=== PATIENT | female | born 1935 | race Caucasian/White ===

== ENCOUNTER 2017-10-23 19:41 | Inpatient (IN) | payer MEDICARE, OTHER ==
[2017-10-23] MEDS ORDERED: ACETAMINOPHEN 325 MG TABLET PO ONE ×2 (20:38→21:45)
[2017-10-23] MEDS ORDERED: IPRATROPIUM/ALBUTEROL 0.5-2.5 MG/3 ML AMPUL NEB ONE ×2 (20:39)
[2017-10-23] MEDS ORDERED: METHYLPREDNISOLONE INJ 125 MG/2 ML SDV IV ONE (20:39)
--- NOTE | 2017-10-23 20:43 | ER Document Report ---
ED Respiratory Problem - General Chief Complaint: Shortness Of Breath Stated Complaint: WEAK Time Seen by Provider: 10/23/17 20:40 Notes: Patient is an 82-year-old female with a history of COPD and smoking that comes emergency department for chief complaint of difficulty breathing, coughing up yellow sputum, and feeling run down for the past 2 days. She comes from home, son at bedside. Only other past medical history reported is irritable bowel. She has not had the influenza or pneumonia vaccines. She has had pneumonia in the past. TRAVEL OUTSIDE OF THE [place] IN LAST 30 DAYS: No - Related Data Allergies/Adverse Reactions: doxycycline [Doxycycline] Allergy (Mild, Verified 07/01/15 07:11) n/v Sulfa (Sulfonamide Antibiotics) Allergy (Mild, Verified 07/01/15 07:11) n/v Past Medical History - General Information source: Patient, Relative - Social History Smoking Status: Current Every Day Smoker Smoking Education Provided: Yes - <3 min Frequency of alcohol use: None Drug Abuse: None Lives with: Alone Family History: Reviewed & Not Pertinent - Past Medical History Cardiac Medical History: Denies: Hx Coronary Artery Disease, Hx Heart Attack, Hx Hypertension Pulmonary Medical History: Reports: Hx COPD Denies: Hx Asthma, Hx Bronchitis, Hx Pneumonia Neurological Medical History: Denies: Hx Cerebrovascular Accident, Hx Seizures Musculoskeltal Medical History: Reports Hx Arthritis Past Surgical History: Denies: Hx Hysterectomy, Hx Pacemaker - Immunizations Hx Diphtheria, Pertussis, Tetanus Vaccination: No Hx Pneumococcal Vaccination: 05/13/15 Review of Systems - Review of Systems Constitutional: See HPI EENT: No symptoms reported Cardiovascular: No symptoms reported Respiratory: See HPI Gastrointestinal: No symptoms reported Genitourinary: No symptoms reported Female Genitourinary: No symptoms reported Musculoskeletal: No symptoms reported Skin: No symptoms reported Hematologic/Lymphatic: No symptoms reported Neurological/Psychological: No symptoms reported Physical Exam - Vital signs Vitals: Temp Pulse Resp BP Pulse Ox 100.0 F 102 H 28 H 151/61 H 88 L 10/23/17 20:03 10/23/17 20:03 10/23/17 20:03 10/23/17 20:03 10/23/17 20:03 Interpretation: Normal - General General appearance: Alert In distress: Mild - Patient has tachypnea and labored breathing but is otherwise in no distress - HEENT Head: Normocephalic, Atraumatic Eyes: Normal Pupils: PERRL - Respiratory Respiratory status: Respiratory distress - Mild respiratory distress, Labored, Tachypnea Chest status: Nontender Breath sounds: Decreased air movement, Wheezing Chest palpation: Normal - Cardiovascular Rhythm: Regular, Tachycardia Heart sounds: Normal auscultation, S1 appreciated, S2 appreciated Murmur: No Normal capillary refill: Yes - Abdominal Inspection: Normal Distension: No distension Bowel sounds: Normal Tenderness: Nontender Organomegaly: No organomegaly - Back Back: Normal, Nontender - Extremities General upper extremity: Normal inspection, Nontender, Normal color, Normal ROM , Normal temperature General lower extremity: Normal inspection, Nontender, Normal color, Normal ROM , Normal temperature, Normal weight bearing. No: Noble's sign - Neurological Neuro grossly intact: Yes Cognition: Normal Orientation: AAOx4 Jill Coma Scale Eye Opening: Spontaneous Jill Coma Scale Verbal: Oriented Jill Coma Scale Motor: Obeys Commands Victor Coma Scale Total: 15 Speech: Normal Motor strength normal: LUE, RUE, LLE, RLE Sensory: Normal - Psychological Associated symptoms: Normal affect, Normal mood - Skin Skin Temperature: Warm Skin Moisture: Dry Skin Color: Normal Course - Re-evaluation Re-evalutation: On initial presentation patient with tachypnea, labored breathing, decreased breath sounds, expiratory wheezes, hypoxia on room air. She does not have home oxygen. Consistent with COPD exacerbation, possibly underlying pneumonia. Patient immediately placed on monitor, oxygen, given DuoNeb treatments, magnesium, Solu-Medrol, will closely reassess. On repeat evaluation patient much improved, tachypnea resolved, lung sounds much improved. Patient mildly tachycardic, not hypoxic on oxygen. CBC unremarkable, chemistry unremarkable, troponin is indeterminate similar to prior, chest x-ray shows COPD but no acute process. Venous blood gas is unremarkable. On reevaluation patient continues to be improved, she is asking to go home. We attempted to turn off the oxygen, however patient swiftly desaturated down to 85 % just while sitting. Was unable to get up and ambulate because of this. Placed back on oxygen, she slowly trended back upwards into the 90s. Discussed with her family and patient after this, will discuss with hospitalist for admission for COPD exacerbation with hypoxia. 10/23/[address] Lemon, internal medicine, patient will be admitted to telemetry observation. Patient and family state understanding and agreement. - Vital Signs Vital signs: Temp Pulse Resp BP Pulse Ox 100.0 F 102 H 24 H 153/75 H 94 10/23/17 20:03 10/23/17 20:03 10/23/17 23:00 10/23/17 20:45 10/23/17 23:00 - Laboratory Result Diagrams: 10/23/17 21:08 10/23/17 21:08 Laboratory results interpreted by me: 10/23/17 10/23/17 21:08 21:08 Lymphocytes % 9.4 L Sodium 135.1 L Est GFR ( Amer) 58 L Est GFR (Non-Af Amer) 48 L Direct Bilirubin 0.6 H Discharge - Discharge Clinical Impression: COPD exacerbation, Hypoxia, Wheezing Condition: Stable Disposition: ADMITTED OBSERVATION Admitting Provider: Hospitalist Unit Admitted: Telemetry
--- NOTE | 2017-10-23 20:59 | RADIOLOGY REPORT (SQ) ---
EXAM DESCRIPTION: CHEST SINGLE VIEW COMPLETED DATE/TIME: 10/23/2017 8:51 pm REASON FOR STUDY: productive cough, hypoxia COMPARISON: 12/08/2014 EXAM PARAMETERS: NUMBER OF VIEWS: One view. TECHNIQUE: Single frontal radiographic view of the chest acquired. RADIATION DOSE: NA LIMITATIONS: None. FINDINGS: LUNGS AND PLEURA: There is considerable lucency in the upper lobes. What appear to be chr onic interstitial changes are present in the right lower lung field. No acute infiltrate is seen. T here is no pleural effusion. MEDIASTINUM AND HILAR STRUCTURES: No masses. Contour normal. HEART AND VASCULAR STRUCTURES: Heart normal in size. Normal vasculature. BONES: No acute findings. HARDWARE: None in the chest. OTHER: No other significant finding. IMPRESSION: Pulmonary emphysema and chronic interstitial changes. TECHNICAL DOCUMENTATION: JOB ID: [id number] [employer]- All Rights Reserved Reading location - IP/workstation name: [email or web address]
[2017-10-23] MEDS: MAGNESIUM SULFATE/D5W 1 GM/100 ML RTUPB IV SCH ×2 (21:16→22:30)
[2017-10-23 21:20] LABS: ABSOLUTE BASOPHILS # (AUTO) 0.1 10^3/uL (0.0-0.2); ABSOLUTE EOSINOPHILS # (AUTO) 0.1 10^3/uL (0.0-0.6); ABSOLUTE LYMPHOCYTES (AUTO) 0.9 10^3/uL (0.5-4.7); ABSOLUTE MONOCYTES (AUTO) 1.1 10^3/uL (0.1-1.4); BASOPHILS % (AUTO) 0.8 % (0-2); EOSINOPHILS % (AUTO) 0.7 % (0-6); HEMATOCRIT 44.8 % (36.0-47.0); LYMPHOCYTES % (AUTO) 9.4 % (13-45); MEAN CORPUSCULAR HEMOGLOBIN 29.2 pg (27.0-33.4); MEAN CORPUSCULAR HGB CONC 33.5 g/dL (32.0-36.0); MEAN CORPUSCULAR VOLUME 87 fl (80-97); MONOCYTES % (AUTO) 11.9 % (3-13); PLATELET COUNT 168 10^3/uL (150-450); RED BLOOD COUNT 5.14 10^6/uL (3.72-5.28); SEGMENTED NEUTROPHILS % (AUTO) 77.2 % (42-78); TOTAL CELLS COUNTED % (AUTO) 100 %; WHITE BLOOD COUNT 9.1 10^3/uL (4.0-10.5)
[2017-10-23 21:24] LABS: VENOUS BLOOD BASE EXCESS -1.3 mmol/L; VENOUS BLOOD HCO3 25.2 mmol/L (20-32); VENOUS BLOOD PCO2 48.7 mmHg (35-63); VENOUS BLOOD PH 7.33 (7.30-7.42)
[2017-10-23 21:28] LABS: INTERNATIONAL RATION (INR) 1.01
[2017-10-23 21:40] LABS: ALANINE AMINOTRANSFERASE 32 U/L (9-52); ALBUMIN 4.3 g/dL (3.5-5.0); ALKALINE PHOSPHATASE 68 U/L (38-126); ANION GAP 9 (5-19); ASPARTATE AMINO TRANSFERASE 29 U/L (14-36); BILIRUBIN,DIRECT 0.6 mg/dL (0.0-0.4); BILIRUBIN,TOTAL 0.7 mg/dL (0.2-1.3); BLOOD UREA NITROGEN 19 mg/dL (7-20); CALCIUM 9.8 mg/dL (8.4-10.2); CARBON DIOXIDE 26 mmol/L (22-30); CHLORIDE 100 mmol/L (98-107); GLUCOSE 108 mg/dL (75-110); POTASSIUM 4.6 mmol/L (3.6-5.0); SODIUM 135.1 mmol/L (137-145); TOTAL PROTEIN 7.2 g/dL (6.3-8.2)
[2017-10-23] MEDS ORDERED: NORMAL SALINE 1000 ML 500 ML IV ONE (22:01)
[2017-10-24] MEDS ORDERED: BISACODYL 10 MG SUPP.RECT PR PRN (00:14)
[2017-10-24] MEDS ORDERED: GUAIFENESIN SYRP 200 MG/10 ML UDC PO PRN (00:15)
[2017-10-24] MEDS ORDERED: CHLORPHENIRAMINE MALEATE 4 MG TABLET PO ONE (00:15)
[2017-10-24] MEDS ORDERED: HYDRALAZINE HCL INJ/PF 20 MG/1 ML SDV IV PRN (00:15)
[2017-10-24] MEDS ORDERED: IPRATROPIUM/ALBUTEROL 0.5-2.5 MG/3 ML AMPUL NEB PRN (00:15)
[2017-10-24] MEDS ORDERED: ACETAMINOPHEN 325 MG TABLET PO PRN (00:15)
[2017-10-24] MEDS ORDERED: LACTULOSE SYRUP 20 GM/30 ML UDCUP PO ONE (00:18)
[2017-10-24] MEDS: IPRATROPIUM/ALBUTEROL 0.5-2.5 MG/3 ML AMPUL NEB SCH ×4 (02:11→20:37)
[2017-10-24] MEDS: LEVOFLOXACIN 750 MG/D5W RTU 750 MG/150 ML RTUPB IV SCH (05:00)
--- NOTE | 2017-10-24 05:39 | PDOC H&P ---
History of Present Illness Admission Date/PCP: 10/23/17 23:55 Patient complains of: Shortness of breath History of Present Illness: Paulo CORCORAN is a 82 year old female with a past medical history of COPD, chronic bronchitis and tobacco dependence. Patient presents with shortness of breath and nonproductive cough 4 days after cleaning out her garage. Patient believes dust within the garage has triggered her symptoms., Patient denies recent change in medications or infectious contacts, no GERD or chest pain. In the emergency room she has an unremarkable workup but is found to have oxygen saturations of 85% on room air and coarse breath sounds. She started on albuterol and Atrovent supplemental oxygen refer to the hospitalist for admission. Past Medical History Cardiac Medical History: Denies: Coronary Artery Disease, Myocardial Infarction, Hypertension Pulmonary Medical History: Reports: Chronic Obstructive Pulmonary Disease (COPD) Denies: Asthma, Bronchitis, Pneumonia Neurological Medical History: Denies: Seizures Musculoskeltal Medical History: Reports: Arthritis Psychiatric Medical History: Reports: Tobacco Dependency Hematology: Reports: Anemia Past Surgical History Past Surgical History: Denies: Hysterectomy, Pacemaker Social History Information Source: Patient Lives with: Alone Smoking Status: Current Every Day Smoker Frequency of Alcohol Use: Occasional Hx Recreational Drug Use: No Hx Prescription Drug Abuse: No - Advance Directive Resuscitation Status: Full Code Family History Family History: COPD, Other Parental Family History Reviewed: Yes Children Family History Reviewed: Yes Sibling(s) Family History Reviewed.: Yes Medication/Allergy Home Medications: Cholecalciferol (Vitamin D3) [Vitamin D] 1,000 unit PO DAILY 12/08/14 Albuterol Sulfate [Proair HFA Inhalation Aerosol 8.5 gm MDI] 2 puff IH Q6HP PRN #1 hfa.aer.ad 12/12/14 Aspirin [Aspirin 81 mg Chewable Tablet] 81 mg PO DAILY #0 tab.chew 12/12/14 Bisacodyl [Dulcolax 10 mg Supp.rect] 10 mg NV DAILYP PRN #30 supp.rect 12/12/14 Mv-Min/FA/Vit K/Lycop/Lut/Zeax [Ocuvite Eye + Multi Tablet] 1 each PO DAILY Allergies/Adverse Reactions: doxycycline [Doxycycline] Allergy (Mild, Verified 07/01/15 07:11) n/v Sulfa (Sulfonamide Antibiotics) Allergy (Mild, Verified 07/01/15 07:11) n/v Review of Systems Constitutional: ABSENT: chills, fever(s), headache(s), weight gain, weight loss Eyes: ABSENT: visual disturbances Ears: ABSENT: hearing changes Cardiovascular: ABSENT: chest pain, dyspnea on exertion, edema, orthropnea, palpitations Respiratory: ABSENT: cough, hemoptysis Gastrointestinal: PRESENT: constipation. ABSENT: abdominal pain, diarrhea, hematemesis, hematochezia, nausea, vomiting Genitourinary: ABSENT: dysuria, hematuria Musculoskeletal: ABSENT: joint swelling Integumentary: ABSENT: rash, wounds Neurological: ABSENT: abnormal gait, abnormal speech, confusion, dizziness, focal weakness, syncope Psychiatric: ABSENT: anxiety, depression, homidical ideation, suicidal ideation Endocrine: ABSENT: cold intolerance, heat intolerance, polydipsia, polyuria Hematologic/Lymphatic: ABSENT: easy bleeding, easy bruising Physical Exam Vital Signs: Temp Pulse Resp BP Pulse Ox 100.0 F 80 16 153/75 H 95 10/23/17 20:03 10/24/17 02:11 10/24/17 02:11 10/23/17 20:45 10/24/17 02:11 General appearance: PRESENT: cooperative, mild distress, thin Head exam: PRESENT: atraumatic, normocephalic Eye exam: PRESENT: conjunctiva pink, EOMI, PERRLA. ABSENT: scleral icterus Ear exam: PRESENT: normal external ear exam Mouth exam: PRESENT: moist, tongue midline Neck exam: ABSENT: carotid bruit, JVD, lymphadenopathy, thyromegaly Respiratory exam: PRESENT: accessory muscle use, clear to auscultation cheri, decreased breath sounds, prolonged expiratory phas, retraction, symmetrical, tachypnea. ABSENT: rales, rhonchi, wheezes Cardiovascular exam: PRESENT: RRR. ABSENT: diastolic murmur, rubs, systolic murmur Pulses: PRESENT: normal dorsalis pedis pul Vascular exam: PRESENT: normal capillary refill GI/Abdominal exam: PRESENT: normal bowel sounds, soft. ABSENT: distended, guarding, mass, organolmegaly, rebound, tenderness Rectal exam: PRESENT: deferred Extremities exam: PRESENT: full ROM. ABSENT: calf tenderness, clubbing, pedal edema Neurological exam: PRESENT: alert, awake, oriented to person, oriented to place , oriented to time, oriented to situation, CN II-XII grossly intact. ABSENT: motor sensory deficit Psychiatric exam: PRESENT: appropriate affect, normal mood. ABSENT: homicidal ideation, suicidal ideation Skin exam: PRESENT: dry, intact, warm. ABSENT: cyanosis, rash Results Impressions: Chest X-Ray 10/23/17 20:39 IMPRESSION: Pulmonary emphysema and chronic interstitial changes. Assessment & Plan - Diagnosis (1) COPD exacerbation Is this a current diagnosis for this admission?: Yes Plan: Secondary to bronchitis. Observation on a monitored bed, flutter valve, supplemental oxygen, empiric antibiotic, albuterol and Atrovent, consider prednisone. (2) Hypoxia Is this a current diagnosis for this admission?: Yes Plan: Supplemental oxygen, incentive spirometry. (3) Tobacco abuse Is this a current diagnosis for this admission?: Yes Plan: Tobacco Dependence patient received tobacco cessation counseling and offered nicotine replacement options (4) Acute exacerbation of chronic bronchitis Is this a current diagnosis for this admission?: Yes Plan: Please see #1 - Time Time Spent: 30 to 50 Minutes
[2017-10-24] MEDS: HEPARIN SOD (PORCINE) 5,000 UNIT/ML 1 ML SYRINGE SUBCUT SCH ×3 (05:55→22:16)
--- NOTE | 2017-10-24 08:18 | EKG REPORT ---
SEVERITY:- ABNORMAL ECG - SINUS RHYTHM BORDERLINE INFERIOR Q WAVES NONSPECIFIC ST-T CHANGES- INFERIOR-LATERAL LEADS : Confirmed by: Krishna Reina MD 24-Oct-2017 08:17:26
[2017-10-24] MEDS ORDERED: [UNRECOGNIZED DRUG - OTHER] PO SCH (10:00)
[2017-10-24] MEDS ORDERED: CHOLECALCIFEROL 1000 UNIT PO SCH (10:00)
[2017-10-24] MEDS ORDERED: INFLUENZA ADLT QUAD (36MOS+) 2017-18 VAC 0.5 ML SYR IM PRN (15:28)
[2017-10-24] MEDS: PSYLLIUM SEED-SF 5.85 GM PACKET PO SCH (16:38)
[2017-10-24] MEDS: CHOLECALCIFEROL (D3) 1,000 UNIT TABLET PO SCH (16:40)
[2017-10-24] MEDS: METHYLPREDNISOLONE INJ 40 MG/1 ML SDV IV SCH ×2 (16:40→22:16)
[2017-10-24] MEDS: ASPIRIN 81 MG TABLET, CHEWABLE PO SCH (16:41)
[2017-10-24] MEDS: FLUTICASONE NASAL SPRAY 50 MCG/SPRY 120 SPRAY/16 GM NASL SCH ×2 (16:41→22:16)
--- NOTE | 2017-10-24 17:52 | PDOC PROGRESS REPORT ---
Subjective Progress Note for:: 10/24/17 Subjective:: The patient is an 82-year-old female with past medical history of COPD and continuous tobacco dependence who was admitted on 10/23/17 for a COPD exacerbation. She is seen on morning rounds. She is found still in the emergency department sitting up to the edge of the stretcher on supplemental oxygen at 3 L/min. The patient is not home O2 dependent. She states that she felt like she was improving overnight but she has worsened this morning. She complains of continued dyspnea with minimal activity and productive cough. She denies chest pain, palpitations, and orthopnea. She has no other questions or concerns at this time. Reason For Visit: ACUTE BRONCHITIS, COPD EXACERBATION, TOBACCO Physical Exam Vital Signs: Temp Pulse Resp BP Pulse Ox 98.5 F 91 16 118/70 99 10/24/17 15:41 10/24/17 15:41 10/24/17 15:41 10/24/17 15:41 10/24/17 17:06 Intake & Output 10/23/17 10/24/17 10/25/17 06:59 06:59 06:59 Weight 65.4 kg General appearance: PRESENT: no acute distress, well-developed, well-nourished Head exam: PRESENT: atraumatic, normocephalic Eye exam: PRESENT: conjunctiva pink, EOMI, PERRLA. ABSENT: scleral icterus Ear exam: PRESENT: normal external ear exam Mouth exam: PRESENT: moist, tongue midline Neck exam: ABSENT: carotid bruit, JVD, lymphadenopathy, thyromegaly Respiratory exam: PRESENT: prolonged expiratory phas, symmetrical, unlabored, other. ABSENT: rales, rhonchi, wheezes Cardiovascular exam: PRESENT: RRR, +S1, +S2 - Supplemental oxygen via nasal cannula 3 L/min, tachycardia. ABSENT: diastolic murmur, rubs, systolic murmur Pulses: PRESENT: normal dorsalis pedis pul Vascular exam: PRESENT: normal capillary refill GI/Abdominal exam: PRESENT: normal bowel sounds, soft. ABSENT: distended, guarding, mass, organolmegaly, rebound, tenderness Rectal exam: PRESENT: deferred Extremities exam: PRESENT: full ROM. ABSENT: calf tenderness, clubbing, pedal edema Neurological exam: PRESENT: alert, awake, oriented to person, oriented to place , oriented to time, oriented to situation, CN II-XII grossly intact. ABSENT: motor sensory deficit Psychiatric exam: PRESENT: appropriate affect, normal mood. ABSENT: homicidal ideation, suicidal ideation Skin exam: PRESENT: dry, intact, warm. ABSENT: cyanosis, rash Results Laboratory Results: 10/24/17 10/24/17 10:16 15:48 Troponin I 0.017 0.014 Impressions: Chest X-Ray 10/23/17 20:39 IMPRESSION: Pulmonary emphysema and chronic interstitial changes. Assessment & Plan - Diagnosis (1) Acute respiratory failure with hypoxia Is this a current diagnosis for this admission?: Yes Plan: The patient was admitted for acute respiratory failure with hypoxia secondary to a COPD exacerbation evidenced by room air oxygen saturation of 85% while in the emergency department with tachycardia and tachypnea. The patient is now oxygen dependent but did not previously require home O2. Blood cultures are pending. Admitted on continuous cardiac telemetry Supplemental oxygen as needed to maintain oxygen saturations greater than 88% The patient has been empirically placed on Levaquin. She is provided scheduled and as needed nebulizer treatments. Continue IV Solu-Medrol 40 mg every 8 hours. Mucinex 600 mg twice daily. Incentive spirometry and flutter valve to bedside. (2) COPD exacerbation Is this a current diagnosis for this admission?: Yes Plan: Plan as above. (3) Tobacco abuse Is this a current diagnosis for this admission?: Yes Plan: Smoking cessation is encouraged and nicotine replacement therapies have been offered. (4) Chronic constipation Is this a current diagnosis for this admission?: Yes Plan: Will continue the patient's home medications. - Time Time Spent with patient: 25-34 minutes Medications reviewed and adjusted accordingly: Yes Anticipated discharge: Home Within: within 48 hours - Inpatient Certification Based on my medical assessment, after consideration of the patient's comorbidities, presenting symptoms, or acuity I expect that the services needed warrant INPATIENT care.: Yes I certify that my determination is in accordance with my understanding of Medicare's requirements for reasonable and necessary INPATIENT services [42 CFR 412.3e].: Yes Medical Necessity: Need for Nebulizer Therapy and Monitoring of Response
[2017-10-24] MEDS: GUAIFENESIN 600 MG TABLET.SA PO SCH (22:16)
[2017-10-25] MEDS: IPRATROPIUM/ALBUTEROL 0.5-2.5 MG/3 ML AMPUL NEB SCH ×4 (02:10→20:11)
[2017-10-25] MEDS: HEPARIN SOD (PORCINE) 5,000 UNIT/ML 1 ML SYRINGE SUBCUT SCH ×3 (06:38→23:32)
[2017-10-25] MEDS: METHYLPREDNISOLONE INJ 40 MG/1 ML SDV IV SCH (06:38)
[2017-10-25 06:47] LABS: HEMATOCRIT 42.7 % (36.0-47.0); MEAN CORPUSCULAR HEMOGLOBIN 28.9 pg (27.0-33.4); MEAN CORPUSCULAR HGB CONC 32.8 g/dL (32.0-36.0); MEAN CORPUSCULAR VOLUME 88 fl (80-97); RED BLOOD COUNT 4.85 10^6/uL (3.72-5.28); RED CELL DISTRIBUTION WIDTH 13.9 % (11.5-14.0); WHITE BLOOD COUNT 13.8 10^3/uL (4.0-10.5)
[2017-10-25 06:53] LABS: ANION GAP 13 (5-19); BLOOD UREA NITROGEN 28 mg/dL (7-20); CALCIUM 9.8 mg/dL (8.4-10.2); CARBON DIOXIDE 24 mmol/L (22-30); CHLORIDE 99 mmol/L (98-107); GLUCOSE 145 mg/dL (75-110); POTASSIUM 4.3 mmol/L (3.6-5.0); SODIUM 135.6 mmol/L (137-145)
[2017-10-25 07:27] LABS: PLATELET COUNT 123 10^3/uL (150-450)
[2017-10-25] MEDS: GUAIFENESIN 600 MG TABLET.SA PO SCH ×2 (09:37→23:32)
[2017-10-25] MEDS: ASPIRIN 81 MG TABLET, CHEWABLE PO SCH (09:38)
[2017-10-25] MEDS: CHOLECALCIFEROL (D3) 1,000 UNIT TABLET PO SCH (09:38)
[2017-10-25] MEDS: FLUTICASONE NASAL SPRAY 50 MCG/SPRY 120 SPRAY/16 GM NASL SCH ×2 (09:40→23:32)
[2017-10-25] MEDS: PSYLLIUM SEED-SF 5.85 GM PACKET PO SCH (09:41)
--- NOTE | 2017-10-25 12:27 | PDOC PROGRESS REPORT ---
Subjective Progress Note for:: 10/25/17 Subjective:: The patient is an 82-year-old female with past medical history of COPD and continuous tobacco dependence who was admitted on 10/23/17 for a COPD exacerbation. She is seen on morning rounds. She is found sitting up to the edge of the bed on supplemental oxygen at 2 L/min. The patient states that she feels much better today. She reports that her dyspnea at rest has entirely resolved and she has been ambulatory to the restroom while on supplemental oxygen without difficulty. She does continue to have a productive cough. She is hopeful that she will be ready to be discharged tomorrow. She has no other questions or concerns. Reason For Visit: ACUTE RESOIRATORY FAILURE WITH HYPOXIA Physical Exam Vital Signs: Temp Pulse Resp BP Pulse Ox 98.8 F 90 22 H 145/63 H 98 10/25/17 07:47 10/25/17 09:09 10/25/17 09:09 10/25/17 07:47 10/25/17 09:09 Intake & Output 10/24/17 10/25/17 10/26/17 06:59 06:59 06:59 Intake Total 874 Balance 874 Weight 66.8 kg General appearance: PRESENT: no acute distress, well-developed, well-nourished Head exam: PRESENT: atraumatic, normocephalic Eye exam: PRESENT: conjunctiva pink, EOMI, PERRLA. ABSENT: scleral icterus Ear exam: PRESENT: normal external ear exam Mouth exam: PRESENT: moist, tongue midline Neck exam: ABSENT: carotid bruit, JVD, lymphadenopathy, thyromegaly Respiratory exam: PRESENT: clear to auscultation cheri, decreased breath sounds - Bibasilar, symmetrical, unlabored. ABSENT: rales, rhonchi, wheezes Cardiovascular exam: PRESENT: RRR, +S1, +S2. ABSENT: diastolic murmur, rubs, systolic murmur Pulses: PRESENT: normal dorsalis pedis pul Vascular exam: PRESENT: normal capillary refill GI/Abdominal exam: PRESENT: normal bowel sounds, soft. ABSENT: distended, guarding, mass, organolmegaly, rebound, tenderness Rectal exam: PRESENT: deferred Extremities exam: PRESENT: full ROM. ABSENT: calf tenderness, clubbing, pedal edema Neurological exam: PRESENT: alert, awake, oriented to person, oriented to place , oriented to time, oriented to situation, CN II-XII grossly intact. ABSENT: motor sensory deficit Psychiatric exam: PRESENT: appropriate affect, normal mood. ABSENT: homicidal ideation, suicidal ideation Skin exam: PRESENT: dry, intact, warm. ABSENT: cyanosis, rash Results Laboratory Results: 10/25/17 05:57 10/25/17 05:57 10/25/17 10/25/17 05:57 05:57 WBC 13.8 H RBC 4.85 Hgb 14.0 Hct 42.7 MCV 88 MCH 28.9 MCHC 32.8 RDW 13.9 Plt Count 123 L Sodium 135.6 L Potassium 4.3 Chloride 99 Carbon Dioxide 24 Anion Gap 13 BUN 28 H Creatinine 0.98 Est GFR ( Amer) > 60 Est GFR (Non-Af Amer) 54 L Glucose 145 H Calcium 9.8 10/24/17 15:48 Troponin I 0.014 Impressions: Chest X-Ray 10/23/17 20:39 IMPRESSION: Pulmonary emphysema and chronic interstitial changes. Assessment & Plan - Diagnosis (1) Acute respiratory failure with hypoxia Is this a current diagnosis for this admission?: Yes Plan: Improved. Blood cultures: No growth at 24 hours. Admitted on continuous cardiac telemetry Supplemental oxygen as needed to maintain oxygen saturations greater than 88%; will ask nursing to attempt to wean oxygen today. Will continue p.o. Levaquin. She is provided scheduled and as needed nebulizer treatments. Will begin to wean steroids today. Mucinex 600 mg twice daily. Incentive spirometry and flutter valve to bedside. (2) COPD exacerbation Is this a current diagnosis for this admission?: Yes Plan: Plan as above. (3) Tobacco abuse Is this a current diagnosis for this admission?: Yes Plan: Smoking cessation is encouraged and nicotine replacement therapies have been offered. (4) Chronic constipation Is this a current diagnosis for this admission?: Yes Plan: Will continue the patient's home medications. - Time Time Spent with patient: 15-24 minutes Medications reviewed and adjusted accordingly: Yes Anticipated discharge: Home Within: within 24 hours
[2017-10-25] MEDS ORDERED: METHYLPREDNISOLONE INJ 40 MG/1 ML SDV IV SCH (22:00)
[2017-10-25] MEDS: LEVOFLOXACIN 750 MG/D5W RTU 750 MG/150 ML RTUPB IV SCH (23:32)
[2017-10-26] MEDS: IPRATROPIUM/ALBUTEROL 0.5-2.5 MG/3 ML AMPUL NEB SCH ×4 (02:31→20:48)
[2017-10-26] MEDS: HEPARIN SOD (PORCINE) 5,000 UNIT/ML 1 ML SYRINGE SUBCUT SCH ×3 (06:31→22:09)
[2017-10-26 06:33] LABS: MEAN CORPUSCULAR HGB CONC 33.2 g/dL (32.0-36.0); MEAN CORPUSCULAR VOLUME 87 fl (80-97); PLATELET COUNT 207 10^3/uL (150-450); RED BLOOD COUNT 4.81 10^6/uL (3.72-5.28); RED CELL DISTRIBUTION WIDTH 13.9 % (11.5-14.0)
[2017-10-26 06:44] LABS: ANION GAP 7 (5-19); BLOOD UREA NITROGEN 27 mg/dL (7-20); CALCIUM 9.9 mg/dL (8.4-10.2); CARBON DIOXIDE 26 mmol/L (22-30); CHLORIDE 103 mmol/L (98-107); GLUCOSE 130 mg/dL (75-110); POTASSIUM 4.6 mmol/L (3.6-5.0); SODIUM 136.1 mmol/L (137-145)
--- NOTE | 2017-10-26 09:36 | Physician Advisory Note ---
Physician Advisor ProgressNote .: Pursuant to the plan for [facility], I have reviewed the medical record for this patient. Physician Advisor Statement: Please continue to document "Acute Bronchitis" dx, to explain reason for abx. Also, it will help the Performance Improvement staff save chart review time if you state explicitly that "this pt did not have sepsis this admission" (or else state that she did, with associated underlying infxn, whether POA, the sepsis criteria used for dx, & any evidence of associated acute organ dysfunction). Thanks! CK
[2017-10-26] MEDS ORDERED: PREDNISONE 20 MG TABLET PO SCH (10:00)
[2017-10-26] MEDS: CHOLECALCIFEROL (D3) 1,000 UNIT TABLET PO SCH (10:13)
[2017-10-26] MEDS: GUAIFENESIN 600 MG TABLET.SA PO SCH ×2 (10:13→22:09)
[2017-10-26] MEDS: ASPIRIN 81 MG TABLET, CHEWABLE PO SCH (10:14)
[2017-10-26] MEDS: FLUTICASONE NASAL SPRAY 50 MCG/SPRY 120 SPRAY/16 GM NASL SCH ×2 (10:14→22:09)
[2017-10-26] MEDS: PSYLLIUM SEED-SF 5.85 GM PACKET PO SCH (10:15)
--- NOTE | 2017-10-26 18:29 | PDOC PROGRESS REPORT ---
Subjective Progress Note for:: 10/26/17 Subjective:: The patient is an 82-year-old female with past medical history of COPD and continuous tobacco dependence who was admitted on 10/23/17 for a COPD exacerbation. She is seen on morning rounds. She is found sitting up to the edge of the bed on supplemental oxygen at 2 L/min. The patient states that she feels worse than the day that she was admitted. She states that she is having significant dyspnea with ambulating just a few feet while on oxygen. She does not understand why she is not getting better. She is very frustrated by this apparent setback. I personally checked her resting room air sat and found it to be 94% with a heart rate in the mid 90s. We ambulated approximately 100 feet; her room air ambulating saturation dropped to 89% she became tachycardic at 103. She was noted to have increased tachypnea and work of breathing. She was replaced on oxygen with prompt resolution of her symptoms. She has no other questions or concerns. Reason For Visit: ACUTE RESOIRATORY FAILURE WITH HYPOXIA Physical Exam Vital Signs: Temp Pulse Resp BP Pulse Ox 98.4 F 91 18 129/54 H 95 10/26/17 15:38 10/26/17 15:38 10/26/17 15:38 10/26/17 15:38 10/26/17 15:38 Intake & Output 10/25/17 10/26/17 10/27/17 06:59 06:59 06:59 Intake Total 874 660 556 Balance 874 660 556 Weight 66.8 kg 67.5 kg General appearance: PRESENT: no acute distress, cooperative, well-developed, well-nourished Head exam: PRESENT: atraumatic, normocephalic Eye exam: PRESENT: conjunctiva pink, EOMI, PERRLA. ABSENT: scleral icterus Ear exam: PRESENT: normal external ear exam Mouth exam: PRESENT: moist, tongue midline Neck exam: ABSENT: carotid bruit, JVD, lymphadenopathy, thyromegaly Respiratory exam: PRESENT: prolonged expiratory phas, symmetrical, unlabored, wheezes - Improved. ABSENT: rales, rhonchi Cardiovascular exam: PRESENT: RRR, +S1, +S2. ABSENT: diastolic murmur, rubs, systolic murmur Pulses: PRESENT: normal dorsalis pedis pul Vascular exam: PRESENT: normal capillary refill GI/Abdominal exam: PRESENT: normal bowel sounds, soft. ABSENT: distended, guarding, mass, organolmegaly, rebound, tenderness Rectal exam: PRESENT: deferred Extremities exam: PRESENT: full ROM. ABSENT: calf tenderness, clubbing, pedal edema Neurological exam: PRESENT: alert, awake, oriented to person, oriented to place , oriented to time, oriented to situation, CN II-XII grossly intact. ABSENT: motor sensory deficit Psychiatric exam: PRESENT: appropriate affect, normal mood. ABSENT: homicidal ideation, suicidal ideation Skin exam: PRESENT: dry, intact, warm. ABSENT: cyanosis, rash Results Laboratory Results: 10/26/17 06:05 10/26/17 06:05 10/26/17 10/26/17 06:05 06:05 WBC 12.0 H RBC 4.81 Hgb 14.0 Hct 42.0 MCV 87 MCH 29.0 MCHC 33.2 RDW 13.9 Plt Count 207 Sodium 136.1 L Potassium 4.6 Chloride 103 Carbon Dioxide 26 Anion Gap 7 BUN 27 H Creatinine 0.95 Est GFR ( Amer) > 60 Est GFR (Non-Af Amer) 56 L Glucose 130 H Calcium 9.9 10/24/17 15:48 Troponin I 0.014 Impressions: Chest X-Ray 10/23/17 20:39 IMPRESSION: Pulmonary emphysema and chronic interstitial changes. Assessment & Plan - Diagnosis (1) Acute respiratory failure with hypoxia Is this a current diagnosis for this admission?: Yes Plan: Continued improved. Blood cultures: No growth at 48 hours. Admitted on continuous cardiac telemetry Supplemental oxygen as needed to maintain oxygen saturations greater than 88%. Will continue p.o. Levaquin. She is provided scheduled and as needed nebulizer treatments. Continue prednisone. Mucinex 600 mg twice daily. Incentive spirometry and flutter valve to bedside. Patient appears to be nearing discharge; hopefully will be able to maintain oxygen saturations well enough to ambulate short distances. The patient does not have home O2 or a nebulizer machine at home and may require these for discharge. (2) Acute bronchitis Is this a current diagnosis for this admission?: Yes Plan: Continue Levaquin; this is day 3 of therapy. Remaining plan as above. (3) COPD exacerbation Is this a current diagnosis for this admission?: Yes Plan: Plan as above. (4) Tobacco abuse Is this a current diagnosis for this admission?: Yes Plan: Smoking cessation is encouraged and nicotine replacement therapies have been offered. (5) Chronic constipation Is this a current diagnosis for this admission?: Yes Plan: Will continue the patient's home medications. - Time Time Spent with patient: 35 or more minutes Medications reviewed and adjusted accordingly: Yes Anticipated discharge: Home Within: within 24 hours - Inpatient Certification Based on my medical assessment, after consideration of the patient's comorbidities, presenting symptoms, or acuity I expect that the services needed warrant INPATIENT care.: Yes I certify that my determination is in accordance with my understanding of Medicare's requirements for reasonable and necessary INPATIENT services [42 CFR 412.3e].: Yes Medical Necessity: Need for Nebulizer Therapy and Monitoring of Response
[2017-10-26] MEDS: LEVOFLOXACIN 750 MG/D5W RTU 750 MG/150 ML RTUPB IV SCH (22:09)
[2017-10-27] MEDS: IPRATROPIUM/ALBUTEROL 0.5-2.5 MG/3 ML AMPUL NEB SCH ×4 (02:33→19:57)
[2017-10-27 04:12] LABS: ARTERIAL BLOOD BASE EXCESS -1.9 mmol/L; ARTERIAL BLOOD H2CO3 2.88 mmol/L (1.05-1.35); ARTERIAL BLOOD HCO3 30.8 mmol/L (20-26); ARTERIAL BLOOD O2 SATURATION 48.7 % (94-98); ARTERIAL BLOOD TOTAL CO2 33.8 mmol/L (21-25)
[2017-10-27 04:14] LABS: ARTERIAL BLOOD FIO2 4L
[2017-10-27 04:16] LABS: ARTERIAL BLOOD PCO2 95.7 mmHg (35-45); ARTERIAL BLOOD PH 7.13 (7.35-7.45); ARTERIAL BLOOD PO2 35.5 mmHg (80-100)
[2017-10-27] MEDS ORDERED: LORAZEPAM INJ 2 MG/1 ML VIAL ONE (04:32)
[2017-10-27] MEDS ORDERED: METHYLPREDNISOLONE INJ 125 MG/2 ML SDV ONE (04:36)
[2017-10-27] MEDS ORDERED: DILTIAZEM HCL INJ 25 MG/5 ML VIAL ONE (04:36)
[2017-10-27] MEDS ORDERED: FUROSEMIDE INJ/PF 20 MG/2 ML SDV ONE ×2 (04:36)
[2017-10-27 04:40] LABS: HEMATOCRIT 47.4 % (36.0-47.0); HEMOGLOBIN 15.1 g/dL (12.0-15.5); MEAN CORPUSCULAR HEMOGLOBIN 28.4 pg (27.0-33.4); MEAN CORPUSCULAR HGB CONC 31.9 g/dL (32.0-36.0); MEAN CORPUSCULAR VOLUME 89 fl (80-97); PLATELET COUNT 195 10^3/uL (150-450); RED BLOOD COUNT 5.33 10^6/uL (3.72-5.28); RED CELL DISTRIBUTION WIDTH 14.5 % (11.5-14.0); WHITE BLOOD COUNT 15.3 10^3/uL (4.0-10.5)
[2017-10-27] MEDS ORDERED: DILTIAZEM HCL/D5W 125 MG/125 ML RTUINJ IV PRN (04:54)
[2017-10-27 05:04] LABS: ANION GAP 13 (5-19); BLOOD UREA NITROGEN 28 mg/dL (7-20); CALCIUM 10.5 mg/dL (8.4-10.2); CARBON DIOXIDE 25 mmol/L (22-30); CHLORIDE 103 mmol/L (98-107); CREATINE KINASE 405 U/L (30-135); GLUCOSE 233 mg/dL (75-110); POTASSIUM 4.9 mmol/L (3.6-5.0); SODIUM 141.1 mmol/L (137-145)
--- NOTE | 2017-10-27 05:09 | RADIOLOGY REPORT (SQ) ---
EXAM DESCRIPTION: CHEST SINGLE VIEW CLINICAL HISTORY: 82 years Female, SOB COMPARISON: 10/23/17. NUMBER OF VIEWS/TECHNIQUE: 1/AP LIMITATIONS: None. FINDINGS: Mild interstitial markings with lower predominance, hyperinflation, normal cardiac silhouette, atherosclerosis, and left axillary clips. No pneumothorax. No acute bone defect. IMPRESSION: No significant change.
[2017-10-27] MEDS ORDERED: METHYLPREDNISOLONE INJ 125 MG/2 ML SDV IV STA (05:11)
[2017-10-27] MEDS ORDERED: FUROSEMIDE INJ/PF 20 MG/2 ML SDV IV STA (05:12)
[2017-10-27 05:15] LABS: CREATINE KINASE MB 11.4 ng/mL (<4.55); TROPONIN I 0.022 ng/mL
[2017-10-27] MEDS ORDERED: HYDROMORPHONE HCL INJ/PF 2 MG/ML AMPULE IV ONE (05:15)
[2017-10-27] MEDS ORDERED: DILTIAZEM HCL INJ 25 MG/5 ML VIAL IV ONE (05:15)
[2017-10-27] MEDS ORDERED: LORAZEPAM INJ 2 MG/1 ML VIAL IV ONE (05:15)
[2017-10-27] MEDS ORDERED: LACTULOSE SYRUP 20 GM/30 ML UDCUP PO ONE (05:17)
[2017-10-27] MEDS ORDERED: FENTANYL CITRATE INJ/PF 100 MCG/2 ML AMPUL IV PRN (05:18)
[2017-10-27] MEDS ORDERED: PROPOFOL 100 ML IV ONE (05:28)
[2017-10-27] MEDS ORDERED: PROPOFOL INJ 200 MG/20 ML VIAL IV ONE (05:45)
[2017-10-27] MEDS: MIDAZOLAM HCL 50 MG/100 ML RTUINJ IV PRN ×4 (05:45→21:47)
[2017-10-27] MEDS ORDERED: FENTANYL CITRATE INJ/PF 100 MCG/2 ML AMPUL ONE (06:01)
--- NOTE | 2017-10-27 06:11 | RADIOLOGY REPORT (SQ) ---
EXAM DESCRIPTION: CHEST SINGLE VIEW CLINICAL HISTORY: 82 years Female, intubated COMPARISON: 10/27/17. NUMBER OF VIEWS/TECHNIQUE: 1/AP LIMITATIONS: None. FINDINGS: Mild interstitial markings, normal cardiac silhouette, interval intubation with endotracheal tube tip 4.4 cm from the demetria, likely adequate enteric tube obscured distally, left axillary clips. No pneumothorax. No acute bone defect. IMPRESSION: Interval intubation.
[2017-10-27] MEDS ORDERED: MIDAZOLAM HCL 50 MG/100 ML RTUINJ IV ONE (06:15)
--- NOTE | 2017-10-27 07:09 | RADIOLOGY REPORT (SQ) ---
EXAM DESCRIPTION: CTA CHEST CLINICAL HISTORY: 82 years Female, hypoxia acute resp failure COMPARISON: CR, same day. TECHNIQUE: 65 mL Isovue-370 IV contrast. Multiplanar reformat. This exam was performed according to our departmental dose-optimization program, which includes automated exposure control, adjustment of the mA and/or kV according to patient size and/or use of iterative reconstruction technique. FINDINGS: No pulmonary embolus. No right ventricular strain. Mild mediastinal and right hilar lymphadenopathy, nonspecific. Minimal lingular scar-fibrosis. Moderate centrilobular emphysema with upper lobe predominance. Left axillary clips. Cholecystectomy clips. Moderate fat replacement of the pancreas. Left mastectomy. Adequate appearing endotracheal tube and enteric tube. Atherosclerosis. [id number] L2 anterior vertebral compression deformity. Inferior neck, axillae, mediastinum, lungs, airway, lymphatics, heart, vasculature, upper abdomen, and musculoskeleton appear otherwise unremarkable. Impression: Mild mediastinal and right hilar lymphadenopathy, nonspecific. Minimal lingular scarring/fibrosis pattern. No pulmonary embolus. Lines and tubes.
[2017-10-27 08:07] LABS: ARTERIAL BLOOD FIO2 60%; ARTERIAL BLOOD H2CO3 2.23 mmol/L (1.05-1.35); ARTERIAL BLOOD HCO3 26.4 mmol/L (20-26); ARTERIAL BLOOD O2 SATURATION 99.4 % (94-98); ARTERIAL BLOOD PO2 254.6 mmHg (80-100); ARTERIAL BLOOD TOTAL CO2 28.6 mmol/L (21-25)
[2017-10-27] MEDS ORDERED: ALBUTEROL SULFATE 0.083% NEB 2.5 MG/3 ML AMPUL NEB PRN (08:07)
[2017-10-27 08:10] LABS: ARTERIAL BLOOD PCO2 74.1 mmHg (35-45); ARTERIAL BLOOD PH 7.17 (7.35-7.45)
[2017-10-27] MEDS ORDERED: CARBOXYMETHYLCELLULOSE SOD 0.5% 0.4 ML DROPERETTE OU PRN (08:36)
[2017-10-27] MEDS ORDERED: INSULIN LISPRO 100 UNIT/ML 3 ML VIAL SUBCUT PRN (08:39)
[2017-10-27] MEDS ORDERED: DEXTROSE 50%-WATER 25 GM/50 ML DISP.SYRIN IV PRN ×2 (08:39)
[2017-10-27] MEDS ORDERED: DEXTROSE 40% GEL 15 GM TUBE PO PRN ×2 (08:39)
[2017-10-27] MEDS ORDERED: GLUCAGON,HUMAN RECOMB 1 MG INJ IM PRN (08:39)
[2017-10-27] MEDS ORDERED: ALBUTEROL SULFATE 0.083% NEB 2.5 MG/3 ML AMPUL NEB ONE (08:45)
--- NOTE | 2017-10-27 09:41 | RADIOLOGY REPORT (SQ) ---
EXAM DESCRIPTION: CT HEAD WITHOUT COMPLETED DATE/TIME: 10/27/2017 9:33 am REASON FOR STUDY: AMS, Acute resp failure, ? CVA J96.00 ACUTE RESPIRATORY FAILURE, UNSP W HYPOXIA O R HYPERCAP COMPARISON: None. TECHNIQUE: Axial images acquired through the brain without intravenous contrast. Images reviewed wi th bone, brain and subdural windows. Images stored on PACS. All CT scanners at this facility use dose modulation, iterative reconstruction, and/or weight based d osing when appropriate to reduce radiation dose to as low as reasonably achievable (ALARA). [facility]: Dose Right [facility]: CareDose [facility]: Dose Right [facility]: Teradose 4D [facility]: Thinker Thing RADIATION DOSE: mGy. LIMITATIONS: Residual contrast from chest CT previous day. Patient motion artifact. FINDINGS: VENTRICLES: Prominent. CEREBRUM: No masses. No hemorrhage. No midline shift. Areas of low density in the white matter mos t likely due to chronic micro-vascular ischemic change. No evidence for acute infarction. CEREBELLUM: No masses. No hemorrhage. No alteration of density. No evidence for acute infarction. EXTRAAXIAL SPACES: Mild age-related involutional change. No fluid collections. No masses. ORBITS AND GLOBE: No intra- or extraconal masses. Normal contour of globe without masses. CALVARIUM: No fracture. PARANASAL SINUSES: No fluid or mucosal thickening. SOFT TISSUES: No mass or hematoma. OTHER: No other significant finding. IMPRESSION: MILD CHRONIC CHANGES OF ATROPHY AND MICROVASCULAR ISCHEMIA. NO ACUTE PROCESS. EVIDENCE OF ACUTE STROKE: NO. TECHNICAL DOCUMENTATION: JOB ID: [id number] Quality ID # [id number]: Final reports with documentation of one or more dose reduction techniques (e.g., Au tomated exposure control, adjustment of the mA and/or kV according to patient size, use of iterative reconstruction technique) 2010 [employer]- All Rights Reserved Reading location - IP/workstation name: [email or web address]
--- NOTE | 2017-10-27 09:49 | EKG REPORT ---
SEVERITY:- ABNORMAL ECG - SINUS TACHYCARDIA RUN OF VENTRICULAR PREMATURE COMPLEXES PROBABLE LEFT ATRIAL ABNORMALITY ABNRM R PROG, CONSIDER ASMI OR LEAD PLACEMENT : Confirmed by: Krishna Reina MD 27-Oct-2017 09:48:31
[2017-10-27] MEDS: GUAIFENESIN 600 MG TABLET.SA PO SCH ×2 (09:50→21:50)
[2017-10-27] MEDS: ASPIRIN 81 MG TABLET, CHEWABLE PO SCH (09:51)
[2017-10-27] MEDS: CHOLECALCIFEROL (D3) 1,000 UNIT TABLET PO SCH (09:51)
[2017-10-27] MEDS: HEPARIN SOD (PORCINE) 5,000 UNIT/ML 1 ML SYRINGE SUBCUT SCH ×3 (09:59→21:50)
[2017-10-27] MEDS: TIOTROPIUM BROMIDE DPI 5 CAP/KIT (18 MCG/CAP) IH SCH (09:59)
[2017-10-27] MEDS: FLUTICASONE NASAL SPRAY 50 MCG/SPRY 120 SPRAY/16 GM NASL SCH ×2 (10:01→21:50)
[2017-10-27] MEDS: PSYLLIUM SEED-SF 5.85 GM PACKET PO SCH (10:01)
[2017-10-27 10:37] LABS: ARTERIAL BLOOD BASE EXCESS -3.8 mmol/L; ARTERIAL BLOOD H2CO3 2.14 mmol/L (1.05-1.35); ARTERIAL BLOOD HCO3 26.2 mmol/L (20-26); ARTERIAL BLOOD O2 SATURATION 98.3 % (94-98); ARTERIAL BLOOD PO2 149.6 mmHg (80-100); ARTERIAL BLOOD TOTAL CO2 28.4 mmol/L (21-25)
[2017-10-27 10:40] LABS: HEMATOCRIT 44.4 % (36.0-47.0); MEAN CORPUSCULAR HEMOGLOBIN 28.3 pg (27.0-33.4); MEAN CORPUSCULAR HGB CONC 31.5 g/dL (32.0-36.0); MEAN CORPUSCULAR VOLUME 90 fl (80-97); PLATELET COUNT 143 10^3/uL (150-450); RED BLOOD COUNT 4.94 10^6/uL (3.72-5.28); RED CELL DISTRIBUTION WIDTH 14.3 % (11.5-14.0); WHITE BLOOD COUNT 15.3 10^3/uL (4.0-10.5)
[2017-10-27 10:40] LABS: ARTERIAL BLOOD FIO2 40%
[2017-10-27 10:45] LABS: ARTERIAL BLOOD PH 7.19 (7.35-7.45)
[2017-10-27 10:48] LABS: APPEARANCE,URINE SLIGHTLY-CLOUDY; BILIRUBIN,URINE NEGATIVE (NEGATIVE); COLOR,URINE YELLOW; GLUCOSE, URINE NEGATIVE (NEGATIVE); KETONES,URINE NEGATIVE (NEGATIVE); LEUKOCYTE ESTERASE,URINE NEGATIVE (NEGATIVE); NITRITE,URINE NEGATIVE (NEGATIVE); PROTEIN,URINE 30 mg/dL (NEGATIVE); URINE SPECIFIC GRAVITY 1.039; UROBILINOGEN,URINE NEGATIVE mg/dL (<2.0)
[2017-10-27 10:56] LABS: ABSOLUTE LYMPHOCYTES# (MANUAL) 0.8 10^3/uL (0.5-4.7); ABSOLUTE MONOCYTES # (MANUAL) 1.1 10^3/uL (0.1-1.4); ABSOLUTE NEUTROPHILS# (MANUAL) 13.5 10^3/uL (1.7-8.2); BAND NEUTROPHILS % (MANUAL) 2 % (3-5); BASOPHILS % (MANUAL) 0 % (0-2); EOSINOPHILS % (MANUAL) 0 % (0-6); LYMPHOCYTES % (MANUAL) 4 % (13-45); MONOCYTES % (MANUAL) 7 % (3-13); SEGMENTED NEUTROPHILS % (MAN) 86 % (42-78); TOTAL CELLS COUNTED 100
[2017-10-27 10:57] LABS: PLATELET CLUMPS PRESENT; PLATELET COMMENT ADEQUATE; PLATELET GIANT PRESENT; RBC MORPHOLOGY COMMENT NORMO-CYTIC/CHROMIC
[2017-10-27 11:01] LABS: ALANINE AMINOTRANSFERASE 46 U/L (9-52); ALBUMIN 3.7 g/dL (3.5-5.0); ALKALINE PHOSPHATASE 64 U/L (38-126); ANION GAP 9 (5-19); ASPARTATE AMINO TRANSFERASE 79 U/L (14-36); BILIRUBIN,DIRECT 0.4 mg/dL (0.0-0.4); BILIRUBIN,TOTAL 0.4 mg/dL (0.2-1.3); BLOOD UREA NITROGEN 33 mg/dL (7-20); CALCIUM 9.7 mg/dL (8.4-10.2); CARBON DIOXIDE 26 mmol/L (22-30); CHLORIDE 105 mmol/L (98-107); GLUCOSE 118 mg/dL (75-110); PHOSPHORUS 4.7 mg/dL (2.5-4.5); POTASSIUM 4.7 mmol/L (3.6-5.0); SODIUM 139.6 mmol/L (137-145); TOTAL PROTEIN 6.6 g/dL (6.3-8.2)
[2017-10-27 12:20] LABS: ARTERIAL BLOOD BASE EXCESS -0.6 mmol/L; ARTERIAL BLOOD H2CO3 1.34 mmol/L (1.05-1.35); ARTERIAL BLOOD PCO2 44.4 mmHg (35-45); ARTERIAL BLOOD PH 7.37 (7.35-7.45); ARTERIAL BLOOD PO2 84.2 mmHg (80-100); ARTERIAL BLOOD TOTAL CO2 26.3 mmol/L (21-25)
[2017-10-27 12:21] LABS: ARTERIAL BLOOD FIO2 30%
[2017-10-27 12:57] LABS: CREATINE KINASE MB 8.55 ng/mL (<4.55)
[2017-10-27 13:09] LABS: TROPONIN I 0.12 ng/mL
--- NOTE | 2017-10-27 13:32 | XCELERA REPORT ---
[address] [address] Transthoracic Echocardiogram Report Name: Paulo CORCORAN Age: 82 yrs Gender: Female : 1935 Patient Status: Inpatient Patient Location: ICU^609^A Study Date: 10/27/2017 10:59 AM Height: 63 in Weight: 143 lb BSA: 1.7 m2 Reason For Study: acute resp failure/ Elevated Troponins Ordering Physician: LAILA NASH Performed By: Piper Lima Interpretation Summary Study quality fair. LVEF visually estimated normal at 55-60%. RV systolic function appears normal. Doppler measurements suggest impaired left ventricular relaxation, which is associated with grade I/IV or mild diastolic dysfunction. No volume indexes provided but visually atria appear normal sized. Focal calcification of AV leaflets noted with mild to moderate aortic regurgitation noted. Mitral leaflets focally thickened with no significant MR noted in available images. There is a mild amount of tricuspid regurgitation There is no pericardial effusion. The aortic root is normal size. RVSP could not be calculated as patient on ventilator and RA pressure cannot be calculated reliably. MMode/2D Measurements & Calculations RVDd: 2.3 cm LVIDd: 3.8 cm FS: 35.3 % Ao root diam: 2.3 cm IVSd: 0.93 cm LVIDs: 2.5 cm EDV(Teich): 61.8 ml LVPWd: 0.87 cm ESV(Teich): 21.4 ml Ao root area: 4.2 cm2 EF(Teich): 65.4 % LA dimension: 2.8 cm Doppler Measurements & Calculations MV E max sapna: MV P1/2t max sapna: Ao V2 max: AI max sapna: 56.8 cm/sec 58.2 cm/sec 118.3 cm/sec 306.2 cm/sec MV A max sapna: MV P1/2t: 81.5 msec Ao max PG: AI max P.5 cm/sec 5.6 mmHg 37.5 mmHg MV E/A: 0.76 MVA(P1/2t): 2.7 cm2 AI dec slope: MV dec slope: 209.4 cm/sec2 228.1 cm/sec2 MV dec time: AI P1/2t: 0.28 sec 393.3 msec LV V1 max PG: PA V2 max: TR max sapna: 3.4 mmHg 68.1 cm/sec 219.4 cm/sec LV V1 max: PA max P.9 mmHg TR max P.8 cm/sec 19.2 mmHg Left Ventricle The left ventricular ejection fraction is normal. LV EF is 55-60%. Doppler measurements suggest impaired left ventricular relaxation, which is associated with grade I/IV or mild diastolic dysfunction. The left ventricular wall motion is normal. Right Ventricle A moderator band is seen in the right ventricle. The right ventricular systolic function is normal. Atria The right atrium is normal. The left atrial size is normal. Interatrial septal thickening is noted. Mitral Valve The mitral valve leaflets appear thickened, but open well. There is no mitral regurgitation noted. Aortic Valve AV leaflets appear focally calcified. There is a peak gradient of 6 mm of Hg. There is a mild to moderate amount of aortic regurgitation. Tricuspid Valve The tricuspid is normal in structure and function. There is a mild amount of tricuspid regurgitation. RVSP could not be calculated as patient on ventilator and RA pressure cannot be calculated reliably. Pulmonic Valve The pulmonic valve is not well visualized. There is no pulmonic valvular regurgitation. Great Vessels The aortic root is normal size. IVC dilated with decreased respiratory variation as patient on ventilator support. Effusions There is no pericardial effusion. : LAILA NASH > Meliton Rausch
[2017-10-27] MEDS: NORMAL SALINE 1000 ML 1,000 ML IV PRN (14:25)
[2017-10-27] MEDS: METHYLPREDNISOLONE INJ 40 MG/1 ML SDV IV SCH ×2 (14:25→21:50)
[2017-10-27] MEDS ORDERED: SUCCINYLCHOLINE CHLORIDE INJ 200 MG/10 ML VIAL ONE (15:36)
[2017-10-27] MEDS: PROPOFOL 100 ML IV PRN (16:06)
--- NOTE | 2017-10-27 17:01 | PDOC PROGRESS REPORT ---
Subjective Progress Note for:: 10/27/17 Subjective:: The patient is an 82-year-old female with past medical history of COPD and continuous tobacco dependence who was admitted on 10/23/17 for a COPD exacerbation. Yesterday, the patient appeared to be improving. Her supplemental oxygen had been reduced to 1.5 L/min. She has been transitioned to p.o. prednisone. She did continue to wheeze but seemed to have improved length of relief following nebulizer treatments. I personally ambulated with her in the hallway on room air and noted that her oxygen saturations were 89% and her heart rate was 103. She was conversational throughout our walk. She was returned to her room and placed back on her on supplemental oxygen with immediate increase in SPO2. The patient stated that she had a a general sense of feeling unwell but was unable to specify further. Therefore, she was kept for an additional night. A rapid response was called approximately 4 AM this morning due to increase of heart rate to 123 with desat to 86% while on 4 L. The patient was briefly tried on BiPAP without improvement in saturations. Ultimately, the patient was transferred to the ICU where she was sedated and intubated. The patient was seen on morning rounds with Dr. Talley at bedside. She is currently sedated and intubated. The patient's son and [id number] were updated on the patient's status. The patient's son confirms that the patient is a DO NOT RESUSCITATE. Reason For Visit: ACUTE RESOIRATORY FAILURE WITH HYPOXIA Physical Exam Vital Signs: Temp Pulse Resp BP Pulse Ox 97.3 F 79 20 118/49 L 89 L 10/27/17 14:00 10/27/17 14:29 10/27/17 15:00 10/27/17 15:24 10/27/17 15:24 Intake & Output 10/26/17 10/27/17 10/28/17 06:59 06:59 06:59 Intake Total 660 556 Output Total 305 Balance 660 556 -305 Weight 67.5 kg 65.3 kg General appearance: PRESENT: no acute distress, well-developed, well-nourished Head exam: PRESENT: atraumatic, normocephalic Eye exam: PRESENT: conjunctiva pink, PERRLA. ABSENT: scleral icterus Ear exam: PRESENT: normal external ear exam Mouth exam: PRESENT: moist, tongue midline Neck exam: ABSENT: carotid bruit, JVD, lymphadenopathy, thyromegaly Respiratory exam: PRESENT: prolonged expiratory phas, symmetrical, unlabored, wheezes - Throughout, other - Intubated and mechanically ventilated. ABSENT: rales, rhonchi Cardiovascular exam: PRESENT: RRR, +S1, +S2. ABSENT: diastolic murmur, rubs, systolic murmur, tachycardia Pulses: PRESENT: normal dorsalis pedis pul Vascular exam: PRESENT: normal capillary refill GI/Abdominal exam: PRESENT: normal bowel sounds, soft. ABSENT: distended, guarding, mass, organolmegaly, rebound, tenderness Rectal exam: PRESENT: deferred Extremities exam: PRESENT: other - Soft restraints secondary to intubation. ABSENT: calf tenderness, clubbing, pedal edema Neurological exam: PRESENT: other - Currently sedated, withdraws from pain. ABSENT: motor sensory deficit Psychiatric exam: ABSENT: homicidal ideation, suicidal ideation Skin exam: PRESENT: dry, intact, warm. ABSENT: cyanosis, rash Results Laboratory Results: 10/27/17 09:59 10/27/17 09:59 10/27/17 10/27/17 10/27/17 04:04 04:28 04:28 WBC 15.3 H RBC 5.33 H Hgb 15.1 Hct 47.4 H MCV 89 MCH 28.4 MCHC 31.9 L RDW 14.5 H Plt Count 195 Seg Neutrophils % Lymphocytes % Monocytes % Eosinophils % Basophils % Absolute Neutrophils Absolute Lymphocytes Absolute Monocytes Absolute Eosinophils Absolute Basophils Carbonic Acid 2.88 H HCO3/H2CO3 Ratio 10:1 ABG pH 7.13 L* ABG pCO2 95.7 H* ABG pO2 35.5 L* ABG HCO3 30.8 H ABG O2 Saturation 48.7 L ABG Base Excess -1.9 FiO2 4L Sodium 141.1 Potassium 4.9 Chloride 103 Carbon Dioxide 25 Anion Gap 13 BUN 28 H Creatinine 0.99 Est GFR ( Amer) > 60 Est GFR (Non-Af Amer) 53 L Glucose 233 H Lactic Acid Calcium 10.5 H Phosphorus Magnesium Total Bilirubin AST ALT Alkaline Phosphatase Total Protein Albumin Urine Color Urine Appearance Urine pH Ur Specific [place] Urine Protein Urine Glucose (UA) Urine Ketones Urine Blood Urine Nitrite Ur Leukocyte Esterase Urine WBC (Auto) Urine RBC (Auto) 03/10/27/17 10/27/17 07:46 09:50 09:50 WBC RBC Hgb Hct MCV MCH MCHC RDW Plt Count Seg Neutrophils % Lymphocytes % Monocytes % Eosinophils % Basophils % Absolute Neutrophils Absolute Lymphocytes Absolute Monocytes Absolute Eosinophils Absolute Basophils Carbonic Acid 2.23 H 2.14 H HCO3/H2CO3 Ratio 11:1 12:1 ABG pH 7.17 L* 7.19 L* ABG pCO2 74.1 H* 71.0 H* ABG pO2 254.6 H 149.6 H ABG HCO3 26.4 H 26.2 H ABG O2 Saturation 99.4 H 98.3 H ABG Base Excess -4.0 -3.8 FiO2 60% 40% Sodium Potassium Chloride Carbon Dioxide Anion Gap BUN Creatinine Est GFR ( Amer) Est GFR (Non-Af Amer) Glucose Lactic Acid Calcium Phosphorus Magnesium Total Bilirubin AST ALT Alkaline Phosphatase Total Protein Albumin Urine Color YELLOW Urine Appearance SLIGHTLY-CLOUDY Urine pH 5.0 Ur Specific [place] 1.039 Urine Protein 30 H Urine Glucose (UA) NEGATIVE Urine Ketones NEGATIVE Urine Blood MODERATE H Urine Nitrite NEGATIVE Ur Leukocyte Esterase NEGATIVE Urine WBC (Auto) 20 Urine RBC (Auto) 53 10/27/17 10/27/17 10/27/17 09:59 09:59 09:59 WBC 15.3 H RBC 4.94 Hgb 14.0 Hct 44.4 MCV 90 MCH 28.3 MCHC 31.5 L RDW 14.3 H Plt Count 143 L Seg Neutrophils % Not Reportable Lymphocytes % Not Reportable Monocytes % Not Reportable Eosinophils % Not Reportable Basophils % Not Reportable Absolute Neutrophils Not Reportable Absolute Lymphocytes Not Reportable Absolute Monocytes Not Reportable Absolute Eosinophils Not Reportable Absolute Basophils Not Reportable Carbonic Acid HCO3/H2CO3 Ratio ABG pH ABG pCO2 ABG pO2 ABG HCO3 ABG O2 Saturation ABG Base Excess FiO2 Sodium 139.6 Potassium 4.7 Chloride 105 Carbon Dioxide 26 Anion Gap 9 BUN 33 H Creatinine 1.23 Est GFR ( Amer) 50 L Est GFR (Non-Af Amer) 42 L Glucose 118 H Lactic Acid 1.7 Calcium 9.7 Phosphorus 4.7 H Magnesium 2.6 H Total Bilirubin 0.4 AST 79 H ALT 46 Alkaline Phosphatase 64 Total Protein 6.6 Albumin 3.7 Urine Color Urine Appearance Urine pH Ur Specific [place] Urine Protein Urine Glucose (UA) Urine Ketones Urine Blood Urine Nitrite Ur Leukocyte Esterase Urine WBC (Auto) Urine RBC (Auto) 10/27/17 11:57 WBC RBC Hgb Hct MCV MCH MCHC RDW Plt Count Seg Neutrophils % Lymphocytes % Monocytes % Eosinophils % Basophils % Absolute Neutrophils Absolute Lymphocytes Absolute Monocytes Absolute Eosinophils Absolute Basophils Carbonic Acid 1.34 HCO3/H2CO3 Ratio 18:1 ABG pH 7.37 ABG pCO2 44.4 ABG pO2 84.2 ABG HCO3 25.0 ABG O2 Saturation 96.0 ABG Base Excess -0.6 FiO2 30% Sodium Potassium Chloride Carbon Dioxide Anion Gap BUN Creatinine Est GFR ( Amer) Est GFR (Non-Af Amer) Glucose Lactic Acid Calcium Phosphorus Magnesium Total Bilirubin AST ALT Alkaline Phosphatase Total Protein Albumin Urine Color Urine Appearance Urine pH Ur Specific [place] Urine Protein Urine Glucose (UA) Urine Ketones Urine Blood Urine Nitrite Ur Leukocyte Esterase Urine WBC (Auto) Urine RBC (Auto) 10/24/17 10/27/17 10/27/17 15:48 04:28 04:28 Creatine Kinase 405 H CK-MB (CK-2) 11.40 H Troponin I 0.014 0.022 NT-Pro-B Natriuret Pep 10/27/17 10/27/17 10/27/17 04:28 12:12 12:12 Creatine Kinase 261 H CK-MB (CK-2) 8.55 H Troponin I 0.120 NT-Pro-B Natriuret Pep 1600 H Impressions: Chest X-Ray 10/27/17 00:00 IMPRESSION: Interval intubation. Head CT 10/27/17 08:14 IMPRESSION: MILD CHRONIC CHANGES OF ATROPHY AND MICROVASCULAR ISCHEMIA. NO ACUTE PROCESS. EVIDENCE OF ACUTE STROKE: NO. Assessment & Plan - Diagnosis (1) Acute respiratory failure with hypoxia and hypercapnia Is this a current diagnosis for this admission?: Yes Plan: Acute respiratory failure with hypoxia and hypercapnia secondary to COPD exacerbation. The patient has moderate to severe emphysema and is a continuous tobacco smoker. A rapid response was called overnight for tachycardia and desaturation. The patient was briefly tried on BiPAP but did not improve. She was subsequently transferred to the ICU and intubated. Patient remains sedated, intubated and mechanically ventilated. Blood cultures: No growth at 72 hours. Repeat blood cultures are obtained. CTA is negative for Pulmonary embolus. CXR reveals emphysema, no acute cardiopulmonary process. Images are personally reviewed. Head CT showed mild chronic changes of atrophy and microvascular ischemia. No evidence of acute stroke. Echocardiogram demonstrates LVEF of 55-60%, mild diastolic dysfunction, mild to moderate aortic regurgitation and mild tricuspid regurgitation. ABGs reveal respiratory acidosis; trending improvements with ventilator management. Intubated and mechanically ventilated. Dr. Camacho is consulted for ventilator management Scheduled and as needed nebulizer treatments. We will escalate to IV Solu-Medrol. (2) Elevated troponin Is this a current diagnosis for this admission?: Yes Plan: On admission, the patient's troponins were followed. Initial troponin was indeterminate and then trended downward. Following acute respiratory failure overnight, troponin was noted to have increased to 0.022. Follow-up troponin of 0.120. This likely indicates demand ischemia. Echocardiogram demonstrates LVEF of 55-60%, mild diastolic dysfunction, mild to moderate aortic regurgitation and mild tricuspid regurgitation. ProBNP of 1600. The patient appears euvolemic and she was not receiving IV fluids during this admission. We will continue to trend troponins. The patient is on continuous cardiac telemetry. Will obtain repeat EKG. (3) Hypotension Is this a current diagnosis for this admission?: Yes Plan: Multifactorial secondary to mechanical ventilation, sedation, and cardiac demand ischemia. The patient was provided an IV fluid bolus followed by IV maintenance fluids. We will monitor closely; MAP goal > 60. Low threshold for central line placement. (4) COPD exacerbation Is this a current diagnosis for this admission?: Yes Plan: Plan as above. (5) Acute bronchitis Is this a current diagnosis for this admission?: Yes Plan: Blood cultures as above. Continue Levaquin; this is day 4 of therapy. Remaining plan as above. (6) Chronic constipation Is this a current diagnosis for this admission?: Yes Plan: Will monitor and address as necessary. (7) Tobacco abuse Is this a current diagnosis for this admission?: Yes Plan: Smoking cessation previously encouraged and nicotine replacement therapies offered. - Time Time Spent with patient: 35 or more minutes - Plan Summary Plan Summary: Co-managed with Dr. Cassidy.
[2017-10-27 21:02] LABS: CREATINE KINASE MB 5.84 ng/mL (<4.55)
[2017-10-27 21:07] LABS: TROPONIN I 0.081 ng/mL
[2017-10-27] MEDS: LEVOFLOXACIN 750 MG/D5W RTU 750 MG/150 ML RTUPB IV SCH (21:48)
--- NOTE | 2017-10-27 23:50 | EKG REPORT ---
SEVERITY:- ABNORMAL ECG - SINUS RHYTHM LOW VOLTAGE IN FRONTAL LEADS NONSPECIFIC T ABNORMALITIES, ANT-LAT LEADS BORDERLINE PROLONGED QT INTERVAL : Confirmed by: Krishna Reina MD 27-Oct-2017 23:49:45
[2017-10-28] MEDS: IPRATROPIUM/ALBUTEROL 0.5-2.5 MG/3 ML AMPUL NEB SCH ×4 (02:19→20:42)
[2017-10-28] MEDS: PROPOFOL 100 ML IV PRN ×3 (02:38→18:20)
[2017-10-28] MEDS: NORMAL SALINE 1000 ML 1,000 ML IV PRN ×3 (02:38→22:59)
[2017-10-28] MEDS: MIDAZOLAM HCL 50 MG/100 ML RTUINJ IV PRN ×2 (03:20→07:59)
[2017-10-28 05:05] LABS: HEMATOCRIT 38.1 % (36.0-47.0); HEMOGLOBIN 12.8 g/dL (12.0-15.5); MEAN CORPUSCULAR HEMOGLOBIN 29.2 pg (27.0-33.4); MEAN CORPUSCULAR HGB CONC 33.8 g/dL (32.0-36.0); MEAN CORPUSCULAR VOLUME 87 fl (80-97); PLATELET COUNT 201 10^3/uL (150-450); RED CELL DISTRIBUTION WIDTH 14.1 % (11.5-14.0); WHITE BLOOD COUNT 7.7 10^3/uL (4.0-10.5)
[2017-10-28 05:20] LABS: ALANINE AMINOTRANSFERASE 59 U/L (9-52); ALKALINE PHOSPHATASE 47 U/L (38-126); ANION GAP 8 (5-19); ASPARTATE AMINO TRANSFERASE 45 U/L (14-36); BILIRUBIN,DIRECT 0.4 mg/dL (0.0-0.4); BILIRUBIN,TOTAL 0.4 mg/dL (0.2-1.3); BLOOD UREA NITROGEN 37 mg/dL (7-20); CALCIUM 9.3 mg/dL (8.4-10.2); CARBON DIOXIDE 20 mmol/L (22-30); CHLORIDE 110 mmol/L (98-107); CREATINE KINASE 152 U/L (30-135); GLUCOSE 123 mg/dL (75-110); POTASSIUM 4.1 mmol/L (3.6-5.0); SODIUM 138.4 mmol/L (137-145); TOTAL PROTEIN 5.3 g/dL (6.3-8.2)
[2017-10-28 05:30] LABS: CREATINE KINASE MB 4.26 ng/mL (<4.55); TROPONIN I 0.056 ng/mL
[2017-10-28 05:40] LABS: ARTERIAL BLOOD BASE EXCESS -4.3 mmol/L; ARTERIAL BLOOD H2CO3 0.92 mmol/L (1.05-1.35); ARTERIAL BLOOD HCO3 19.1 mmol/L (20-26); ARTERIAL BLOOD O2 SATURATION 93.8 % (94-98); ARTERIAL BLOOD PCO2 30.5 mmHg (35-45); ARTERIAL BLOOD PH 7.42 (7.35-7.45); ARTERIAL BLOOD PO2 66.9 mmHg (80-100); ARTERIAL BLOOD TOTAL CO2 20.1 mmol/L (21-25)
[2017-10-28 05:41] LABS: ARTERIAL BLOOD FIO2 30%
[2017-10-28 05:44] LABS: ABSOLUTE LYMPHOCYTES# (MANUAL) 0.5 10^3/uL (0.5-4.7); ABSOLUTE MONOCYTES # (MANUAL) 0.3 10^3/uL (0.1-1.4); ABSOLUTE NEUTROPHILS# (MANUAL) 6.9 10^3/uL (1.7-8.2); BAND NEUTROPHILS % (MANUAL) 1 % (3-5); BASOPHILS % (MANUAL) 0 % (0-2); EOSINOPHILS % (MANUAL) 0 % (0-6); LYMPHOCYTES % (MANUAL) 6 % (13-45); MONOCYTES % (MANUAL) 4 % (3-13); SEGMENTED NEUTROPHILS % (MAN) 89 % (42-78); TOTAL CELLS COUNTED 100
[2017-10-28 05:50] LABS: ACANTHOCYTES SLIGHT; ANISOCYTOSIS SLIGHT; POIKILOCYTOSIS 1+; TEAR DROP CELLS SLIGHT; TOXIC GRANULATION 1+; TOXIC VACUOLATION PRESENT
[2017-10-28 05:51] LABS: BURR CELLS 1+; PLATELET COMMENT ADEQUATE
[2017-10-28] MEDS: HEPARIN SOD (PORCINE) 5,000 UNIT/ML 1 ML SYRINGE SUBCUT SCH ×3 (06:25→21:19)
[2017-10-28] MEDS: METHYLPREDNISOLONE INJ 40 MG/1 ML SDV IV SCH ×3 (06:26→21:18)
--- NOTE | 2017-10-28 08:39 | RADIOLOGY REPORT (SQ) ---
EXAM DESCRIPTION: CHEST SINGLE VIEW COMPLETED DATE/TIME: 10/28/2017 7:05 am REASON FOR STUDY: Daily tube placement check COMPARISON: CT angio chest 10/27/2017, Chest 10/27/2017, 10/23/2017 EXAM PARAMETERS: NUMBER OF VIEWS: One view. TECHNIQUE: Single frontal radiographic view of the chest acquired. RADIATION DOSE: NA LIMITATIONS: None. FINDINGS: LUNGS AND PLEURA: Lungs are hyperlucent from obstructive disease. No focal infiltrates or pleural effusions. MEDIASTINUM AND HILAR STRUCTURES: No masses. Contour normal. HEART AND VASCULAR STRUCTURES: Heart normal in size. Normal vasculature. BONES: No acute findings. HARDWARE: Endotracheal tube tip in the midtrachea. Nasogastric tube tip and side port in the stomach . Left axillary clips post mastectomy. OTHER: No other significant finding. IMPRESSION: Obstructive lung disease. No focal infiltrates. Endotracheal tube, nasogastric tube in good positioning. 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
[2017-10-28] MEDS: PSYLLIUM SEED-SF 5.85 GM PACKET PO SCH (09:16)
[2017-10-28] MEDS: ASPIRIN 81 MG TABLET, CHEWABLE PO SCH (09:16)
[2017-10-28] MEDS: CHOLECALCIFEROL (D3) 1,000 UNIT TABLET PO SCH (09:17)
[2017-10-28] MEDS: FLUTICASONE NASAL SPRAY 50 MCG/SPRY 120 SPRAY/16 GM NASL SCH ×2 (09:19→21:20)
[2017-10-28] MEDS: GUAIFENESIN 600 MG TABLET.SA PO SCH ×2 (09:19→21:18)
[2017-10-28] MEDS: TIOTROPIUM BROMIDE DPI 5 CAP/KIT (18 MCG/CAP) IH SCH (09:23)
--- NOTE | 2017-10-28 16:16 | PDOC PROGRESS REPORT ---
Subjective Progress Note for:: 10/28/17 Subjective:: The patient is an 82-year-old female with past medical history of COPD and continuous tobacco dependence who was admitted late evening on 10/23/17 for a COPD exacerbation. The patient appeared to be improving. Her supplemental oxygen had been reduced to 1.5 L/min. She has been transitioned to p.o. prednisone. She did continue to have some wheezing but seemed to have improved length of relief following nebulizer treatments. On 10/26/17, I personally ambulated with her in the hallway on room air and noted that her oxygen saturations were 89% and her heart rate was 103. She was conversational throughout our walk. She was returned to her room and placed her back on supplemental oxygen with immediate increase in SPO2. The patient stated that she had a general sense of feeling unwell, but was unable to specify further. Therefore, she was kept for an additional night. A rapid response was called at approximately 4 AM the following morning due to increase of heart rate to 123 with desat to 86% while on 4 L. The patient was briefly tried on BiPAP without improvement in saturations. Ultimately, the patient was transferred to the ICU where she was intubated. The patient was seen on morning rounds with Dr. Cassidy at bedside. She is currently sedated and intubated. Overnight events reviewed. No concerns raised by nursing. Reason For Visit: ACUTE RESOIRATORY FAILURE WITH HYPOXIA Physical Exam Vital Signs: Temp Pulse Resp BP Pulse Ox 99.1 F 85 20 121/55 L 93 10/28/17 12:00 10/28/17 12:00 10/28/17 12:00 10/28/17 12:00 10/28/17 12:10 Intake & Output 10/27/17 10/28/17 10/29/17 06:59 06:59 06:59 Intake Total 556 2445 Output Total 895 215 Balance 556 1550 -215 Weight 65.3 kg 67.9 kg General appearance: PRESENT: no acute distress, well-developed, well-nourished, other - Overweight Head exam: PRESENT: atraumatic, normocephalic Eye exam: PRESENT: conjunctiva pink, PERRLA. ABSENT: scleral icterus Ear exam: PRESENT: normal external ear exam Mouth exam: PRESENT: moist, tongue midline Neck exam: ABSENT: carotid bruit, JVD, lymphadenopathy, thyromegaly Respiratory exam: PRESENT: prolonged expiratory phas, symmetrical, unlabored, wheezes - Expiratory wheeze noted Left lower melo., other - Intubated and mechanically ventilated. ABSENT: rales, rhonchi Cardiovascular exam: PRESENT: RRR, +S1, +S2. ABSENT: diastolic murmur, rubs, systolic murmur Pulses: PRESENT: normal dorsalis pedis pul Vascular exam: PRESENT: normal capillary refill GI/Abdominal exam: PRESENT: normal bowel sounds, soft. ABSENT: distended, guarding, mass, organolmegaly, rebound, tenderness Rectal exam: PRESENT: deferred Extremities exam: PRESENT: full ROM - Soft restraints secondary to intubation. ABSENT: calf tenderness, clubbing, pedal edema Neurological exam: PRESENT: other - Sedated and intubated, withdraws from pain. ABSENT: motor sensory deficit Psychiatric exam: PRESENT: appropriate affect, normal mood. ABSENT: homicidal ideation, suicidal ideation Skin exam: PRESENT: dry, intact, warm. ABSENT: cyanosis, rash Results Laboratory Results: 10/28/17 04:43 10/28/17 04:43 10/28/17 10/28/17 10/28/17 04:43 04:43 05:20 WBC 7.7 RBC 4.40 Hgb 12.8 Hct 38.1 MCV 87 MCH 29.2 MCHC 33.8 RDW 14.1 H Plt Count 201 Seg Neutrophils % Not Reportable Lymphocytes % Not Reportable Monocytes % Not Reportable Eosinophils % Not Reportable Basophils % Not Reportable Absolute Neutrophils Not Reportable Absolute Lymphocytes Not Reportable Absolute Monocytes Not Reportable Absolute Eosinophils Not Reportable Absolute Basophils Not Reportable Carbonic Acid 0.92 L HCO3/H2CO3 Ratio 20:1 ABG pH 7.42 ABG pCO2 30.5 L ABG pO2 66.9 L ABG HCO3 19.1 L ABG O2 Saturation 93.8 L ABG Base Excess -4.3 FiO2 30% Sodium 138.4 Potassium 4.1 Chloride 110 H Carbon Dioxide 20 L Anion Gap 8 BUN 37 H Creatinine 1.09 Est GFR ( Amer) 58 L Est GFR (Non-Af Amer) 48 L Glucose 123 H Calcium 9.3 Magnesium 2.3 Total Bilirubin 0.4 AST 45 H ALT 59 H Alkaline Phosphatase 47 Total Protein 5.3 L Albumin 3.0 L 10/24/17 10/27/17 10/27/17 15:48 04:28 04:28 Creatine Kinase 405 H CK-MB (CK-2) 11.40 H Troponin I 0.014 0.022 NT-Pro-B Natriuret Pep 10/27/17 10/27/17 10/27/17 04:28 12:12 12:12 Creatine Kinase 261 H CK-MB (CK-2) 8.55 H Troponin I 0.120 NT-Pro-B Natriuret Pep 1600 H 10/27/17 10/27/17 10/28/17 20:25 20:25 04:43 Creatine Kinase 153 H 152 H CK-MB (CK-2) 5.84 H Troponin I 0.081 NT-Pro-B Natriuret Pep 10/28/17 04:43 Creatine Kinase CK-MB (CK-2) 4.26 Troponin I 0.056 NT-Pro-B Natriuret Pep Impressions: Head CT 10/27/17 08:14 IMPRESSION: MILD CHRONIC CHANGES OF ATROPHY AND MICROVASCULAR ISCHEMIA. NO ACUTE PROCESS. EVIDENCE OF ACUTE STROKE: NO. Chest X-Ray 10/28/17 06:00 IMPRESSION: Obstructive lung disease. No focal infiltrates. Endotracheal tube, nasogastric tube in good positioning. 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 The patient has moderate to severe emphysema and is a continuous tobacco smoker. A rapid response was called for tachycardia and desaturation. The patient was briefly tried on BiPAP but did not improve. She was subsequently transferred to the ICU and intubated. Patient remains sedated, intubated, and mechanically ventilated. Blood cultures: No growth at 4 days Repeat blood cultures: No growth at 24 horus Sputum: No growth at 1 day CTA is negative for Pulmonary embolus. CXR reveals emphysema, no acute cardiopulmonary process. Images are personally reviewed. Head CT showed mild chronic changes of atrophy and microvascular ischemia. No evidence of acute stroke. Echocardiogram demonstrates LVEF of 55-60%, mild diastolic dysfunction, mild to moderate aortic regurgitation and mild tricuspid regurgitation. ABGs reveal respiratory acidosis; trending improvements with ventilator management. Intubated and mechanically ventilated. Dr. Camacho is consulted for ventilator management Scheduled and as needed nebulizer treatments. Continue IV Solu-Medrol. On PPI for ulcer prophylaxis (2) Demand ischemia Is this a current diagnosis for this admission?: Yes Plan: Type 2 Non-STEMI secondary to demand ischemia during acute respiratory failure event. On admission, initial troponin was indeterminate and then trended downward. Following intubation; pending and reported to 0.120 now declining. EKG: Sinus tachycardia, runs of PVCs Echocardiogram demonstrates LVEF of 55-60%, mild diastolic dysfunction, mild to moderate aortic regurgitation and mild tricuspid regurgitation. ProBNP of 1600. The patient appears euvolemic and she was not receiving IV fluids during this admission. The patient is on continuous cardiac telemetry. Daily aspirin. Supportive care. (3) Hypotension Is this a current diagnosis for this admission?: Yes Plan: Improved. Multifactorial secondary to mechanical ventilation, sedation, and cardiac demand ischemia. Continue IV maintenance fluids. We will monitor closely; MAP goal > 60. Low threshold for central line placement. (4) Ventricular tachycardia Is this a current diagnosis for this admission?: Yes Plan: Rapid Response called the morning of 10/27/17 for nonsustained ventricular tachycardia followed by SVT secondary to acute respiratory failure. The patient was provided IV diltiazem for a short period of time; drip has since been discontinued. Pt currently in NSR. Troponins were trended with elevation to 0.120 and now trending downward. Pt was evaluated with CTA and echocardiogram. EKG this AM demonstrated sinus tachycardia with PVCs Cardiac workup as above. Pt currently in the ICU on continuous cardiac telemetry. (5) COPD exacerbation Is this a current diagnosis for this admission?: Yes Plan: Plan as above. (6) Acute bronchitis Is this a current diagnosis for this admission?: Yes Plan: Blood cultures as above. Continue Levaquin; this is day 5 of therapy. Remaining plan as above. (7) Tobacco abuse Is this a current diagnosis for this admission?: Yes Plan: Smoking cessation previously encouraged and nicotine replacement therapies offered. (8) Chronic constipation Is this a current diagnosis for this admission?: Yes Plan: Will monitor and address as necessary. (9) Elevated troponin Is this a current diagnosis for this admission?: Yes Plan: As above. (10) DVT prophylaxis Is this a current diagnosis for this admission?: Yes Plan: Heparin - Time Time Spent with patient: 35 or more minutes Medications reviewed and adjusted accordingly: Yes
[2017-10-28] MEDS: FAMOTIDINE INJ/PF 20 MG/2 ML SDV IV SCH (21:18)
[2017-10-28] MEDS: LEVOFLOXACIN 750 MG/D5W RTU 750 MG/150 ML RTUPB IV SCH (21:19)
[2017-10-29] MEDS: PROPOFOL 100 ML IV PRN ×4 (00:58→21:22)
[2017-10-29] MEDS: IPRATROPIUM/ALBUTEROL 0.5-2.5 MG/3 ML AMPUL NEB SCH ×4 (01:44→20:56)
[2017-10-29 04:40] LABS: HEMOGLOBIN 12.7 g/dL (12.0-15.5); MEAN CORPUSCULAR HEMOGLOBIN 29.3 pg (27.0-33.4); MEAN CORPUSCULAR HGB CONC 33.5 g/dL (32.0-36.0); MEAN CORPUSCULAR VOLUME 88 fl (80-97); PLATELET COUNT 174 10^3/uL (150-450); RED BLOOD COUNT 4.34 10^6/uL (3.72-5.28); RED CELL DISTRIBUTION WIDTH 13.9 % (11.5-14.0); WHITE BLOOD COUNT 9.9 10^3/uL (4.0-10.5)
[2017-10-29 05:05] LABS: ALANINE AMINOTRANSFERASE 78 U/L (9-52); ALKALINE PHOSPHATASE 47 U/L (38-126); ANION GAP 10 (5-19); ASPARTATE AMINO TRANSFERASE 52 U/L (14-36); BILIRUBIN,DIRECT 0.3 mg/dL (0.0-0.4); BILIRUBIN,TOTAL 0.3 mg/dL (0.2-1.3); BLOOD UREA NITROGEN 39 mg/dL (7-20); CALCIUM 9.4 mg/dL (8.4-10.2); CARBON DIOXIDE 19 mmol/L (22-30); CHLORIDE 109 mmol/L (98-107); GLUCOSE 128 mg/dL (75-110); SODIUM 138.4 mmol/L (137-145)
[2017-10-29 05:09] LABS: BASOPHILS % (MANUAL) 0 % (0-2); EOSINOPHILS % (MANUAL) 0 % (0-6)
[2017-10-29 05:11] LABS: ABSOLUTE MONOCYTES # (MANUAL) 0.7 10^3/uL (0.1-1.4); ABSOLUTE NEUTROPHILS# (MANUAL) 8.2 10^3/uL (1.7-8.2); LYMPHOCYTES % (MANUAL) 10 % (13-45); MONOCYTES % (MANUAL) 7 % (3-13); SEGMENTED NEUTROPHILS % (MAN) 83 % (42-78); TOTAL CELLS COUNTED 100
[2017-10-29 05:13] LABS: TOXIC GRANULATION 1+; TOXIC VACUOLATION PRESENT
[2017-10-29 05:14] LABS: ANISOCYTOSIS 1+; BURR CELLS 1+; PLATELET CLUMPS PRESENT; PLATELET COMMENT ADEQUATE; PLATELET GIANT PRESENT; PLATELET LARGE PRESENT; POIKILOCYTOSIS SLIGHT; SCHISTOCYTES 1+
[2017-10-29] MEDS: METHYLPREDNISOLONE INJ 40 MG/1 ML SDV IV SCH ×3 (05:39→21:22)
[2017-10-29] MEDS: HEPARIN SOD (PORCINE) 5,000 UNIT/ML 1 ML SYRINGE SUBCUT SCH ×3 (05:39→21:23)
--- NOTE | 2017-10-29 07:47 | RADIOLOGY REPORT (SQ) ---
EXAM DESCRIPTION: CHEST SINGLE VIEW CLINICAL HISTORY: 82 years Female, Daily tube placement check COMPARISON: 10/28/17. NUMBER OF VIEWS/TECHNIQUE: 1/AP LIMITATIONS: None. FINDINGS: Mild interstitial markings, normal cardiac silhouette, atherosclerosis, adequate appearing endotracheal tube tip is 3 cm from the demetria, likely adequate enteric tube obscured at its tip, and left axillary clips. No pneumothorax. No acute bone defect. IMPRESSION: No significant change.
[2017-10-29] MEDS: TIOTROPIUM BROMIDE DPI 5 CAP/KIT (18 MCG/CAP) IH SCH (09:44)
[2017-10-29] MEDS: GUAIFENESIN 600 MG TABLET.SA PO SCH ×2 (09:44→21:24)
[2017-10-29] MEDS: FAMOTIDINE INJ/PF 20 MG/2 ML SDV IV SCH ×2 (09:48→21:22)
[2017-10-29] MEDS: CHOLECALCIFEROL (D3) 1,000 UNIT TABLET PO SCH (09:49)
[2017-10-29] MEDS: PSYLLIUM SEED-SF 5.85 GM PACKET PO SCH (09:49)
[2017-10-29] MEDS: FLUTICASONE NASAL SPRAY 50 MCG/SPRY 120 SPRAY/16 GM NASL SCH ×2 (09:49→21:24)
[2017-10-29] MEDS: ASPIRIN 81 MG TABLET, CHEWABLE PO SCH (09:49)
[2017-10-29] MEDS: NORMAL SALINE 1000 ML 1,000 ML IV PRN (10:05)
[2017-10-29 10:37] LABS: ARTERIAL BLOOD BASE EXCESS -3.6 mmol/L; ARTERIAL BLOOD H2CO3 1.13 mmol/L (1.05-1.35); ARTERIAL BLOOD HCO3 21.3 mmol/L (20-26); ARTERIAL BLOOD PCO2 37.7 mmHg (35-45); ARTERIAL BLOOD PH 7.37 (7.35-7.45); ARTERIAL BLOOD PO2 93.1 mmHg (80-100); ARTERIAL BLOOD TOTAL CO2 22.4 mmol/L (21-25)
[2017-10-29 10:38] LABS: ARTERIAL BLOOD FIO2 40%
[2017-10-29] MEDS ORDERED: FUROSEMIDE INJ/PF 20 MG/2 ML SDV IV ONE (11:00)
[2017-10-29] MEDS ORDERED: NORMAL SALINE 1000 ML 1,000 ML IV PRN (14:55)
--- NOTE | 2017-10-29 15:12 | PDOC PROGRESS REPORT ---
Subjective Progress Note for:: 10/29/17 Subjective:: The patient is an 82-year-old female with past medical history of COPD and continuous tobacco dependence who was admitted late evening on 10/23/17 for a COPD exacerbation. The patient appeared to be improving. Her supplemental oxygen had been reduced to 1.5 L/min. She has been transitioned to p.o. prednisone. She did continue to have some wheezing but seemed to have improved length of relief following nebulizer treatments. On 10/26/17, I personally ambulated with her in the hallway on room air and noted that her oxygen saturations were 89% and her heart rate was 103. She was conversational throughout our walk. She was returned to her room and placed her back on supplemental oxygen with immediate increase in SPO2. The patient stated that she had a general sense of feeling unwell, but was unable to specify further. Therefore, she was kept for an additional night. A rapid response was called at approximately 4 AM the following morning due to increase of heart rate to 123 with desat to 86% while on 4 L. The patient was briefly tried on BiPAP without improvement in saturations. Ultimately, the patient was transferred to the ICU where she was intubated. The patient was seen on morning rounds. She is currently sedated and intubated. Overnight events reviewed. No concerns raised by nursing. Did well with ventilator wean attempt yesterday. Reason For Visit: ACUTE RESOIRATORY FAILURE WITH HYPOXIA Physical Exam Vital Signs: Temp Pulse Resp BP Pulse Ox 99.5 F 93 27 H 146/64 H 91 L 10/29/17 12:00 10/29/17 13:49 10/29/17 14:00 10/29/17 13:58 10/29/17 14:00 Intake & Output 10/28/17 10/29/17 10/30/17 06:59 06:59 06:59 Intake Total 2445 3052 Output Total 895 1032 880 Balance 1550 2019 Weight 67.9 kg 69.4 kg 69.4 kg General appearance: PRESENT: no acute distress, well-developed, well-nourished, other - Overweight Head exam: PRESENT: atraumatic, normocephalic Eye exam: PRESENT: conjunctiva pink, PERRLA. ABSENT: scleral icterus Ear exam: PRESENT: normal external ear exam Mouth exam: PRESENT: moist, tongue midline Neck exam: ABSENT: carotid bruit, JVD, lymphadenopathy, thyromegaly Respiratory exam: PRESENT: clear to auscultation hceri, prolonged expiratory phas , symmetrical, other - Intubated, mechanically ventilated. ABSENT: rales, rhonchi, wheezes Cardiovascular exam: PRESENT: RRR, +S1, +S2. ABSENT: diastolic murmur, rubs, systolic murmur, tachycardia Pulses: PRESENT: normal dorsalis pedis pul Vascular exam: PRESENT: normal capillary refill GI/Abdominal exam: PRESENT: normal bowel sounds, soft. ABSENT: distended, guarding, mass, organolmegaly, rebound, tenderness Rectal exam: PRESENT: deferred Extremities exam: ABSENT: calf tenderness, clubbing, full ROM - soft restraints 2/2 intubation, pedal edema Neurological exam: PRESENT: other - Sedated. ABSENT: motor sensory deficit Psychiatric exam: ABSENT: homicidal ideation, suicidal ideation Skin exam: PRESENT: dry, intact, warm. ABSENT: cyanosis, rash Results Laboratory Results: 10/29/17 04:16 10/29/17 04:16 10/29/17 10/29/17 10/29/17 04:16 04:16 10:22 WBC 9.9 RBC 4.34 Hgb 12.7 Hct 38.0 MCV 88 MCH 29.3 MCHC 33.5 RDW 13.9 Plt Count 174 Seg Neutrophils % Not Reportable Lymphocytes % Not Reportable Monocytes % Not Reportable Eosinophils % Not Reportable Basophils % Not Reportable Absolute Neutrophils Not Reportable Absolute Lymphocytes Not Reportable Absolute Monocytes Not Reportable Absolute Eosinophils Not Reportable Absolute Basophils Not Reportable Carbonic Acid 1.13 HCO3/H2CO3 Ratio 18:1 ABG pH 7.37 ABG pCO2 37.7 ABG pO2 93.1 ABG HCO3 21.3 ABG O2 Saturation 97.0 ABG Base Excess -3.6 FiO2 40% Sodium 138.4 Potassium 4.0 Chloride 109 H Carbon Dioxide 19 L Anion Gap 10 BUN 39 H Creatinine 0.91 Est GFR ( Amer) > 60 Est GFR (Non-Af Amer) 59 L Glucose 128 H Calcium 9.4 Total Bilirubin 0.3 AST 52 H ALT 78 H Alkaline Phosphatase 47 Total Protein 5.0 L Albumin 3.0 L 10/27/17 05:40 Tracheal Aspirate Gram Stain - Final 10/27/17 05:40 Tracheal Aspirate Sputum Culture - Final NO GROWTH 2 DAYS 10/27/17 09:50 Kaminski Catheter Urine Culture - Final NO GROWTH 2 DAYS 10/24/17 10/27/17 10/27/17 15:48 04:28 04:28 Creatine Kinase 405 H CK-MB (CK-2) 11.40 H Troponin I 0.014 0.022 NT-Pro-B Natriuret Pep 10/27/17 10/27/17 10/27/17 04:28 12:12 12:12 Creatine Kinase 261 H CK-MB (CK-2) 8.55 H Troponin I 0.120 NT-Pro-B Natriuret Pep 1600 H 10/27/17 10/27/17 10/28/17 20:25 20:25 04:43 Creatine Kinase 153 H 152 H CK-MB (CK-2) 5.84 H Troponin I 0.081 NT-Pro-B Natriuret Pep 10/28/17 04:43 Creatine Kinase CK-MB (CK-2) 4.26 Troponin I 0.056 NT-Pro-B Natriuret Pep Impressions: Head CT 10/27/17 08:14 IMPRESSION: MILD CHRONIC CHANGES OF ATROPHY AND MICROVASCULAR ISCHEMIA. NO ACUTE PROCESS. EVIDENCE OF ACUTE STROKE: NO. Chest X-Ray 10/29/17 06:00 IMPRESSION: No significant change. Assessment & Plan - Diagnosis (1) Acute respiratory failure with hypoxia and hypercapnia Is this a current diagnosis for this admission?: Yes Plan: Acute respiratory failure with hypoxia and hypercapnia secondary to COPD exacerbation. The patient has moderate to severe emphysema and is a continuous tobacco smoker. A rapid response was called for tachycardia and desaturation. The patient was briefly tried on BiPAP but did not improve. She was subsequently transferred to the ICU and intubated. Patient remains sedated, intubated, and mechanically ventilated. Blood cultures: No growth at 5 days Repeat blood cultures: No growth at 48 horus Sputum: No growth at 2 day CTA is negative for Pulmonary embolus. CXR reveals emphysema, no acute cardiopulmonary process. Images are personally reviewed. Head CT showed mild chronic changes of atrophy and microvascular ischemia. No evidence of acute stroke. Echocardiogram demonstrates LVEF of 55-60%, mild diastolic dysfunction, mild to moderate aortic regurgitation and mild tricuspid regurgitation. ABGs initially revealed respiratory acidosis; improved with ventilator support Intubated and mechanically ventilated. Dr. Camacho is consulted for ventilator management Scheduled and as needed nebulizer treatments. Continue IV Solu-Medrol. (2) Demand ischemia Is this a current diagnosis for this admission?: Yes Plan: Type 2 Non-STEMI secondary to demand ischemia during acute respiratory failure event. On admission, initial troponin was indeterminate and then trended downward. Following intubation; repeat troponin elevated to 0.120 and now trending down EKG: Sinus tachycardia, runs of PVCs Echocardiogram demonstrates LVEF of 55-60%, mild diastolic dysfunction, mild to moderate aortic regurgitation and mild tricuspid regurgitation. ProBNP of 1600. The patient appears euvolemic and she was not receiving IV fluids during this admission. The patient is on continuous cardiac telemetry. Daily aspirin. Supportive care. (3) Hypotension Is this a current diagnosis for this admission?: Yes Plan: Resolved Multifactorial secondary to mechanical ventilation, sedation, and cardiac demand ischemia. Pt is postive 3L; daily wt reflects similar increase from 67.9 to 69.4 kg. Have started gentle diuresis with IV furosemide 20 mg twice daily Will decrease IV maintenance fluids to 75ml/hr as patient is now receiving enteral nutrition and fluids. We will monitor closely; MAP goal > 60. Low threshold for central line placement. (4) Ventricular tachycardia Is this a current diagnosis for this admission?: Yes Plan: Rapid Response called the morning of 10/27/17 for nonsustained ventricular tachycardia followed by SVT secondary to acute respiratory failure. The patient was provided IV diltiazem for a short period of time; drip has since been discontinued. Pt currently in NSR. Troponins were trended with elevation to 0.120 and now trending downward. Pt was evaluated with CTA and echocardiogram. EKG this AM demonstrated sinus tachycardia with PVCs Cardiac workup as above. Pt currently in the ICU on continuous cardiac telemetry. (5) COPD exacerbation Is this a current diagnosis for this admission?: Yes Plan: Plan as above. (6) Acute bronchitis Is this a current diagnosis for this admission?: Yes Plan: Blood cultures as above. Continue Levaquin; this is day 6 of therapy. Remaining plan as above. (7) Tobacco abuse Is this a current diagnosis for this admission?: Yes Plan: Smoking cessation previously encouraged and nicotine replacement therapies offered. (8) Chronic constipation Is this a current diagnosis for this admission?: Yes Plan: Will monitor and address as necessary. (9) Elevated troponin Is this a current diagnosis for this admission?: Yes Plan: As above. (10) DVT prophylaxis Is this a current diagnosis for this admission?: Yes Plan: Heparin - Time Time Spent with patient: 35 or more minutes Medications reviewed and adjusted accordingly: Yes - Plan Summary Plan Summary: PT is currently admitted to the ICU for acute respiratory failure. On Pepcid for ulcer prophylaxis. Heparin for DVT prophylaxis. Patient started on tube feeds yesterday. Remaining plan as above.
[2017-10-29] MEDS: LEVOFLOXACIN 750 MG/D5W RTU 750 MG/150 ML RTUPB IV SCH (21:21)
[2017-10-29] MEDS: FUROSEMIDE INJ/PF 20 MG/2 ML SDV IV SCH (21:22)
--- NOTE | 2017-10-29 21:53 | PDOC CONSULTATION ---
Consultation Consult Date: 10/27/17 Attending physician:: HUMERA GÓMEZ History of Present Illness Admission Date/PCP: 10/24/17 12:00 History of Present Illness: Paulo CORCORAN is a 82 year old female with a past medical history of COPD, chronic bronchitis and tobacco dependence..She presented with increasing dyspnea to the ED with SAO2 of 85% not responding to usual interventions ;she was subsequently intubated and is now in the ICU Past Medical History Cardiac Medical History: Denies: Coronary Artery Disease, Myocardial Infarction, Hypertension Pulmonary Medical History: Reports: Chronic Obstructive Pulmonary Disease (COPD) Denies: Asthma, Bronchitis, Pneumonia Neurological Medical History: Denies: Seizures Musculoskeltal Medical History: Reports: Arthritis Psychiatric Medical History: Reports: Tobacco Dependency Hematology: Reports: Anemia Past Surgical History Past Surgical History: Denies: Hysterectomy, Pacemaker Social History Information Source: [facility] Records Lives with: Alone Smoking Status: Current Every Day Smoker Cigarettes Packs Per Day: 1 Frequency of Alcohol Use: Occasional Hx Recreational Drug Use: No Hx Prescription Drug Abuse: No - Advance Directive Resuscitation Status: Full Code Family History Family History: COPD, Other Parental Family History Reviewed: No Children Family History Reviewed: No Sibling(s) Family History Reviewed.: No Medication/Allergy Home Medications: Cholecalciferol (Vitamin D3) [Vitamin D] 1,000 unit PO DAILY 12/08/14 Albuterol Sulfate [Proair Hfa] 1 puff IH ASDIR PRN 10/24/17 Glycopyrrolate/Formoterol Fum [Bevespi Aerosphere Inhaler] 2 puff IH BID Allergies/Adverse Reactions: doxycycline [Doxycycline] Allergy (Mild, Verified 07/01/15 07:11) n/v Sulfa (Sulfonamide Antibiotics) Allergy (Mild, Verified 07/01/15 07:11) n/v Review of Systems ROS unobtainable: Due to endotracheal tube Physical Exam Vital Signs: Temp Pulse Resp BP Pulse Ox 95.5 F L 87 18 94/56 L 97 10/27/17 07:53 10/27/17 08:43 10/27/17 08:43 10/27/17 07:53 10/27/17 08:43 Intake & Output 10/26/17 10/27/17 10/28/17 06:59 06:59 06:59 Intake Total 660 556 Output Total 5 Balance 660 556 -5 Weight 67.5 kg 65.3 kg General appearance: PRESENT: no acute distress, disheveled, thin. ABSENT: cooperative Head exam: PRESENT: atraumatic, normocephalic Eye exam: PRESENT: conjunctiva pale. ABSENT: EOMI, nystagmus, periorbital swelling, scleral icterus Mouth exam: PRESENT: dry mucosa, neck supple, tongue midline, other - ET tube Neck exam: ABSENT: carotid bruit, JVD, lymphadenopathy, thyromegaly, tracheal deviation, tracheostomy Respiratory exam: PRESENT: decreased breath sounds, prolonged expiratory phas, rales, rhonchi, symmetrical, unlabored, wheezes. ABSENT: retraction, stridor, tachypnea Cardiovascular exam: PRESENT: RRR, rubs, +S2, tachycardia Pulses: PRESENT: normal radial pulses GI/Abdominal exam: PRESENT: diminished bowel sounds, soft Extremities exam: ABSENT: calf tenderness, clubbing, joint swelling Musculoskeletal exam: ABSENT: ambulatory, deformity, dislocation Neurological exam: ABSENT: alert, awake, oriented to person Skin exam: PRESENT: dry, warm Results Laboratory Results: 10/27/17 04:28 10/27/17 04:28 10/27/17 10/27/17 10/27/17 04:04 04:28 04:28 WBC 15.3 H RBC 5.33 H Hgb 15.1 Hct 47.4 H MCV 89 MCH 28.4 MCHC 31.9 L RDW 14.5 H Plt Count 195 Carbonic Acid 2.88 H HCO3/H2CO3 Ratio 10:1 ABG pH 7.13 L* ABG pCO2 95.7 H* ABG pO2 35.5 L* ABG HCO3 30.8 H ABG O2 Saturation 48.7 L ABG Base Excess -1.9 FiO2 4L Sodium 141.1 Potassium 4.9 Chloride 103 Carbon Dioxide 25 Anion Gap 13 BUN 28 H Creatinine 0.99 Est GFR ( Amer) > 60 Est GFR (Non-Af Amer) 53 L Glucose 233 H Calcium 10.5 H 10/27/17 07:46 WBC RBC Hgb Hct MCV MCH MCHC RDW Plt Count Carbonic Acid 2.23 H HCO3/H2CO3 Ratio 11:1 ABG pH 7.17 L* ABG pCO2 74.1 H* ABG pO2 254.6 H ABG HCO3 26.4 H ABG O2 Saturation 99.4 H ABG Base Excess -4.0 FiO2 60% Sodium Potassium Chloride Carbon Dioxide Anion Gap BUN Creatinine Est GFR ( Amer) Est GFR (Non-Af Amer) Glucose Calcium 10/24/17 10/27/17 10/27/17 15:48 04:28 04:28 Creatine Kinase 405 H CK-MB (CK-2) 11.40 H Troponin I 0.014 0.022 NT-Pro-B Natriuret Pep 10/27/17 04:28 Creatine Kinase CK-MB (CK-2) Troponin I NT-Pro-B Natriuret Pep 1600 H Impressions: Chest X-Ray 10/27/17 00:00 IMPRESSION: Interval intubation. Head CT 10/27/17 08:14 IMPRESSION: MILD CHRONIC CHANGES OF ATROPHY AND MICROVASCULAR ISCHEMIA. NO ACUTE PROCESS. EVIDENCE OF ACUTE STROKE: NO. Assessment & Plan - Diagnosis (1) Acute respiratory failure with hypoxia and hypercapnia Is this a current diagnosis for this admission?: Yes Plan: intubated supp O2 (2) COPD exacerbation Is this a current diagnosis for this admission?: Yes Plan: Generic Name Dose Route Start Last Admin Trade Name Freq PRN Reason Stop Dose Admin Methylprednisolone Sodium Succinate 40 mg 10/27/17 14:00 10/29/17 21:22 Solu-Medrol Inj/Pf 40 Mg/1 Ml Sdv IV 11/26/17 13:59 40 mg Q8 OKSANA Tiotropium [place] 1 cap 10/27/17 10:00 10/29/17 09:44 Spiriva Handihaler 5 Cap/Kit (18 Mcg/Cap) IH 11/26/17 09:59 Not Given DAILY OKSANA Albuterol 2.5 mg 10/27/17 08:07 10/27/17 12:35 Ventolin 0.083% Neb 2.5 Mg/3 Ml Ampul NEB 11/26/17 08:06 2.5 mg RTQ4HP PRN SHORTNESS OF BREATH Albuterol/Ipratropium 3 ml 10/24/17 02:00 10/29/17 20:56 Duoneb 3 Ml Ampul NEB 11/23/17 01:59 3 ml RTQ6 OKSANA Guaifenesin 600 mg 10/24/17 22:00 10/29/17 21:24 Mucinex Sr 600 Mg Tablet.Sa PO 11/23/17 21:59 Not Given Q12 OKSANA (3) Hypoxia Is this a current diagnosis for this admission?: Yes Plan: supplemental O 2 (4) Tobacco abuse Is this a current diagnosis for this admission?: Yes (6) SIRS (systemic inflammatory response syndrome) Is this a current diagnosis for this admission?: Yes (7) Tachycardia Is this a current diagnosis for this admission?: Yes Plan: volume;cvp - Time Total Critical Time (Minutes): 55
--- NOTE | 2017-10-29 21:57 | PDOC PROGRESS REPORT ---
Subjective Progress Note for:: 10/28/17 Subjective:: intubated Reason For Visit: ACUTE RESOIRATORY FAILURE WITH HYPOXIA Physical Exam Vital Signs: Temp Pulse Resp BP Pulse Ox 98.8 F 78 14 104/52 L 93 10/28/17 08:00 10/28/17 08:28 10/28/17 08:28 10/28/17 08:00 10/28/17 08:28 Intake & Output 10/27/17 10/28/17 10/29/17 06:59 06:59 06:59 Intake Total 556 2445 Output Total 895 40 Balance 556 1550 -40 Weight 65.3 kg 67.9 kg General appearance: PRESENT: no acute distress, disheveled, thin, well- developed. ABSENT: cooperative Head exam: PRESENT: atraumatic, normocephalic Eye exam: PRESENT: conjunctiva pale. ABSENT: EOMI, nystagmus, periorbital swelling, scleral icterus Mouth exam: PRESENT: dry mucosa, neck supple, tongue midline, other - ET tube Neck exam: ABSENT: carotid bruit, JVD, lymphadenopathy, thyromegaly, tracheal deviation, tracheostomy Respiratory exam: PRESENT: decreased breath sounds, prolonged expiratory phas, rales, rhonchi, symmetrical, unlabored, wheezes. ABSENT: stridor, tachypnea Cardiovascular exam: PRESENT: irregular rhythm GI/Abdominal exam: PRESENT: diminished bowel sounds, soft Gentrourinary exam: PRESENT: indwelling catheter Extremities exam: ABSENT: clubbing, joint swelling Musculoskeletal exam: ABSENT: ambulatory, deformity, dislocation Neurological exam: ABSENT: alert, awake, oriented to person Skin exam: PRESENT: dry, warm Results Laboratory Results: 10/28/17 04:43 10/28/17 04:43 10/27/17 10/27/17 10/27/17 09:50 09:50 09:59 WBC RBC Hgb Hct MCV MCH MCHC RDW Plt Count Seg Neutrophils % Lymphocytes % Monocytes % Eosinophils % Basophils % Absolute Neutrophils Absolute Lymphocytes Absolute Monocytes Absolute Eosinophils Absolute Basophils Carbonic Acid 2.14 H HCO3/H2CO3 Ratio 12:1 ABG pH 7.19 L* ABG pCO2 71.0 H* ABG pO2 149.6 H ABG HCO3 26.2 H ABG O2 Saturation 98.3 H ABG Base Excess -3.8 FiO2 40% Sodium 139.6 Potassium 4.7 Chloride 105 Carbon Dioxide 26 Anion Gap 9 BUN 33 H Creatinine 1.23 Est GFR ( Amer) 50 L Est GFR (Non-Af Amer) 42 L Glucose 118 H Lactic Acid Calcium 9.7 Phosphorus 4.7 H Magnesium 2.6 H Total Bilirubin 0.4 AST 79 H ALT 46 Alkaline Phosphatase 64 Total Protein 6.6 Albumin 3.7 Urine Color YELLOW Urine Appearance SLIGHTLY-CLOUDY Urine pH 5.0 Ur Specific [place] 1.039 Urine Protein 30 H Urine Glucose (UA) NEGATIVE Urine Ketones NEGATIVE Urine Blood MODERATE H Urine Nitrite NEGATIVE Ur Leukocyte Esterase NEGATIVE Urine WBC (Auto) 20 Urine RBC (Auto) 53 10/27/17 10/27/17 10/27/17 09:59 09:59 11:57 WBC 15.3 H RBC 4.94 Hgb 14.0 Hct 44.4 MCV 90 MCH 28.3 MCHC 31.5 L RDW 14.3 H Plt Count 143 L Seg Neutrophils % Not Reportable Lymphocytes % Not Reportable Monocytes % Not Reportable Eosinophils % Not Reportable Basophils % Not Reportable Absolute Neutrophils Not Reportable Absolute Lymphocytes Not Reportable Absolute Monocytes Not Reportable Absolute Eosinophils Not Reportable Absolute Basophils Not Reportable Carbonic Acid 1.34 HCO3/H2CO3 Ratio 18:1 ABG pH 7.37 ABG pCO2 44.4 ABG pO2 84.2 ABG HCO3 25.0 ABG O2 Saturation 96.0 ABG Base Excess -0.6 FiO2 30% Sodium Potassium Chloride Carbon Dioxide Anion Gap BUN Creatinine Est GFR ( Amer) Est GFR (Non-Af Amer) Glucose Lactic Acid 1.7 Calcium Phosphorus Magnesium Total Bilirubin AST ALT Alkaline Phosphatase Total Protein Albumin Urine Color Urine Appearance Urine pH Ur Specific [place] Urine Protein Urine Glucose (UA) Urine Ketones Urine Blood Urine Nitrite Ur Leukocyte Esterase Urine WBC (Auto) Urine RBC (Auto) 10/28/17 10/28/17 10/28/17 04:43 04:43 05:20 WBC 7.7 RBC 4.40 Hgb 12.8 Hct 38.1 MCV 87 MCH 29.2 MCHC 33.8 RDW 14.1 H Plt Count 201 Seg Neutrophils % Not Reportable Lymphocytes % Not Reportable Monocytes % Not Reportable Eosinophils % Not Reportable Basophils % Not Reportable Absolute Neutrophils Not Reportable Absolute Lymphocytes Not Reportable Absolute Monocytes Not Reportable Absolute Eosinophils Not Reportable Absolute Basophils Not Reportable Carbonic Acid 0.92 L HCO3/H2CO3 Ratio 20:1 ABG pH 7.42 ABG pCO2 30.5 L ABG pO2 66.9 L ABG HCO3 19.1 L ABG O2 Saturation 93.8 L ABG Base Excess -4.3 FiO2 30% Sodium 138.4 Potassium 4.1 Chloride 110 H Carbon Dioxide 20 L Anion Gap 8 BUN 37 H Creatinine 1.09 Est GFR ( Amer) 58 L Est GFR (Non-Af Amer) 48 L Glucose 123 H Lactic Acid Calcium 9.3 Phosphorus Magnesium 2.3 Total Bilirubin 0.4 AST 45 H ALT 59 H Alkaline Phosphatase 47 Total Protein 5.3 L Albumin 3.0 L Urine Color Urine Appearance Urine pH Ur Specific [place] Urine Protein Urine Glucose (UA) Urine Ketones Urine Blood Urine Nitrite Ur Leukocyte Esterase Urine WBC (Auto) Urine RBC (Auto) 10/24/17 10/27/17 10/27/17 15:48 04:28 04:28 Creatine Kinase 405 H CK-MB (CK-2) 11.40 H Troponin I 0.014 0.022 NT-Pro-B Natriuret Pep 10/27/17 10/27/17 10/27/17 04:28 12:12 12:12 Creatine Kinase 261 H CK-MB (CK-2) 8.55 H Troponin I 0.120 NT-Pro-B Natriuret Pep 1600 H 10/27/17 10/27/17 10/28/17 20:25 20:25 04:43 Creatine Kinase 153 H 152 H CK-MB (CK-2) 5.84 H Troponin I 0.081 NT-Pro-B Natriuret Pep 10/28/17 04:43 Creatine Kinase CK-MB (CK-2) 4.26 Troponin I 0.056 NT-Pro-B Natriuret Pep Impressions: Head CT 10/27/17 08:14 IMPRESSION: MILD CHRONIC CHANGES OF ATROPHY AND MICROVASCULAR ISCHEMIA. NO ACUTE PROCESS. EVIDENCE OF ACUTE STROKE: NO. Chest X-Ray 10/28/17 06:00 IMPRESSION: Obstructive lung disease. No focal infiltrates. Endotracheal tube, nasogastric tube in good positioning. 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 Assessment & Plan - Diagnosis (1) Acute respiratory failure with hypoxia and hypercapnia Is this a current diagnosis for this admission?: Yes Plan: intubated supp O2 (2) COPD exacerbation Is this a current diagnosis for this admission?: Yes Plan: Generic Name Dose Route Start Last Admin Trade Name Freq PRN Reason Stop Dose Admin Methylprednisolone Sodium Succinate 40 mg 10/27/17 14:00 10/29/17 21:22 Solu-Medrol Inj/Pf 40 Mg/1 Ml Sdv IV 11/26/17 13:59 40 mg Q8 OKSANA Tiotropium [place] 1 cap 10/27/17 10:00 10/29/17 09:44 Spiriva Handihaler 5 Cap/Kit (18 Mcg/Cap) IH 11/26/17 09:59 Not Given DAILY OKSANA Albuterol 2.5 mg 10/27/17 08:07 10/27/17 12:35 Ventolin 0.083% Neb 2.5 Mg/3 Ml Ampul NEB 11/26/17 08:06 2.5 mg RTQ4HP PRN SHORTNESS OF BREATH Albuterol/Ipratropium 3 ml 10/24/17 02:00 10/29/17 20:56 Duoneb 3 Ml Ampul NEB 11/23/17 01:59 3 ml RTQ6 OKSANA Guaifenesin 600 mg 10/24/17 22:00 10/29/17 21:24 Mucinex Sr 600 Mg Tablet.Sa PO 11/23/17 21:59 Not Given Q12 OKSANA (3) Tobacco abuse Is this a current diagnosis for this admission?: Yes Plan: transdermal nicotine - Time Total Critical Time (Minutes): 45
--- NOTE | 2017-10-29 21:59 | PDOC PROGRESS REPORT ---
Subjective Progress Note for:: 10/29/17 Subjective:: 5660 Reason For Visit: ACUTE RESOIRATORY FAILURE WITH HYPOXIA Physical Exam Vital Signs: Temp Pulse Resp BP Pulse Ox 99.1 F 74 22 H 146/69 H 91 L 10/29/17 07:24 10/29/17 08:00 10/29/17 10:00 10/29/17 09:58 10/29/17 10:00 Intake & Output 10/28/17 10/29/17 10/30/17 06:59 06:59 06:59 Intake Total 2445 3052 Output Total 895 1032 40 Balance 1550 2019 Weight 67.9 kg 69.4 kg General appearance: PRESENT: no acute distress, disheveled, well-developed. ABSENT: cooperative Head exam: PRESENT: atraumatic, normocephalic Eye exam: PRESENT: conjunctiva pale. ABSENT: EOMI, nystagmus, periorbital swelling, scleral icterus Mouth exam: PRESENT: dry mucosa, neck supple, tongue midline, other - ET tube Neck exam: ABSENT: carotid bruit, JVD, lymphadenopathy, thyromegaly, tracheal deviation, tracheostomy Respiratory exam: PRESENT: decreased breath sounds, prolonged expiratory phas, rhonchi, stridor, unlabored, wheezes. ABSENT: rales, retraction, symmetrical, tachypnea Cardiovascular exam: PRESENT: irregular rhythm, tachycardia Pulses: PRESENT: normal radial pulses GI/Abdominal exam: PRESENT: diminished bowel sounds, soft Extremities exam: ABSENT: clubbing, joint swelling Musculoskeletal exam: ABSENT: ambulatory, deformity, dislocation Neurological exam: ABSENT: alert, awake, oriented to person Skin exam: PRESENT: dry, warm Results Laboratory Results: 10/29/17 04:16 10/29/17 04:16 10/29/17 10/29/17 04:16 04:16 WBC 9.9 RBC 4.34 Hgb 12.7 Hct 38.0 MCV 88 MCH 29.3 MCHC 33.5 RDW 13.9 Plt Count 174 Seg Neutrophils % Not Reportable Lymphocytes % Not Reportable Monocytes % Not Reportable Eosinophils % Not Reportable Basophils % Not Reportable Absolute Neutrophils Not Reportable Absolute Lymphocytes Not Reportable Absolute Monocytes Not Reportable Absolute Eosinophils Not Reportable Absolute Basophils Not Reportable Sodium 138.4 Potassium 4.0 Chloride 109 H Carbon Dioxide 19 L Anion Gap 10 BUN 39 H Creatinine 0.91 Est GFR ( Amer) > 60 Est GFR (Non-Af Amer) 59 L Glucose 128 H Calcium 9.4 Total Bilirubin 0.3 AST 52 H ALT 78 H Alkaline Phosphatase 47 Total Protein 5.0 L Albumin 3.0 L 10/27/17 09:50 Kaminski Catheter Urine Culture - Final NO GROWTH 2 DAYS 10/24/17 10/27/17 10/27/17 15:48 04:28 04:28 Creatine Kinase 405 H CK-MB (CK-2) 11.40 H Troponin I 0.014 0.022 NT-Pro-B Natriuret Pep 10/27/17 10/27/17 10/27/17 04:28 12:12 12:12 Creatine Kinase 261 H CK-MB (CK-2) 8.55 H Troponin I 0.120 NT-Pro-B Natriuret Pep 1600 H 10/27/17 10/27/17 10/28/17 20:25 20:25 04:43 Creatine Kinase 153 H 152 H CK-MB (CK-2) 5.84 H Troponin I 0.081 NT-Pro-B Natriuret Pep 10/28/17 04:43 Creatine Kinase CK-MB (CK-2) 4.26 Troponin I 0.056 NT-Pro-B Natriuret Pep Impressions: Head CT 10/27/17 08:14 IMPRESSION: MILD CHRONIC CHANGES OF ATROPHY AND MICROVASCULAR ISCHEMIA. NO ACUTE PROCESS. EVIDENCE OF ACUTE STROKE: NO. Chest X-Ray 10/29/17 06:00 IMPRESSION: No significant change. Assessment & Plan - Diagnosis (1) Acute respiratory failure with hypoxia and hypercapnia Is this a current diagnosis for this admission?: Yes Plan: intubated supp O2 (2) COPD exacerbation Is this a current diagnosis for this admission?: Yes Plan: Generic Name Dose Route Start Last Admin Trade Name Freq PRN Reason Stop Dose Admin Methylprednisolone Sodium Succinate 40 mg 10/27/17 14:00 10/29/17 21:22 Solu-Medrol Inj/Pf 40 Mg/1 Ml Sdv IV 11/26/17 13:59 40 mg Q8 OKSANA Tiotropium [place] 1 cap 10/27/17 10:00 10/29/17 09:44 Spiriva Handihaler 5 Cap/Kit (18 Mcg/Cap) IH 11/26/17 09:59 Not Given DAILY OKSANA Albuterol 2.5 mg 10/27/17 08:07 10/27/17 12:35 Ventolin 0.083% Neb 2.5 Mg/3 Ml Ampul NEB 11/26/17 08:06 2.5 mg RTQ4HP PRN SHORTNESS OF BREATH Albuterol/Ipratropium 3 ml 10/24/17 02:00 10/29/17 20:56 Duoneb 3 Ml Ampul NEB 11/23/17 01:59 3 ml RTQ6 OKSANA Guaifenesin 600 mg 10/24/17 22:00 10/29/17 21:24 Mucinex Sr 600 Mg Tablet.Sa PO 11/23/17 21:59 Not Given Q12 OKSANA (3) Hypoxia Is this a current diagnosis for this admission?: Yes Plan: supplemental O 2 (4) Tobacco abuse Is this a current diagnosis for this admission?: Yes Plan: transdermal nicotine - Time Total Critical Time (Minutes): 40
[2017-10-30] MEDS: IPRATROPIUM/ALBUTEROL 0.5-2.5 MG/3 ML AMPUL NEB SCH ×4 (02:06→20:39)
[2017-10-30] MEDS: METHYLPREDNISOLONE INJ 40 MG/1 ML SDV IV SCH ×3 (05:38→21:17)
[2017-10-30] MEDS: HEPARIN SOD (PORCINE) 5,000 UNIT/ML 1 ML SYRINGE SUBCUT SCH ×3 (05:38→21:18)
[2017-10-30 05:46] LABS: HEMATOCRIT 37.7 % (36.0-47.0); HEMOGLOBIN 12.5 g/dL (12.0-15.5); MEAN CORPUSCULAR HEMOGLOBIN 28.6 pg (27.0-33.4); MEAN CORPUSCULAR HGB CONC 33.1 g/dL (32.0-36.0); MEAN CORPUSCULAR VOLUME 87 fl (80-97); PLATELET COUNT 217 10^3/uL (150-450); RED BLOOD COUNT 4.36 10^6/uL (3.72-5.28); RED CELL DISTRIBUTION WIDTH 14.4 % (11.5-14.0); WHITE BLOOD COUNT 13.9 10^3/uL (4.0-10.5)
[2017-10-30 05:52] LABS: ARTERIAL BLOOD BASE EXCESS 0.1 mmol/L; ARTERIAL BLOOD H2CO3 1.15 mmol/L (1.05-1.35); ARTERIAL BLOOD HCO3 24.3 mmol/L (20-26); ARTERIAL BLOOD O2 SATURATION 96.9 % (94-98); ARTERIAL BLOOD PCO2 38.1 mmHg (35-45); ARTERIAL BLOOD PH 7.42 (7.35-7.45); ARTERIAL BLOOD PO2 87.5 mmHg (80-100); ARTERIAL BLOOD TOTAL CO2 25.4 mmol/L (21-25)
[2017-10-30 05:57] LABS: ANION GAP 12 (5-19); BLOOD UREA NITROGEN 42 mg/dL (7-20); CALCIUM 8.8 mg/dL (8.4-10.2); CARBON DIOXIDE 21 mmol/L (22-30); CHLORIDE 107 mmol/L (98-107); GLUCOSE 158 mg/dL (75-110); POTASSIUM 3.7 mmol/L (3.6-5.0); SODIUM 140.2 mmol/L (137-145)
[2017-10-30 06:00] LABS: ARTERIAL BLOOD FIO2 40%
[2017-10-30 06:29] LABS: ABSOLUTE LYMPHOCYTES# (MANUAL) 1.5 10^3/uL (0.5-4.7); ABSOLUTE NEUTROPHILS# (MANUAL) 11.4 10^3/uL (1.7-8.2); BASOPHILS % (MANUAL) 0 % (0-2); EOSINOPHILS % (MANUAL) 0 % (0-6); LYMPHOCYTES % (MANUAL) 11 % (13-45); MONOCYTES % (MANUAL) 7 % (3-13); SEGMENTED NEUTROPHILS % (MAN) 82 % (42-78); TOTAL CELLS COUNTED 100
[2017-10-30 06:31] LABS: ANISOCYTOSIS SLIGHT; OVALOCYTES 1+; PLATELET COMMENT ADEQUATE; POIKILOCYTOSIS SLIGHT; TOXIC GRANULATION SLIGHT; TOXIC VACUOLATION PRESENT
--- NOTE | 2017-10-30 06:47 | RADIOLOGY REPORT (SQ) ---
EXAM DESCRIPTION: CHEST SINGLE VIEW CLINICAL HISTORY: resp failure COMPARISON: 10/29/2017 FINDINGS: Single frontal view of the chest. Atherosclerotic calcification and tortuosity of the thoracic aorta. Heart is not enlarged. NG tube with tip in the stomach. Endotracheal tube with tip 4 cm above the demetria. Leads overlie the chest. No consolidation, pneumothorax, or pleural effusion. Postoperative change in the left axillary region. No acute osseous abnormalities. Upper abdominal soft tissues are unremarkable. IMPRESSION: 1. No significant interval change.
--- NOTE | 2017-10-30 10:23 | RADIOLOGY REPORT (SQ) ---
EXAM DESCRIPTION: KUB/ABDOMEN (SINGLE VIEW) COMPLETED DATE/TIME: 10/30/2017 9:50 am REASON FOR STUDY: abdominal distention/constipation J96.00 ACUTE RESPIRATORY FAILURE, UNSP W HYPOXI A OR HYPERCAP COMPARISON: None. NUMBER OF VIEWS: One view. TECHNIQUE: Supine radiographic image of the abdomen acquired. LIMITATIONS: None. FINDINGS: BOWEL GAS PATTERN: There is mild gaseous distention of multiple bowel loops most consisten t with an ileus pattern although the possibility of an underlying obstruction cannot be completely ex cluded. CALCIFICATIONS: No suspicious calcifications. SOFT TISSUES: No gross mass or suggestion of organomegaly. HARDWARE: NG tube is identified with its tip in the left upper quadrant at the level of the mid stoma ch. Surgical clips are identified in the right upper quadrant. BONES: No acute fracture. No worrisome bone lesions. OTHER: No other significant finding. IMPRESSION: There is mild gaseous distention of multiple bowel loops most consistent with an ileus p attern although the possibility of an underlying obstruction cannot be completely excluded. Other fi ndings as noted above TECHNICAL DOCUMENTATION: JOB ID: [id number] [employer]- All Rights Reserved Reading location - IP/workstation name: [email or web address]
[2017-10-30] MEDS: FLUTICASONE NASAL SPRAY 50 MCG/SPRY 120 SPRAY/16 GM NASL SCH ×2 (11:37→22:47)
[2017-10-30] MEDS: ASPIRIN 81 MG TABLET, CHEWABLE PO SCH (11:37)
[2017-10-30] MEDS: PSYLLIUM SEED-SF 5.85 GM PACKET PO SCH (11:37)
[2017-10-30] MEDS: CHOLECALCIFEROL (D3) 1,000 UNIT TABLET PO SCH (11:37)
[2017-10-30] MEDS: GUAIFENESIN 600 MG TABLET.SA PO SCH ×2 (11:37→22:47)
[2017-10-30] MEDS: TIOTROPIUM BROMIDE DPI 5 CAP/KIT (18 MCG/CAP) IH SCH (11:37)
[2017-10-30] MEDS: FUROSEMIDE INJ/PF 20 MG/2 ML SDV IV SCH ×2 (11:43→21:17)
[2017-10-30] MEDS: FAMOTIDINE INJ/PF 20 MG/2 ML SDV IV SCH ×2 (11:44→21:17)
[2017-10-30] MEDS: METOCLOPRAMIDE HCL INJ/PF 10 MG/2 ML SDV IV SCH ×3 (11:44→21:17)
--- NOTE | 2017-10-30 12:17 | PDOC PROGRESS REPORT ---
Subjective Progress Note for:: 10/30/17 Subjective:: Awake proceed to extubate Reason For Visit: ACUTE RESOIRATORY FAILURE WITH HYPOXIA Physical Exam Vital Signs: Temp Pulse Resp BP Pulse Ox 99.7 F 92 19 145/66 H 90 L 10/30/17 04:00 10/30/17 08:00 10/30/17 07:55 10/30/17 06:00 10/30/17 07:55 Intake & Output 10/29/17 10/30/17 10/31/17 06:59 06:59 06:59 Intake Total 3052 3220 Output Total 1032 4810 260 Balance 2019 Weight 69.4 kg 67.7 kg General appearance: PRESENT: no acute distress, disheveled, well-developed. ABSENT: hard of hearing Head exam: PRESENT: atraumatic, normocephalic Eye exam: PRESENT: conjunctiva pale, EOMI. ABSENT: nystagmus, periorbital swelling, scleral icterus Mouth exam: PRESENT: dry mucosa, neck supple, tongue midline, other - ET tube Neck exam: ABSENT: carotid bruit, JVD, lymphadenopathy, thyromegaly, tracheal deviation, tracheostomy Respiratory exam: PRESENT: decreased breath sounds, prolonged expiratory phas, rhonchi, symmetrical, unlabored. ABSENT: accessory muscle use, chest wall tenderness, crackles, rales, retraction, stridor, tachypnea Cardiovascular exam: PRESENT: RRR, +S1, +S2 Pulses: PRESENT: normal radial pulses GI/Abdominal exam: PRESENT: diminished bowel sounds, distended, soft Extremities exam: ABSENT: clubbing, pedal edema Musculoskeletal exam: ABSENT: ambulatory, deformity, dislocation Neurological exam: PRESENT: awake Skin exam: PRESENT: dry, warm Results Laboratory Results: 10/30/17 05:28 10/30/17 05:28 10/29/17 10/30/17 10/30/17 10:22 05:28 05:28 WBC 13.9 H RBC 4.36 Hgb 12.5 Hct 37.7 MCV 87 MCH 28.6 MCHC 33.1 RDW 14.4 H Plt Count 217 Seg Neutrophils % Not Reportable Lymphocytes % Not Reportable Monocytes % Not Reportable Eosinophils % Not Reportable Basophils % Not Reportable Absolute Neutrophils Not Reportable Absolute Lymphocytes Not Reportable Absolute Monocytes Not Reportable Absolute Eosinophils Not Reportable Absolute Basophils Not Reportable Carbonic Acid 1.13 HCO3/H2CO3 Ratio 18:1 ABG pH 7.37 ABG pCO2 37.7 ABG pO2 93.1 ABG HCO3 21.3 ABG O2 Saturation 97.0 ABG Base Excess -3.6 FiO2 40% Sodium 140.2 Potassium 3.7 Chloride 107 Carbon Dioxide 21 L Anion Gap 12 BUN 42 H Creatinine 0.89 Est GFR ( Amer) > 60 Est GFR (Non-Af Amer) > 60 Glucose 158 H Calcium 8.8 Magnesium 2.1 10/30/17 05:32 WBC RBC Hgb Hct MCV MCH MCHC RDW Plt Count Seg Neutrophils % Lymphocytes % Monocytes % Eosinophils % Basophils % Absolute Neutrophils Absolute Lymphocytes Absolute Monocytes Absolute Eosinophils Absolute Basophils Carbonic Acid 1.15 HCO3/H2CO3 Ratio 21:1 ABG pH 7.42 ABG pCO2 38.1 ABG pO2 87.5 ABG HCO3 24.3 ABG O2 Saturation 96.9 ABG Base Excess 0.1 FiO2 40% Sodium Potassium Chloride Carbon Dioxide Anion Gap BUN Creatinine Est GFR ( Amer) Est GFR (Non-Af Amer) Glucose Calcium Magnesium 10/27/17 05:40 Tracheal Aspirate Gram Stain - Final 10/27/17 05:40 Tracheal Aspirate Sputum Culture - Final NO GROWTH 2 DAYS 10/27/17 09:50 Kaminski Catheter Urine Culture - Final NO GROWTH 2 DAYS 10/24/17 10/27/17 10/27/17 15:48 04:28 04:28 Creatine Kinase 405 H CK-MB (CK-2) 11.40 H Troponin I 0.014 0.022 NT-Pro-B Natriuret Pep 10/27/17 10/27/17 10/27/17 04:28 12:12 12:12 Creatine Kinase 261 H CK-MB (CK-2) 8.55 H Troponin I 0.120 NT-Pro-B Natriuret Pep 1600 H 10/27/17 10/27/17 10/28/17 20:25 20:25 04:43 Creatine Kinase 153 H 152 H CK-MB (CK-2) 5.84 H Troponin I 0.081 NT-Pro-B Natriuret Pep 10/28/17 04:43 Creatine Kinase CK-MB (CK-2) 4.26 Troponin I 0.056 NT-Pro-B Natriuret Pep Impressions: Head CT 10/27/17 08:14 IMPRESSION: MILD CHRONIC CHANGES OF ATROPHY AND MICROVASCULAR ISCHEMIA. NO ACUTE PROCESS. EVIDENCE OF ACUTE STROKE: NO. Chest X-Ray 10/30/17 06:00 IMPRESSION: 1. No significant interval change. Assessment & Plan - Diagnosis (1) Acute respiratory failure with hypoxia and hypercapnia Is this a current diagnosis for this admission?: Yes Plan: Respiratory rate, minute ventilation, all suggest successful extubation (2) COPD exacerbation Is this a current diagnosis for this admission?: Yes Plan: Improved Generic Name Dose Route Start Last Admin Trade Name Freq PRN Reason Stop Dose Admin Methylprednisolone Sodium Succinate 40 mg 10/27/17 14:00 10/29/17 21:22 Solu-Medrol Inj/Pf 40 Mg/1 Ml Sdv IV 11/26/17 13:59 40 mg Q8 OKSANA Tiotropium [place] 1 cap 10/27/17 10:00 10/29/17 09:44 Spiriva Handihaler 5 Cap/Kit (18 Mcg/Cap) IH 11/26/17 09:59 Not Given DAILY OKSANA Albuterol 2.5 mg 10/27/17 08:07 10/27/17 12:35 Ventolin 0.083% Neb 2.5 Mg/3 Ml Ampul NEB 11/26/17 08:06 2.5 mg RTQ4HP PRN SHORTNESS OF BREATH Albuterol/Ipratropium 3 ml 10/24/17 02:00 10/29/17 20:56 Duoneb 3 Ml Ampul NEB 11/23/17 01:59 3 ml RTQ6 OKSANA Guaifenesin 600 mg 10/24/17 22:00 10/29/17 21:24 Mucinex Sr 600 Mg Tablet.Sa PO 11/23/17 21:59 Not Given Q12 OKSANA (3) Hypoxia Is this a current diagnosis for this admission?: Yes Plan: supplemental O 2 (4) Tobacco abuse Is this a current diagnosis for this admission?: Yes Plan: transdermal nicotine - Time Total Critical Time (Minutes): 50
[2017-10-30] MEDS ORDERED: NA PHOS,M-B/NA PHOS,DI-BA (ADULT) 133 ML ENEMA PR ONE (16:39)
--- NOTE | 2017-10-30 18:55 | PDOC PROGRESS REPORT ---
Subjective Progress Note for:: 10/30/17 Subjective:: Patient of sedation and does not have any complains. Her son is at bedside as well. Nurse was concerned about abdominal distention however both patient and her son state that patient's stomach has been like that all her life Review of systems All organ systems have been evaluated and negative except as in subjective All significant laboratories and diagnostics have been reviewed Reason For Visit: ACUTE RESOIRATORY FAILURE WITH HYPOXIA Physical Exam Vital Signs: Temp Pulse Resp BP Pulse Ox 99.7 F 83 21 H 145/66 H 95 10/30/17 04:00 10/30/17 02:05 10/30/17 06:01 10/30/17 06:00 10/30/17 06:01 Intake & Output 10/29/17 10/30/17 10/31/17 06:59 06:59 06:59 Intake Total 3052 3220 Output Total 1032 4810 Balance 2019 -159 Weight 69.4 kg 67.7 kg General appearance: PRESENT: cooperative, obese Head exam: PRESENT: atraumatic, normocephalic Eye exam: PRESENT: conjunctiva pink, EOMI, PERRLA Ear exam: PRESENT: normal external ear exam Mouth exam: PRESENT: moist Neck exam: PRESENT: full ROM. ABSENT: JVD, lymphadenopathy, tenderness Respiratory exam: PRESENT: clear to auscultation cheri Cardiovascular exam: PRESENT: RRR. ABSENT: diastolic murmur, systolic murmur Vascular exam: PRESENT: normal capillary refill GI/Abdominal exam: PRESENT: distended, hypoactive bowel sounds. ABSENT: normal bowel sounds, tenderness Extremities exam: PRESENT: full ROM Musculoskeletal exam: PRESENT: ambulatory Neurological exam: PRESENT: alert, awake, oriented to person Psychiatric exam: PRESENT: appropriate affect, normal mood Skin exam: PRESENT: normal color Results Laboratory Results: 10/30/17 05:28 10/30/17 05:28 10/29/17 10/30/17 10/30/17 10:22 05:28 05:28 WBC 13.9 H RBC 4.36 Hgb 12.5 Hct 37.7 MCV 87 MCH 28.6 MCHC 33.1 RDW 14.4 H Plt Count 217 Seg Neutrophils % Not Reportable Lymphocytes % Not Reportable Monocytes % Not Reportable Eosinophils % Not Reportable Basophils % Not Reportable Absolute Neutrophils Not Reportable Absolute Lymphocytes Not Reportable Absolute Monocytes Not Reportable Absolute Eosinophils Not Reportable Absolute Basophils Not Reportable Carbonic Acid 1.13 HCO3/H2CO3 Ratio 18:1 ABG pH 7.37 ABG pCO2 37.7 ABG pO2 93.1 ABG HCO3 21.3 ABG O2 Saturation 97.0 ABG Base Excess -3.6 FiO2 40% Sodium 140.2 Potassium 3.7 Chloride 107 Carbon Dioxide 21 L Anion Gap 12 BUN 42 H Creatinine 0.89 Est GFR ( Amer) > 60 Est GFR (Non-Af Amer) > 60 Glucose 158 H Calcium 8.8 Magnesium 2.1 10/30/17 05:32 WBC RBC Hgb Hct MCV MCH MCHC RDW Plt Count Seg Neutrophils % Lymphocytes % Monocytes % Eosinophils % Basophils % Absolute Neutrophils Absolute Lymphocytes Absolute Monocytes Absolute Eosinophils Absolute Basophils Carbonic Acid 1.15 HCO3/H2CO3 Ratio 21:1 ABG pH 7.42 ABG pCO2 38.1 ABG pO2 87.5 ABG HCO3 24.3 ABG O2 Saturation 96.9 ABG Base Excess 0.1 FiO2 40% Sodium Potassium Chloride Carbon Dioxide Anion Gap BUN Creatinine Est GFR ( Amer) Est GFR (Non-Af Amer) Glucose Calcium Magnesium 10/27/17 05:40 Tracheal Aspirate Gram Stain - Final 10/27/17 05:40 Tracheal Aspirate Sputum Culture - Final NO GROWTH 2 DAYS 10/27/17 09:50 Kaminski Catheter Urine Culture - Final NO GROWTH 2 DAYS 10/24/17 10/27/17 10/27/17 15:48 04:28 04:28 Creatine Kinase 405 H CK-MB (CK-2) 11.40 H Troponin I 0.014 0.022 NT-Pro-B Natriuret Pep 10/27/17 10/27/17 10/27/17 04:28 12:12 12:12 Creatine Kinase 261 H CK-MB (CK-2) 8.55 H Troponin I 0.120 NT-Pro-B Natriuret Pep 1600 H 10/27/17 10/27/17 10/28/17 20:25 20:25 04:43 Creatine Kinase 153 H 152 H CK-MB (CK-2) 5.84 H Troponin I 0.081 NT-Pro-B Natriuret Pep 10/28/17 04:43 Creatine Kinase CK-MB (CK-2) 4.26 Troponin I 0.056 NT-Pro-B Natriuret Pep Impressions: Head CT 10/27/17 08:14 IMPRESSION: MILD CHRONIC CHANGES OF ATROPHY AND MICROVASCULAR ISCHEMIA. NO ACUTE PROCESS. EVIDENCE OF ACUTE STROKE: NO. Chest X-Ray 10/30/17 06:00 IMPRESSION: 1. No significant interval change. Assessment & Plan - Diagnosis (1) Acute exacerbation of chronic bronchitis Is this a current diagnosis for this admission?: Yes Plan: Will continue present management (2) Acute respiratory failure with hypoxia and hypercapnia Is this a current diagnosis for this admission?: Yes Plan: Being managed by Dr. Camacho expected to be extubated today (3) Chronic constipation Is this a current diagnosis for this admission?: Yes Plan: Likely contributing to abdominal distention. Will order KUB (4) Ventricular tachycardia Is this a current diagnosis for this admission?: Yes Plan: Resolved (5) NSTEMI (non-ST elevated myocardial infarction) Is this a current diagnosis for this admission?: Yes Plan: Due to myocardial demand ischemia - Time Time Spent with patient: 15-24 minutes Medications reviewed and adjusted accordingly: Yes Anticipated discharge: Home with Homehealth Within: within 72 hours - Inpatient Certification Based on my medical assessment, after consideration of the patient's comorbidities, presenting symptoms, or acuity I expect that the services needed warrant INPATIENT care.: Yes I certify that my determination is in accordance with my understanding of Medicare's requirements for reasonable and necessary INPATIENT services [42 CFR 412.3e].: Yes Medical Necessity: Need Close Monitoring Due to Risk of Patient Decompensation, Need For Continuous Telemetry Monitoring
[2017-10-30] MEDS ORDERED: LORAZEPAM INJ 2 MG/1 ML VIAL IV ONE (21:00)
[2017-10-30] MEDS: LEVOFLOXACIN 750 MG/D5W RTU 750 MG/150 ML RTUPB IV SCH (21:16)
[2017-10-31] MEDS: IPRATROPIUM/ALBUTEROL 0.5-2.5 MG/3 ML AMPUL NEB SCH ×2 (02:54→08:16)
[2017-10-31] MEDS: METOCLOPRAMIDE HCL INJ/PF 10 MG/2 ML SDV IV SCH ×4 (03:58→21:54)
[2017-10-31 04:02] LABS: HEMOGLOBIN 14.2 g/dL (12.0-15.5); MEAN CORPUSCULAR HEMOGLOBIN 28.9 pg (27.0-33.4); MEAN CORPUSCULAR HGB CONC 33.9 g/dL (32.0-36.0); MEAN CORPUSCULAR VOLUME 85 fl (80-97); PLATELET COUNT 235 10^3/uL (150-450); RED BLOOD COUNT 4.92 10^6/uL (3.72-5.28); RED CELL DISTRIBUTION WIDTH 14.3 % (11.5-14.0); WHITE BLOOD COUNT 16.6 10^3/uL (4.0-10.5)
[2017-10-31 04:20] LABS: ALANINE AMINOTRANSFERASE 104 U/L (9-52); ALBUMIN 3.5 g/dL (3.5-5.0); ALKALINE PHOSPHATASE 55 U/L (38-126); ANION GAP 10 (5-19); ASPARTATE AMINO TRANSFERASE 43 U/L (14-36); BILIRUBIN,DIRECT 0.3 mg/dL (0.0-0.4); BILIRUBIN,TOTAL 0.5 mg/dL (0.2-1.3); BLOOD UREA NITROGEN 48 mg/dL (7-20); CALCIUM 9.9 mg/dL (8.4-10.2); CHLORIDE 98 mmol/L (98-107); GLUCOSE 145 mg/dL (75-110); POTASSIUM 3.8 mmol/L (3.6-5.0); SODIUM 140.9 mmol/L (137-145); TOTAL PROTEIN 5.9 g/dL (6.3-8.2)
[2017-10-31 04:21] LABS: ABSOLUTE LYMPHOCYTES# (MANUAL) 2.5 10^3/uL (0.5-4.7); ABSOLUTE MONOCYTES # (MANUAL) 1.8 10^3/uL (0.1-1.4); ABSOLUTE NEUTROPHILS# (MANUAL) 12.3 10^3/uL (1.7-8.2); BASOPHILS % (MANUAL) 0 % (0-2); EOSINOPHILS % (MANUAL) 0 % (0-6); LYMPHOCYTES % (MANUAL) 14 % (13-45); MONOCYTES % (MANUAL) 11 % (3-13); SEGMENTED NEUTROPHILS % (MAN) 74 % (42-78); TOTAL CELLS COUNTED 100
[2017-10-31 04:27] LABS: TOXIC GRANULATION SLIGHT
[2017-10-31 04:28] LABS: ANISOCYTOSIS SLIGHT; OVALOCYTES SLIGHT; PLATELET CLUMPS PRESENT; PLATELET COMMENT ADEQUATE; PLATELET GIANT PRESENT; POIKILOCYTOSIS SLIGHT; POLYCHROMASIA SLIGHT; TOXIC VACUOLATION PRESENT
[2017-10-31 04:31] LABS: CARBON DIOXIDE 33 mmol/L (22-30)
[2017-10-31] MEDS: METHYLPREDNISOLONE INJ 40 MG/1 ML SDV IV SCH ×2 (05:04→17:40)
[2017-10-31] MEDS: HEPARIN SOD (PORCINE) 5,000 UNIT/ML 1 ML SYRINGE SUBCUT SCH ×3 (05:04→21:55)
[2017-10-31 05:23] LABS: ARTERIAL BLOOD FIO2 4L; ARTERIAL BLOOD H2CO3 1.49 mmol/L (1.05-1.35); ARTERIAL BLOOD HCO3 33.5 mmol/L (20-26); ARTERIAL BLOOD O2 SATURATION 94.2 % (94-98); ARTERIAL BLOOD PCO2 49.4 mmHg (35-45); ARTERIAL BLOOD PH 7.45 (7.35-7.45); ARTERIAL BLOOD PO2 68.2 mmHg (80-100)
--- NOTE | 2017-10-31 06:43 | RADIOLOGY REPORT (SQ) ---
EXAM DESCRIPTION: CHEST SINGLE VIEW CLINICAL HISTORY: resp failure COMPARISON: 10/30/2017 FINDINGS: Single frontal view of the chest. Atherosclerotic calcification and tortuosity of the thoracic aorta. Heart is not enlarged. NG tube with tip in the stomach. Endotracheal tube is not definitely identified. Leads overlie the chest. Interval development of hazy right basilar opacity. No pneumothorax or pleural effusion. Postoperative change in the left axillary region. No acute osseous abnormalities. Upper abdominal soft tissues are unremarkable. IMPRESSION: 1. Interval removal of endotracheal tube. 2. Interval development of hazy right basilar opacity. This may be related to atelectasis however pneumonia could produce a similar appearance. Continued follow-up recommended
[2017-10-31] MEDS ORDERED: NORMAL SALINE 1000 ML 1,000 ML IV PRN (07:18)
[2017-10-31] MEDS: CHOLECALCIFEROL (D3) 1,000 UNIT TABLET PO SCH (09:42)
[2017-10-31] MEDS: GUAIFENESIN 600 MG TABLET.SA PO SCH ×2 (09:42→21:54)
[2017-10-31] MEDS: ASPIRIN 81 MG TABLET, CHEWABLE PO SCH (09:42)
[2017-10-31] MEDS: FLUTICASONE NASAL SPRAY 50 MCG/SPRY 120 SPRAY/16 GM NASL SCH ×2 (09:43→21:48)
[2017-10-31] MEDS: FAMOTIDINE INJ/PF 20 MG/2 ML SDV IV SCH (09:43)
[2017-10-31] MEDS: PSYLLIUM SEED-SF 5.85 GM PACKET PO SCH (09:43)
[2017-10-31] MEDS: TIOTROPIUM BROMIDE DPI 5 CAP/KIT (18 MCG/CAP) IH SCH (09:44)
[2017-10-31] MEDS ORDERED: MAGNESIUM CITRATE 296 ML BOTTLE PO ONE (11:00)
--- NOTE | 2017-10-31 11:28 | PDOC PROGRESS REPORT ---
Subjective Progress Note for:: 10/31/17 Subjective:: Complaints. Accordingly patient refused enema because her stomach has always been like it was. Nurse reported patient passing a lot of gas. Normal bowel movement Review of systems All organ systems have been evaluated and negative except as in subjective All significant laboratories and diagnostics have been reviewed Reason For Visit: ACUTE RESOIRATORY FAILURE WITH HYPOXIA Physical Exam Vital Signs: Temp Pulse Resp BP Pulse Ox 98.6 F 91 20 125/57 L 93 10/31/17 10:00 10/31/17 10:00 10/31/17 10:01 10/31/17 10:01 10/31/17 10:01 Intake & Output 10/30/17 10/31/17 11/01/17 06:59 06:59 06:59 Intake Total 3220 550 Output Total 4810 3925 210 Balance -2220 -4975 -210 Weight 67.7 kg 64.3 kg General appearance: PRESENT: cooperative, obese Head exam: PRESENT: atraumatic, normocephalic Eye exam: PRESENT: conjunctiva pink, EOMI, PERRLA Ear exam: PRESENT: normal external ear exam Mouth exam: PRESENT: moist Neck exam: PRESENT: full ROM. ABSENT: JVD, lymphadenopathy, tenderness Respiratory exam: PRESENT: clear to auscultation cheri Cardiovascular exam: PRESENT: RRR. ABSENT: diastolic murmur, systolic murmur Vascular exam: PRESENT: normal capillary refill GI/Abdominal exam: PRESENT: normal bowel sounds, soft. ABSENT: tenderness Extremities exam: PRESENT: full ROM. ABSENT: pedal edema Musculoskeletal exam: ABSENT: ambulatory Neurological exam: PRESENT: alert, awake, oriented to person, oriented to place , oriented to time, oriented to situation, CN II-XII grossly intact Psychiatric exam: PRESENT: appropriate affect, normal mood Skin exam: PRESENT: normal color Results Laboratory Results: 10/31/17 03:52 10/31/17 03:52 10/31/17 10/31/17 10/31/17 03:52 03:52 05:09 WBC 16.6 H RBC 4.92 Hgb 14.2 Hct 42.0 MCV 85 MCH 28.9 MCHC 33.9 RDW 14.3 H Plt Count 235 Seg Neutrophils % Not Reportable Lymphocytes % Not Reportable Monocytes % Not Reportable Eosinophils % Not Reportable Basophils % Not Reportable Absolute Neutrophils Not Reportable Absolute Lymphocytes Not Reportable Absolute Monocytes Not Reportable Absolute Eosinophils Not Reportable Absolute Basophils Not Reportable Carbonic Acid 1.49 H HCO3/H2CO3 Ratio 22:1 ABG pH 7.45 ABG pCO2 49.4 H ABG pO2 68.2 L ABG HCO3 33.5 H ABG O2 Saturation 94.2 ABG Base Excess 8.0 FiO2 4L Sodium 140.9 Potassium 3.8 Chloride 98 Carbon Dioxide 33 H D Anion Gap 10 BUN 48 H Creatinine 1.01 Est GFR ( Amer) > 60 Est GFR (Non-Af Amer) 52 L Glucose 145 H Calcium 9.9 Magnesium 2.2 Total Bilirubin 0.5 AST 43 H ALT 104 H Alkaline Phosphatase 55 Total Protein 5.9 L Albumin 3.5 10/24/17 10/27/17 10/27/17 15:48 04:28 04:28 Creatine Kinase 405 H CK-MB (CK-2) 11.40 H Troponin I 0.014 0.022 NT-Pro-B Natriuret Pep 10/27/17 10/27/17 10/27/17 04:28 12:12 12:12 Creatine Kinase 261 H CK-MB (CK-2) 8.55 H Troponin I 0.120 NT-Pro-B Natriuret Pep 1600 H 10/27/17 10/27/17 10/28/17 20:25 20:25 04:43 Creatine Kinase 153 H 152 H CK-MB (CK-2) 5.84 H Troponin I 0.081 NT-Pro-B Natriuret Pep 10/28/17 04:43 Creatine Kinase CK-MB (CK-2) 4.26 Troponin I 0.056 NT-Pro-B Natriuret Pep Impressions: Head CT 10/27/17 08:14 IMPRESSION: MILD CHRONIC CHANGES OF ATROPHY AND MICROVASCULAR ISCHEMIA. NO ACUTE PROCESS. EVIDENCE OF ACUTE STROKE: NO. KUB X-Ray 10/30/17 00:00 IMPRESSION: There is mild gaseous distention of multiple bowel loops most consistent with an ileus pattern although the possibility of an underlying obstruction cannot be completely excluded. Other findings as noted above Chest X-Ray 10/31/17 06:00 IMPRESSION: 1. Interval removal of endotracheal tube. 2. Interval development of hazy right basilar opacity. This may be related to atelectasis however pneumonia could produce a similar appearance. Continued follow-up recommended Assessment & Plan - Diagnosis (1) Acute exacerbation of chronic bronchitis Is this a current diagnosis for this admission?: Yes Plan: IV steroids. Add Advair. Continue Spiriva. Change DuoNeb to as needed (2) Acute respiratory failure with hypoxia and hypercapnia Is this a current diagnosis for this admission?: Yes Plan: Patient successfully extubated and doing well (3) Chronic constipation Is this a current diagnosis for this admission?: Yes Plan: Persisting. Patient passed gas with further improvement of abdominal distention. Will order mag citrate and follow-up response. (4) Ventricular tachycardia Is this a current diagnosis for this admission?: Yes Plan: Resolved (5) NSTEMI (non-ST elevated myocardial infarction) Is this a current diagnosis for this admission?: Yes Plan: Due to myocardial demand ischemia - Time Time Spent with patient: 15-24 minutes Medications reviewed and adjusted accordingly: Yes Anticipated discharge: Acute Rehab Within: within 72 hours - Inpatient Certification Based on my medical assessment, after consideration of the patient's comorbidities, presenting symptoms, or acuity I expect that the services needed warrant INPATIENT care.: Yes I certify that my determination is in accordance with my understanding of Medicare's requirements for reasonable and necessary INPATIENT services [42 CFR 412.3e].: Yes Medical Necessity: Need Close Monitoring Due to Risk of Patient Decompensation
[2017-10-31] MEDS: METOPROLOL SUCCINATE 50 MG TAB.SR.24H PO SCH (11:53)
[2017-10-31] MEDS: IPRATROPIUM/ALBUTEROL 0.5-2.5 MG/3 ML AMPUL NEB PRN (20:50)
[2017-10-31] MEDS: FLUTICASONE/SALMETEROL DISKUS 500-50 MCG/DOSE IH SCH (21:30)
[2017-11-01] MEDS: METOCLOPRAMIDE HCL INJ/PF 10 MG/2 ML SDV IV SCH ×2 (03:02→08:16)
[2017-11-01] MEDS: HEPARIN SOD (PORCINE) 5,000 UNIT/ML 1 ML SYRINGE SUBCUT SCH ×3 (05:20→22:18)
[2017-11-01] MEDS: METHYLPREDNISOLONE INJ 40 MG/1 ML SDV IV SCH (05:20)
[2017-11-01] MEDS: CHOLECALCIFEROL (D3) 1,000 UNIT TABLET PO SCH (08:06)
[2017-11-01] MEDS: GUAIFENESIN 600 MG TABLET.SA PO SCH ×2 (08:06→22:18)
[2017-11-01] MEDS: FLUTICASONE NASAL SPRAY 50 MCG/SPRY 120 SPRAY/16 GM NASL SCH ×2 (08:10→22:24)
[2017-11-01] MEDS: FLUTICASONE/SALMETEROL DISKUS 500-50 MCG/DOSE IH SCH ×2 (08:12→22:19)
[2017-11-01] MEDS: ASPIRIN 81 MG TABLET, CHEWABLE PO SCH (08:12)
[2017-11-01] MEDS: TIOTROPIUM BROMIDE DPI 5 CAP/KIT (18 MCG/CAP) IH SCH (08:13)
[2017-11-01] MEDS: PSYLLIUM SEED-SF 5.85 GM PACKET PO SCH (08:15)
--- NOTE | 2017-11-01 10:28 | PDOC PROGRESS REPORT ---
Subjective Progress Note for:: 11/01/17 Subjective:: No complaints. Review of systems All organ systems have been evaluated and negative except as in subjective All significant laboratories and diagnostics have been reviewed Reason For Visit: ACUTE RESOIRATORY FAILURE WITH HYPOXIA Physical Exam Vital Signs: Temp Pulse Resp BP Pulse Ox 98.3 F 62 20 136/59 H 94 11/01/17 04:00 10/31/17 20:50 11/01/17 06:06 11/01/17 06:06 11/01/17 06:06 Intake & Output 10/31/17 11/01/17 11/02/17 06:59 06:59 06:59 Intake Total 550 510 Output Total 3925 1130 Balance -3375 -620 Weight 64.3 kg 63.2 kg General appearance: PRESENT: cooperative, obese Head exam: PRESENT: atraumatic, normocephalic Eye exam: PRESENT: conjunctiva pink, EOMI, PERRLA Ear exam: PRESENT: normal external ear exam Mouth exam: PRESENT: moist Neck exam: PRESENT: full ROM. ABSENT: JVD, lymphadenopathy, tenderness Respiratory exam: PRESENT: clear to auscultation cheri Cardiovascular exam: PRESENT: RRR. ABSENT: diastolic murmur, systolic murmur GI/Abdominal exam: PRESENT: normal bowel sounds, soft. ABSENT: tenderness Extremities exam: PRESENT: full ROM. ABSENT: pedal edema Neurological exam: PRESENT: alert, awake, oriented to person, oriented to place , oriented to time, oriented to situation Psychiatric exam: PRESENT: appropriate affect, normal mood Results Laboratory Results: 10/31/17 03:52 10/31/17 03:52 10/24/17 10/27/17 10/27/17 15:48 04:28 04:28 Creatine Kinase 405 H CK-MB (CK-2) 11.40 H Troponin I 0.014 0.022 NT-Pro-B Natriuret Pep 10/27/17 10/27/17 10/27/17 04:28 12:12 12:12 Creatine Kinase 261 H CK-MB (CK-2) 8.55 H Troponin I 0.120 NT-Pro-B Natriuret Pep 1600 H 10/27/17 10/27/17 10/28/17 20:25 20:25 04:43 Creatine Kinase 153 H 152 H CK-MB (CK-2) 5.84 H Troponin I 0.081 NT-Pro-B Natriuret Pep 10/28/17 04:43 Creatine Kinase CK-MB (CK-2) 4.26 Troponin I 0.056 NT-Pro-B Natriuret Pep Impressions: Head CT 10/27/17 08:14 IMPRESSION: MILD CHRONIC CHANGES OF ATROPHY AND MICROVASCULAR ISCHEMIA. NO ACUTE PROCESS. EVIDENCE OF ACUTE STROKE: NO. KUB X-Ray 10/30/17 00:00 IMPRESSION: There is mild gaseous distention of multiple bowel loops most consistent with an ileus pattern although the possibility of an underlying obstruction cannot be completely excluded. Other findings as noted above Chest X-Ray 10/31/17 06:00 IMPRESSION: 1. Interval removal of endotracheal tube. 2. Interval development of hazy right basilar opacity. This may be related to atelectasis however pneumonia could produce a similar appearance. Continued follow-up recommended Assessment & Plan - Diagnosis (1) Acute exacerbation of chronic bronchitis Is this a current diagnosis for this admission?: Yes Plan: Continue Advair, Spiriva and DuoNeb's as needed. Discontinue IV steroids (2) Acute respiratory failure with hypoxia and hypercapnia Is this a current diagnosis for this admission?: Yes Plan: Patient successfully extubated and doing well (3) Chronic constipation Is this a current diagnosis for this admission?: Yes Plan: Improved to place on bowel regimen (4) Ventricular tachycardia Is this a current diagnosis for this admission?: Yes Plan: Resolved (5) NSTEMI (non-ST elevated myocardial infarction) Is this a current diagnosis for this admission?: Yes Plan: Due to myocardial demand ischemia (6) PNA (pneumonia) Qualifiers: Laterality: right Lung location: lower lobe of lung Is this a current diagnosis for this admission?: Yes Plan: Agree with Unasyn. Continue incentive spirometry - Time Time Spent with patient: 15-24 minutes Medications reviewed and adjusted accordingly: Yes Anticipated discharge: Acute Rehab Within: within 72 hours - Inpatient Certification Based on my medical assessment, after consideration of the patient's comorbidities, presenting symptoms, or acuity I expect that the services needed warrant INPATIENT care.: Yes I certify that my determination is in accordance with my understanding of Medicare's requirements for reasonable and necessary INPATIENT services [42 CFR 412.3e].: Yes Medical Necessity: Need Close Monitoring Due to Risk of Patient Decompensation, Need For Continuous Telemetry Monitoring, Need for IV Antibiotics
[2017-11-01] MEDS ORDERED: AMPICILLIN SODIUM/SULBACTAM NA 3 GM in NORMAL SALINE 100 ML IV SCH (12:00)
[2017-11-01] MEDS: METOPROLOL SUCCINATE 50 MG TAB.SR.24H PO SCH (15:45)
[2017-11-01] MEDS: AMPICILLIN SODIUM/SULBACTAM NA 3 GM in NORMAL SALINE 100 ML IV SCH ×2 (15:45→20:22)
[2017-11-02] MEDS: AMPICILLIN SODIUM/SULBACTAM NA 3 GM in NORMAL SALINE 100 ML IV SCH ×4 (02:50→22:26)
[2017-11-02 05:44] LABS: ARTERIAL BLOOD BASE EXCESS 6.1 mmol/L; ARTERIAL BLOOD H2CO3 1.49 mmol/L (1.05-1.35); ARTERIAL BLOOD HCO3 31.7 mmol/L (20-26); ARTERIAL BLOOD O2 SATURATION 90.2 % (94-98); ARTERIAL BLOOD PCO2 49.4 mmHg (35-45); ARTERIAL BLOOD PH 7.43 (7.35-7.45); ARTERIAL BLOOD PO2 57.5 mmHg (80-100); ARTERIAL BLOOD TOTAL CO2 33.2 mmol/L (21-25)
[2017-11-02 05:45] LABS: ARTERIAL BLOOD FIO2 5L
[2017-11-02] MEDS: HEPARIN SOD (PORCINE) 5,000 UNIT/ML 1 ML SYRINGE SUBCUT SCH ×3 (06:07→22:25)
[2017-11-02 06:18] LABS: BLOOD UREA NITROGEN 53 mg/dL (7-20); CALCIUM 9.5 mg/dL (8.4-10.2); CHLORIDE 100 mmol/L (98-107); GLUCOSE 105 mg/dL (75-110); POTASSIUM 3.9 mmol/L (3.6-5.0)
[2017-11-02 06:24] LABS: ANION GAP 5 (5-19); CARBON DIOXIDE 35 mmol/L (22-30); HEMATOCRIT 41.8 % (36.0-47.0); HEMOGLOBIN 13.7 g/dL (12.0-15.5); MEAN CORPUSCULAR HEMOGLOBIN 28.6 pg (27.0-33.4); MEAN CORPUSCULAR HGB CONC 32.7 g/dL (32.0-36.0); MEAN CORPUSCULAR VOLUME 87 fl (80-97); PLATELET COUNT 217 10^3/uL (150-450); RED BLOOD COUNT 4.79 10^6/uL (3.72-5.28); RED CELL DISTRIBUTION WIDTH 14.1 % (11.5-14.0); SODIUM 140.4 mmol/L (137-145); WHITE BLOOD COUNT 18.4 10^3/uL (4.0-10.5)
[2017-11-02 07:01] LABS: ABSOLUTE LYMPHOCYTES# (MANUAL) 2.9 10^3/uL (0.5-4.7); ABSOLUTE MONOCYTES # (MANUAL) 1.5 10^3/uL (0.1-1.4); BAND NEUTROPHILS % (MANUAL) 3 % (3-5); BASOPHILS % (MANUAL) 0 % (0-2); EOSINOPHILS % (MANUAL) 0 % (0-6); LYMPHOCYTES % (MANUAL) 15 % (13-45); MONOCYTES % (MANUAL) 8 % (3-13); SEGMENTED NEUTROPHILS % (MAN) 73 % (42-78); TOTAL CELLS COUNTED 100
[2017-11-02 07:02] LABS: POLYCHROMASIA SLIGHT; TOXIC GRANULATION SLIGHT; TOXIC VACUOLATION PRESENT
[2017-11-02 07:03] LABS: ANISOCYTOSIS SLIGHT; PLATELET COMMENT ADEQUATE
--- NOTE | 2017-11-02 09:05 | RADIOLOGY REPORT (SQ) ---
EXAM DESCRIPTION: CHEST SINGLE VIEW COMPLETED DATE/TIME: 11/02/2017 8:43 am REASON FOR STUDY: pna COMPARISON: CT angio chest 10/27/2017 AP chest 10/30/2017, 10/31/2017 EXAM PARAMETERS: NUMBER OF VIEWS: One view. TECHNIQUE: Single frontal radiographic view of the chest acquired. RADIATION DOSE: NA LIMITATIONS: None. FINDINGS: LUNGS AND PLEURA: Minimal bibasilar atelectasis Upper lobes are hyperlucent and hyperinflated from obstructive disease. MEDIASTINUM AND HILAR STRUCTURES: No masses. Contour normal. HEART AND VASCULAR STRUCTURES: Heart normal in size. Normal vasculature. BONES: No acute findings. HARDWARE: None in the chest. OTHER: No other significant finding. IMPRESSION: Minimal bibasilar atelectasis, similar compared to previous TECHNICAL DOCUMENTATION: JOB ID: [id number] [employer]- All Rights Reserved Reading location - IP/workstation name: [email or web address]
[2017-11-02] MEDS ORDERED: LACTULOSE SYRUP 20 GM/30 ML UDCUP PO ONE (11:00)
[2017-11-02] MEDS: POLYETHYLENE GLYCOL 3350 POWDER 17 GM/1 PACKET PO SCH (11:05)
[2017-11-02] MEDS: GUAIFENESIN 600 MG TABLET.SA PO SCH ×2 (11:06→22:25)
[2017-11-02] MEDS: CHOLECALCIFEROL (D3) 1,000 UNIT TABLET PO SCH (11:06)
[2017-11-02] MEDS: ASPIRIN 81 MG TABLET, CHEWABLE PO SCH (11:06)
[2017-11-02] MEDS: FLUTICASONE NASAL SPRAY 50 MCG/SPRY 120 SPRAY/16 GM NASL SCH ×2 (11:07→22:25)
[2017-11-02] MEDS: FLUTICASONE/SALMETEROL DISKUS 500-50 MCG/DOSE IH SCH ×2 (11:07→22:25)
[2017-11-02] MEDS: TIOTROPIUM BROMIDE DPI 5 CAP/KIT (18 MCG/CAP) IH SCH (11:08)
[2017-11-02] MEDS: METOPROLOL SUCCINATE 50 MG TAB.SR.24H PO SCH (11:09)
--- NOTE | 2017-11-02 14:11 | PDOC PROGRESS REPORT ---
Subjective Progress Note for:: 11/02/17 Subjective:: No complaints. No bowel movement for 2 days Review of systems All organ systems have been evaluated and negative except as in subjective All significant laboratories and diagnostics have been reviewed Reason For Visit: ACUTE RESOIRATORY FAILURE WITH HYPOXIA Physical Exam Vital Signs: Temp Pulse Resp BP Pulse Ox 97.7 F 63 20 137/48 H 91 L 11/02/17 04:45 11/02/17 04:45 11/02/17 04:45 11/02/17 04:45 11/02/17 04:45 Intake & Output 11/01/17 11/02/17 11/03/17 06:59 06:59 06:59 Intake Total 510 1990 Output Total 1130 910 Balance -620 1080 Weight 63.2 kg 64.2 kg General appearance: PRESENT: no acute distress, cooperative, well-developed, well-nourished Head exam: PRESENT: atraumatic, normocephalic Eye exam: PRESENT: conjunctiva pink, EOMI, PERRLA Ear exam: PRESENT: normal external ear exam Mouth exam: PRESENT: moist Neck exam: PRESENT: full ROM. ABSENT: JVD, lymphadenopathy, tenderness Respiratory exam: PRESENT: clear to auscultation cheri Cardiovascular exam: PRESENT: RRR. ABSENT: diastolic murmur, systolic murmur Vascular exam: PRESENT: normal capillary refill GI/Abdominal exam: PRESENT: normal bowel sounds, soft. ABSENT: tenderness Extremities exam: PRESENT: full ROM. ABSENT: pedal edema Musculoskeletal exam: PRESENT: ambulatory Neurological exam: PRESENT: alert, awake, oriented to person, oriented to place , oriented to time, oriented to situation, CN II-XII grossly intact Psychiatric exam: PRESENT: appropriate affect, normal mood Skin exam: PRESENT: intact, normal color Results Laboratory Results: 11/02/17 05:35 11/02/17 05:35 11/02/17 11/02/17 11/02/17 05:25 05:35 05:35 WBC 18.4 H RBC 4.79 Hgb 13.7 Hct 41.8 MCV 87 MCH 28.6 MCHC 32.7 RDW 14.1 H Plt Count 217 Seg Neutrophils % Not Reportable Lymphocytes % Not Reportable Monocytes % Not Reportable Eosinophils % Not Reportable Basophils % Not Reportable Absolute Neutrophils Not Reportable Absolute Lymphocytes Not Reportable Absolute Monocytes Not Reportable Absolute Eosinophils Not Reportable Absolute Basophils Not Reportable Carbonic Acid 1.49 H HCO3/H2CO3 Ratio 21:1 ABG pH 7.43 ABG pCO2 49.4 H ABG pO2 57.5 L ABG HCO3 31.7 H ABG O2 Saturation 90.2 L ABG Base Excess 6.1 FiO2 5L Sodium 140.4 Potassium 3.9 Chloride 100 Carbon Dioxide 35 H Anion Gap 5 BUN 53 H Creatinine 0.87 Est GFR ( Amer) > 60 Est GFR (Non-Af Amer) > 60 Glucose 105 Calcium 9.5 Magnesium 2.3 10/27/17 12:55 Blood Blood Culture - Final NO GROWTH IN 5 DAYS 10/27/17 09:59 Blood Blood Culture - Final NO GROWTH IN 5 DAYS 10/24/17 10/27/17 10/27/17 15:48 04:28 04:28 Creatine Kinase 405 H CK-MB (CK-2) 11.40 H Troponin I 0.014 0.022 NT-Pro-B Natriuret Pep 10/27/17 10/27/17 10/27/17 04:28 12:12 12:12 Creatine Kinase 261 H CK-MB (CK-2) 8.55 H Troponin I 0.120 NT-Pro-B Natriuret Pep 1600 H 10/27/17 10/27/17 10/28/17 20:25 20:25 04:43 Creatine Kinase 153 H 152 H CK-MB (CK-2) 5.84 H Troponin I 0.081 NT-Pro-B Natriuret Pep 10/28/17 04:43 Creatine Kinase CK-MB (CK-2) 4.26 Troponin I 0.056 NT-Pro-B Natriuret Pep Impressions: Head CT 10/27/17 08:14 IMPRESSION: MILD CHRONIC CHANGES OF ATROPHY AND MICROVASCULAR ISCHEMIA. NO ACUTE PROCESS. EVIDENCE OF ACUTE STROKE: NO. KUB X-Ray 10/30/17 00:00 IMPRESSION: There is mild gaseous distention of multiple bowel loops most consistent with an ileus pattern although the possibility of an underlying obstruction cannot be completely excluded. Other findings as noted above Chest X-Ray 10/31/17 06:00 IMPRESSION: 1. Interval removal of endotracheal tube. 2. Interval development of hazy right basilar opacity. This may be related to atelectasis however pneumonia could produce a similar appearance. Continued follow-up recommended Assessment & Plan - Diagnosis (1) Acute exacerbation of chronic bronchitis Is this a current diagnosis for this admission?: Yes Plan: Continue Advair, Spiriva and DuoNeb's as needed. (2) Acute respiratory failure with hypoxia and hypercapnia Is this a current diagnosis for this admission?: Yes Plan: Patient successfully extubated and doing well. To wean off oxygen as tolerated (3) Chronic constipation Is this a current diagnosis for this admission?: Yes Plan: To add lactulose to her bowel regimen (4) Ventricular tachycardia Is this a current diagnosis for this admission?: Yes Plan: Resolved (5) NSTEMI (non-ST elevated myocardial infarction) Is this a current diagnosis for this admission?: Yes Plan: Due to myocardial demand ischemia (6) PNA (pneumonia) Qualifiers: Laterality: right Lung location: lower lobe of lung Is this a current diagnosis for this admission?: Yes Plan: Add Levaquin to Unasyn. Continue incentive spirometry (7) Weakness Is this a current diagnosis for this admission?: Yes Plan: PT and patient will benefit from acute rehab when ready - Time Time Spent with patient: 15-24 minutes Medications reviewed and adjusted accordingly: Yes Anticipated discharge: Acute Rehab Within: Other - When patient better - Inpatient Certification Based on my medical assessment, after consideration of the patient's comorbidities, presenting symptoms, or acuity I expect that the services needed warrant INPATIENT care.: Yes I certify that my determination is in accordance with my understanding of Medicare's requirements for reasonable and necessary INPATIENT services [42 CFR 412.3e].: Yes Medical Necessity: Need Close Monitoring Due to Risk of Patient Decompensation, Need for IV Antibiotics
[2017-11-02] MEDS: LACTULOSE SYRUP 20 GM/30 ML UDCUP PO SCH (18:07)
[2017-11-03] MEDS: AMPICILLIN SODIUM/SULBACTAM NA 3 GM in NORMAL SALINE 100 ML IV SCH ×2 (02:25→09:21)
[2017-11-03] MEDS: HEPARIN SOD (PORCINE) 5,000 UNIT/ML 1 ML SYRINGE SUBCUT SCH ×3 (06:16→22:14)
[2017-11-03 06:43] LABS: ANION GAP 7 (5-19); BLOOD UREA NITROGEN 41 mg/dL (7-20); CALCIUM 9.4 mg/dL (8.4-10.2); CARBON DIOXIDE 32 mmol/L (22-30); CHLORIDE 102 mmol/L (98-107); GLUCOSE 102 mg/dL (75-110); POTASSIUM 4.1 mmol/L (3.6-5.0); SODIUM 140.5 mmol/L (137-145)
[2017-11-03] MEDS: CHOLECALCIFEROL (D3) 1,000 UNIT TABLET PO SCH (09:21)
[2017-11-03] MEDS: GUAIFENESIN 600 MG TABLET.SA PO SCH ×2 (09:21→22:14)
[2017-11-03] MEDS: ASPIRIN 81 MG TABLET, CHEWABLE PO SCH (09:21)
[2017-11-03] MEDS: TIOTROPIUM BROMIDE DPI 5 CAP/KIT (18 MCG/CAP) IH SCH (09:22)
[2017-11-03] MEDS: FLUTICASONE NASAL SPRAY 50 MCG/SPRY 120 SPRAY/16 GM NASL SCH ×2 (09:22→22:14)
[2017-11-03] MEDS: FLUTICASONE/SALMETEROL DISKUS 500-50 MCG/DOSE IH SCH ×2 (09:23→22:14)
[2017-11-03] MEDS: POLYETHYLENE GLYCOL 3350 POWDER 17 GM/1 PACKET PO SCH (09:24)
[2017-11-03] MEDS: LACTULOSE SYRUP 20 GM/30 ML UDCUP PO SCH ×2 (09:24→17:39)
[2017-11-03] MEDS ORDERED: LEVOFLOXACIN 750 MG TABLET PO SCH (12:00)
--- NOTE | 2017-11-03 12:16 | PDOC PROGRESS REPORT ---
Subjective Progress Note for:: 11/03/17 Subjective:: No complaints. Had a good bowel movement today. Review of systems All organ systems have been evaluated and negative except as in subjective All significant laboratories and diagnostics have been reviewed Reason For Visit: ACUTE RESOIRATORY FAILURE WITH HYPOXIA Physical Exam Vital Signs: Temp Pulse Resp BP Pulse Ox 97.6 F 65 19 138/52 H 91 L 11/03/17 04:23 11/03/17 04:23 11/03/17 04:23 11/03/17 04:23 11/03/17 04:23 Intake & Output 11/02/17 11/03/17 11/04/17 06:59 06:59 06:59 Intake Total 19890 Output Total 910 700 Balance 1080 1050 Weight 64.2 kg 64.2 kg General appearance: PRESENT: cooperative, well-developed, well-nourished Head exam: PRESENT: atraumatic, normocephalic Eye exam: PRESENT: conjunctiva pink, EOMI, PERRLA Ear exam: PRESENT: normal external ear exam Neck exam: PRESENT: full ROM. ABSENT: JVD, lymphadenopathy, tenderness Respiratory exam: PRESENT: clear to auscultation cheri Cardiovascular exam: PRESENT: RRR. ABSENT: diastolic murmur, systolic murmur GI/Abdominal exam: PRESENT: normal bowel sounds, soft. ABSENT: tenderness Extremities exam: PRESENT: full ROM. ABSENT: pedal edema Musculoskeletal exam: PRESENT: ambulatory Neurological exam: PRESENT: alert, awake, oriented to person, oriented to place , oriented to time, oriented to situation, CN II-XII grossly intact Psychiatric exam: PRESENT: appropriate affect, normal mood Skin exam: PRESENT: intact, normal color Results Laboratory Results: 11/02/17 05:35 11/03/17 06:16 11/03/17 06:16 Sodium 140.5 Potassium 4.1 Chloride 102 Carbon Dioxide 32 H Anion Gap 7 BUN 41 H Creatinine 0.80 Est GFR ( Amer) > 60 Est GFR (Non-Af Amer) > 60 Glucose 102 Calcium 9.4 Magnesium 2.2 10/24/17 10/27/17 10/27/17 15:48 04:28 04:28 Creatine Kinase 405 H CK-MB (CK-2) 11.40 H Troponin I 0.014 0.022 NT-Pro-B Natriuret Pep 0310/27/17 10/27/17 04:28 12:12 12:12 Creatine Kinase 261 H CK-MB (CK-2) 8.55 H Troponin I 0.120 NT-Pro-B Natriuret Pep 1600 H 10/27/17 10/27/17 10/28/17 20:25 20:25 04:43 Creatine Kinase 153 H 152 H CK-MB (CK-2) 5.84 H Troponin I 0.081 NT-Pro-B Natriuret Pep 10/28/17 04:43 Creatine Kinase CK-MB (CK-2) 4.26 Troponin I 0.056 NT-Pro-B Natriuret Pep Impressions: Head CT 10/27/17 08:14 IMPRESSION: MILD CHRONIC CHANGES OF ATROPHY AND MICROVASCULAR ISCHEMIA. NO ACUTE PROCESS. EVIDENCE OF ACUTE STROKE: NO. KUB X-Ray 10/30/17 00:00 IMPRESSION: There is mild gaseous distention of multiple bowel loops most consistent with an ileus pattern although the possibility of an underlying obstruction cannot be completely excluded. Other findings as noted above Chest X-Ray 11/02/17 06:00 IMPRESSION: Minimal bibasilar atelectasis, similar compared to previous Assessment & Plan - Diagnosis (1) Acute exacerbation of chronic bronchitis Is this a current diagnosis for this admission?: Yes Plan: Continue Advair, Spiriva and DuoNeb's as needed. (2) Acute respiratory failure with hypoxia and hypercapnia Is this a current diagnosis for this admission?: Yes Plan: Patient successfully extubated and doing well. Continue weaning off as tolerated (3) Chronic constipation Is this a current diagnosis for this admission?: Yes Plan: Continue current bowel regimen (4) Ventricular tachycardia Is this a current diagnosis for this admission?: Yes Plan: Resolved (5) NSTEMI (non-ST elevated myocardial infarction) Is this a current diagnosis for this admission?: Yes Plan: Due to myocardial demand ischemia (6) PNA (pneumonia) Qualifiers: Laterality: right Lung location: lower lobe of lung Is this a current diagnosis for this admission?: Yes Plan: Continue incentive spirometry. Order cxr. Stop antibiotics. (7) Weakness Is this a current diagnosis for this admission?: Yes Plan: Nurse advised ambulate patient on craft if PT not available (8) Elevated BUN Is this a current diagnosis for this admission?: Yes Plan: Order stool for occult blood since up since admission (9) Leukocytosis, unspecified Qualifiers: Leukocytosis type: unspecified Qualified Code(s): D72.829 - Elevated white blood cell count, unspecified Is this a current diagnosis for this admission?: Yes Plan: Persisting. Order cxr. - Time Time Spent with patient: 15-24 minutes Medications reviewed and adjusted accordingly: Yes Anticipated discharge: Acute Rehab Within: within 48 hours - Inpatient Certification Based on my medical assessment, after consideration of the patient's comorbidities, presenting symptoms, or acuity I expect that the services needed warrant INPATIENT care.: Yes I certify that my determination is in accordance with my understanding of Medicare's requirements for reasonable and necessary INPATIENT services [42 CFR 412.3e].: Yes Medical Necessity: Need Close Monitoring Due to Risk of Patient Decompensation
[2017-11-03] MEDS: METOPROLOL SUCCINATE 50 MG TAB.SR.24H PO SCH (12:21)
--- NOTE | 2017-11-03 12:47 | RADIOLOGY REPORT (SQ) ---
EXAM DESCRIPTION: CHEST SINGLE VIEW COMPLETED DATE/TIME: 11/03/2017 12:25 pm REASON FOR STUDY: leukocytosis/eval for pna COMPARISON: CT angio chest 10/27/2017 Chest films 10/29/2017, 10/31/2017, 11/02/2017 EXAM PARAMETERS: NUMBER OF VIEWS: One view. TECHNIQUE: Single frontal radiographic view of the chest acquired. RADIATION DOSE: NA LIMITATIONS: None. FINDINGS: LUNGS AND PLEURA: Bandlike atelectasis left lung base. Lungs are otherwise hyperlucent an d hyperinflated from obstructive disease. No pleural effusion. No pneumothorax. MEDIASTINUM AND HILAR STRUCTURES: No masses. Contour normal. HEART AND VASCULAR STRUCTURES: Heart normal in size. Normal vasculature. BONES: No acute findings. HARDWARE: Clips left axilla post left mastectomy OTHER: No other significant finding. IMPRESSION: Left basilar bandlike atelectasis TECHNICAL DOCUMENTATION: JOB ID: [id number] [employer]- All Rights Reserved Reading location - IP/workstation name: [email or web address]
[2017-11-04 04:54] LABS: ABSOLUTE EOSINOPHILS # (AUTO) 0.1 10^3/uL (0.0-0.6); ABSOLUTE LYMPHOCYTES (AUTO) 2.3 10^3/uL (0.5-4.7); ABSOLUTE MONOCYTES (AUTO) 1.7 10^3/uL (0.1-1.4); ABSOLUTE NEUT (AUTO) 15.1 10^3/uL (1.7-8.2); BASOPHILS % (AUTO) 0.2 % (0-2); EOSINOPHILS % (AUTO) 0.8 % (0-6); HEMATOCRIT 39.8 % (36.0-47.0); HEMOGLOBIN 13.1 g/dL (12.0-15.5); LYMPHOCYTES % (AUTO) 11.7 % (13-45); MEAN CORPUSCULAR HEMOGLOBIN 28.7 pg (27.0-33.4); MEAN CORPUSCULAR HGB CONC 32.8 g/dL (32.0-36.0); MEAN CORPUSCULAR VOLUME 87 fl (80-97); MONOCYTES % (AUTO) 8.8 % (3-13); PLATELET COUNT 240 10^3/uL (150-450); RED BLOOD COUNT 4.55 10^6/uL (3.72-5.28); SEGMENTED NEUTROPHILS % (AUTO) 78.5 % (42-78); TOTAL CELLS COUNTED % (AUTO) 100 %; WHITE BLOOD COUNT 19.2 10^3/uL (4.0-10.5)
[2017-11-04 05:18] LABS: BLOOD UREA NITROGEN 36 mg/dL (7-20); CALCIUM 9.5 mg/dL (8.4-10.2); GLUCOSE 92 mg/dL (75-110); POTASSIUM 3.9 mmol/L (3.6-5.0)
[2017-11-04 05:23] LABS: ANION GAP 5 (5-19); CARBON DIOXIDE 32 mmol/L (22-30); CHLORIDE 103 mmol/L (98-107); SODIUM 139.8 mmol/L (137-145)
[2017-11-04] MEDS: HEPARIN SOD (PORCINE) 5,000 UNIT/ML 1 ML SYRINGE SUBCUT SCH ×3 (06:41→21:25)
[2017-11-04] MEDS: FLUTICASONE NASAL SPRAY 50 MCG/SPRY 120 SPRAY/16 GM NASL SCH ×2 (09:50→21:24)
[2017-11-04] MEDS: TIOTROPIUM BROMIDE DPI 5 CAP/KIT (18 MCG/CAP) IH SCH (09:51)
[2017-11-04] MEDS: FLUTICASONE/SALMETEROL DISKUS 500-50 MCG/DOSE IH SCH ×2 (09:52→21:25)
[2017-11-04] MEDS: GUAIFENESIN 600 MG TABLET.SA PO SCH ×2 (09:52→21:25)
[2017-11-04] MEDS: ASPIRIN 81 MG TABLET, CHEWABLE PO SCH (09:53)
[2017-11-04] MEDS: CHOLECALCIFEROL (D3) 1,000 UNIT TABLET PO SCH (09:53)
[2017-11-04] MEDS: POLYETHYLENE GLYCOL 3350 POWDER 17 GM/1 PACKET PO SCH (09:54)
[2017-11-04] MEDS: LACTULOSE SYRUP 20 GM/30 ML UDCUP PO SCH ×2 (09:54→17:43)
--- NOTE | 2017-11-04 13:48 | PDOC PROGRESS REPORT ---
Subjective Progress Note for:: 11/04/17 Subjective:: No complaints. Review of systems All organ systems have been evaluated and negative except as in subjective All significant laboratories and diagnostics have been reviewed Reason For Visit: ACUTE RESOIRATORY FAILURE WITH HYPOXIA Physical Exam Vital Signs: Temp Pulse Resp BP Pulse Ox 97.3 F 65 17 118/97 H 92 11/04/17 04:00 11/04/17 04:00 11/04/17 04:00 11/04/17 04:00 11/04/17 04:00 Intake & Output 11/03/17 11/04/17 11/05/17 06:59 06:59 06:59 Intake Total 1750 1040 Output Total 700 Balance 1050 1040 Weight 64.2 kg 62.2 kg General appearance: PRESENT: cooperative, obese Head exam: PRESENT: atraumatic, normocephalic Eye exam: PRESENT: conjunctiva pink, EOMI, PERRLA Neck exam: PRESENT: full ROM. ABSENT: JVD, lymphadenopathy, tenderness Respiratory exam: PRESENT: crackles - Right-sided Cardiovascular exam: PRESENT: RRR. ABSENT: diastolic murmur, systolic murmur GI/Abdominal exam: PRESENT: normal bowel sounds, soft. ABSENT: tenderness Extremities exam: PRESENT: full ROM, pedal edema Musculoskeletal exam: PRESENT: ambulatory Neurological exam: PRESENT: alert, awake, oriented to person, oriented to place , oriented to time, oriented to situation, CN II-XII grossly intact Psychiatric exam: PRESENT: appropriate affect, normal mood Skin exam: PRESENT: intact, normal color Results Laboratory Results: 11/04/17 04:25 11/04/17 04:25 11/04/17 11/04/17 04:25 04:25 WBC 19.2 H RBC 4.55 Hgb 13.1 Hct 39.8 MCV 87 MCH 28.7 MCHC 32.8 RDW 14.0 Plt Count 240 Seg Neutrophils % 78.5 H Lymphocytes % 11.7 L Monocytes % 8.8 Eosinophils % 0.8 Basophils % 0.2 Absolute Neutrophils 15.1 H Absolute Lymphocytes 2.3 Absolute Monocytes 1.7 H Absolute Eosinophils 0.1 Absolute Basophils 0.0 Sodium 139.8 Potassium 3.9 Chloride 103 Carbon Dioxide 32 H Anion Gap 5 BUN 36 H Creatinine 0.90 Est GFR ( Amer) > 60 Est GFR (Non-Af Amer) > 60 Glucose 92 Calcium 9.5 Magnesium 2.3 10/24/17 10/27/17 10/27/17 15:48 04:28 04:28 Creatine Kinase 405 H CK-MB (CK-2) 11.40 H Troponin I 0.014 0.022 NT-Pro-B Natriuret Pep 10/27/17 10/27/17 10/27/17 04:28 12:12 12:12 Creatine Kinase 261 H CK-MB (CK-2) 8.55 H Troponin I 0.120 NT-Pro-B Natriuret Pep 1600 H 10/27/17 10/27/17 10/28/17 20:25 20:25 04:43 Creatine Kinase 153 H 152 H CK-MB (CK-2) 5.84 H Troponin I 0.081 NT-Pro-B Natriuret Pep 10/28/17 04:43 Creatine Kinase CK-MB (CK-2) 4.26 Troponin I 0.056 NT-Pro-B Natriuret Pep Impressions: Head CT 10/27/17 08:14 IMPRESSION: MILD CHRONIC CHANGES OF ATROPHY AND MICROVASCULAR ISCHEMIA. NO ACUTE PROCESS. EVIDENCE OF ACUTE STROKE: NO. KUB X-Ray 10/30/17 00:00 IMPRESSION: There is mild gaseous distention of multiple bowel loops most consistent with an ileus pattern although the possibility of an underlying obstruction cannot be completely excluded. Other findings as noted above Chest X-Ray 11/03/17 00:00 IMPRESSION: Left basilar bandlike atelectasis Assessment & Plan - Diagnosis (1) Acute exacerbation of chronic bronchitis Is this a current diagnosis for this admission?: Yes Plan: Continue Advair, Spiriva and DuoNeb's as needed. (2) Acute respiratory failure with hypoxia and hypercapnia Is this a current diagnosis for this admission?: Yes Plan: Patient successfully extubated and doing well. Continue weaning off oxygen as tolerated (3) Chronic constipation Is this a current diagnosis for this admission?: Yes Plan: Continue current bowel regimen. Having good bowel movements (4) Ventricular tachycardia Is this a current diagnosis for this admission?: Yes Plan: Resolved (5) NSTEMI (non-ST elevated myocardial infarction) Is this a current diagnosis for this admission?: Yes Plan: Due to myocardial demand ischemia (6) PNA (pneumonia) Qualifiers: Laterality: left Lung location: lower lobe of lung Is this a current diagnosis for this admission?: Yes Plan: Continue incentive spirometry. Noted left lower lobe bandlike infiltrate. Will place patient on Zosyn and follow-up response (7) Weakness Is this a current diagnosis for this admission?: Yes Plan: Nurse advised ambulate patient on craft if PT not available (8) Elevated BUN Is this a current diagnosis for this admission?: Yes Plan: Improving and likely due to volume contraction (9) Leukocytosis, unspecified Qualifiers: Leukocytosis type: unspecified Qualified Code(s): D72.829 - Elevated white blood cell count, unspecified Is this a current diagnosis for this admission?: Yes Plan: Persisting. Noted chest x-ray. To order blood cultures and urine culture - Time Time Spent with patient: 15-24 minutes Medications reviewed and adjusted accordingly: Yes Anticipated discharge: Acute Rehab Within: within 48 hours - Inpatient Certification Based on my medical assessment, after consideration of the patient's comorbidities, presenting symptoms, or acuity I expect that the services needed warrant INPATIENT care.: Yes I certify that my determination is in accordance with my understanding of Medicare's requirements for reasonable and necessary INPATIENT services [42 CFR 412.3e].: Yes Medical Necessity: Need for IV Antibiotics
[2017-11-04] MEDS: METOPROLOL SUCCINATE 50 MG TAB.SR.24H PO SCH (13:59)
[2017-11-04] MEDS: PIPERACILLIN SODIUM/TAZOBACTAM 3.375 GM in NORMAL SALINE 100 ML IV SCH ×2 (14:00→17:42)
[2017-11-05] MEDS: PIPERACILLIN SODIUM/TAZOBACTAM 3.375 GM in NORMAL SALINE 100 ML IV SCH ×5 (00:11→23:20)
[2017-11-05] MEDS: HEPARIN SOD (PORCINE) 5,000 UNIT/ML 1 ML SYRINGE SUBCUT SCH ×3 (05:17→21:34)
[2017-11-05] MEDS: ASPIRIN 81 MG TABLET, CHEWABLE PO SCH (10:25)
[2017-11-05] MEDS: CHOLECALCIFEROL (D3) 1,000 UNIT TABLET PO SCH (10:26)
[2017-11-05 10:30] LABS: HEMATOCRIT 38.1 % (36.0-47.0); HEMOGLOBIN 12.4 g/dL (12.0-15.5); MEAN CORPUSCULAR HEMOGLOBIN 28.7 pg (27.0-33.4); MEAN CORPUSCULAR HGB CONC 32.7 g/dL (32.0-36.0); MEAN CORPUSCULAR VOLUME 88 fl (80-97); PLATELET COUNT 218 10^3/uL (150-450); RED BLOOD COUNT 4.33 10^6/uL (3.72-5.28); RED CELL DISTRIBUTION WIDTH 13.8 % (11.5-14.0); WHITE BLOOD COUNT 17.8 10^3/uL (4.0-10.5)
[2017-11-05] MEDS: FLUTICASONE/SALMETEROL DISKUS 500-50 MCG/DOSE IH SCH ×2 (10:30→21:36)
[2017-11-05] MEDS: POLYETHYLENE GLYCOL 3350 POWDER 17 GM/1 PACKET PO SCH (10:30)
[2017-11-05] MEDS: TIOTROPIUM BROMIDE DPI 5 CAP/KIT (18 MCG/CAP) IH SCH (10:30)
[2017-11-05] MEDS: LACTULOSE SYRUP 20 GM/30 ML UDCUP PO SCH ×2 (10:30→18:12)
[2017-11-05] MEDS: FLUTICASONE NASAL SPRAY 50 MCG/SPRY 120 SPRAY/16 GM NASL SCH ×2 (10:30→21:36)
[2017-11-05] MEDS: GUAIFENESIN 600 MG TABLET.SA PO SCH ×2 (10:30→21:36)
[2017-11-05 11:01] LABS: ABSOLUTE MONOCYTES # (MANUAL) 2.1 10^3/uL (0.1-1.4); ABSOLUTE NEUTROPHILS# (MANUAL) 13.5 10^3/uL (1.7-8.2); BASOPHILS % (MANUAL) 0 % (0-2); EOSINOPHILS % (MANUAL) 1 % (0-6); LYMPHOCYTES % (MANUAL) 11 % (13-45); MONOCYTES % (MANUAL) 12 % (3-13); SEGMENTED NEUTROPHILS % (MAN) 76 % (42-78); TOTAL CELLS COUNTED 100
[2017-11-05 11:02] LABS: PLATELET COMMENT ADEQUATE; RBC MORPHOLOGY COMMENT NORMO-CYTIC/CHROMIC; TOXIC GRANULATION SLIGHT
[2017-11-05] MEDS: IPRATROPIUM/ALBUTEROL 0.5-2.5 MG/3 ML AMPUL NEB PRN (11:25)
[2017-11-05] MEDS: METOPROLOL SUCCINATE 50 MG TAB.SR.24H PO SCH (13:06)
--- NOTE | 2017-11-05 13:28 | PDOC PROGRESS REPORT ---
Subjective Progress Note for:: 11/05/17 Subjective:: Patient complains of wanting to get out of bed but not getting enough physical therapy. She complains of her bottom hurting. Review of systems All organ systems have been evaluated and negative except as in subjective All significant laboratories and diagnostics have been reviewed Reason For Visit: ACUTE RESOIRATORY FAILURE WITH HYPOXIA Physical Exam Vital Signs: Temp Pulse Resp BP Pulse Ox 98.0 F 61 15 112/54 L 97 11/05/17 04:00 11/05/17 04:00 11/05/17 04:00 11/05/17 04:00 11/05/17 04:00 Intake & Output 11/04/17 11/05/17 11/06/17 06:59 06:59 06:59 Intake Total 1040 500 Output Total 400 Balance 1040 100 Weight 62.2 kg 63.5 kg General appearance: PRESENT: cooperative, well-developed, well-nourished Head exam: PRESENT: atraumatic, normocephalic Eye exam: PRESENT: conjunctiva pink, EOMI, PERRLA Ear exam: PRESENT: normal external ear exam Neck exam: PRESENT: full ROM. ABSENT: JVD, lymphadenopathy, tenderness Respiratory exam: PRESENT: rhonchi. ABSENT: tachypnea, unlabored Cardiovascular exam: PRESENT: RRR. ABSENT: diastolic murmur, systolic murmur GI/Abdominal exam: PRESENT: normal bowel sounds, soft. ABSENT: tenderness Extremities exam: PRESENT: full ROM. ABSENT: pedal edema Musculoskeletal exam: PRESENT: ambulatory Neurological exam: PRESENT: alert, awake, oriented to person, oriented to place , oriented to time, oriented to situation, CN II-XII grossly intact Psychiatric exam: PRESENT: appropriate affect, normal mood Skin exam: PRESENT: erythema, normal color Results Laboratory Results: 11/04/17 04:25 11/04/17 04:25 11/04/17 11:30 Stool Occult Blood POSITIVE 10/24/17 10/27/17 10/27/17 15:48 04:28 04:28 Creatine Kinase 405 H CK-MB (CK-2) 11.40 H Troponin I 0.014 0.022 NT-Pro-B Natriuret Pep 10/27/17 10/27/17 10/27/17 04:28 12:12 12:12 Creatine Kinase 261 H CK-MB (CK-2) 8.55 H Troponin I 0.120 NT-Pro-B Natriuret Pep 1600 H 10/27/17 10/27/17 10/28/17 20:25 20:25 04:43 Creatine Kinase 153 H 152 H CK-MB (CK-2) 5.84 H Troponin I 0.081 NT-Pro-B Natriuret Pep 10/28/17 04:43 Creatine Kinase CK-MB (CK-2) 4.26 Troponin I 0.056 NT-Pro-B Natriuret Pep Impressions: Head CT 10/27/17 08:14 IMPRESSION: MILD CHRONIC CHANGES OF ATROPHY AND MICROVASCULAR ISCHEMIA. NO ACUTE PROCESS. EVIDENCE OF ACUTE STROKE: NO. KUB X-Ray 10/30/17 00:00 IMPRESSION: There is mild gaseous distention of multiple bowel loops most consistent with an ileus pattern although the possibility of an underlying obstruction cannot be completely excluded. Other findings as noted above Chest X-Ray 11/03/17 00:00 IMPRESSION: Left basilar bandlike atelectasis Assessment & Plan - Diagnosis (1) Acute exacerbation of chronic bronchitis Is this a current diagnosis for this admission?: Yes Plan: Continue Advair, Spiriva and DuoNeb's as needed. (2) Acute respiratory failure with hypoxia and hypercapnia Is this a current diagnosis for this admission?: Yes Plan: Patient successfully extubated and doing well. Continue weaning off oxygen as tolerated (3) Chronic constipation Is this a current diagnosis for this admission?: Yes Plan: Continue current bowel regimen. Having good bowel movements (4) Ventricular tachycardia Is this a current diagnosis for this admission?: Yes Plan: Resolved (5) NSTEMI (non-ST elevated myocardial infarction) Is this a current diagnosis for this admission?: Yes Plan: Due to myocardial demand ischemia (6) PNA (pneumonia) Qualifiers: Laterality: left Lung location: lower lobe of lung Is this a current diagnosis for this admission?: Yes Plan: Continue incentive spirometry. Noted left lower lobe bandlike infiltrate. Vitals account trending down she started Zosyn IV (7) Weakness Is this a current diagnosis for this admission?: Yes Plan: Nurse advised ambulate patient on craft if PT not available (8) Elevated BUN Is this a current diagnosis for this admission?: Yes Plan: Improving and likely due to volume contraction (9) Leukocytosis, unspecified Qualifiers: Leukocytosis type: unspecified Qualified Code(s): D72.829 - Elevated white blood cell count, unspecified Is this a current diagnosis for this admission?: Yes Plan: Persisting. Noted chest x-ray. Trend down since starting on Zosyn IV. Awaiting urine and blood culture results - Time Time Spent with patient: 15-24 minutes Medications reviewed and adjusted accordingly: Yes Anticipated discharge: Acute Rehab Within: within 48 hours - Inpatient Certification Based on my medical assessment, after consideration of the patient's comorbidities, presenting symptoms, or acuity I expect that the services needed warrant INPATIENT care.: Yes I certify that my determination is in accordance with my understanding of Medicare's requirements for reasonable and necessary INPATIENT services [42 CFR 412.3e].: Yes Medical Necessity: Need Close Monitoring Due to Risk of Patient Decompensation, Need for Nebulizer Therapy and Monitoring of Response, Need for IV Antibiotics
[2017-11-06 04:49] LABS: ABSOLUTE BASOPHILS # (AUTO) 0.1 10^3/uL (0.0-0.2); ABSOLUTE EOSINOPHILS # (AUTO) 0.2 10^3/uL (0.0-0.6); ABSOLUTE LYMPHOCYTES (AUTO) 1.7 10^3/uL (0.5-4.7); ABSOLUTE MONOCYTES (AUTO) 1.5 10^3/uL (0.1-1.4); ABSOLUTE NEUT (AUTO) 11.1 10^3/uL (1.7-8.2); BASOPHILS % (AUTO) 0.5 % (0-2); EOSINOPHILS % (AUTO) 1.1 % (0-6); HEMATOCRIT 35.4 % (36.0-47.0); HEMOGLOBIN 11.7 g/dL (12.0-15.5); LYMPHOCYTES % (AUTO) 11.6 % (13-45); MEAN CORPUSCULAR HEMOGLOBIN 28.8 pg (27.0-33.4); MEAN CORPUSCULAR HGB CONC 33.2 g/dL (32.0-36.0); MEAN CORPUSCULAR VOLUME 87 fl (80-97); MONOCYTES % (AUTO) 10.2 % (3-13); PLATELET COUNT 230 10^3/uL (150-450); RED BLOOD COUNT 4.08 10^6/uL (3.72-5.28); RED CELL DISTRIBUTION WIDTH 14.1 % (11.5-14.0); SEGMENTED NEUTROPHILS % (AUTO) 76.6 % (42-78); TOTAL CELLS COUNTED % (AUTO) 100 %; WHITE BLOOD COUNT 14.5 10^3/uL (4.0-10.5)
[2017-11-06 05:02] LABS: ALANINE AMINOTRANSFERASE 68 U/L (9-52); ALBUMIN 2.8 g/dL (3.5-5.0); ALKALINE PHOSPHATASE 46 U/L (38-126); ANION GAP 7 (5-19); ASPARTATE AMINO TRANSFERASE 30 U/L (14-36); BILIRUBIN,DIRECT 0.3 mg/dL (0.0-0.4); BILIRUBIN,TOTAL 0.8 mg/dL (0.2-1.3); BLOOD UREA NITROGEN 28 mg/dL (7-20); CALCIUM 9.5 mg/dL (8.4-10.2); CARBON DIOXIDE 29 mmol/L (22-30); CHLORIDE 104 mmol/L (98-107); GLUCOSE 98 mg/dL (75-110); POTASSIUM 3.5 mmol/L (3.6-5.0); SODIUM 139.6 mmol/L (137-145); TOTAL PROTEIN 5.1 g/dL (6.3-8.2)
[2017-11-06] MEDS: HEPARIN SOD (PORCINE) 5,000 UNIT/ML 1 ML SYRINGE SUBCUT SCH ×3 (05:20→21:33)
[2017-11-06] MEDS: PIPERACILLIN SODIUM/TAZOBACTAM 3.375 GM in NORMAL SALINE 100 ML IV SCH (05:29)
[2017-11-06] MEDS: ASPIRIN 81 MG TABLET, CHEWABLE PO SCH (11:12)
[2017-11-06] MEDS: ONDANSETRON 4 MG TAB.RAPDIS PO PRN (11:13)
[2017-11-06] MEDS: GUAIFENESIN 600 MG TABLET.SA PO SCH ×2 (11:13→21:36)
[2017-11-06] MEDS: LACTULOSE SYRUP 20 GM/30 ML UDCUP PO SCH ×2 (11:13→17:53)
[2017-11-06] MEDS: CHOLECALCIFEROL (D3) 1,000 UNIT TABLET PO SCH (11:13)
[2017-11-06] MEDS: FLUTICASONE NASAL SPRAY 50 MCG/SPRY 120 SPRAY/16 GM NASL SCH ×2 (11:14→21:33)
[2017-11-06] MEDS: FLUTICASONE/SALMETEROL DISKUS 500-50 MCG/DOSE IH SCH ×2 (11:14→21:36)
[2017-11-06] MEDS: TIOTROPIUM BROMIDE DPI 5 CAP/KIT (18 MCG/CAP) IH SCH (11:15)
[2017-11-06] MEDS: POLYETHYLENE GLYCOL 3350 POWDER 17 GM/1 PACKET PO SCH (11:15)
[2017-11-06] MEDS: METOPROLOL SUCCINATE 50 MG TAB.SR.24H PO SCH ×2 (13:42→14:05)
[2017-11-06] MEDS: AMOXICILLIN TR/POT CLAVULANATE 500-125 MG TAB PO SCH ×2 (14:05→21:35)
[2017-11-06] MEDS ORDERED: FLUCONAZOLE 100 MG TABLET PO ONE (15:15)
--- NOTE | 2017-11-06 15:17 | PDOC PROGRESS REPORT ---
Subjective Progress Note for:: 11/06/17 Subjective:: The patient is an 82-year-old female with past medical history of COPD and continuous tobacco dependence who was admitted late evening on 10/23/17 for a COPD exacerbation. The patient appeared to be improving, however a rapid response was called at approximately 4 AM on 10/27/17 due to increase of heart rate to 123 with desat to 86% while on 4 L. The patient was briefly tried on BiPAP without improvement in saturations. Ultimately, the patient was transferred to the ICU where she was intubated. The patient was successfully extubated on 10/30/17 The patient is seen on morning rounds. She is found resting in bed comfortably on supplemental oxygen at 3 L/min. Her oxygen saturations are noted to be in the mid 90s, therefore I decreased the oxygen to 2 L/min notified nursing for continued monitoring. The patient's only complaint at present is that she is not walking enough and not sleeping well here. She denies fever, chills, chest pain, palpitations, dyspnea, orthopnea, cough, wheeze, abdominal pain, nausea vomiting and diarrhea. Overall, she is feeling quite well and is hopeful to be discharged to short- term nursing for rehabilitation in the near future. Reason For Visit: ACUTE RESOIRATORY FAILURE WITH HYPOXIA Physical Exam Vital Signs: Temp Pulse Resp BP Pulse Ox 98.1 F 84 16 134/49 H 94 11/06/17 11:39 11/06/17 14:44 11/06/17 14:44 11/06/17 11:39 11/06/17 14:44 Intake & Output 11/05/17 11/06/17 11/07/17 06:59 06:59 06:59 Intake Total 500 380 Output Total 400 800 Balance 100 -420 Weight 63.5 kg General appearance: PRESENT: no acute distress, cooperative, well-developed, well-nourished, other - Overweight Head exam: PRESENT: atraumatic, normocephalic Eye exam: PRESENT: conjunctiva pink, EOMI, PERRLA. ABSENT: scleral icterus Ear exam: PRESENT: normal external ear exam Mouth exam: PRESENT: moist, tongue midline Neck exam: ABSENT: carotid bruit, JVD, lymphadenopathy, thyromegaly Respiratory exam: PRESENT: rhonchi, symmetrical, unlabored. ABSENT: rales, tachypnea, wheezes Cardiovascular exam: PRESENT: RRR, +S1, +S2. ABSENT: diastolic murmur, rubs, systolic murmur, tachycardia Pulses: PRESENT: normal dorsalis pedis pul Vascular exam: PRESENT: normal capillary refill GI/Abdominal exam: PRESENT: normal bowel sounds, soft. ABSENT: distended, guarding, mass, organolmegaly, rebound, tenderness Rectal exam: PRESENT: deferred Extremities exam: PRESENT: full ROM. ABSENT: calf tenderness, clubbing, pedal edema Neurological exam: PRESENT: alert, awake, oriented to person, oriented to place , oriented to time, oriented to situation, CN II-XII grossly intact. ABSENT: motor sensory deficit Psychiatric exam: PRESENT: appropriate affect, normal mood. ABSENT: homicidal ideation, suicidal ideation Skin exam: PRESENT: dry, intact, warm. ABSENT: cyanosis, rash Results Laboratory Results: 11/06/17 04:27 11/06/17 04:27 11/06/17 11/06/17 04:27 04:27 WBC 14.5 H RBC 4.08 Hgb 11.7 L Hct 35.4 L MCV 87 MCH 28.8 MCHC 33.2 RDW 14.1 H Plt Count 230 Seg Neutrophils % 76.6 Lymphocytes % 11.6 L Monocytes % 10.2 Eosinophils % 1.1 Basophils % 0.5 Absolute Neutrophils 11.1 H Absolute Lymphocytes 1.7 Absolute Monocytes 1.5 H Absolute Eosinophils 0.2 Absolute Basophils 0.1 Sodium 139.6 Potassium 3.5 L Chloride 104 Carbon Dioxide 29 Anion Gap 7 BUN 28 H Creatinine 0.81 Est GFR ( Amer) > 60 Est GFR (Non-Af Amer) > 60 Glucose 98 Calcium 9.5 Magnesium 2.0 Total Bilirubin 0.8 AST 30 ALT 68 H Alkaline Phosphatase 46 Total Protein 5.1 L Albumin 2.8 L 11/05/17 01:50 Catheterized Urine Urine Culture - Final C.albicans/C.dubliniensis 10/24/17 10/27/17 10/27/17 15:48 04:28 04:28 Creatine Kinase 405 H CK-MB (CK-2) 11.40 H Troponin I 0.014 0.022 NT-Pro-B Natriuret Pep 10/27/17 10/27/17 10/27/17 04:28 12:12 12:12 Creatine Kinase 261 H CK-MB (CK-2) 8.55 H Troponin I 0.120 NT-Pro-B Natriuret Pep 1600 H 10/27/17 10/27/17 10/28/17 20:25 20:25 04:43 Creatine Kinase 153 H 152 H CK-MB (CK-2) 5.84 H Troponin I 0.081 NT-Pro-B Natriuret Pep 10/28/17 04:43 Creatine Kinase CK-MB (CK-2) 4.26 Troponin I 0.056 NT-Pro-B Natriuret Pep Impressions: Head CT 10/27/17 08:14 IMPRESSION: MILD CHRONIC CHANGES OF ATROPHY AND MICROVASCULAR ISCHEMIA. NO ACUTE PROCESS. EVIDENCE OF ACUTE STROKE: NO. KUB X-Ray 10/30/17 00:00 IMPRESSION: There is mild gaseous distention of multiple bowel loops most consistent with an ileus pattern although the possibility of an underlying obstruction cannot be completely excluded. Other findings as noted above Chest X-Ray 11/03/17 00:00 IMPRESSION: Left basilar bandlike atelectasis Assessment & Plan - Diagnosis (1) Acute respiratory failure with hypoxia and hypercapnia Is this a current diagnosis for this admission?: Yes Plan: Acute respiratory failure with hypoxia and hypercapnia secondary to COPD exacerbation. The patient has moderate to severe emphysema and is a continuous tobacco smoker. The patient was successfully extubated on 10/30/17. Supplemental oxygen as needed to maintain oxygen saturations greater than 88; will continue to attempt wean oxygen as tolerated. Dr. Camacho is consulted; appreciate his assistance (2) Demand ischemia Is this a current diagnosis for this admission?: Yes Plan: Type 2 Non-STEMI secondary to demand ischemia during acute respiratory failure event. On admission, initial troponin was indeterminate and then trended downward. Following intubation; repeat troponin elevated to 0.120 and now trending down Echocardiogram demonstrates LVEF of 55-60%, mild diastolic dysfunction, mild to moderate aortic regurgitation and mild tricuspid regurgitation. The patient is on continuous cardiac telemetry. Daily aspirin. Supportive care. (3) Hypotension Is this a current diagnosis for this admission?: Yes Plan: Resolved; patient is now normotensive. Pt is now requiring antihypertensive medications. Continue metoprolol 50 mg daily. (4) Ventricular tachycardia Is this a current diagnosis for this admission?: Yes Plan: Resolved. Rapid Response called the morning of 10/27/17 for nonsustained ventricular tachycardia followed by SVT secondary to acute respiratory failure. The patient was provided IV diltiazem for a short period of time; drip has since been discontinued. Pt currently in NSR. Pt is monitored on continuous cardiac telemetry. (5) COPD exacerbation Is this a current diagnosis for this admission?: Yes Plan: Resolved. Continue scheduled Advair and Spiriva. Duo nebs as needed. Supplemental oxygen as needed to maintain oxygen saturations greater than 88%; wean as able. Incentive spirometer and flutter valve to bedside. Encourage ambulation. (6) Acute bronchitis Is this a current diagnosis for this admission?: Yes Plan: Plan as above. (7) Tobacco abuse Is this a current diagnosis for this admission?: Yes Plan: Smoking cessation previously encouraged and nicotine replacement therapies offered. (8) Chronic constipation Is this a current diagnosis for this admission?: Yes Plan: Continue current bowel regiment; having good bowel movements. (9) Elevated BUN Is this a current diagnosis for this admission?: Yes Plan: Improving; likely secondary to volume contraction. Will continue to monitor. (10) Leukocytosis, unspecified Qualifiers: Leukocytosis type: unspecified Qualified Code(s): D72.829 - Elevated white blood cell count, unspecified Is this a current diagnosis for this admission?: Yes Plan: Improving; chest x-ray is noted patient currently being treated for a left lower lobe pneumonia. Blood cultures no growth in 48 hours. Urine culture: C albicans. Have transitioned to p.o. Augmentin. We will provide Diflucan 1. (11) Weakness Is this a current diagnosis for this admission?: Yes Plan: PT/OT consulted; appreciate their evaluation and recommendations. Plan to discharge to [facility] for continued rehabilitation tomorrow. (12) PNA (pneumonia) Qualifiers: Laterality: left Lung location: lower lobe of lung Is this a current diagnosis for this admission?: Yes Plan: Repeat blood cultures have no growth at 48 hours. Patient was empirically placed on Zosyn; WBCs are trending down and the patient remains afebrile. We will transition to p.o. Augmentin in anticipation of discharge to SNF tomorrow. (13) DVT prophylaxis Is this a current diagnosis for this admission?: Yes Plan: Heparin - Time Time Spent with patient: 35 or more minutes Medications reviewed and adjusted accordingly: Yes Anticipated discharge: Acute Rehab Within: Other - Tomorrow if labs remain stable and pt remains afebrile.
[2017-11-06] MEDS ORDERED: PIPERACILLIN SODIUM/TAZOBACTAM 3.375 GM in NORMAL SALINE 100 ML IV SCH (18:00)
[2017-11-07 04:18] LABS: ABSOLUTE BASOPHILS # (AUTO) 0.1 10^3/uL (0.0-0.2); ABSOLUTE EOSINOPHILS # (AUTO) 0.2 10^3/uL (0.0-0.6); ABSOLUTE LYMPHOCYTES (AUTO) 1.7 10^3/uL (0.5-4.7); ABSOLUTE MONOCYTES (AUTO) 1.3 10^3/uL (0.1-1.4); ABSOLUTE NEUT (AUTO) 8.3 10^3/uL (1.7-8.2); BASOPHILS % (AUTO) 0.9 % (0-2); EOSINOPHILS % (AUTO) 1.7 % (0-6); HEMATOCRIT 31.6 % (36.0-47.0); HEMOGLOBIN 10.4 g/dL (12.0-15.5); LYMPHOCYTES % (AUTO) 14.7 % (13-45); MEAN CORPUSCULAR HEMOGLOBIN 28.9 pg (27.0-33.4); MEAN CORPUSCULAR VOLUME 88 fl (80-97); MONOCYTES % (AUTO) 10.8 % (3-13); PLATELET COUNT 203 10^3/uL (150-450); RED BLOOD COUNT 3.61 10^6/uL (3.72-5.28); SEGMENTED NEUTROPHILS % (AUTO) 71.9 % (42-78); TOTAL CELLS COUNTED % (AUTO) 100 %; WHITE BLOOD COUNT 11.6 10^3/uL (4.0-10.5)
[2017-11-07 04:38] LABS: BLOOD UREA NITROGEN 26 mg/dL (7-20); CHLORIDE 107 mmol/L (98-107); GLUCOSE 87 mg/dL (75-110); POTASSIUM 3.4 mmol/L (3.6-5.0)
[2017-11-07 04:44] LABS: CARBON DIOXIDE 30 mmol/L (22-30); SODIUM 139.4 mmol/L (137-145)
[2017-11-07 04:47] LABS: ANION GAP 2 (5-19)
[2017-11-07] MEDS: HEPARIN SOD (PORCINE) 5,000 UNIT/ML 1 ML SYRINGE SUBCUT SCH (05:17)
[2017-11-07] MEDS: AMOXICILLIN TR/POT CLAVULANATE 500-125 MG TAB PO SCH (05:33)
[2017-11-07] MEDS: ONDANSETRON 4 MG TAB.RAPDIS PO PRN (06:27)
[2017-11-07] MEDS: CHOLECALCIFEROL (D3) 1,000 UNIT TABLET PO SCH (09:43)
[2017-11-07] MEDS: GUAIFENESIN 600 MG TABLET.SA PO SCH ×2 (09:43→21:17)
[2017-11-07] MEDS: ASPIRIN 81 MG TABLET, CHEWABLE PO SCH (09:43)
[2017-11-07] MEDS: LACTULOSE SYRUP 20 GM/30 ML UDCUP PO SCH (09:44)
[2017-11-07] MEDS: FLUTICASONE NASAL SPRAY 50 MCG/SPRY 120 SPRAY/16 GM NASL SCH ×2 (09:44→21:24)
[2017-11-07] MEDS: FLUTICASONE/SALMETEROL DISKUS 500-50 MCG/DOSE IH SCH ×2 (09:44→21:22)
[2017-11-07] MEDS: POLYETHYLENE GLYCOL 3350 POWDER 17 GM/1 PACKET PO SCH (09:44)
[2017-11-07] MEDS: TIOTROPIUM BROMIDE DPI 5 CAP/KIT (18 MCG/CAP) IH SCH (09:44)
[2017-11-07] MEDS ORDERED: [UNRECOGNIZED DRUG - OTHER] PO SCH (10:00)
[2017-11-07] MEDS ORDERED: POTASSIUM CHLORIDE 10 MEQ TABLET.SA PO ONE (11:30)
--- NOTE | 2017-11-07 13:25 | RADIOLOGY REPORT (SQ) ---
EXAM DESCRIPTION: CT ABD/PELVIS WITH IV ONLY COMPLETED DATE/TIME: 11/07/2017 1:06 pm REASON FOR STUDY: Hgb drop; significant rt flank bruising ?bleed J96.00 ACUTE RESPIRATORY FAILURE, UNSP W HYPOXIA OR HYPERCAP COMPARISON: None. TECHNIQUE: CT scan of the abdomen and pelvis performed using helical scanning technique with dynamic intravenous contrast injection. No oral contrast. Images reviewed with lung, soft tissue, and bone windows. Reconstructed coronal and sagittal MPR images reviewed. Delayed images for evaluation of the urinary system also acquired. All images stored on PACS. All CT scanners at this facility use dose modulation, iterative reconstruction, and/or weight based d osing when appropriate to reduce radiation dose to as low as reasonably achievable (ALARA). [facility]: Dose Right [facility]: CareDose [facility]: Dose Right [facility]: Teradose 4D [facility]: Mitro CONTRAST TYPE AND DOSE: contrast/concentration: Isovue 370.00 mg/ml; Total Contrast Delivered: 69.0 ml; Total Saline Delivered: 65.0 ml RENAL FUNCTION: Creatinine 0.82 RADIATION DOSE: CT Rad equipment meets quality standard of care and radiation dose reduction techniq ues were employed. CTDIvol: 5.4 - 6.2 mGy. DLP: 540 mGy-cm.. LIMITATIONS: None. FINDINGS: The duodenum is diffusely abnormal, with wall thickening and surrounding inflow 20 change in the retroperitoneal fat. On coronal image 39 and coronal image 42, penetrating duodenum ulcers ar e present proximal to the ampulla. No upper abdominal free air. The This report was called to Catina Avila as a critical result, 1310 hours 11/07/2017. There is a right upper quadrant abdominal wall hematoma between the external oblique and transversus abdominus muscles best shown on coronal image 38 and axial image 28. Hematoma measures about 60 Houn sfield units in density, 6 cm AP x 3.6 cm transverse. LOWER CHEST: Minimal bibasilar atelectasis LIVER: Normal size. No masses. No dilated ducts. SPLEEN: Normal size. No focal lesions. PANCREAS: No masses. No significant calcifications. No adjacent inflammation or peripancreatic fluid collections. Pancreatic duct not dilated. GALLBLADDER: Surgically absent ADRENAL GLANDS: No significant masses or asymmetry. RIGHT KIDNEY AND URETER: No solid masses. No significant calcifications. No hydronephrosis or hyd roureter. LEFT KIDNEY AND URETER: No solid masses. No significant calcifications. No hydronephrosis or hydr oureter. AORTA AND VESSELS: No aneurysm. No dissection. Renal arteries, SMA, celiac without stenosis. RETROPERITONEUM: No retroperitoneal adenopathy, hemorrhage or masses. BOWEL AND PERITONEAL CAVITY: Markedly abnormal 2nd portion of the duodenum with findings worrisome fo r penetrating ulcers. No upper abdominal free air or free fluid. Remainder of the gastrointestinal tract is otherwise unremarkable aside from moderate stool in the colon. No free fluid or peritoneal masses. APPENDIX: Normal. PELVIS: No mass. No free fluid. Normal bladder. ABDOMINAL WALL: Hematoma right upper quadrant abdominal wall. Old umbilical hernia repair, intact. BONES: No significant or acute findings. OTHER: No other significant finding. IMPRESSION: Findings worrisome for duodenum ulcers. Right upper abdominal wall hematoma COMMENT: Pertinent findings on the imaging study reported as a CRITICAL RESULT to LAILA YODER at13:10 on 11/07/2017. Category of Critical Result: Duodenal ulcers TECHNICAL DOCUMENTATION: JOB ID: [id number] Quality ID # [id number]: Final reports with documentation of one or more dose reduction techniques (e.g., Au tomated exposure control, adjustment of the mA and/or kV according to patient size, use of iterative reconstruction technique) 2010 [employer]- All Rights Reserved Reading location - IP/workstation name: [email or web address]
--- NOTE | 2017-11-07 14:43 | PDOC PROGRESS REPORT ---
Subjective Progress Note for:: 11/07/17 Subjective:: The patient is an 82-year-old female with past medical history of COPD and continuous tobacco dependence who was admitted late evening on 10/23/17 for a COPD exacerbation. The patient appeared to be improving, however a rapid response was called at approximately 4 AM on 10/27/17 due to increase of heart rate to 123 with desat to 86% while on 4 L. The patient was briefly tried on BiPAP without improvement in saturations. Ultimately, the patient was transferred to the ICU where she was intubated. The patient was successfully extubated on 10/30/17 The patient is seen on morning rounds. She is found resting in bed sitting up to the edge of the bed on supplemental oxygen at 1.5 L/min. The patient is frustrated by her p.o. medications today; she states that she is having GI upset with her antibiotic. The patient denies abdominal pain and emesis at this time. The patient was noted to have a precipitous drop in hemoglobin from 11.7-10.4. She was agreeable to Hemoccult, which unfortunately, was negative. During exam , she was found to have right flank and lower back ecchymosis. Contrasted CT of the abdomen and pelvis was concerning for duodenal ulcers with a right upper quadrant abdominal wall hematoma. The patient to discuss these results; the patient had me call her daughter, Kayleen, to discuss as well. Dr. Lopez is consulted. The patient is understandably frustrated by this development. Discharge held secondary to concern for GI bleed. Reason For Visit: ACUTE RESOIRATORY FAILURE WITH HYPOXIA Physical Exam Vital Signs: Temp Pulse Resp BP Pulse Ox 98.5 F 68 14 118/39 L 93 11/07/17 12:00 11/07/17 12:00 11/07/17 12:00 11/07/17 12:00 11/07/17 12:00 Intake & Output 11/06/17 11/07/17 11/08/17 06:59 06:59 06:59 Intake Total 380 730 Output Total 800 500 Balance -420 230 Weight 60.8 kg General appearance: PRESENT: no acute distress, well-developed, well-nourished Head exam: PRESENT: atraumatic, normocephalic Eye exam: PRESENT: conjunctiva pink, EOMI, PERRLA. ABSENT: scleral icterus Ear exam: PRESENT: normal external ear exam Mouth exam: PRESENT: moist, tongue midline Neck exam: ABSENT: carotid bruit, JVD, lymphadenopathy, thyromegaly Respiratory exam: PRESENT: rhonchi, symmetrical, unlabored, other - Supplemental oxygen at 1.5 lpm. ABSENT: rales, wheezes Cardiovascular exam: PRESENT: RRR, +S1, +S2. ABSENT: diastolic murmur, rubs, systolic murmur Pulses: PRESENT: normal dorsalis pedis pul Vascular exam: PRESENT: normal capillary refill GI/Abdominal exam: PRESENT: normal bowel sounds, soft, tenderness - Mild, generalized, other - Bilateral lower quadrant ecchymosis secondary to heparin administration. Right flank ecchymosis, bilateral lower back ecchymosis.. ABSENT: distended, guarding, mass, organolmegaly, rebound Rectal exam: PRESENT: deferred Extremities exam: PRESENT: full ROM. ABSENT: calf tenderness, clubbing, pedal edema Neurological exam: PRESENT: alert, awake, oriented to person, oriented to place , oriented to time, oriented to situation, CN II-XII grossly intact. ABSENT: motor sensory deficit Psychiatric exam: PRESENT: appropriate affect, normal mood. ABSENT: homicidal ideation, suicidal ideation Skin exam: PRESENT: dry, intact, warm. ABSENT: cyanosis, rash Results Laboratory Results: 11/07/17 03:59 11/07/17 03:59 11/07/17 11/07/17 11/07/17 03:59 03:59 10:00 WBC 11.6 H RBC 3.61 L Hgb 10.4 L Hct 31.6 L MCV 88 MCH 28.9 MCHC 33.0 RDW 14.0 Plt Count 203 Seg Neutrophils % 71.9 Lymphocytes % 14.7 Monocytes % 10.8 Eosinophils % 1.7 Basophils % 0.9 Absolute Neutrophils 8.3 H Absolute Lymphocytes 1.7 Absolute Monocytes 1.3 Absolute Eosinophils 0.2 Absolute Basophils 0.1 Sodium 139.4 Potassium 3.4 L Chloride 107 Carbon Dioxide 30 Anion Gap 2 L BUN 26 H Creatinine 0.82 Est GFR ( Amer) > 60 Est GFR (Non-Af Amer) > 60 Glucose 87 Calcium 9.0 Stool Occult Blood POSITIVE 11/05/17 01:50 Catheterized Urine Urine Culture - Final C.albicans/C.dubliniensis 10/24/17 10/27/17 10/27/17 15:48 04:28 04:28 Creatine Kinase 405 H CK-MB (CK-2) 11.40 H Troponin I 0.014 0.022 NT-Pro-B Natriuret Pep 10/27/17 10/27/17 10/27/17 04:28 12:12 12:12 Creatine Kinase 261 H CK-MB (CK-2) 8.55 H Troponin I 0.120 NT-Pro-B Natriuret Pep 1600 H 10/27/17 10/27/17 10/28/17 20:25 20:25 04:43 Creatine Kinase 153 H 152 H CK-MB (CK-2) 5.84 H Troponin I 0.081 NT-Pro-B Natriuret Pep 10/28/17 04:43 Creatine Kinase CK-MB (CK-2) 4.26 Troponin I 0.056 NT-Pro-B Natriuret Pep Impressions: Head CT 10/27/17 08:14 IMPRESSION: MILD CHRONIC CHANGES OF ATROPHY AND MICROVASCULAR ISCHEMIA. NO ACUTE PROCESS. EVIDENCE OF ACUTE STROKE: NO. KUB X-Ray 10/30/17 00:00 IMPRESSION: There is mild gaseous distention of multiple bowel loops most consistent with an ileus pattern although the possibility of an underlying obstruction cannot be completely excluded. Other findings as noted above Chest X-Ray 11/03/17 00:00 IMPRESSION: Left basilar bandlike atelectasis Abdomen/Pelvis CT 11/07/17 00:00 IMPRESSION: Findings worrisome for duodenum ulcers. Right upper abdominal wall hematoma Assessment & Plan - Diagnosis (1) Acute blood loss anemia Is this a current diagnosis for this admission?: Yes Plan: The patient is noted to have a downward trend in hemoglobin over the previous 4 days. 14.2--> 13.7--> 12.4--> 11.7--> 10.4 Occult stool is positive. Contrasted CT of abdomen and pelvis is positive for duodenal ulcers and right upper abdominal wall hematoma. Will obtain nuclear bleeding scan per Dr. Lopez's recommendation. Dr. Lopez was consulted; he is discussing with Dr. Wong plan for colonoscopy tomorrow. Patient placed in n.p.o. status. Protonix 40 mg IV twice daily. We will trend hemoglobin. Patient has been typed and crossed; will transfuse as necessary. (2) Acute respiratory failure with hypoxia and hypercapnia Is this a current diagnosis for this admission?: Yes Plan: Improved. Acute respiratory failure with hypoxia and hypercapnia secondary to COPD exacerbation. The patient has moderate to severe emphysema and is a continuous tobacco smoker. The patient was successfully extubated on 10/30/17. Supplemental oxygen as needed to maintain oxygen saturations greater than 88; will continue to attempt wean oxygen as tolerated. Dr. Camacho is consulted; appreciate his assistance (3) Demand ischemia Is this a current diagnosis for this admission?: Yes Plan: Type 2 Non-STEMI secondary to demand ischemia during acute respiratory failure event. On admission, initial troponin was indeterminate and then trended downward. Following intubation; repeat troponin elevated to 0.120 and now trending down Echocardiogram demonstrates LVEF of 55-60%, mild diastolic dysfunction, mild to moderate aortic regurgitation and mild tricuspid regurgitation. The patient is on continuous cardiac telemetry. Aspirin held 2/2 GI bleed. Supportive care. (4) Hypotension Is this a current diagnosis for this admission?: Yes Plan: Resolved; patient is now normotensive. Pt is now requiring antihypertensive medications. Continue metoprolol 50 mg daily. (5) Ventricular tachycardia Is this a current diagnosis for this admission?: Yes Plan: Resolved. Rapid Response called the morning of 10/27/17 for nonsustained ventricular tachycardia followed by SVT secondary to acute respiratory failure. The patient was provided IV diltiazem for a short period of time; drip has since been discontinued. Pt currently in NSR. Pt is monitored on continuous cardiac telemetry. (6) COPD exacerbation Is this a current diagnosis for this admission?: Yes Plan: Resolved. Continue scheduled Advair and Spiriva. Duo nebs as needed. Supplemental oxygen as needed to maintain oxygen saturations greater than 88%; wean as able. Incentive spirometer and flutter valve to bedside. Encourage ambulation. (7) Acute bronchitis Is this a current diagnosis for this admission?: Yes Plan: Plan as above. (8) Tobacco abuse Is this a current diagnosis for this admission?: Yes Plan: Smoking cessation previously encouraged and nicotine replacement therapies offered. (9) Chronic constipation Is this a current diagnosis for this admission?: Yes Plan: Adequately managed with bowel regiment. (10) Elevated BUN Is this a current diagnosis for this admission?: Yes Plan: Continues to trend down; likely secondary to volume contraction. Will continue to monitor. (11) Leukocytosis, unspecified Qualifiers: Leukocytosis type: unspecified Qualified Code(s): D72.829 - Elevated white blood cell count, unspecified Is this a current diagnosis for this admission?: Yes Plan: Improving; chest x-ray is noted patient currently being treated for a left lower lobe pneumonia. Blood cultures no growth in 72 hours. Urine culture: C albicans. Will resume Zosyn secondary to npo status. Pt has received total of 4 days of antibiotics. (12) Weakness Is this a current diagnosis for this admission?: Yes Plan: PT/OT consulted; appreciate their evaluation and recommendations. The patient has received a bed offer at [facility] for acute rehabilitation. Unfortunately, the patient has developed a GI bleed secondary to likely duodenal ulcers noted by CT imaging. Discharged on hold while evaluating GI bleed. (13) PNA (pneumonia) Qualifiers: Laterality: left Lung location: lower lobe of lung Is this a current diagnosis for this admission?: Yes Plan: Repeat blood cultures have no growth at 72 hours. Patient was empirically placed on Zosyn; currently day 4 of therapy. WBCs are trending down and the patient remains afebrile. (14) DVT prophylaxis Is this a current diagnosis for this admission?: Yes Plan: Heparin and aspirin discontinued secondary to acute GI bleed. Tip/SCD - Time Time Spent with patient: 35 or more minutes Medications reviewed and adjusted accordingly: Yes Anticipated discharge: Acute Rehab - Inpatient Certification Based on my medical assessment, after consideration of the patient's comorbidities, presenting symptoms, or acuity I expect that the services needed warrant INPATIENT care.: Yes I certify that my determination is in accordance with my understanding of Medicare's requirements for reasonable and necessary INPATIENT services [42 CFR 412.3e].: Yes Medical Necessity: Need Close Monitoring Due to Risk of Patient Decompensation, Need For IV Fluids, Risk of Diagnosis Which Will Require Inpatient Eval/Care/ Monitoring
[2017-11-07] MEDS: METOPROLOL SUCCINATE 50 MG TAB.SR.24H PO SCH (14:52)
[2017-11-07 15:34] LABS: HEMATOCRIT 35.7 % (36.0-47.0); HEMOGLOBIN 11.6 g/dL (12.0-15.5); MEAN CORPUSCULAR HGB CONC 32.4 g/dL (32.0-36.0); MEAN CORPUSCULAR VOLUME 89 fl (80-97); PLATELET COUNT 256 10^3/uL (150-450); RED CELL DISTRIBUTION WIDTH 13.9 % (11.5-14.0); WHITE BLOOD COUNT 12.6 10^3/uL (4.0-10.5)
[2017-11-07] MEDS: PANTOPRAZOLE SODIUM 40 MG VIAL IV SCH (17:05)
[2017-11-07] MEDS: PIPERACILLIN SODIUM/TAZOBACTAM 3.375 GM in NORMAL SALINE 100 ML IV SCH ×2 (17:44→23:42)
--- NOTE | 2017-11-07 17:48 | RADIOLOGY REPORT (SQ) ---
EXAM DESCRIPTION: UGI SERIES COMPLETED DATE/TIME: 11/07/2017 5:36 pm REASON FOR STUDY: evaluate for perforated duodenal ulcer J96.00 ACUTE RESPIRATORY FAILURE, UNSP W H YPOXIA OR HYPERCAP COMPARISON: CT abdomen and pelvis earlier today TECHNIQUE: Under fluoroscopic guidance, patient ingested Isovue-300 contrast. Fluoroscopic spot charanjit ges and routine radiographic images acquired and stored on PACS. No barium tablet given LIMITATIONS: None. FLUOROSCOPY TIME: FLUORO TIME: 23 seconds 23 digital saved to PACS. FINDINGS: Patient was unable to stand for long period of time. Limited fluoroscopy of the esophagus while standing upright is unremarkable. Prompt gastric emptying. No gross evidence of gastric ulcer. Persistent ulcer craters are present in the proximal duodenum, just beyond the duodenum bulb. No chantel ss extravasation of contrast from the ulcer craters. These are seen both medially and laterally, and correlate with coronal CT images 39 through 46. This report was called to Dr. Lopez 1740 hours 11/07/2017 IMPRESSION: At least 2 moderate-sized duodenum ulcers are evident Stomach unremarkable. Fluoroscopy of the esophagus is unremarkable COMMENT: Quality ID [id number]: Final reports for procedures using fluoroscopy that document radiation exp osure indices, or exposure time and number of fluorographic images (if radiation exposure indices are not available) TECHNICAL DOCUMENTATION: JOB ID: [id number] [employer]- All Rights Reserved Reading location - IP/workstation name: [email or web address]
--- NOTE | 2017-11-07 19:19 | PDOC CONSULTATION ---
Consultation Consult Date: 11/07/17 Attending physician:: MIGUEL YOUNG Consult reason:: possible perforated ulcer, ? gi bleeding History of Present Illness Admission Date/PCP: 10/24/17 12:00 History of Present Illness: I received a call from surgery. apparently they had been called by the primary service. patient was admitted for COPD issues and was planning to get discharged. patient had CT scan done and apparently has duodenal ulcers with a possible concern for perforation patient had upper gi series noted, duodenal ulcers are noted but no perforation , she happens to have a RUQ hematoma her H/H dropped slightly but is now stable surgery wanted to have EGD done I spoke to the primary service, to update them on the case patient is apparently guiac negative patient was found to have flank and lower back eccymosis dischage was held she will probably EGD tomorrow for evaluation of her ulcers ? for possible H.Pylori she will a PPI in the meanwhile Past Medical History Cardiac Medical History: Denies: Coronary Artery Disease, Myocardial Infarction, Hypertension Pulmonary Medical History: Reports: Chronic Obstructive Pulmonary Disease (COPD) Denies: Asthma, Bronchitis, Pneumonia Neurological Medical History: Denies: Seizures Musculoskeltal Medical History: Reports: Arthritis Psychiatric Medical History: Reports: Tobacco Dependency Hematology: Reports: Anemia Past Surgical History Past Surgical History: Denies: Hysterectomy, Pacemaker Social History Lives with: Alone Smoking Status: Current Every Day Smoker Cigarettes Packs Per Day: 1 Frequency of Alcohol Use: Occasional Hx Recreational Drug Use: No Hx Prescription Drug Abuse: No - Advance Directive Resuscitation Status: Do Not Resuscitate Family History Family History: COPD, Other Parental Family History Reviewed: Yes Children Family History Reviewed: Unknown Sibling(s) Family History Reviewed.: Unknown Medication/Allergy Home Medications: Cholecalciferol (Vitamin D3) [Vitamin D] 1,000 unit PO DAILY 12/08/14 Albuterol Sulfate [Proair Hfa] 1 puff IH ASDIR PRN 10/24/17 Glycopyrrolate/Formoterol Fum [Bevespi Aerosphere Inhaler] 2 puff IH BID Allergies/Adverse Reactions: doxycycline [Doxycycline] Allergy (Mild, Verified 07/01/15 07:11) n/v Sulfa (Sulfonamide Antibiotics) Allergy (Mild, Verified 07/01/15 07:11) n/v Review of Systems Constitutional: ABSENT: fever(s), headache(s), night sweats, weakness Eyes: ABSENT: visual disturbances Ears: ABSENT: hearing changes Cardiovascular: ABSENT: chest pain, orthropnea Respiratory: ABSENT: dyspnea, hemoptysis Gastrointestinal: ABSENT: coffee ground emesis, dysphagia, melena Genitourinary: ABSENT: dysuria, hematuria Musculoskeletal: ABSENT: deformity, joint swelling Integumentary: ABSENT: pruritus Neurological: ABSENT: syncope, tingling, tremor(s), vertigo Endocrine: ABSENT: polydipsia, polyphagia, polyuria Hematologic/Lymphatic: ABSENT: lymphadenopathy Physical Exam Vital Signs: Temp Pulse Resp BP Pulse Ox 98.7 F 82 12 142/71 H 94 11/07/17 17:09 11/07/17 17:09 11/07/17 17:09 11/07/17 17:09 11/07/17 17:09 Intake & Output 11/06/17 11/07/17 11/08/17 06:59 06:59 06:59 Intake Total 380 730 600 Output Total 800 500 Balance -420 230 600 Weight 60.8 kg General appearance: PRESENT: no acute distress Head exam: PRESENT: atraumatic, normocephalic Eye exam: PRESENT: EOMI, PERRLA. ABSENT: nystagmus, periorbital swelling, scleral icterus Mouth exam: PRESENT: moist, neck supple Throat exam: ABSENT: tonsillar exudate, tonsillogmegaly Respiratory exam: PRESENT: unlabored. ABSENT: symmetrical, tachypnea, wheezes Cardiovascular exam: PRESENT: RRR, +S1, +S2 GI/Abdominal exam: PRESENT: soft. ABSENT: rebound, rigid, tenderness Extremities exam: PRESENT: tenderness Neurological exam: PRESENT: oriented to time, oriented to situation, CN II-XII grossly intact Focused psych exam: ABSENT: restlessness Skin exam: PRESENT: normal color. ABSENT: mottled, pallor, urticaria, vesicles Results Laboratory Results: 11/07/17 14:46 11/07/17 03:59 11/07/17 11/07/17 11/07/17 03:59 03:59 10:00 WBC 11.6 H RBC 3.61 L Hgb 10.4 L Hct 31.6 L MCV 88 MCH 28.9 MCHC 33.0 RDW 14.0 Plt Count 203 Seg Neutrophils % 71.9 Lymphocytes % 14.7 Monocytes % 10.8 Eosinophils % 1.7 Basophils % 0.9 Absolute Neutrophils 8.3 H Absolute Lymphocytes 1.7 Absolute Monocytes 1.3 Absolute Eosinophils 0.2 Absolute Basophils 0.1 Sodium 139.4 Potassium 3.4 L Chloride 107 Carbon Dioxide 30 Anion Gap 2 L BUN 26 H Creatinine 0.82 Est GFR ( Amer) > 60 Est GFR (Non-Af Amer) > 60 Glucose 87 Calcium 9.0 Stool Occult Blood POSITIVE Blood Type Antibody Screen 11/07/17 11/07/17 14:46 14:46 WBC 12.6 H RBC 4.00 Hgb 11.6 L Hct 35.7 L MCV 89 MCH 29.0 MCHC 32.4 RDW 13.9 Plt Count 256 Seg Neutrophils % Lymphocytes % Monocytes % Eosinophils % Basophils % Absolute Neutrophils Absolute Lymphocytes Absolute Monocytes Absolute Eosinophils Absolute Basophils Sodium Potassium Chloride Carbon Dioxide Anion Gap BUN Creatinine Est GFR ( Amer) Est GFR (Non-Af Amer) Glucose Calcium Stool Occult Blood Blood Type A POSITIVE Antibody Screen NEGATIVE 10/24/17 10/27/17 10/27/17 15:48 04:28 04:28 Creatine Kinase 405 H CK-MB (CK-2) 11.40 H Troponin I 0.014 0.022 NT-Pro-B Natriuret Pep 10/27/17 10/27/17 10/27/17 04:28 12:12 12:12 Creatine Kinase 261 H CK-MB (CK-2) 8.55 H Troponin I 0.120 NT-Pro-B Natriuret Pep 1600 H 10/27/17 10/27/17 10/28/17 20:25 20:25 04:43 Creatine Kinase 153 H 152 H CK-MB (CK-2) 5.84 H Troponin I 0.081 NT-Pro-B Natriuret Pep 10/28/17 04:43 Creatine Kinase CK-MB (CK-2) 4.26 Troponin I 0.056 NT-Pro-B Natriuret Pep Impressions: Head CT 10/27/17 08:14 IMPRESSION: MILD CHRONIC CHANGES OF ATROPHY AND MICROVASCULAR ISCHEMIA. NO ACUTE PROCESS. EVIDENCE OF ACUTE STROKE: NO. KUB X-Ray 10/30/17 00:00 IMPRESSION: There is mild gaseous distention of multiple bowel loops most consistent with an ileus pattern although the possibility of an underlying obstruction cannot be completely excluded. Other findings as noted above Chest X-Ray 11/03/17 00:00 IMPRESSION: Left basilar bandlike atelectasis Abdomen/Pelvis CT 11/07/17 00:00 IMPRESSION: Findings worrisome for duodenum ulcers. Right upper abdominal wall hematoma Upper GI Series 11/07/17 00:00 IMPRESSION: At least 2 moderate-sized duodenum ulcers are evident Stomach unremarkable. Fluoroscopy of the esophagus is unremarkable Assessment & Plan - Diagnosis (1) Duodenal bulb ulcer Plan: while there appeared to be a drop in her Hgb, it has since gone back up to the original number she had a CT scan questioning the possibilty of a perforated ulcer but on upper GI series it is negative however she does have some ulcers given the stability of her HGB, likely not having significant bleeding however etiology of her ulcers needs to be worked up prior to her discharge she will need an EGD Risks, benefits and alternatives are discussed with the patient in detail further recommendations to follow she will need to be on a PPI will need to exclude H.Pylori infection if negative , should not hold up her discharge - Time Time Spent: 50 to 70 Minutes
[2017-11-07 20:27] LABS: HEMATOCRIT 32.2 % (36.0-47.0); HEMOGLOBIN 10.6 g/dL (12.0-15.5); MEAN CORPUSCULAR HGB CONC 32.9 g/dL (32.0-36.0); MEAN CORPUSCULAR VOLUME 88 fl (80-97); PLATELET COUNT 242 10^3/uL (150-450); RED BLOOD COUNT 3.66 10^6/uL (3.72-5.28); RED CELL DISTRIBUTION WIDTH 13.9 % (11.5-14.0); WHITE BLOOD COUNT 10.7 10^3/uL (4.0-10.5)
--- NOTE | 2017-11-07 23:18 | PDOC CONSULTATION ---
Consultation Consult Date: 11/07/17 Consult reason:: Penetrating duodenal ulcers seen on CT scan History of Present Illness Admission Date/PCP: 10/24/17 12:00 Patient complains of: chronic abdominal distention with mild epigastric tenderness History of Present Illness: Patient was about to be discharged today when she was noted abdominal distention with epigastric tenderness. A CT scan of the abdomen was done which showed penetrating duodenal ulcers with surrounding inflammation. These films were reviewed with the Radiologist. A subsequent UGIS was done which confirmed 2 lrge duodenal ulcers without perforation. I consulted Dr Wong to do EGD tomorrow. Past Medical History Cardiac Medical History: Denies: Coronary Artery Disease, Myocardial Infarction, Hypertension Pulmonary Medical History: Reports: Chronic Obstructive Pulmonary Disease (COPD) Denies: Asthma, Bronchitis, Pneumonia Neurological Medical History: Denies: Seizures Musculoskeltal Medical History: Reports: Arthritis Psychiatric Medical History: Reports: Tobacco Dependency Hematology: Reports: Anemia Past Surgical History Past Surgical History: Denies: Hysterectomy, Pacemaker Social History Lives with: Alone Smoking Status: Current Every Day Smoker Cigarettes Packs Per Day: 1 Frequency of Alcohol Use: Occasional Hx Recreational Drug Use: No Hx Prescription Drug Abuse: No - Advance Directive Resuscitation Status: Do Not Resuscitate Family History Family History: COPD, Other Parental Family History Reviewed: No Children Family History Reviewed: No Sibling(s) Family History Reviewed.: No Medication/Allergy Home Medications: Cholecalciferol (Vitamin D3) [Vitamin D] 1,000 unit PO DAILY 12/08/14 Albuterol Sulfate [Proair Hfa] 1 puff IH ASDIR PRN 10/24/17 Glycopyrrolate/Formoterol Fum [Bevespi Aerosphere Inhaler] 2 puff IH BID Allergies/Adverse Reactions: doxycycline [Doxycycline] Allergy (Mild, Verified 07/01/15 07:11) n/v Sulfa (Sulfonamide Antibiotics) Allergy (Mild, Verified 07/01/15 07:11) n/v Review of Systems Constitutional: PRESENT: other - no chills/fever Cardiovascular: PRESENT: other - no chest pains Respiratory: PRESENT: cough Gastrointestinal: PRESENT: other - Denies abdominal pains Genitourinary: PRESENT: other - no dysuria Musculoskeletal: PRESENT: other - no back pains Integumentary: PRESENT: other - no rash Neurological: PRESENT: weakness Endocrine: PRESENT: other - no polyuria Hematologic/Lymphatic: PRESENT: other - no easy bruising Physical Exam Vital Signs: Temp Pulse Resp BP Pulse Ox 98.7 F 72 18 102/42 L 90 L 11/07/17 20:10 11/07/17 20:10 11/07/17 20:10 11/07/17 20:10 11/07/17 20:10 Intake & Output 11/06/17 11/07/17 11/08/17 06:59 06:59 06:59 Intake Total 380 730 600 Output Total 800 500 Balance -420 230 600 Weight 60.8 kg General appearance: PRESENT: no acute distress Eye exam: PRESENT: conjunctiva pink Mouth exam: PRESENT: moist Neck exam: PRESENT: full ROM Respiratory exam: PRESENT: clear to auscultation cheri Cardiovascular exam: PRESENT: RRR Pulses: PRESENT: normal radial pulses Vascular exam: PRESENT: normal capillary refill Rectal exam: PRESENT: deferred Extremities exam: PRESENT: full ROM Musculoskeletal exam: PRESENT: ambulatory Neurological exam: PRESENT: alert, oriented to person, oriented to place, oriented to time, oriented to situation Psychiatric exam: PRESENT: appropriate affect Skin exam: PRESENT: normal color, warm Results Laboratory Results: 11/07/17 20:15 11/07/17 03:59 11/07/17 11/07/17 11/07/17 03:59 03:59 10:00 WBC 11.6 H RBC 3.61 L Hgb 10.4 L Hct 31.6 L MCV 88 MCH 28.9 MCHC 33.0 RDW 14.0 Plt Count 203 Seg Neutrophils % 71.9 Lymphocytes % 14.7 Monocytes % 10.8 Eosinophils % 1.7 Basophils % 0.9 Absolute Neutrophils 8.3 H Absolute Lymphocytes 1.7 Absolute Monocytes 1.3 Absolute Eosinophils 0.2 Absolute Basophils 0.1 Sodium 139.4 Potassium 3.4 L Chloride 107 Carbon Dioxide 30 Anion Gap 2 L BUN 26 H Creatinine 0.82 Est GFR ( Amer) > 60 Est GFR (Non-Af Amer) > 60 Glucose 87 Calcium 9.0 Stool Occult Blood POSITIVE Blood Type Antibody Screen 11/07/17 11/07/17 11/07/17 14:46 14:46 20:15 WBC 12.6 H 10.7 H RBC 4.00 3.66 L Hgb 11.6 L 10.6 L Hct 35.7 L 32.2 L MCV 89 88 MCH 29.0 29.0 MCHC 32.4 32.9 RDW 13.9 13.9 Plt Count 256 242 Seg Neutrophils % Lymphocytes % Monocytes % Eosinophils % Basophils % Absolute Neutrophils Absolute Lymphocytes Absolute Monocytes Absolute Eosinophils Absolute Basophils Sodium Potassium Chloride Carbon Dioxide Anion Gap BUN Creatinine Est GFR ( Amer) Est GFR (Non-Af Amer) Glucose Calcium Stool Occult Blood Blood Type A POSITIVE Antibody Screen NEGATIVE 10/24/17 10/27/17 10/27/17 15:48 04:28 04:28 Creatine Kinase 405 H CK-MB (CK-2) 11.40 H Troponin I 0.014 0.022 NT-Pro-B Natriuret Pep 10/27/17 10/27/17 10/27/17 04:28 12:12 12:12 Creatine Kinase 261 H CK-MB (CK-2) 8.55 H Troponin I 0.120 NT-Pro-B Natriuret Pep 1600 H 10/27/17 10/27/17 10/28/17 20:25 20:25 04:43 Creatine Kinase 153 H 152 H CK-MB (CK-2) 5.84 H Troponin I 0.081 NT-Pro-B Natriuret Pep 10/28/17 04:43 Creatine Kinase CK-MB (CK-2) 4.26 Troponin I 0.056 NT-Pro-B Natriuret Pep Impressions: Head CT 10/27/17 08:14 IMPRESSION: MILD CHRONIC CHANGES OF ATROPHY AND MICROVASCULAR ISCHEMIA. NO ACUTE PROCESS. EVIDENCE OF ACUTE STROKE: NO. KUB X-Ray 10/30/17 00:00 IMPRESSION: There is mild gaseous distention of multiple bowel loops most consistent with an ileus pattern although the possibility of an underlying obstruction cannot be completely excluded. Other findings as noted above Chest X-Ray 11/03/17 00:00 IMPRESSION: Left basilar bandlike atelectasis Abdomen/Pelvis CT 11/07/17 00:00 IMPRESSION: Findings worrisome for duodenum ulcers. Right upper abdominal wall hematoma Upper GI Series 11/07/17 00:00 IMPRESSION: At least 2 moderate-sized duodenum ulcers are evident Stomach unremarkable. Fluoroscopy of the esophagus is unremarkable Assessment & Plan - Time Time Spent: 30 to 50 Minutes - Plan Summary Plan Summary: Continue monitor CBC For colonoscopy by Dr Wong tomorrow
[2017-11-08 02:19] LABS: HEMATOCRIT 30.6 % (36.0-47.0); HEMOGLOBIN 10.2 g/dL (12.0-15.5); MEAN CORPUSCULAR HEMOGLOBIN 29.2 pg (27.0-33.4); MEAN CORPUSCULAR HGB CONC 33.3 g/dL (32.0-36.0); MEAN CORPUSCULAR VOLUME 88 fl (80-97); PLATELET COUNT 238 10^3/uL (150-450); RED BLOOD COUNT 3.48 10^6/uL (3.72-5.28); RED CELL DISTRIBUTION WIDTH 13.9 % (11.5-14.0)
[2017-11-08] MEDS: NORMAL SALINE 1000 ML 1,000 ML IV PRN ×2 (04:54→15:37)
[2017-11-08] MEDS: PANTOPRAZOLE SODIUM 40 MG VIAL IV SCH ×2 (05:37→18:17)
[2017-11-08] MEDS: PIPERACILLIN SODIUM/TAZOBACTAM 3.375 GM in NORMAL SALINE 100 ML IV SCH ×3 (05:37→18:17)
[2017-11-08] MEDS: FLUTICASONE NASAL SPRAY 50 MCG/SPRY 120 SPRAY/16 GM NASL SCH (10:43)
[2017-11-08] MEDS: POLYETHYLENE GLYCOL 3350 POWDER 17 GM/1 PACKET PO SCH (10:43)
[2017-11-08] MEDS: FLUTICASONE/SALMETEROL DISKUS 500-50 MCG/DOSE IH SCH (10:43)
[2017-11-08] MEDS: TIOTROPIUM BROMIDE DPI 5 CAP/KIT (18 MCG/CAP) IH SCH (10:43)
[2017-11-08] MEDS: GUAIFENESIN 600 MG TABLET.SA PO SCH (10:43)
[2017-11-08] MEDS: METOPROLOL SUCCINATE 50 MG TAB.SR.24H PO SCH (12:05)
[2017-11-08] MEDS ORDERED: DIPHENHYDRAMINE HCL 50 MG/ML VIAL ONE ×2 (12:10→12:30)
[2017-11-08] MEDS ORDERED: ONDANSETRON HCL INJ/PF 4 MG/2 ML SDV ONE ×2 (12:10→12:30)
[2017-11-08] MEDS ORDERED: MIDAZOLAM 2 MG/2 ML INJ ONE (12:10)
[2017-11-08] MEDS ORDERED: NALOXONE HCL INJ/PF 0.4 MG/1 ML SDV ONE ×2 (12:10→12:30)
[2017-11-08] MEDS ORDERED: FLUMAZENIL INJ 0.5 MG/5 ML VIAL ONE ×2 (12:11→12:31)
[2017-11-08] MEDS ORDERED: FENTANYL CITRATE INJ/PF 100 MCG/2 ML AMPUL ONE ×2 (12:11→12:31)
[2017-11-08] MEDS ORDERED: EPINEPHRINE INJ 1 MG/10 ML DISP.SYRIN ONE ×2 (12:11→12:31)
[2017-11-08] MEDS ORDERED: GLUCAGON,HUMAN RECOMB 1 MG INJ ONE ×2 (12:11→12:31)
[2017-11-08 13:01] LABS: HEMATOCRIT 29.7 % (36.0-47.0); HEMOGLOBIN 9.9 g/dL (12.0-15.5); MEAN CORPUSCULAR HEMOGLOBIN 29.2 pg (27.0-33.4); MEAN CORPUSCULAR HGB CONC 33.2 g/dL (32.0-36.0); MEAN CORPUSCULAR VOLUME 88 fl (80-97); PLATELET COUNT 237 10^3/uL (150-450); RED BLOOD COUNT 3.37 10^6/uL (3.72-5.28); RED CELL DISTRIBUTION WIDTH 14.1 % (11.5-14.0)
[2017-11-08] MEDS: MIDAZOLAM 2 MG/2 ML INJ ONE ×2 (13:05→13:09)
--- NOTE | 2017-11-08 13:16 | Operative Report ---
Operative Report DATE OF SURGERY: 11/08/17 Operative Report: The risks benefits and alternatives of the procedure explained to the patient in detail and informed consent is obtained.A GIF Olympus video scope was inserted into the patient's mouth and hypopharynx, the esophagus is identified intubated and insufflated, the scope was then advanced through the esophagus stomach and duodenum, retroflexion maneuver is done, the esophagus stomach and first and second portions of the duodenum examined PREOPERATIVE DIAGNOSIS: Duodenal ulcer POSTOPERATIVE DIAGNOSIS: Clean-based duodenal ulcer status post biopsy. Gastritis status post biopsy. Esophagitis OPERATION: EGD with biopsy SURGEON: MIGUEL YOUNG ANESTHESIA: Moderate Sedation - 4 mg of Zofran, 3 mg of Versed, 25 mcg of fentanyl. Conscious sedation monitoring time 30 minutes. TISSUE REMOVED OR ALTERED: As noted above. COMPLICATIONS: None. ESTIMATED BLOOD LOSS: None. INTRAOPERATIVE FINDINGS: As noted above. PROCEDURE: Patient.the procedure well. No immediate postprocedure comp occasions are noted. Patient sent back to her room in good condition. Can resume regular diet. We will wait on biopsies. No bleeding noted No perforation noted We will wait on biopsies and treat for Helicobacter pylori positive PPI therapy Patient can be discharged if there are no other issues
--- NOTE | 2017-11-08 16:38 | PDOC PROGRESS REPORT ---
Subjective Progress Note for:: 11/08/17 Subjective:: The patient is an 82-year-old female with past medical history of COPD and continuous tobacco dependence who was admitted late evening on 10/23/17 for a COPD exacerbation. The patient appeared to be improving, however a rapid response was called at approximately 4 AM on 10/27/17 due to increase of heart rate to 123 with desat to 86% while on 4 L. The patient was briefly tried on BiPAP without improvement in saturations. Ultimately, the patient was transferred to the ICU where she was intubated. The patient was successfully extubated on 10/30/17 The patient is seen on morning rounds. She is found resting in bed on supplemental oxygen at 1.5 L/min. She is patiently awaiting her EGD planned for this afternoon. She denies headache, dizziness, chest pain, palpitations, dyspnea, and orthopnea, abdominal pain, nausea vomiting and diarrhea. She is having bowel movements which she reports to have been ramos in color; denying hematochezia and melena. The patient remains hopeful that following her EGD she will be able to be discharged to SNF for acute rehabilitation tomorrow morning. Discharge held secondary to concern for GI bleed. Reason For Visit: ACUTE RESOIRATORY FAILURE WITH HYPOXIA Physical Exam Vital Signs: Temp Pulse Resp BP Pulse Ox 98.3 F 77 21 H 117/51 L 95 11/08/17 12:00 11/08/17 13:45 11/08/17 13:45 11/08/17 13:45 11/08/17 13:45 Intake & Output 11/07/17 11/08/17 11/09/17 06:59 06:59 06:59 Intake Total 730 2010 250 Output Total 500 600 Balance 230 1410 250 Weight 60.8 kg 60.8 kg General appearance: PRESENT: no acute distress, well-developed, well-nourished, other - Overweight Head exam: PRESENT: atraumatic, normocephalic Eye exam: PRESENT: conjunctiva pink, EOMI, PERRLA. ABSENT: scleral icterus Ear exam: PRESENT: normal external ear exam Mouth exam: PRESENT: moist, tongue midline Neck exam: ABSENT: carotid bruit, JVD, lymphadenopathy, thyromegaly Respiratory exam: PRESENT: prolonged expiratory phas, rhonchi - Improved, symmetrical, unlabored. ABSENT: rales, wheezes Cardiovascular exam: PRESENT: RRR, +S1, +S2. ABSENT: diastolic murmur, rubs, systolic murmur Pulses: PRESENT: normal dorsalis pedis pul Vascular exam: PRESENT: normal capillary refill GI/Abdominal exam: PRESENT: normal bowel sounds, soft. ABSENT: distended, guarding, mass, organolmegaly, rebound, tenderness Rectal exam: PRESENT: deferred Extremities exam: PRESENT: full ROM. ABSENT: calf tenderness, clubbing, pedal edema Neurological exam: PRESENT: alert, awake, oriented to person, oriented to place , oriented to time, oriented to situation, CN II-XII grossly intact. ABSENT: motor sensory deficit Psychiatric exam: PRESENT: appropriate affect, normal mood. ABSENT: homicidal ideation, suicidal ideation Skin exam: PRESENT: dry, intact, warm. ABSENT: cyanosis, rash Results Laboratory Results: 11/08/17 12:38 11/07/17 03:59 11/07/17 11/07/17 11/08/17 14:46 20:15 02:09 WBC 10.7 H 9.0 RBC 3.66 L 3.48 L Hgb 10.6 L 10.2 L Hct 32.2 L 30.6 L MCV 88 88 MCH 29.0 29.2 MCHC 32.9 33.3 RDW 13.9 13.9 Plt Count 242 238 Blood Type A POSITIVE Antibody Screen NEGATIVE 11/08/17 12:38 WBC 9.0 RBC 3.37 L Hgb 9.9 L Hct 29.7 L MCV 88 MCH 29.2 MCHC 33.2 RDW 14.1 H Plt Count 237 Blood Type Antibody Screen 10/24/17 10/27/17 10/27/17 15:48 04:28 04:28 Creatine Kinase 405 H CK-MB (CK-2) 11.40 H Troponin I 0.014 0.022 NT-Pro-B Natriuret Pep 10/27/17 10/27/17 10/27/17 04:28 12:12 12:12 Creatine Kinase 261 H CK-MB (CK-2) 8.55 H Troponin I 0.120 NT-Pro-B Natriuret Pep 1600 H 10/27/17 10/27/17 10/28/17 20:25 20:25 04:43 Creatine Kinase 153 H 152 H CK-MB (CK-2) 5.84 H Troponin I 0.081 NT-Pro-B Natriuret Pep 10/28/17 04:43 Creatine Kinase CK-MB (CK-2) 4.26 Troponin I 0.056 NT-Pro-B Natriuret Pep Impressions: Head CT 10/27/17 08:14 IMPRESSION: MILD CHRONIC CHANGES OF ATROPHY AND MICROVASCULAR ISCHEMIA. NO ACUTE PROCESS. EVIDENCE OF ACUTE STROKE: NO. KUB X-Ray 10/30/17 00:00 IMPRESSION: There is mild gaseous distention of multiple bowel loops most consistent with an ileus pattern although the possibility of an underlying obstruction cannot be completely excluded. Other findings as noted above Chest X-Ray 11/03/17 00:00 IMPRESSION: Left basilar bandlike atelectasis Abdomen/Pelvis CT 11/07/17 00:00 IMPRESSION: Findings worrisome for duodenum ulcers. Right upper abdominal wall hematoma Upper GI Series 11/07/17 00:00 IMPRESSION: At least 2 moderate-sized duodenum ulcers are evident Stomach unremarkable. Fluoroscopy of the esophagus is unremarkable Assessment & Plan - Diagnosis (1) Acute blood loss anemia Is this a current diagnosis for this admission?: Yes Plan: Hemoglobin continues to be trended; did improve yesterday afternoon to 11.6 but has continued to trend downward following that. This afternoon hemoglobin is noted to be 9.9. Occult stool is positive. Contrasted CT of abdomen and pelvis is positive for duodenal ulcers and right upper abdominal wall hematoma. Upper GI series with Gastrografin obtained per Dr. Adkins's recommendation; no evidence of perforation. EGD completed today by Dr. Wong; duodenal ulcer is noted with clean ulcer base following biopsy, esophagitis and gastritis were noted. Dr. Martinez has been consulted; appreciate his assistance in managing this patient. Dr. Wong was consulted; appreciate his assistance in managing this patient. Continue Protonix 40 mg IV twice daily. We will trend hemoglobin. Patient has been typed and crossed; will transfuse as necessary. Anticipate discharge to half-way facility tomorrow morning if hemoglobin stabilizes. (2) Acute respiratory failure with hypoxia and hypercapnia Is this a current diagnosis for this admission?: Yes Plan: Improved. Acute respiratory failure with hypoxia and hypercapnia secondary to COPD exacerbation. The patient has moderate to severe emphysema and is a continuous tobacco smoker. The patient was successfully extubated on 10/30/17. Supplemental oxygen as needed to maintain oxygen saturations greater than 88; will continue to attempt wean oxygen as tolerated. Dr. Camacho is consulted; appreciate his assistance (3) Demand ischemia Is this a current diagnosis for this admission?: Yes Plan: Resolved. Type 2 Non-STEMI secondary to demand ischemia during acute respiratory failure event. On admission, initial troponin was indeterminate and then trended downward. Following intubation; repeat troponin elevated to 0.120 and now trending down Echocardiogram demonstrates LVEF of 55-60%, mild diastolic dysfunction, mild to moderate aortic regurgitation and mild tricuspid regurgitation. The patient is on continuous cardiac telemetry. Aspirin held 2/2 GI bleed. Supportive care. (4) Hypotension Is this a current diagnosis for this admission?: Yes Plan: Blood pressures noted to be low overnight; 102/42. She was again somewhat hypotensive during EGD today. We will provide a 500 mL normal saline bolus. Continue metoprolol 50 mg daily with holding parameters. We will continue to monitor closely. (5) Ventricular tachycardia Is this a current diagnosis for this admission?: Yes Plan: Resolved. Rapid Response called the morning of 10/27/17 for nonsustained ventricular tachycardia followed by SVT secondary to acute respiratory failure. The patient was provided IV diltiazem for a short period of time; drip has since been discontinued. Pt currently in NSR. Pt is monitored on continuous cardiac telemetry. (6) COPD exacerbation Is this a current diagnosis for this admission?: Yes Plan: Resolved. Continue scheduled Advair and Spiriva. Duo nebs as needed. Supplemental oxygen as needed to maintain oxygen saturations greater than 88%; wean as able. Incentive spirometer and flutter valve to bedside. Encourage ambulation. (7) Acute bronchitis Is this a current diagnosis for this admission?: Yes Plan: Plan as above. (8) Tobacco abuse Is this a current diagnosis for this admission?: Yes Plan: Smoking cessation previously encouraged and nicotine replacement therapies offered. (9) Chronic constipation Is this a current diagnosis for this admission?: Yes Plan: Adequately managed with bowel regiment. (10) Elevated BUN Is this a current diagnosis for this admission?: Yes Plan: Continues to trend down; likely secondary to volume contraction. Will continue to monitor. (11) Leukocytosis, unspecified Qualifiers: Leukocytosis type: unspecified Qualified Code(s): D72.829 - Elevated white blood cell count, unspecified Is this a current diagnosis for this admission?: Yes Plan: Improving; chest x-ray is noted patient currently being treated for a left lower lobe pneumonia. Blood cultures no growth in 72 hours. Urine culture: C albicans. Will resume Zosyn secondary to npo status. Pt has received total of 5 days of antibiotics. (12) Weakness Is this a current diagnosis for this admission?: Yes Plan: PT/OT consulted; appreciate their evaluation and recommendations. The patient has received a bed offer at [facility] for acute rehabilitation. Unfortunately, the patient has developed a GI bleed secondary to likely duodenal ulcers noted by CT imaging. Discharged on hold while evaluating GI bleed; potential discharge tomorrow if hemoglobin is stable. (13) PNA (pneumonia) Qualifiers: Laterality: left Lung location: lower lobe of lung Is this a current diagnosis for this admission?: Yes Plan: Repeat blood cultures have no growth at 4 days. Patient was empirically placed on Zosyn; currently day 5 of therapy. Leukocytosis has resolved and the patient remains afebrile. (14) DVT prophylaxis Is this a current diagnosis for this admission?: Yes Plan: Heparin and aspirin discontinued secondary to acute GI bleed. Tip/SCD - Time Time Spent with patient: 25-34 minutes Anticipated discharge: Acute Rehab Within: within 24 hours
--- NOTE | 2017-11-08 16:57 | PDOC PROGRESS REPORT ---
Subjective Progress Note for:: 11/08/17 Subjective:: Denies abdominal pains Reason For Visit: ACUTE RESOIRATORY FAILURE WITH HYPOXIA Physical Exam Vital Signs: Temp Pulse Resp BP Pulse Ox 98.3 F 77 21 H 117/51 L 95 11/08/17 12:00 11/08/17 13:45 11/08/17 13:45 11/08/17 13:45 11/08/17 13:45 Intake & Output 11/07/17 11/08/17 11/09/17 06:59 06:59 06:59 Intake Total 730 2010 250 Output Total 500 600 Balance 230 1410 250 Weight 60.8 kg 60.8 kg Exam: abdomen is soft and nontender Results Laboratory Results: 11/08/17 12:38 11/07/17 03:59 11/07/17 11/08/17 11/08/17 20:15 02:09 12:38 WBC 10.7 H 9.0 9.0 RBC 3.66 L 3.48 L 3.37 L Hgb 10.6 L 10.2 L 9.9 L Hct 32.2 L 30.6 L 29.7 L MCV 88 88 88 MCH 29.0 29.2 29.2 MCHC 32.9 33.3 33.2 RDW 13.9 13.9 14.1 H Plt Count 242 238 237 10/24/17 10/27/17 10/27/17 15:48 04:28 04:28 Creatine Kinase 405 H CK-MB (CK-2) 11.40 H Troponin I 0.014 0.022 NT-Pro-B Natriuret Pep 10/27/17 10/27/17 10/27/17 04:28 12:12 12:12 Creatine Kinase 261 H CK-MB (CK-2) 8.55 H Troponin I 0.120 NT-Pro-B Natriuret Pep 1600 H 10/27/17 10/27/17 10/28/17 20:25 20:25 04:43 Creatine Kinase 153 H 152 H CK-MB (CK-2) 5.84 H Troponin I 0.081 NT-Pro-B Natriuret Pep 10/28/17 04:43 Creatine Kinase CK-MB (CK-2) 4.26 Troponin I 0.056 NT-Pro-B Natriuret Pep Impressions: Head CT 10/27/17 08:14 IMPRESSION: MILD CHRONIC CHANGES OF ATROPHY AND MICROVASCULAR ISCHEMIA. NO ACUTE PROCESS. EVIDENCE OF ACUTE STROKE: NO. KUB X-Ray 10/30/17 00:00 IMPRESSION: There is mild gaseous distention of multiple bowel loops most consistent with an ileus pattern although the possibility of an underlying obstruction cannot be completely excluded. Other findings as noted above Chest X-Ray 11/03/17 00:00 IMPRESSION: Left basilar bandlike atelectasis Abdomen/Pelvis CT 11/07/17 00:00 IMPRESSION: Findings worrisome for duodenum ulcers. Right upper abdominal wall hematoma Upper GI Series 11/07/17 00:00 IMPRESSION: At least 2 moderate-sized duodenum ulcers are evident Stomach unremarkable. Fluoroscopy of the esophagus is unremarkable Assessment & Plan - Time Time Spent with patient: 15-24 minutes - Plan Summary Plan Summary: D/W Dr Wong. EGD showed duodenal ulcers but no bleeding/perforation. Await H Pylori bx but continue anti acid tx Will sign off
[2017-11-08 19:04] LABS: HEMATOCRIT 30.2 % (36.0-47.0); MEAN CORPUSCULAR HEMOGLOBIN 29.4 pg (27.0-33.4); MEAN CORPUSCULAR HGB CONC 33.2 g/dL (32.0-36.0); MEAN CORPUSCULAR VOLUME 89 fl (80-97); PLATELET COUNT 253 10^3/uL (150-450); RED BLOOD COUNT 3.41 10^6/uL (3.72-5.28); RED CELL DISTRIBUTION WIDTH 14.1 % (11.5-14.0); WHITE BLOOD COUNT 9.6 10^3/uL (4.0-10.5)
[2017-11-09] MEDS: GUAIFENESIN 600 MG TABLET.SA PO SCH ×2 (01:03→09:38)
[2017-11-09] MEDS: FLUTICASONE/SALMETEROL DISKUS 500-50 MCG/DOSE IH SCH ×2 (01:03→09:39)
[2017-11-09] MEDS: PIPERACILLIN SODIUM/TAZOBACTAM 3.375 GM in NORMAL SALINE 100 ML IV SCH ×3 (01:03→12:49)
[2017-11-09] MEDS: FLUTICASONE NASAL SPRAY 50 MCG/SPRY 120 SPRAY/16 GM NASL SCH ×2 (01:03→09:38)
[2017-11-09 03:29] LABS: HEMATOCRIT 27.8 % (36.0-47.0); HEMOGLOBIN 9.3 g/dL (12.0-15.5); MEAN CORPUSCULAR HEMOGLOBIN 29.3 pg (27.0-33.4); MEAN CORPUSCULAR HGB CONC 33.3 g/dL (32.0-36.0); MEAN CORPUSCULAR VOLUME 88 fl (80-97); PLATELET COUNT 247 10^3/uL (150-450); RED BLOOD COUNT 3.17 10^6/uL (3.72-5.28)
[2017-11-09] MEDS: PANTOPRAZOLE SODIUM 40 MG VIAL IV SCH (06:00)
[2017-11-09] MEDS: TIOTROPIUM BROMIDE DPI 5 CAP/KIT (18 MCG/CAP) IH SCH (09:38)
[2017-11-09] MEDS: POLYETHYLENE GLYCOL 3350 POWDER 17 GM/1 PACKET PO SCH (09:39)
[2017-11-09 12:10] VITALS: BP 134/73
[2017-11-09 12:12] LABS: HEMATOCRIT 32.5 % (36.0-47.0); HEMOGLOBIN 10.8 g/dL (12.0-15.5); MEAN CORPUSCULAR HEMOGLOBIN 29.4 pg (27.0-33.4); MEAN CORPUSCULAR HGB CONC 33.1 g/dL (32.0-36.0); MEAN CORPUSCULAR VOLUME 89 fl (80-97); PLATELET COUNT 303 10^3/uL (150-450); RED BLOOD COUNT 3.66 10^6/uL (3.72-5.28); RED CELL DISTRIBUTION WIDTH 14.1 % (11.5-14.0)
[2017-11-09] MEDS: METOPROLOL SUCCINATE 50 MG TAB.SR.24H PO SCH (12:47)
--- NOTE | 2017-11-09 12:55 | PDOC TRANSFER SUMMARY ---
General - Admit/Disc Date/PCP Admission Date/Primary Care Provider: 10/24/17 12:00 Discharge Date: 11/09/17 - Discharge Diagnosis (1) Acute blood loss anemia Is this a current diagnosis for this admission?: Yes (2) Acute respiratory failure with hypoxia and hypercapnia Is this a current diagnosis for this admission?: Yes (3) Demand ischemia Is this a current diagnosis for this admission?: Yes (4) Hypotension Is this a current diagnosis for this admission?: Yes (5) Ventricular tachycardia Is this a current diagnosis for this admission?: Yes (6) COPD exacerbation Is this a current diagnosis for this admission?: Yes (7) Acute bronchitis Is this a current diagnosis for this admission?: Yes (8) Tobacco abuse Is this a current diagnosis for this admission?: Yes (9) Chronic constipation Is this a current diagnosis for this admission?: Yes (10) Elevated BUN Is this a current diagnosis for this admission?: Yes (11) Leukocytosis, unspecified Is this a current diagnosis for this admission?: Yes (12) Weakness Is this a current diagnosis for this admission?: Yes (13) PNA (pneumonia) Is this a current diagnosis for this admission?: Yes (14) DVT prophylaxis Is this a current diagnosis for this admission?: Yes - Additional Information Resuscitation Status: Full Code Discharge Diet: Regular Discharge Activity: Activity As Tolerated, Balance Activity w/Rest, Slowly Increase Activity Prescriptions: Pantoprazole Sodium [Protonix] 40 mg PO DAILY #30 tablet.dr Home Medications: Cholecalciferol (Vitamin D3) [Vitamin D] 1,000 unit PO DAILY 12/08/14 Albuterol Sulfate [Proair HFA] 1 puff IH ASDIR PRN 10/24/17 Glycopyrrolate/Formoterol Fum [Bevespi Aerosphere Inhaler] 2 puff IH BID Acetaminophen [Tylenol 325 mg Tablet] 650 mg PO Q6HP PRN tablet 11/09/17 Aspirin [Aspirin 81 mg Chewable Tablet] 81 mg PO DAILY tab.chew 11/09/17 Bisacodyl [Dulcolax 10 mg Supp.rect] 10 mg AR DAILYP PRN supp.rect 11/09/17 Fluticasone Propionate [Flonase Nasal Belvue 50 Mcg/Belvue 16 gm] 2 spray NASL Q12 spray.pump 11/09/17 Fluticasone/Salmeterol [Advair 500-50 Diskus 14 Dose/Diskus] 1 inh IH Q12 inhaler 11/09/17 Guaifenesin [Mucinex Sr 600 mg Tablet.sa] 600 mg PO Q12 tablet.sa 11/09/17 Ipratropium/Albuterol Sulfate [Duoneb 3 ml Ampul] 3 ml NEB RTQ4HP PRN vial.neb 11/09/17 Metoprolol Succinate [Toprol Xl 50 mg Tab.sr] 50 mg PO DAILY@1200 tab.sr.24h Pantoprazole Sodium [Protonix] 40 mg PO DAILY #30 tablet. 11/09/17 Polyethylene Glycol 3350 [Miralax Powder 17 gm/Packet] 17 gm PO DAILY powd.pack 11/09/17 Tiotropium Mallory [Spiriva Handihaler 5 Cap/Kit (18 Mcg/Cap)] 1 cap IH DAILY kit 11/09/17 History of Present Illness Admission Date/PCP: 10/24/17 12:00 History of Present Illness: Per H&P by Dr. Lemon: Paulo CORCORAN is a 82 year old female with a past medical history of COPD, chronic bronchitis and tobacco dependence. Patient presents with shortness of breath and nonproductive cough 4 days after cleaning out her garage. Patient believes dust within the garage has triggered her symptoms., Patient denies recent change in medications or infectious contacts, no GERD or chest pain. In the emergency room she has an unremarkable workup but is found to have oxygen saturations of 85% on room air and coarse breath sounds. She started on albuterol and Atrovent supplemental oxygen refer to the hospitalist for admission. Hospital Course Hospital Course: The patient was admitted on 10/23/17 for a COPD exacerbation. She was provided supplemental oxygen, nebulizer treatments, Levaquin for coverage of bronchitis, and steroid therapy. She initially appear to be improving and was planned to be discharged on admission day 3, however, she continued to require supplemental oxygen while ambulating. It was decided to keep her 1 additional night to see if she could be weaned fully from oxygen. Unfortunately, a rapid response was called early the following morning due to sudden oxygen desaturation to the mid 70s with an associated heart rate of 140 and a nonsustained run of ventricular tachycardia. The patient was placed on BiPAP but continued to have evidence of acute respiratory failure and so was transferred to the ICU and emergently intubated on 10/27/17. A CT of the chest and abdomen demonstrated nonspecific mild mediastinal and right hilar lymphadenopathy but no acute processes. Head CT was negative for acute stroke or malignancy. Echocardiogram revealed normal ejection fraction and mild diastolic dysfunction. The patient did have a type II non-STEMI with an elevated troponin to 0.12 secondary to demand ischemia with an associated proBNP of 1600. The patient was provided high-dose steroids and supportive care. She was successfully extubated on 10/30/17. The patient's respiratory status continued to improve, however, she remained debilitated and so it was arranged for her to be discharged to [facility] for acute rehabilitation. On her planned day of discharge, 11/07/17, it was noted that the patient's hemoglobin was trending down from 15.1-10.4 and the patient had right flank and lower back bruising not attributed to a fall or injury. Therefore, a CT of the abdomen and chest was obtained to evaluate for a retroperitoneal bleeding. The CT revealed wall thickening of the duodenum and penetrating duodenal ulcers without free air. A follow-up upper GI series with Gastrografin was negative for ulcer perforation. Both surgery and gastroenterology were consulted. The patient underwent an EGD on 11/08/[address] Wong. She was found to have esophagitis, gastritis, and duodenal ulcers with a clean base and no active bleeding. Biopsies are pending for H pylori. The patient is currently on Protonix. She was monitored overnight and her hemoglobin trended. This morning, her hemoglobin was found to be 9.3. Repeat this afternoon is 10.8. The patient has had no recurrences of melena or hematochezia. She denies abdominal pain, nausea and vomiting. She is tolerating a regular diet at this time. She will be transferred to SNF today for acute rehabilitation. At time of discharge, the patient is in stable condition, pain-free, tolerating a regular diet, and maintaining oxygen saturations while on supplemental oxygen at 1 L/ min. Physical Exam Vital Signs: Temp Pulse Resp BP Pulse Ox 98.1 F 73 18 134/73 H 96 11/09/17 12:00 11/09/17 12:00 11/09/17 12:00 11/09/17 12:11/09/17 12:00 Intake & Output 11/08/17 11/09/17 11/10/17 06:59 06:59 06:59 Intake Total 20090 Output Total 600 550 Balance 1410 1680 Weight 60.8 kg General appearance: PRESENT: no acute distress, well-developed, well-nourished Head exam: PRESENT: atraumatic, normocephalic Eye exam: PRESENT: conjunctiva pink, EOMI, PERRLA. ABSENT: scleral icterus Ear exam: PRESENT: normal external ear exam Mouth exam: PRESENT: moist, tongue midline Neck exam: ABSENT: carotid bruit, JVD, lymphadenopathy, thyromegaly Respiratory exam: PRESENT: clear to auscultation cheri, prolonged expiratory phas , symmetrical, unlabored, other - occasional productive cough. ABSENT: rales, rhonchi, wheezes Cardiovascular exam: PRESENT: RRR, +S1, +S2. ABSENT: diastolic murmur, rubs, systolic murmur, tachycardia Pulses: PRESENT: normal dorsalis pedis pul Vascular exam: PRESENT: normal capillary refill GI/Abdominal exam: PRESENT: normal bowel sounds, soft, other - Ecchymosis to lower abdomen and back, likely secondary to heparin. Improved.. ABSENT: distended, guarding, mass, organolmegaly, rebound, tenderness Rectal exam: PRESENT: deferred Extremities exam: PRESENT: full ROM. ABSENT: calf tenderness, clubbing, pedal edema Neurological exam: PRESENT: alert, awake, oriented to person, oriented to place , oriented to time, oriented to situation, CN II-XII grossly intact. ABSENT: motor sensory deficit Psychiatric exam: PRESENT: appropriate affect, normal mood. ABSENT: homicidal ideation, suicidal ideation Skin exam: PRESENT: dry, intact, warm. ABSENT: cyanosis, rash Results Laboratory Results: 11/09/17 11:54 11/07/17 03:59 11/08/17 11/08/17 11/09/17 12:38 18:55 03:15 WBC 9.0 9.6 9.0 RBC 3.37 L 3.41 L 3.17 L Hgb 9.9 L 10.0 L 9.3 L Hct 29.7 L 30.2 L 27.8 L MCV 88 89 88 MCH 29.2 29.4 29.3 MCHC 33.2 33.2 33.3 RDW 14.1 H 14.1 H 14.0 Plt Count 237 253 247 11/09/17 11:54 WBC 10.0 RBC 3.66 L Hgb 10.8 L Hct 32.5 L MCV 89 MCH 29.4 MCHC 33.1 RDW 14.1 H Plt Count 303 11/04/17 08:24 Blood Blood Culture - Final NO GROWTH IN 5 DAYS 11/04/17 07:45 Blood Blood Culture - Final NO GROWTH IN 5 DAYS 10/24/17 10/27/17 10/27/17 15:48 04:28 04:28 Creatine Kinase 405 H CK-MB (CK-2) 11.40 H Troponin I 0.014 0.022 NT-Pro-B Natriuret Pep 10/27/17 10/27/17 10/27/17 04:28 12:12 12:12 Creatine Kinase 261 H CK-MB (CK-2) 8.55 H Troponin I 0.120 NT-Pro-B Natriuret Pep 1600 H 10/27/17 10/27/17 10/28/17 20:25 20:25 04:43 Creatine Kinase 153 H 152 H CK-MB (CK-2) 5.84 H Troponin I 0.081 NT-Pro-B Natriuret Pep 10/28/17 04:43 Creatine Kinase CK-MB (CK-2) 4.26 Troponin I 0.056 NT-Pro-B Natriuret Pep Impressions: Head CT 10/27/17 08:14 IMPRESSION: MILD CHRONIC CHANGES OF ATROPHY AND MICROVASCULAR ISCHEMIA. NO ACUTE PROCESS. EVIDENCE OF ACUTE STROKE: NO. KUB X-Ray 10/30/17 00:00 IMPRESSION: There is mild gaseous distention of multiple bowel loops most consistent with an ileus pattern although the possibility of an underlying obstruction cannot be completely excluded. Other findings as noted above Chest X-Ray 11/03/17 00:00 IMPRESSION: Left basilar bandlike atelectasis Abdomen/Pelvis CT 11/07/17 00:00 IMPRESSION: Findings worrisome for duodenum ulcers. Right upper abdominal wall hematoma Upper GI Series 11/07/17 00:00 IMPRESSION: At least 2 moderate-sized duodenum ulcers are evident Stomach unremarkable. Fluoroscopy of the esophagus is unremarkable Transfer Plan - Disposition Transfer Plan: Discharge to SNF for acute rehabilitation. - Time Spent with Patient Time spent with patient: Greater than 30 Minutes Qualifiers - * P[place]INT BEING DISCHARGED WITH ANY OF THE FOLLOWING DIAGNOSIS?: No
--- NOTE | 2017-11-09 15:13 | PDOC PROGRESS REPORT ---
Subjective Progress Note for:: 11/09/17 Subjective:: No pains Reason For Visit: ACUTE RESOIRATORY FAILURE WITH HYPOXIA Physical Exam Vital Signs: Temp Pulse Resp BP Pulse Ox 98.1 F 73 18 134/73 H 96 11/09/17 12:00 11/09/17 12:00 11/09/17 12:00 11/09/17 12:00 11/09/17 12:00 Intake & Output 11/08/17 11/09/17 11/10/17 06:59 06:59 06:59 Intake Total 2009 2229 Output Total 600 550 Balance 1410 1680 Weight 60.8 kg Results Laboratory Results: 11/09/17 11:54 11/07/17 03:59 11/08/17 11/09/17 11/09/17 18:55 03:15 11:54 WBC 9.6 9.0 10.0 RBC 3.41 L 3.17 L 3.66 L Hgb 10.0 L 9.3 L 10.8 L Hct 30.2 L 27.8 L 32.5 L MCV 89 88 89 MCH 29.4 29.3 29.4 MCHC 33.2 33.3 33.1 RDW 14.1 H 14.0 14.1 H Plt Count 253 247 303 11/04/17 08:24 Blood Blood Culture - Final NO GROWTH IN 5 DAYS 11/04/17 07:45 Blood Blood Culture - Final NO GROWTH IN 5 DAYS 10/24/17 10/27/17 10/27/17 15:48 04:28 04:28 Creatine Kinase 405 H CK-MB (CK-2) 11.40 H Troponin I 0.014 0.022 NT-Pro-B Natriuret Pep 10/27/17 10/27/17 10/27/17 04:28 12:12 12:12 Creatine Kinase 261 H CK-MB (CK-2) 8.55 H Troponin I 0.120 NT-Pro-B Natriuret Pep 1600 H 10/27/17 10/27/17 10/28/17 20:25 20:25 04:43 Creatine Kinase 153 H 152 H CK-MB (CK-2) 5.84 H Troponin I 0.081 NT-Pro-B Natriuret Pep 10/28/17 04:43 Creatine Kinase CK-MB (CK-2) 4.26 Troponin I 0.056 NT-Pro-B Natriuret Pep Impressions: Head CT 10/27/17 08:14 IMPRESSION: MILD CHRONIC CHANGES OF ATROPHY AND MICROVASCULAR ISCHEMIA. NO ACUTE PROCESS. EVIDENCE OF ACUTE STROKE: NO. KUB X-Ray 10/30/17 00:00 IMPRESSION: There is mild gaseous distention of multiple bowel loops most consistent with an ileus pattern although the possibility of an underlying obstruction cannot be completely excluded. Other findings as noted above Chest X-Ray 11/03/17 00:00 IMPRESSION: Left basilar bandlike atelectasis Abdomen/Pelvis CT 11/07/17 00:00 IMPRESSION: Findings worrisome for duodenum ulcers. Right upper abdominal wall hematoma Upper GI Series 11/07/17 00:00 IMPRESSION: At least 2 moderate-sized duodenum ulcers are evident Stomach unremarkable. Fluoroscopy of the esophagus is unremarkable Assessment & Plan - Time Time Spent with patient: 15-24 minutes - Plan Summary Plan Summary: OK to be discharged from surgical viewpoint May need follow up EGD to check ulcer healing
--- NOTE | 2017-11-09 16:00 | PDOC PROGRESS REPORT ---
Subjective Progress Note for:: 11/09/17 Subjective:: patient tolerated her procedure well no post procedure complications duodenal ulcer , not actively bleeding biopsies are pending depending on biopsies, may need follow up EGD no overnight issues Reason For Visit: ACUTE RESOIRATORY FAILURE WITH HYPOXIA Physical Exam Vital Signs: Temp Pulse Resp BP Pulse Ox 98.1 F 73 18 134/73 H 96 11/09/17 12:00 11/09/17 12:00 11/09/17 12:00 11/09/17 12:00 11/09/17 12:00 Intake & Output 11/08/17 11/09/17 11/10/17 06:59 06:59 06:59 Intake Total 2009 2229 Output Total 600 550 Balance 1410 1680 Weight 60.8 kg General appearance: PRESENT: no acute distress, well-developed, well-nourished Head exam: PRESENT: atraumatic, normocephalic Eye exam: PRESENT: EOMI, PERRLA. ABSENT: nystagmus, scleral icterus Mouth exam: PRESENT: moist, neck supple Throat exam: ABSENT: tonsillar exudate, tonsillogmegaly Neck exam: ABSENT: meningismus, tenderness, thyromegaly Respiratory exam: PRESENT: symmetrical, unlabored. ABSENT: tachypnea, wheezes Cardiovascular exam: PRESENT: RRR, +S1, +S2 GI/Abdominal exam: PRESENT: soft. ABSENT: rebound, rigid, tenderness Extremities exam: ABSENT: joint swelling Musculoskeletal exam: PRESENT: full ROM Neurological exam: PRESENT: oriented to time, oriented to situation, CN II-XII grossly intact Psychiatric exam: PRESENT: appropriate affect Focused psych exam: ABSENT: restlessness Skin exam: PRESENT: normal color. ABSENT: mottled, urticaria, vesicles Results Laboratory Results: 11/09/17 11:54 11/07/17 03:59 11/08/17 11/09/17 11/09/17 18:55 03:15 11:54 WBC 9.6 9.0 10.0 RBC 3.41 L 3.17 L 3.66 L Hgb 10.0 L 9.3 L 10.8 L Hct 30.2 L 27.8 L 32.5 L MCV 89 88 89 MCH 29.4 29.3 29.4 MCHC 33.2 33.3 33.1 RDW 14.1 H 14.0 14.1 H Plt Count 253 247 303 03/25/18 08:24 Blood Blood Culture - Final NO GROWTH IN 5 DAYS 11/04/17 07:45 Blood Blood Culture - Final NO GROWTH IN 5 DAYS 10/24/17 10/27/17 10/27/17 15:48 04:28 04:28 Creatine Kinase 405 H CK-MB (CK-2) 11.40 H Troponin I 0.014 0.022 NT-Pro-B Natriuret Pep 10/27/17 10/27/17 10/27/17 04:28 12:12 12:12 Creatine Kinase 261 H CK-MB (CK-2) 8.55 H Troponin I 0.120 NT-Pro-B Natriuret Pep 1600 H 10/27/17 10/27/17 10/28/17 20:25 20:25 04:43 Creatine Kinase 153 H 152 H CK-MB (CK-2) 5.84 H Troponin I 0.081 NT-Pro-B Natriuret Pep 10/28/17 04:43 Creatine Kinase CK-MB (CK-2) 4.26 Troponin I 0.056 NT-Pro-B Natriuret Pep Impressions: Head CT 10/27/17 08:14 IMPRESSION: MILD CHRONIC CHANGES OF ATROPHY AND MICROVASCULAR ISCHEMIA. NO ACUTE PROCESS. EVIDENCE OF ACUTE STROKE: NO. KUB X-Ray 10/30/17 00:00 IMPRESSION: There is mild gaseous distention of multiple bowel loops most consistent with an ileus pattern although the possibility of an underlying obstruction cannot be completely excluded. Other findings as noted above Chest X-Ray 11/03/17 00:00 IMPRESSION: Left basilar bandlike atelectasis Abdomen/Pelvis CT 11/07/17 00:00 IMPRESSION: Findings worrisome for duodenum ulcers. Right upper abdominal wall hematoma Upper GI Series 11/07/17 00:00 IMPRESSION: At least 2 moderate-sized duodenum ulcers are evident Stomach unremarkable. Fluoroscopy of the esophagus is unremarkable Assessment & Plan - Diagnosis (1) Duodenal bulb ulcer Plan: not actively bleeding seems to be chronic will need to exclude either malignancy or due to H.Pylori ok for discharge or transfer will follow up as outpatient - Time Time Spent with patient: 15-24 minutes
--- NOTE | 2017-11-10 20:53 | PDOC PROGRESS REPORT ---
Subjective Progress Note for:: 10/31/17 Subjective:: Awake proceed to extubate Reason For Visit: ACUTE RESOIRATORY FAILURE WITH HYPOXIA Physical Exam Vital Signs: Temp Pulse Resp BP Pulse Ox 98.1 F 73 18 134/73 H 96 11/09/17 12:00 11/09/17 12:00 11/09/17 12:00 11/09/17 12:00 11/09/17 12:00 Intake & Output 11/08/17 11/09/17 11/10/17 06:59 06:59 06:59 Intake Total 2009 2229 Output Total 600 550 Balance 1410 1680 Weight 60.8 kg General appearance: PRESENT: no acute distress, cooperative, disheveled Head exam: PRESENT: atraumatic, normocephalic Eye exam: PRESENT: conjunctiva pale, EOMI. ABSENT: nystagmus, periorbital swelling, scleral icterus Mouth exam: PRESENT: moist, neck supple Neck exam: ABSENT: carotid bruit, JVD, lymphadenopathy, thyromegaly, tracheal deviation, tracheostomy Respiratory exam: PRESENT: decreased breath sounds, prolonged expiratory phas, rales, rhonchi, symmetrical, unlabored, wheezes. ABSENT: retraction, stridor Cardiovascular exam: PRESENT: RRR, +S1, +S2 Pulses: PRESENT: normal radial pulses GI/Abdominal exam: PRESENT: diminished bowel sounds, soft Gentrourinary exam: ABSENT: lacerations Extremities exam: ABSENT: calf tenderness, clubbing, joint swelling Musculoskeletal exam: ABSENT: deformity, dislocation Neurological exam: PRESENT: awake Skin exam: PRESENT: dry, warm Results Laboratory Results: 11/09/17 11:54 11/07/17 03:59 11/08/17 11/09/17 11/09/17 18:55 03:15 11:54 WBC 9.6 9.0 10.0 RBC 3.41 L 3.17 L 3.66 L Hgb 10.0 L 9.3 L 10.8 L Hct 30.2 L 27.8 L 32.5 L MCV 89 88 89 MCH 29.4 29.3 29.4 MCHC 33.2 33.3 33.1 RDW 14.1 H 14.0 14.1 H Plt Count 253 247 303 11/04/17 08:24 Blood Blood Culture - Final NO GROWTH IN 5 DAYS 11/04/17 07:45 Blood Blood Culture - Final NO GROWTH IN 5 DAYS 10/24/17 10/27/17 10/27/17 15:48 04:28 04:28 Creatine Kinase 405 H CK-MB (CK-2) 11.40 H Troponin I 0.014 0.022 NT-Pro-B Natriuret Pep 10/27/17 10/27/17 10/27/17 04:28 12:12 12:12 Creatine Kinase 261 H CK-MB (CK-2) 8.55 H Troponin I 0.120 NT-Pro-B Natriuret Pep 1600 H 10/27/17 10/27/17 10/28/17 20:25 20:25 04:43 Creatine Kinase 153 H 152 H CK-MB (CK-2) 5.84 H Troponin I 0.081 NT-Pro-B Natriuret Pep 10/28/17 04:43 Creatine Kinase CK-MB (CK-2) 4.26 Troponin I 0.056 NT-Pro-B Natriuret Pep Impressions: Head CT 10/27/17 08:14 IMPRESSION: MILD CHRONIC CHANGES OF ATROPHY AND MICROVASCULAR ISCHEMIA. NO ACUTE PROCESS. EVIDENCE OF ACUTE STROKE: NO. KUB X-Ray 10/30/17 00:00 IMPRESSION: There is mild gaseous distention of multiple bowel loops most consistent with an ileus pattern although the possibility of an underlying obstruction cannot be completely excluded. Other findings as noted above Chest X-Ray 11/03/17 00:00 IMPRESSION: Left basilar bandlike atelectasis Abdomen/Pelvis CT 11/07/17 00:00 IMPRESSION: Findings worrisome for duodenum ulcers. Right upper abdominal wall hematoma Upper GI Series 11/07/17 00:00 IMPRESSION: At least 2 moderate-sized duodenum ulcers are evident Stomach unremarkable. Fluoroscopy of the esophagus is unremarkable Assessment & Plan - Diagnosis (1) Acute respiratory failure with hypoxia and hypercapnia Is this a current diagnosis for this admission?: Yes Plan: stable thus far (2) COPD exacerbation Is this a current diagnosis for this admission?: Yes Plan: Improved Generic Name Dose Route Start Last Admin Trade Name Freq PRN Reason Stop Dose Admin Methylprednisolone Sodium Succinate 40 mg 10/27/17 14:00 10/29/17 21:22 Solu-Medrol Inj/Pf 40 Mg/1 Ml Sdv IV 11/26/17 13:59 40 mg Q8 OKSANA Tiotropium [place] 1 cap 10/27/17 10:00 10/29/17 09:44 Spiriva Handihaler 5 Cap/Kit (18 Mcg/Cap) IH 11/26/17 09:59 Not Given DAILY OKSANA Albuterol 2.5 mg 10/27/17 08:07 10/27/17 12:35 Ventolin 0.083% Neb 2.5 Mg/3 Ml Ampul NEB 11/26/17 08:06 2.5 mg RTQ4HP PRN SHORTNESS OF BREATH Albuterol/Ipratropium 3 ml 10/24/17 02:00 10/29/17 20:56 Duoneb 3 Ml Ampul NEB 11/23/17 01:59 3 ml RTQ6 OKSANA Guaifenesin 600 mg 10/24/17 22:00 10/29/17 21:24 Mucinex Sr 600 Mg Tablet.Sa PO 11/23/17 21:59 Not Given Q12 OKSANA (3) Hypoxia Is this a current diagnosis for this admission?: Yes (4) Tobacco abuse Is this a current diagnosis for this admission?: Yes
--- NOTE | 2017-11-10 20:55 | PDOC PROGRESS REPORT ---
Subjective Progress Note for:: 11/01/17 Subjective:: remains stable Reason For Visit: ACUTE RESOIRATORY FAILURE WITH HYPOXIA Physical Exam Vital Signs: Temp Pulse Resp BP Pulse Ox 98.1 F 73 18 134/73 H 96 11/09/17 12:00 11/09/17 12:00 11/09/17 12:00 11/09/17 12:00 11/09/17 12:00 Intake & Output 11/08/17 11/09/17 11/10/17 06:59 06:59 06:59 Intake Total 2009 2229 Output Total 600 550 Balance 1410 1680 Weight 60.8 kg General appearance: PRESENT: no acute distress, cooperative, disheveled Head exam: PRESENT: atraumatic, normocephalic Eye exam: PRESENT: conjunctiva pale, EOMI. ABSENT: nystagmus, periorbital swelling, scleral icterus Mouth exam: PRESENT: dry mucosa, neck supple, tongue midline Neck exam: ABSENT: carotid bruit, JVD, lymphadenopathy, thyromegaly, tracheal deviation, tracheostomy Respiratory exam: PRESENT: decreased breath sounds, prolonged expiratory phas, rales, rhonchi, symmetrical, unlabored. ABSENT: retraction, stridor, tachypnea Cardiovascular exam: PRESENT: RRR, +S1, +S2 Pulses: PRESENT: normal radial pulses GI/Abdominal exam: PRESENT: diminished bowel sounds, soft Extremities exam: ABSENT: calf tenderness, clubbing, joint swelling Musculoskeletal exam: ABSENT: deformity, dislocation Neurological exam: PRESENT: awake Skin exam: PRESENT: dry, warm Results Laboratory Results: 11/09/17 11:54 11/07/17 03:59 11/08/17 11/09/17 11/09/17 18:55 03:15 11:54 WBC 9.6 9.0 10.0 RBC 3.41 L 3.17 L 3.66 L Hgb 10.0 L 9.3 L 10.8 L Hct 30.2 L 27.8 L 32.5 L MCV 89 88 89 MCH 29.4 29.3 29.4 MCHC 33.2 33.3 33.1 RDW 14.1 H 14.0 14.1 H Plt Count 253 247 303 11/04/17 08:24 Blood Blood Culture - Final NO GROWTH IN 5 DAYS 11/04/17 07:45 Blood Blood Culture - Final NO GROWTH IN 5 DAYS 10/24/17 10/27/17 10/27/17 15:48 04:28 04:28 Creatine Kinase 405 H CK-MB (CK-2) 11.40 H Troponin I 0.014 0.022 NT-Pro-B Natriuret Pep 10/27/17 10/27/17 10/27/17 04:28 12:12 12:12 Creatine Kinase 261 H CK-MB (CK-2) 8.55 H Troponin I 0.120 NT-Pro-B Natriuret Pep 1600 H 10/27/17 10/27/17 10/28/17 20:25 20:25 04:43 Creatine Kinase 153 H 152 H CK-MB (CK-2) 5.84 H Troponin I 0.081 NT-Pro-B Natriuret Pep 10/28/17 04:43 Creatine Kinase CK-MB (CK-2) 4.26 Troponin I 0.056 NT-Pro-B Natriuret Pep Impressions: Head CT 10/27/17 08:14 IMPRESSION: MILD CHRONIC CHANGES OF ATROPHY AND MICROVASCULAR ISCHEMIA. NO ACUTE PROCESS. EVIDENCE OF ACUTE STROKE: NO. KUB X-Ray 10/30/17 00:00 IMPRESSION: There is mild gaseous distention of multiple bowel loops most consistent with an ileus pattern although the possibility of an underlying obstruction cannot be completely excluded. Other findings as noted above Chest X-Ray 11/03/17 00:00 IMPRESSION: Left basilar bandlike atelectasis Abdomen/Pelvis CT 11/07/17 00:00 IMPRESSION: Findings worrisome for duodenum ulcers. Right upper abdominal wall hematoma Upper GI Series 11/07/17 00:00 IMPRESSION: At least 2 moderate-sized duodenum ulcers are evident Stomach unremarkable. Fluoroscopy of the esophagus is unremarkable Assessment & Plan - Diagnosis (1) Acute respiratory failure with hypoxia and hypercapnia Is this a current diagnosis for this admission?: Yes Plan: stable thus far (2) COPD exacerbation Is this a current diagnosis for this admission?: Yes Plan: Improved Generic Name Dose Route Start Last Admin Trade Name Freq PRN Reason Stop Dose Admin Methylprednisolone Sodium Succinate 40 mg 10/27/17 14:00 10/29/17 21:22 Solu-Medrol Inj/Pf 40 Mg/1 Ml Sdv IV 11/26/17 13:59 40 mg Q8 OKSANA Tiotropium [place] 1 cap 10/27/17 10:00 10/29/17 09:44 Spiriva Handihaler 5 Cap/Kit (18 Mcg/Cap) IH 11/26/17 09:59 Not Given DAILY OKSANA Albuterol 2.5 mg 10/27/17 08:07 10/27/17 12:35 Ventolin 0.083% Neb 2.5 Mg/3 Ml Ampul NEB 11/26/17 08:06 2.5 mg RTQ4HP PRN SHORTNESS OF BREATH Albuterol/Ipratropium 3 ml 10/24/17 02:00 10/29/17 20:56 Duoneb 3 Ml Ampul NEB 11/23/17 01:59 3 ml RTQ6 OKSANA Guaifenesin 600 mg 10/24/17 22:00 10/29/17 21:24 Mucinex Sr 600 Mg Tablet.Sa PO 11/23/17 21:59 Not Given Q12 OKSANA (3) Hypoxia Is this a current diagnosis for this admission?: Yes Plan: supplemental O 2 (4) Tobacco abuse Is this a current diagnosis for this admission?: Yes Plan: transdermal nicotine
--- NOTE | 2017-11-10 20:58 | PDOC PROGRESS REPORT ---
Subjective Progress Note for:: 11/05/17 Subjective:: stable Reason For Visit: ACUTE RESOIRATORY FAILURE WITH HYPOXIA Physical Exam Vital Signs: Temp Pulse Resp BP Pulse Ox 98.1 F 73 18 134/73 H 96 11/09/17 12:00 11/09/17 12:00 11/09/17 12:00 11/09/17 12:00 11/09/17 12:00 Intake & Output 11/08/17 11/09/17 11/10/17 06:59 06:59 06:59 Intake Total 2009 2229 Output Total 600 550 Balance 1410 1680 Weight 60.8 kg General appearance: PRESENT: no acute distress, cooperative, disheveled Head exam: PRESENT: atraumatic Eye exam: PRESENT: conjunctiva pale, EOMI. ABSENT: nystagmus, periorbital swelling, scleral icterus Mouth exam: PRESENT: dry mucosa, neck supple, tongue midline Neck exam: ABSENT: carotid bruit, JVD, lymphadenopathy, thyromegaly, tracheal deviation, tracheostomy Respiratory exam: PRESENT: decreased breath sounds, prolonged expiratory phas, rales, rhonchi, symmetrical, unlabored, wheezes. ABSENT: retraction, stridor, tachypnea Cardiovascular exam: PRESENT: RRR, +S1, +S2 Pulses: PRESENT: normal radial pulses GI/Abdominal exam: PRESENT: diminished bowel sounds, soft Extremities exam: ABSENT: calf tenderness, clubbing Musculoskeletal exam: ABSENT: deformity, dislocation Neurological exam: PRESENT: awake Skin exam: PRESENT: dry, warm Results Laboratory Results: 11/09/17 11:54 11/07/17 03:59 11/08/17 11/09/17 11/09/17 18:55 03:15 11:54 WBC 9.6 9.0 10.0 RBC 3.41 L 3.17 L 3.66 L Hgb 10.0 L 9.3 L 10.8 L Hct 30.2 L 27.8 L 32.5 L MCV 89 88 89 MCH 29.4 29.3 29.4 MCHC 33.2 33.3 33.1 RDW 14.1 H 14.0 14.1 H Plt Count 253 247 303 11/04/17 08:24 Blood Blood Culture - Final NO GROWTH IN 5 DAYS 11/04/17 07:45 Blood Blood Culture - Final NO GROWTH IN 5 DAYS 10/24/17 10/27/1710/27/18 15:48 04:28 04:28 Creatine Kinase 405 H CK-MB (CK-2) 11.40 H Troponin I 0.014 0.022 NT-Pro-B Natriuret Pep 10/27/17 10/27/17 10/27/17 04:28 12:12 12:12 Creatine Kinase 261 H CK-MB (CK-2) 8.55 H Troponin I 0.120 NT-Pro-B Natriuret Pep 1600 H 10/27/17 10/27/17 10/28/17 20:25 20:25 04:43 Creatine Kinase 153 H 152 H CK-MB (CK-2) 5.84 H Troponin I 0.081 NT-Pro-B Natriuret Pep 10/28/17 04:43 Creatine Kinase CK-MB (CK-2) 4.26 Troponin I 0.056 NT-Pro-B Natriuret Pep Impressions: Head CT 10/27/17 08:14 IMPRESSION: MILD CHRONIC CHANGES OF ATROPHY AND MICROVASCULAR ISCHEMIA. NO ACUTE PROCESS. EVIDENCE OF ACUTE STROKE: NO. KUB X-Ray 10/30/17 00:00 IMPRESSION: There is mild gaseous distention of multiple bowel loops most consistent with an ileus pattern although the possibility of an underlying obstruction cannot be completely excluded. Other findings as noted above Chest X-Ray 11/03/17 00:00 IMPRESSION: Left basilar bandlike atelectasis Abdomen/Pelvis CT 11/07/17 00:00 IMPRESSION: Findings worrisome for duodenum ulcers. Right upper abdominal wall hematoma Upper GI Series 11/07/17 00:00 IMPRESSION: At least 2 moderate-sized duodenum ulcers are evident Stomach unremarkable. Fluoroscopy of the esophagus is unremarkable Assessment & Plan - Diagnosis (1) Acute respiratory failure with hypoxia and hypercapnia Is this a current diagnosis for this admission?: Yes Plan: stable thus far (2) COPD exacerbation Is this a current diagnosis for this admission?: Yes Plan: Improved Generic Name Dose Route Start Last Admin Trade Name Freq PRN Reason Stop Dose Admin Methylprednisolone Sodium Succinate 40 mg 10/27/17 14:00 10/29/17 21:22 Solu-Medrol Inj/Pf 40 Mg/1 Ml Sdv IV 11/26/17 13:59 40 mg Q8 OKSANA Tiotropium [place] 1 cap 10/27/17 10:00 10/29/17 09:44 Spiriva Handihaler 5 Cap/Kit (18 Mcg/Cap) IH 11/26/17 09:59 Not Given DAILY OKSANA Albuterol 2.5 mg 10/27/17 08:07 10/27/17 12:35 Ventolin 0.083% Neb 2.5 Mg/3 Ml Ampul NEB 11/26/17 08:06 2.5 mg RTQ4HP PRN SHORTNESS OF BREATH Albuterol/Ipratropium 3 ml 10/24/17 02:00 10/29/17 20:56 Duoneb 3 Ml Ampul NEB 11/23/17 01:59 3 ml RTQ6 OKSANA Guaifenesin 600 mg 10/24/17 22:00 10/29/17 21:24 Mucinex Sr 600 Mg Tablet.Sa PO 11/23/17 21:59 Not Given Q12 OKSANA (3) Hypoxia Is this a current diagnosis for this admission?: Yes (4) Tobacco abuse Is this a current diagnosis for this admission?: Yes Plan: transdermal nicotine
--- NOTE | 2017-11-10 20:59 | PDOC PROGRESS REPORT ---
Subjective Progress Note for:: 11/06/17 Subjective:: "im ok ?" Reason For Visit: ACUTE RESOIRATORY FAILURE WITH HYPOXIA Physical Exam Vital Signs: Temp Pulse Resp BP Pulse Ox 98.1 F 73 18 134/73 H 96 11/09/17 12:00 11/09/17 12:00 11/09/17 12:00 11/09/17 12:00 11/09/17 12:00 Intake & Output 11/08/17 11/09/17 11/10/17 06:59 06:59 06:59 Intake Total 2009 2229 Output Total 600 550 Balance 1410 1680 Weight 60.8 kg General appearance: PRESENT: no acute distress, cooperative, disheveled Head exam: PRESENT: atraumatic, normocephalic Eye exam: PRESENT: conjunctiva pale, EOMI. ABSENT: nystagmus, periorbital swelling, scleral icterus Mouth exam: PRESENT: dry mucosa, neck supple, tongue midline Neck exam: ABSENT: carotid bruit, JVD, lymphadenopathy, thyromegaly, tracheal deviation, tracheostomy Respiratory exam: PRESENT: decreased breath sounds, prolonged expiratory phas, rales, rhonchi, unlabored, wheezes. ABSENT: retraction, stridor, tachypnea Cardiovascular exam: PRESENT: RRR, +S1, +S2 Pulses: PRESENT: normal radial pulses GI/Abdominal exam: PRESENT: diminished bowel sounds, soft Extremities exam: ABSENT: calf tenderness, clubbing, joint swelling Musculoskeletal exam: ABSENT: deformity, dislocation Neurological exam: PRESENT: awake Skin exam: PRESENT: dry, warm Results Laboratory Results: 11/09/17 11:54 11/07/17 03:59 11/08/17 11/09/17 11/09/17 18:55 03:15 11:54 WBC 9.6 9.0 10.0 RBC 3.41 L 3.17 L 3.66 L Hgb 10.0 L 9.3 L 10.8 L Hct 30.2 L 27.8 L 32.5 L MCV 89 88 89 MCH 29.4 29.3 29.4 MCHC 33.2 33.3 33.1 RDW 14.1 H 14.0 14.1 H Plt Count 253 247 303 11/04/17 08:24 Blood Blood Culture - Final NO GROWTH IN 5 DAYS 11/04/17 07:45 Blood Blood Culture - Final NO GROWTH IN 5 DAYS 10/24/17 10/27/17 10/27/17 15:48 04:28 04:28 Creatine Kinase 405 H CK-MB (CK-2) 11.40 H Troponin I 0.014 0.022 NT-Pro-B Natriuret Pep 10/27/17 10/27/17 10/27/17 04:28 12:12 12:12 Creatine Kinase 261 H CK-MB (CK-2) 8.55 H Troponin I 0.120 NT-Pro-B Natriuret Pep 1600 H 10/27/17 10/27/17 10/28/17 20:25 20:25 04:43 Creatine Kinase 153 H 152 H CK-MB (CK-2) 5.84 H Troponin I 0.081 NT-Pro-B Natriuret Pep 10/28/17 04:43 Creatine Kinase CK-MB (CK-2) 4.26 Troponin I 0.056 NT-Pro-B Natriuret Pep Impressions: Head CT 10/27/17 08:14 IMPRESSION: MILD CHRONIC CHANGES OF ATROPHY AND MICROVASCULAR ISCHEMIA. NO ACUTE PROCESS. EVIDENCE OF ACUTE STROKE: NO. KUB X-Ray 10/30/17 00:00 IMPRESSION: There is mild gaseous distention of multiple bowel loops most consistent with an ileus pattern although the possibility of an underlying obstruction cannot be completely excluded. Other findings as noted above Chest X-Ray 11/03/17 00:00 IMPRESSION: Left basilar bandlike atelectasis Abdomen/Pelvis CT 11/07/17 00:00 IMPRESSION: Findings worrisome for duodenum ulcers. Right upper abdominal wall hematoma Upper GI Series 11/07/17 00:00 IMPRESSION: At least 2 moderate-sized duodenum ulcers are evident Stomach unremarkable. Fluoroscopy of the esophagus is unremarkable Assessment & Plan - Diagnosis (1) Acute respiratory failure with hypoxia and hypercapnia Is this a current diagnosis for this admission?: Yes Plan: stable thus far (2) COPD exacerbation Is this a current diagnosis for this admission?: Yes Plan: Improved Generic Name Dose Route Start Last Admin Trade Name Freq PRN Reason Stop Dose Admin Methylprednisolone Sodium Succinate 40 mg 10/27/17 14:00 10/29/17 21:22 Solu-Medrol Inj/Pf 40 Mg/1 Ml Sdv IV 11/26/17 13:59 40 mg Q8 OKSANA Tiotropium [place] 1 cap 10/27/17 10:00 10/29/17 09:44 Spiriva Handihaler 5 Cap/Kit (18 Mcg/Cap) IH 11/26/17 09:59 Not Given DAILY OKSANA Albuterol 2.5 mg 10/27/17 08:07 10/27/17 12:35 Ventolin 0.083% Neb 2.5 Mg/3 Ml Ampul NEB 11/26/17 08:06 2.5 mg RTQ4HP PRN SHORTNESS OF BREATH Albuterol/Ipratropium 3 ml 10/24/17 02:00 10/29/17 20:56 Duoneb 3 Ml Ampul NEB 11/23/17 01:59 3 ml RTQ6 OKSANA Guaifenesin 600 mg 10/24/17 22:00 10/29/17 21:24 Mucinex Sr 600 Mg Tablet.Sa PO 11/23/17 21:59 Not Given Q12 OKSANA (3) Hypoxia Is this a current diagnosis for this admission?: No (4) Tobacco abuse Is this a current diagnosis for this admission?: Yes Plan: transdermal nicotine
--- NOTE | 2017-11-10 21:01 | PDOC PROGRESS REPORT ---
Subjective Progress Note for:: 11/07/17 Subjective:: "im ok ?" Reason For Visit: ACUTE RESOIRATORY FAILURE WITH HYPOXIA Physical Exam Vital Signs: Temp Pulse Resp BP Pulse Ox 98.1 F 73 18 134/73 H 96 11/09/17 12:00 11/09/17 12:00 11/09/17 12:00 11/09/17 12:00 11/09/17 12:00 Intake & Output 11/08/17 11/09/17 11/10/17 06:59 06:59 06:59 Intake Total 2009 2229 Output Total 600 550 Balance 1410 1680 Weight 60.8 kg General appearance: PRESENT: no acute distress, cooperative, disheveled Head exam: PRESENT: atraumatic, normocephalic Eye exam: PRESENT: conjunctiva pale, EOMI. ABSENT: nystagmus, periorbital swelling, scleral icterus Mouth exam: ABSENT: dry mucosa, neck supple Neck exam: ABSENT: carotid bruit, JVD, lymphadenopathy, thyromegaly, tracheal deviation, tracheostomy Respiratory exam: PRESENT: decreased breath sounds, prolonged expiratory phas, rales, rhonchi, symmetrical, unlabored, wheezes. ABSENT: stridor, tachypnea Cardiovascular exam: PRESENT: RRR, +S1, +S2 Pulses: PRESENT: normal radial pulses GI/Abdominal exam: PRESENT: diminished bowel sounds, soft Extremities exam: ABSENT: calf tenderness, clubbing, joint swelling Musculoskeletal exam: ABSENT: deformity, dislocation Neurological exam: PRESENT: awake Skin exam: PRESENT: dry, warm Results Laboratory Results: 11/09/17 11:54 11/07/17 03:59 11/08/17 11/09/17 11/09/17 18:55 03:15 11:54 WBC 9.6 9.0 10.0 RBC 3.41 L 3.17 L 3.66 L Hgb 10.0 L 9.3 L 10.8 L Hct 30.2 L 27.8 L 32.5 L MCV 89 88 89 MCH 29.4 29.3 29.4 MCHC 33.2 33.3 33.1 RDW 14.1 H 14.0 14.1 H Plt Count 253 247 303 11/04/17 08:24 Blood Blood Culture - Final NO GROWTH IN 5 DAYS 11/04/17 07:45 Blood Blood Culture - Final NO GROWTH IN 5 DAYS 10/24/17 10/27/17 10/27/17 15:48 04:28 04:28 Creatine Kinase 405 H CK-MB (CK-2) 11.40 H Troponin I 0.014 0.022 NT-Pro-B Natriuret Pep 10/27/17 10/27/17 10/27/17 04:28 12:12 12:12 Creatine Kinase 261 H CK-MB (CK-2) 8.55 H Troponin I 0.120 NT-Pro-B Natriuret Pep 1600 H 10/27/17 10/27/17 10/28/17 20:25 20:25 04:43 Creatine Kinase 153 H 152 H CK-MB (CK-2) 5.84 H Troponin I 0.081 NT-Pro-B Natriuret Pep 10/28/17 04:43 Creatine Kinase CK-MB (CK-2) 4.26 Troponin I 0.056 NT-Pro-B Natriuret Pep Impressions: Head CT 10/27/17 08:14 IMPRESSION: MILD CHRONIC CHANGES OF ATROPHY AND MICROVASCULAR ISCHEMIA. NO ACUTE PROCESS. EVIDENCE OF ACUTE STROKE: NO. KUB X-Ray 10/30/17 00:00 IMPRESSION: There is mild gaseous distention of multiple bowel loops most consistent with an ileus pattern although the possibility of an underlying obstruction cannot be completely excluded. Other findings as noted above Chest X-Ray 11/03/17 00:00 IMPRESSION: Left basilar bandlike atelectasis Abdomen/Pelvis CT 11/07/17 00:00 IMPRESSION: Findings worrisome for duodenum ulcers. Right upper abdominal wall hematoma Upper GI Series 11/07/17 00:00 IMPRESSION: At least 2 moderate-sized duodenum ulcers are evident Stomach unremarkable. Fluoroscopy of the esophagus is unremarkable Assessment & Plan - Diagnosis (1) Acute respiratory failure with hypoxia and hypercapnia Is this a current diagnosis for this admission?: Yes Plan: stable thus far (2) COPD exacerbation Is this a current diagnosis for this admission?: Yes Plan: Improved Generic Name Dose Route Start Last Admin Trade Name Freq PRN Reason Stop Dose Admin Methylprednisolone Sodium Succinate 40 mg 10/27/17 14:00 10/29/17 21:22 Solu-Medrol Inj/Pf 40 Mg/1 Ml Sdv IV 11/26/17 13:59 40 mg Q8 OKSANA Tiotropium [place] 1 cap 10/27/17 10:00 03/19/18 09:44 Spiriva Handihaler 5 Cap/Kit (18 Mcg/Cap) IH 11/26/17 09:59 Not Given DAILY OKSANA Albuterol 2.5 mg 10/27/17 08:07 10/27/17 12:35 Ventolin 0.083% Neb 2.5 Mg/3 Ml Ampul NEB 11/26/17 08:06 2.5 mg RTQ4HP PRN SHORTNESS OF BREATH Albuterol/Ipratropium 3 ml 10/24/17 02:00 10/29/17 20:56 Duoneb 3 Ml Ampul NEB 11/23/17 01:59 3 ml RTQ6 OKSANA Guaifenesin 600 mg 10/24/17 22:00 10/29/17 21:24 Mucinex Sr 600 Mg Tablet.Sa PO 11/23/17 21:59 Not Given Q12 OKSANA (3) Hypoxia Is this a current diagnosis for this admission?: Yes (4) Tobacco abuse Is this a current diagnosis for this admission?: Yes Plan: transdermal nicotine
--- NOTE | 2017-11-10 21:02 | PDOC PROGRESS REPORT ---
Subjective Progress Note for:: 11/08/17 Subjective:: "im ok ?" Reason For Visit: ACUTE RESOIRATORY FAILURE WITH HYPOXIA Physical Exam Vital Signs: Temp Pulse Resp BP Pulse Ox 98.1 F 73 18 134/73 H 96 11/09/17 12:00 11/09/17 12:00 11/09/17 12:00 11/09/17 12:00 11/09/17 12:00 Intake & Output 11/08/17 11/09/17 11/10/17 06:59 06:59 06:59 Intake Total 2009 2229 Output Total 600 550 Balance 1410 1680 Weight 60.8 kg General appearance: PRESENT: no acute distress, cooperative, disheveled Head exam: PRESENT: atraumatic, normocephalic Eye exam: PRESENT: conjunctiva pale, EOMI. ABSENT: nystagmus, periorbital swelling, scleral icterus Mouth exam: PRESENT: dry mucosa, neck supple, tongue midline Neck exam: ABSENT: carotid bruit, JVD, lymphadenopathy, thyromegaly, tracheal deviation, tracheostomy Respiratory exam: PRESENT: decreased breath sounds, prolonged expiratory phas, rhonchi, unlabored, wheezes. ABSENT: rales, retraction, stridor, symmetrical Cardiovascular exam: PRESENT: RRR, +S1, +S2 Pulses: PRESENT: normal radial pulses GI/Abdominal exam: PRESENT: diminished bowel sounds, soft Extremities exam: ABSENT: calf tenderness, clubbing, joint swelling Musculoskeletal exam: ABSENT: deformity, dislocation Neurological exam: PRESENT: awake Skin exam: PRESENT: dry, warm Results Laboratory Results: 11/09/17 11:54 11/07/17 03:59 11/08/17 11/09/17 11/09/17 18:55 03:15 11:54 WBC 9.6 9.0 10.0 RBC 3.41 L 3.17 L 3.66 L Hgb 10.0 L 9.3 L 10.8 L Hct 30.2 L 27.8 L 32.5 L MCV 89 88 89 MCH 29.4 29.3 29.4 MCHC 33.2 33.3 33.1 RDW 14.1 H 14.0 14.1 H Plt Count 253 247 303 11/04/17 08:24 Blood Blood Culture - Final NO GROWTH IN 5 DAYS 11/04/17 07:45 Blood Blood Culture - Final NO GROWTH IN 5 DAYS 10/24/17 10/27/17 10/27/17 15:48 04:28 04:28 Creatine Kinase 405 H CK-MB (CK-2) 11.40 H Troponin I 0.014 0.022 NT-Pro-B Natriuret Pep 10/27/17 10/27/17 10/27/17 04:28 12:12 12:12 Creatine Kinase 261 H CK-MB (CK-2) 8.55 H Troponin I 0.120 NT-Pro-B Natriuret Pep 1600 H 10/27/17 10/27/17 10/28/17 20:25 20:25 04:43 Creatine Kinase 153 H 152 H CK-MB (CK-2) 5.84 H Troponin I 0.081 NT-Pro-B Natriuret Pep 10/28/17 04:43 Creatine Kinase CK-MB (CK-2) 4.26 Troponin I 0.056 NT-Pro-B Natriuret Pep Impressions: Head CT 10/27/17 08:14 IMPRESSION: MILD CHRONIC CHANGES OF ATROPHY AND MICROVASCULAR ISCHEMIA. NO ACUTE PROCESS. EVIDENCE OF ACUTE STROKE: NO. KUB X-Ray 10/30/17 00:00 IMPRESSION: There is mild gaseous distention of multiple bowel loops most consistent with an ileus pattern although the possibility of an underlying obstruction cannot be completely excluded. Other findings as noted above Chest X-Ray 11/03/17 00:00 IMPRESSION: Left basilar bandlike atelectasis Abdomen/Pelvis CT 11/07/17 00:00 IMPRESSION: Findings worrisome for duodenum ulcers. Right upper abdominal wall hematoma Upper GI Series 11/07/17 00:00 IMPRESSION: At least 2 moderate-sized duodenum ulcers are evident Stomach unremarkable. Fluoroscopy of the esophagus is unremarkable Assessment & Plan - Diagnosis (1) Acute respiratory failure with hypoxia and hypercapnia Is this a current diagnosis for this admission?: Yes Plan: stable thus far (2) COPD exacerbation Is this a current diagnosis for this admission?: Yes Plan: Improved Generic Name Dose Route Start Last Admin Trade Name Freq PRN Reason Stop Dose Admin Methylprednisolone Sodium Succinate 40 mg 10/27/17 14:00 10/29/17 21:22 Solu-Medrol Inj/Pf 40 Mg/1 Ml Sdv IV 11/26/17 13:59 40 mg Q8 OKSANA Tiotropium [place] 1 cap 10/27/17 10:00 10/29/17 09:44 Spiriva Handihaler 5 Cap/Kit (18 Mcg/Cap) IH 11/26/17 09:59 Not Given DAILY OKSANA Albuterol 2.5 mg 10/27/17 08:07 10/27/17 12:35 Ventolin 0.083% Neb 2.5 Mg/3 Ml Ampul NEB 11/26/17 08:06 2.5 mg RTQ4HP PRN SHORTNESS OF BREATH Albuterol/Ipratropium 3 ml 10/24/17 02:00 10/29/17 20:56 Duoneb 3 Ml Ampul NEB 11/23/17 01:59 3 ml RTQ6 OKSANA Guaifenesin 600 mg 10/24/17 22:00 10/29/17 21:24 Mucinex Sr 600 Mg Tablet.Sa PO 11/23/17 21:59 Not Given Q12 OKSANA (3) Hypoxia Is this a current diagnosis for this admission?: Yes (4) Tobacco abuse Is this a current diagnosis for this admission?: Yes Plan: transdermal nicotine
== END 2017-11-09 16:30 | DRG 208 ==
LOC: ER 19:41 → EH 23:55 → 3W 10-24 11:03 → OBSVTOIN 10-24 12:00 → 4S 10-24 20:50 → ICU 10-27 05:03 → 5 11-01 12:13
PROVIDERS: ADMIT Internal Medicine; ATTEND Internal Medicine
PROC: 3E0F73Z Introduction of Anti-inflammatory into Respiratory Tract, Via Natural or Artificial Opening (ICD-10-PCS; 2017-10-24)
PROC: 5A1945Z Respiratory Ventilation, 24-96 Consecutive Hours (ICD-10-PCS; principal; 2017-10-27)
PROC: 0BH17EZ Insertion of Endotracheal Airway into Trachea, Via Natural or Artificial Opening (ICD-10-PCS; 2017-10-27)
PROC: 5A09557 Assistance with Respiratory Ventilation, Greater than 96 Consecutive Hours, Continuous Positive Airway Pressure (ICD-10-PCS; 2017-10-30)
PROC: 0DB98ZX Excision of Duodenum, Via Natural or Artificial Opening Endoscopic, Diagnostic (ICD-10-PCS; 2017-11-08)
PROC: 0DB68ZX Excision of Stomach, Via Natural or Artificial Opening Endoscopic, Diagnostic (ICD-10-PCS; 2017-11-08)
DX: J44.1 Chronic obstructive pulmonary disease with (acute) exacerbation (principal); J96.01 Acute respiratory failure with hypoxia; J96.02 Acute respiratory failure with hypercapnia; J18.9 Pneumonia, unspecified organism; I21.A1 Myocardial infarction type 2; D62 Acute posthemorrhagic anemia; I47.2 Ventricular tachycardia; I47.1 Supraventricular tachycardia; Z66 Do not resuscitate; J44.0 Chronic obstructive pulmonary disease with (acute) lower respiratory infection; J20.9 Acute bronchitis, unspecified; K59.09 Other constipation; K20.9 Esophagitis, unspecified; K29.70 Gastritis, unspecified, without bleeding; K26.9 Duodenal ulcer, unspecified as acute or chronic, without hemorrhage or perforation; M19.90 Unspecified osteoarthritis, unspecified site; I08.2 Rheumatic disorders of both aortic and tricuspid valves; D64.9 Anemia, unspecified; F17.210 Nicotine dependence, cigarettes, uncomplicated; I49.3 Ventricular premature depolarization; I95.9 Hypotension, unspecified; Z60.2 Problems related to living alone; Z99.81 Dependence on supplemental oxygen; Z78.1 Physical restraint status; Z88.3 Allergy status to other anti-infective agents; Z88.2 Allergy status to sulfonamides; Z79.899 Other long term (current) drug therapy; Z83.6 Family history of other diseases of the respiratory system
CPT/HCPCS: 31500; 36415; 43239; 70450; 71045; 71275; 74018; 74177; 74247; 80048; 80053; 81001; 82272; 82550; 82553; 82803; 82962; 83605; 83735; 83880; 84100; 84484; 85025; 85027; 85610; 86850; 86900; 86901; 87040; 87070; 87086; 87205; 88305; 88342; 93005; 93010; 93306; 94002; 94003; 94640; 94660; 94667; 94668; 94799; 96365; 96367; 96372; 96375; 99285; G0378; G8978-GP; G8979-GP; J0171; J0295; J0330; J0360; J1170; J1200; J1610; J1644; J1940; J1956; J2060; J2250; J2310; J2405; J2543; J2704; J2765; J2920; J2930; J3010; J3475; J3490; J7030; J7512; J7620; S0028; S0119; S0164

== ENCOUNTER 2018-03-10 19:29 | Emergency (ER) | payer MEDICARE, OTHER ==
--- NOTE | 2018-03-10 19:44 | ER Document Report ---
ED General - General Mode of Arrival: Ambulatory Information source: Patient TRAVEL OUTSIDE OF THE [place] IN LAST 30 DAYS: No <CHRISTIAN WILDER - Last Filed: 03/10/18 22:34> <CHELSEA TORO - Last Filed: 03/11/18 04:08> - General Stated Complaint: ABDOMINAL PAIN Time Seen by Provider: 03/10/18 19:33 Notes: 83 y.o female with COPD and a PMHx of chronic bronchitis, arthritis, anemia, ulcer and an VT presents to the ED epigastric abd pain of onset yesterday afternoon. Pt denies any worsening of pain since onset but states that her pain is not relieving. She reports being back at home and being able to use a cane to get around until her abd pain began and she had to start using her walker. Pt denies any trouble with ulcers since October and reports taking her medications as prescribed. Pt complains of nausea as well but reports some relief since given nausea medication here in the ED. Pt denies any vomiting, constipation or diarrhea. She reports one BM yesterday but sates that she has not had a BM today which is baseline for her; she sometimes will go a day without a BM. Pt was recently admitted in October of this year for COPD and while being in the hospital had a non-STEMI and was treated for a bleeding ulcer. (CHRISTIAN WILDER ) - Related Data Allergies/Adverse Reactions: doxycycline [Doxycycline] Allergy (Mild, Verified 07/01/15 07:11) n/v Sulfa (Sulfonamide Antibiotics) Allergy (Mild, Verified 07/01/15 07:11) n/v Past Medical History - General Information source: Patient - Social History Smoking Status: Former Smoker - quit after admission in october of this year Chew tobacco use (# tins/day): No Frequency of alcohol use: Occasional Drug Abuse: None Family History: COPD - Past Medical History Cardiac Medical History: Reports: Hx Heart Attack - non-STEMI Pulmonary Medical History: Reports: Hx COPD Renal/ Medical History: Denies: Hx Peritoneal Dialysis GI Medical History: Reports: Hx Ulcer Musculoskeletal Medical History: Reports Hx Arthritis - Immunizations Hx Diphtheria, Pertussis, Tetanus Vaccination: No Hx Pneumococcal Vaccination: 05/13/15 <CHRISTIAN WILDER - Last Filed: 03/10/18 22:34> Review of Systems - Review of Systems Constitutional: No symptoms reported EENT: No symptoms reported Cardiovascular: No symptoms reported Respiratory: No symptoms reported Gastrointestinal: See HPI, Abdominal pain, Nausea. denies: Diarrhea, Vomiting, Constipation Genitourinary: No symptoms reported Female Genitourinary: No symptoms reported Musculoskeletal: No symptoms reported Skin: No symptoms reported Hematologic/Lymphatic: No symptoms reported Neurological/Psychological: No symptoms reported -: Yes All other systems reviewed and negative <CHRISTIAN WILDER - Last Filed: 03/10/18 22:34> Physical Exam <CHRISTIAN WILDER - Last Filed: 03/10/18 22:34> <CHELSEA TORO - Last Filed: 03/11/18 04:08> - Vital signs Vitals: Resp Pulse Ox 15 94 03/10/18 19:46 03/10/18 19:46 - Notes Notes: Physical Exam: General: Alert, appears well. HEENT: Normocephalic. Atraumatic. PERRL. Extraocular movements intact. Oropharynx clear. Neck: Supple. Non-tender. Respiratory: No respiratory distress. Clear and equal breath sounds bilaterally. Cardiovascular: Regular rate and rhythm. Abdominal: Epigastrium tenderness to palpation. Percussion resonant throughout. Normal Bowel Sounds. Back: Non-tender. No deformity or step off. Extremities: Moves all four extremities. Upper extremities: Normal inspection. Normal ROM. Lower extremities: Normal inspection. No edema. Normal ROM. Neurological: Normal cognition. AAOx3. Normal speech. Psychological: Normal affect. Normal Mood. Skin: Warm. Dry. Normal color. (CHRISTIAN WILDER) Course - Laboratory Result Diagrams: 03/10/18 19:50 03/10/18 19:50 <CHRISTIAN WILDER - Last Filed: 03/10/18 22:34> - Laboratory Result Diagrams: 03/10/18 19:50 03/10/18 19:50 - Diagnostic Test Radiology reviewed: Reports reviewed - Transvaginal ultrasound shows heterogeneous thickening of the endometrium without other abnormalities. The CT scan of the abdomen pelvis without contrast does not show any inflammatory process or explanation for the epigastric pain. - EKG Interpretation by De EKG shows normal: Sinus rhythm, [place], QRS Complexes. abnormal: Intervals - Borderline prolonged QT interval, ST-T Waves - Anterolateral T-wave inversions Rate: Normal - 71 Rhythm: NSR When compared to previous EKG there are: Changes noted - New T-wave inversions in the 3 through 6 - Consults Dr. Ramirez Time consulted: 03:50 Consulted provider: other - Will accept at [facility] cardiology service. - Transfer of Care Care transferred to following provider: Dr. Chun <CHELSEA TORO - Last Filed: 03/11/18 04:08> - Re-evaluation Re-evalutation: 03/10/18 21:19 The patient's EKG does show new T-wave inversion in the lateral leads. The troponin is elevated at 2.53 with a total CK of 398. She also has a white blood cell count elevation at 16,400 with an absolute neutrophil count of 12,200 Her BUN and creatinine have developed since they were last checked here on 2017. She continues to have reproducible epigastric abdominal pain which was not relieved with GI cocktail. 03/11/18 02:51 The patient was given aspirin with IV Protonix and additional dose of Maalox. She was not given any other anticoagulant at this time due to her history of bleeding ulcer requiring transfusion earlier this year. (CHELSEA TORO) - Vital Signs Vital signs: Temp Pulse Resp BP Pulse Ox 98.5 F 19 103/53 L 94 03/10/18 20:00 03/11/18 03:36 03/11/18 01:01 03/11/18 03:36 - Laboratory Laboratory results interpreted by me: 03/10/18 03/10/18 03/10/18 19:50 19:50 22:15 WBC 16.4 H RDW 15.0 H Absolute Neutrophils 12.2 H Carbon Dioxide 20 L BUN 51 H Creatinine 1.98 H Est GFR ( Amer) 29 L Est GFR (Non-Af Amer) 24 L Glucose 147 H AST 157 H ALT 143 H Creatine Kinase 398 H 364 H CK-MB (CK-2) 03/10/18 22:15 WBC RDW Absolute Neutrophils Carbon Dioxide BUN Creatinine Est GFR ( Amer) Est GFR (Non-Af Amer) Glucose AST ALT Creatine Kinase CK-MB (CK-2) 14.30 H - Transfer of Care Notes: 03/11/18 04:08 The patient is pending transport to [facility]. He is stable at this time. She is receiving a second liter of IV fluids. Pending lab work includes stool guaiac, urinalysis, and coags. She will receive heparin bolus and drip. She continues to be chest pain-free. (CHELSEA TORO) Discharge <CHRISTIAN WILDER - Last Filed: 03/10/18 22:34> <CHELSEA TORO - Last Filed: 03/11/18 04:08> - Discharge Clinical Impression: Non-ST elevation myocardial infarction (NSTEMI) Abdominal pain Qualifiers: Abdominal location: epigastric Qualified Code(s): R10.13 - Epigastric pain Referrals: RENETTA RICHARDSON MD [Primary Care Provider] - Follow up as needed Scribe Attestation: 03/10/18 20:14 I personally performed the services described in the documentation, reviewed and edited the documentation which was dictated to the scribe in my presence, and it accurately records my words and actions. (CHELSEA TORO) Scribe Documentation - Scribe Written by Karlee:: Karlee Doyle [birth year]1951 acting as scribe for :: Kenan <CHRISTIAN WILDER - Last Filed: 03/10/18 22:34>
[2018-03-10] MEDS ORDERED: MAG HYDROX/AL HYDROX/SIMETH SUSP 30 ML UDCUP PO ONE (19:45)
[2018-03-10] MEDS ORDERED: NORMAL SALINE 1000 ML 1,000 ML IV ONE (19:45)
[2018-03-10] MEDS ORDERED: LIDOCAINE 2% VISCOUS SOLN 20 ML UDCUP PO ONE (19:45)
[2018-03-10 20:07] LABS: ABSOLUTE BASOPHILS # (AUTO) 0.1 10^3/uL (0.0-0.2); ABSOLUTE LYMPHOCYTES (AUTO) 2.7 10^3/uL (0.5-4.7); ABSOLUTE MONOCYTES (AUTO) 1.4 10^3/uL (0.1-1.4); ABSOLUTE NEUT (AUTO) 12.2 10^3/uL (1.7-8.2); BASOPHILS % (AUTO) 0.5 % (0-2); HEMATOCRIT 42.4 % (36.0-47.0); HEMOGLOBIN 13.9 g/dL (12.0-15.5); LYMPHOCYTES % (AUTO) 16.4 % (13-45); MEAN CORPUSCULAR HEMOGLOBIN 27.2 pg (27.0-33.4); MEAN CORPUSCULAR HGB CONC 32.8 g/dL (32.0-36.0); MEAN CORPUSCULAR VOLUME 83 fl (80-97); MONOCYTES % (AUTO) 8.6 % (3-13); PLATELET COUNT 247 10^3/uL (150-450); SEGMENTED NEUTROPHILS % (AUTO) 74.5 % (42-78); TOTAL CELLS COUNTED % (AUTO) 100 %; WHITE BLOOD COUNT 16.4 10^3/uL (4.0-10.5)
[2018-03-10 20:31] LABS: ALANINE AMINOTRANSFERASE 143 U/L (9-52); ALBUMIN 4.6 g/dL (3.5-5.0); ALKALINE PHOSPHATASE 78 U/L (38-126); ANION GAP 19 (5-19); ASPARTATE AMINO TRANSFERASE 157 U/L (14-36); BILIRUBIN,DIRECT 0.3 mg/dL (0.0-0.4); BILIRUBIN,TOTAL 0.8 mg/dL (0.2-1.3); BLOOD UREA NITROGEN 51 mg/dL (7-20); CALCIUM 9.7 mg/dL (8.4-10.2); CARBON DIOXIDE 20 mmol/L (22-30); CHLORIDE 103 mmol/L (98-107); CREATINE KINASE 398 U/L (30-135); GLUCOSE 147 mg/dL (75-110); LIPASE 101.5 U/L (23-300); POTASSIUM 4.9 mmol/L (3.6-5.0); SODIUM 142.1 mmol/L (137-145); TOTAL PROTEIN 7.6 g/dL (6.3-8.2)
--- NOTE | 2018-03-10 21:45 | RADIOLOGY REPORT (SQ) ---
EXAM DESCRIPTION: ACUTE ABDOMEN SERIES COMPLETED DATE/TIME: 03/10/2018 9:12 pm REASON FOR STUDY: abd pain COMPARISON: 10/30/2017 NUMBER OF VIEWS: Three views. TECHNIQUE: PA chest, supine abdomen and upright/decubitus abdomen radiographic images acquired. LIMITATIONS: None. FINDINGS: CHEST: Lungs clear of infiltrates. FREE AIR: None. No abnormal gas collections. BOWEL GAS PATTERN: Scattered gas-filled small and large bowel loops. No significant air fluid levels identified. No definite distended large or small bowel loops. CALCIFICATIONS: No suspicious calcifications. HARDWARE: None in the abdomen. SOFT TISSUES: No gross mass or suggestion of organomegaly. BONES: No acute fracture. . OTHER: No other significant finding. IMPRESSION: NONSPECIFIC BOWEL GAS PATTERN. Scattered gas-filled small and large bowel loops. No si gnificant air fluid levels identified. No definite distended large or small bowel loops.. TECHNICAL DOCUMENTATION: JOB ID: [id number] [id number] [employer]- All Rights Reserved Reading location - IP/workstation name: [email or web address]
[2018-03-10] MEDS ORDERED: FENTANYL CITRATE INJ/PF 100 MCG/2 ML AMPUL IV ONE (22:05)
--- NOTE | 2018-03-10 22:44 | EKG REPORT ---
SEVERITY:- ABNORMAL ECG - SINUS RHYTHM ABNORMAL T, CONSIDER ISCHEMIA, ANT-LAT LEADS BORDERLINE PROLONGED QT INTERVAL : Confirmed by: Sisi Nunez MD 10-Mar-2018 22:43:59
[2018-03-11 00:09] LABS: CREATINE KINASE MB 14.3 ng/mL (<4.55)
[2018-03-11 00:12] LABS: TROPONIN I 2.28 ng/mL
[2018-03-11] MEDS ORDERED: ASPIRIN 81 MG TABLET, CHEWABLE PO ONE (00:33)
[2018-03-11] MEDS ORDERED: PANTOPRAZOLE SODIUM 40 MG VIAL IV ONE (00:53)
[2018-03-11] MEDS ORDERED: MAG HYDROX/AL HYDROX/SIMETH SUSP 30 ML UDCUP PO ONE (00:54)
--- NOTE | 2018-03-11 02:18 | RADIOLOGY REPORT (SQ) ---
EXAM DESCRIPTION: CT ABDOMEN PELVIS WITHOUT IV CONTRAST COMPLETED DATE/TME: 03/11/2018 00:54 EXAM DESCRIPTION: CT ABDOMEN AND PELVIS WITHOUT CONTRAST CLINICAL HISTORY: Upper abdominal pain, leukocytosis COMPARISON: None Available. TECHNIQUE: CT of the abdomen and pelvis without IV contrast. Evaluation of the solid organs and vasculature is suboptimal due to lack of IV contrast. DLP: 74.35 mGy-cm FINDINGS: Lung Bases: The visualized lung bases are clear. Impression deformity of the L2 vertebral body. Endplate spondylosis. Bones: No destructive bone lesions identified. Abdomen: Liver: The liver has normal size and density. Gallbladder: Cholecystectomy. Spleen, Pancreas, and Adrenal Glands: The spleen, pancreas, and adrenal glands are unremarkable. Kidneys: The kidneys have normal size and contour without evidence of hydronephrosis. No obstructing ureteral calculi. Mild nonspecific perinephric fat stranding. Vasculature: Aortoiliac atherosclerosis. IVC is unremarkable. Stomach: The stomach and duodenum have normal course. Other: No free intraperitoneal air. No free fluid or lymphadenopathy. Pelvis: Bladder: Urinary bladder is unremarkable. Bowel: No dilated loops of large or small bowel. Appendix: Normal appendix. Pelvis: Uterus is not enlarged. Likely calcified burned-out uterine fibroid. IMPRESSION: 1. No acute inflammatory or obstructive process identified. This exam was performed according to our departmental dose-optimization program, which includes automated exposure control, adjustment of the mA and/or kV according to patient size and/or use of iterative reconstruction technique.
[2018-03-11] MEDS ORDERED: NORMAL SALINE 1000 ML 1,000 ML IV ONE (03:06)
[2018-03-11] MEDS ORDERED: HEPARIN SODIUM,PORCINE/D5W 25,000 UNIT/250 ML RTUINJ IV PRN (03:55)
[2018-03-11] MEDS ORDERED: HEPARIN SOD (PORCINE) 1,000 UNIT/ML 10 ML VIAL IV ONE (03:55)
[2018-03-11 04:42] LABS: INTERNATIONAL RATION (INR) 1.15; PROTHROMBIN TIME 15.3 SEC (11.4-15.4)
[2018-03-11 04:43] LABS: PARTIAL THROMBOPLASTIN TIME 29.5 SEC (23.5-35.8)
[2018-03-11 05:06] VITALS: BP 114/56
[2018-03-11 06:01] LABS: APPEARANCE,URINE CLEAR; BILIRUBIN,URINE NEGATIVE (NEGATIVE); COLOR,URINE YELLOW; GLUCOSE, URINE NEGATIVE (NEGATIVE); KETONES,URINE TRACE mg/dL (NEGATIVE); LEUKOCYTE ESTERASE,URINE NEGATIVE (NEGATIVE); NITRITE,URINE NEGATIVE (NEGATIVE); PROTEIN,URINE 30 mg/dL (NEGATIVE); UROBILINOGEN,URINE NEGATIVE mg/dL (<2.0)
[2018-03-11] MEDS ORDERED: HEPARIN SOD (PORCINE) 1,000 UNIT/ML 10 ML VIAL IV PRN (06:55)
--- NOTE | 2018-03-11 09:03 | EKG REPORT ---
SEVERITY:- ABNORMAL ECG - SINUS RHYTHM ABNORMAL T, CONSIDER ISCHEMIA, ANT-LAT LEADS BORDERLINE PROLONGED QT INTERVAL : Confirmed by: Tracee Anna 11-Mar-2018 09:02:26
== END 2018-03-11 05:52 | disposition short-term general hospital (02) ==
LOC: ER 19:29
DX: I21.4 Non-ST elevation (NSTEMI) myocardial infarction (principal); R10.13 Epigastric pain; R11.0 Nausea; D72.829 Elevated white blood cell count, unspecified; J44.9 Chronic obstructive pulmonary disease, unspecified; I25.2 Old myocardial infarction; Z88.1 Allergy status to other antibiotic agents; Z88.2 Allergy status to sulfonamides
CPT/HCPCS: 93005 ×2; 99285; 96361; 96375; 96365; 36415; 82553; 82550; 83690; 85025; 85610; 85730; 82272; 80053; 81001; 84484; 74022; 74176; 93010 ×2; J1644 ×2; A9270; J3490; C9113; J7030 ×2; S0164

== ENCOUNTER 2018-03-16 10:00 | Emergency (ER) | payer MEDICARE, OTHER ==
[2018-03-16] MEDS ORDERED: BISACODYL 5 MG TABEC PO ONE (10:15)
[2018-03-16] MEDS ORDERED: LACTULOSE SYRUP 20 GM/30 ML UDCUP PO ONE (10:15)
--- NOTE | 2018-03-16 10:18 | ER Document Report ---
ED Medical Screen (RME) - General Chief Complaint: Constipation Stated Complaint: CONSTIPATION Time Seen by Provider: 03/16/18 10:04 Notes: 83-year-old female to the emergency department complaining of a one-week history of constipation. Patient was seen here approximately 6 days ago. Diagnosed with a non-ST segment elevation [place]. Received a stent at hospital in [place]. Has been home now for a few days. Does not remember taking any narcotics while in her hospital stay but was sedated for the cardiac catheterization. Give herself an enema but still has not had a bowel movement. Has no significant pain. No chest pain. No nausea. No vomiting. Passing gas. I have greeted and performed a rapid initial assessment of this patient. A comprehensive ED assessment and evaluation of the patient, analysis of test results and completion of the medical decision making process will be conducted by additional ED providers. TRAVEL OUTSIDE OF THE [place] IN LAST 30 DAYS: No - Related Data Allergies/Adverse Reactions: doxycycline [Doxycycline] Allergy (Mild, Verified 03/16/18 10:00) n/v Sulfa (Sulfonamide Antibiotics) Allergy (Mild, Verified 03/16/18 10:00) n/v Past Medical History - General Information source: Patient - Social History Cigarette use (# per day): No Frequency of alcohol use: None Drug Abuse: None - Past Medical History Cardiac Medical History: Reports: Hx Heart Attack - non-STEMI Pulmonary Medical History: Reports: Hx COPD Renal/ Medical History: Denies: Hx Peritoneal Dialysis GI Medical History: Reports: Hx Ulcer Musculoskeltal Medical History: Reports Hx Arthritis - Immunizations Hx Diphtheria, Pertussis, Tetanus Vaccination: No History of Influenza Vaccine for 05/2017 - 10/2017 Season: No Review of Systems - Review of Systems Constitutional: denies: Fever, Malaise, Weakness Cardiovascular: denies: Chest pain, Palpitations, Heart racing Respiratory: denies: Cough, Hurts to breathe, Short of breath Gastrointestinal: Constipation. denies: Abdominal pain, Diarrhea, Nausea, Vomiting, Black stools Genitourinary: denies: Burning, Dysuria, Discharge Musculoskeletal: denies: Back pain, Joint pain, Muscle pain Physical Exam - Vital signs Vitals: Temp Pulse Resp BP Pulse Ox 98.0 F 62 16 142/61 H 94 03/16/18 10:05 03/16/18 10:03/16/18 10:03/16/18 10:05 03/16/18 10:05 Interpretation: Normal - Respiratory Respiratory status: No respiratory distress Chest status: Nontender Breath sounds: Normal Chest palpation: Normal - Cardiovascular Rhythm: Regular Heart sounds: Normal auscultation Murmur: No - Abdominal Inspection: Normal Distension: No distension Bowel sounds: Normal Tenderness: Nontender Organomegaly: No organomegaly Course - Vital Signs Vital signs: Temp Pulse Resp BP Pulse Ox 98.0 F 62 16 142/61 H 94 03/16/18 10:05 03/16/18 10:03/16/18 10:05 03/16/18 10:05 03/16/18 10:05 Doctor's Discharge - Discharge Referrals: RENETTA RICHARDSON MD [Primary Care Provider] - Follow up as needed
--- NOTE | 2018-03-16 10:59 | ER Document Report ---
ED General - General Chief Complaint: Constipation Stated Complaint: CONSTIPATION Time Seen by Provider: 03/16/18 10:04 TRAVEL OUTSIDE OF THE [place] IN LAST 30 DAYS: No - HPI Notes: Patient is an 83-year-old female who presents to the ED complaining of fecal retention over the last week and feeling constipated. Patient states that she is having constipation issues prior to her transfer to the [facility] for an an STEMI that she was having here in the ED. Patient states that she is otherwise eating and drinking without any difficulties. She is urinating normally. She has not had any abdominal pains. Patient states that she feels like she has to have a bowel movement, but is having difficulty getting any stool out. Patient states that she is doing well after her stent was placed. Patient states that she did try an enema at home with minimal relief. Patient states that she is still passing gas without any difficulties otherwise. She has not had any melena or hematochezia. Denies any headache, fever, URI, sore throat, chest pain, palpitations, syncope, cough, shortness of breath, wheeze, dyspnea, abdominal pain, nausea/vomiting/diarrhea, urinary retention, dysuria, hematuria , back pain, loss of control of bowel or bladder, numbness/tingling, muscle paralysis/weakness, or rash. - Related Data Allergies/Adverse Reactions: doxycycline [Doxycycline] Allergy (Mild, Verified 03/16/18 10:00) n/v Sulfa (Sulfonamide Antibiotics) Allergy (Mild, Verified 03/16/18 10:00) n/v Past Medical History - General Information source: Patient - Social History Smoking Status: Former Smoker Cigarette use (# per day): No Frequency of alcohol use: None Drug Abuse: None Family History: COPD Patient has suicidal ideation: No Patient has homicidal ideation: No - Past Medical History Cardiac Medical History: Reports: Hx Heart Attack - non-STEMI Pulmonary Medical History: Reports: Hx COPD Renal/ Medical History: Denies: Hx Peritoneal Dialysis GI Medical History: Reports: Hx Ulcer Musculoskeletal Medical History: Reports Hx Arthritis - Immunizations Hx Diphtheria, Pertussis, Tetanus Vaccination: No Hx Pneumococcal Vaccination: 05/13/15 Review of Systems - Review of Systems -: Yes All other systems reviewed and negative Physical Exam - Vital signs Vitals: Temp Pulse Resp BP Pulse Ox 98.0 F 62 16 142/61 H 94 03/16/18 10:05 03/16/18 10:05 03/16/18 10:05 03/16/18 10:05 03/16/18 10:05 - Notes Notes: PHYSICAL EXAMINATION: GENERAL: Well-appearing, well-nourished and in no acute distress. LUNGS: Breath sounds clear to auscultation bilaterally and equal. No wheezes rales or rhonchi. HEART: Regular rate and rhythm without murmurs, rubs, gallops. ABDOMEN: Soft, nontender, nondistended abdomen. No guarding, no rebound. No masses appreciated. Normal bowel sounds present. No CVA tenderness bilaterally. Rectal: No impaction. Stool is soft, brown, w/o melena or hematochezia. No tenderness or hemorrhoids noted. Musculoskeletal: FROM to passive/active. Strength 5+/5. Extremities: No cyanosis, clubbing, or edema b/l. Peripheral pulses 2+. Capillary refill less than 3 seconds. NEUROLOGICAL: Normal speech, normal gait. PSYCH: Normal mood, normal affect. SKIN: Warm, Dry, normal turgor, no rashes or lesions noted. Course - Re-evaluation Re-evalutation: 03/16/18 12:01 Patient is an afebrile, well-hydrated, 83-year-old female who presents to the ED with constipation. Vitals are acceptable without any significant tachycardia , tachypnea, or hypoxia. PE is otherwise unremarkable. There is no fecal impaction during exam. Patient is nontoxic-appearing and is tolerating p.o. without difficulties. She did receive Dulcolax as well as lactulose p.o. Patient did have a "good bowel movement." Patient states that she is feeling much better and is ready to go home. She has no other concerns or complaints. Patient's abdomen is soft and nontender. Acute abdomen series was unremarkable for acute pathology. Low suspicion/risk for acute appendicitis, bowel obstruction, acute cholecystitis, acute cholangitis, perforated diverticulitis, incarcerated hernia, pancreatitis, perforated ulcer, peritonitis, sepsis, or other systemic emergent condition at this time. Patient is aware that her condition can change from initial presentation and she needs to monitor symptoms closely and seek medical attention if any acute changes. Rx for mag citrate that she may use if needed. Conservative measures otherwise for symptoms. Recheck with your PCM in 2-3 days. Consider consult with a almond paste mixer. Return to the ED with any worsening/concerning symptoms otherwise as reviewed in discharge. Patient is in agreement. - Vital Signs Vital signs: Temp Pulse Resp BP Pulse Ox 98.0 F 62 16 142/61 H 94 03/16/18 10:05 03/16/18 10:05 03/16/18 10:05 03/16/18 10:05 03/16/18 10:05 Discharge - Discharge Clinical Impression: Constipation Qualifiers: Constipation type: unspecified constipation type Qualified Code(s): K59.00 - Constipation, unspecified Condition: Stable Disposition: HOME, SELF-CARE Instructions: Constipation ([facility]), Laxative ([facility]) Additional Instructions: stool softener/laxative as reviewed Increase fiber in diet and increase water intake. tylenol if needed Monitor for any worsening symptoms Make sure you are staying hydrated enough to urinate and have normal BM's Recheck with your PCM in 2-3 days Consider consult with Gastroenterology for ongoing/worsening symptoms Return to the ED with any worsening symptoms and/or development of fever, headache, chest pain, palpitations, syncope, shortness of breath, trouble breathing, abdominal pain, n/v/d, blood in stool/urine, weakness, or other worsening symptoms that are concerning to you. Prescriptions: Magnesium Citrate [Citrate of Magnesia 296 ml Bottle] 296 ml PO ONCE PRN #1 bottle PRN Reason: Forms: Elevated Blood Pressure Referrals: MIGUEL YOUNG MD [ACTIVE STAFF] - Follow up as needed KRYSTEN ROBISON MD [ACTIVE STAFF] - Follow up as needed RENETTA RICHARDSON MD [Primary Care Provider] - 03/19/18
--- NOTE | 2018-03-16 11:02 | RADIOLOGY REPORT (SQ) ---
EXAM DESCRIPTION: ACUTE ABDOMEN SERIES COMPLETED DATE/TIME: 03/16/2018 10:41 am REASON FOR STUDY: abd pain, constipation COMPARISON: None. NUMBER OF VIEWS: Three views. TECHNIQUE: Frontal chest, supine abdomen and upright/decubitus abdomen radiographic images acquired. LIMITATIONS: None. FINDINGS: CHEST: Lungs clear of infiltrates. FREE AIR: No pneumoperitoneum. BOWEL GAS PATTERN: Scattered gas within large and small bowel in nonspecific pattern. Moderate amoun t of fecal material within the rectum. CALCIFICATIONS: No suspicious calcifications. HARDWARE: Surgical clips right upper quadrant. . SOFT TISSUES: No gross mass or suggestion of organomegaly. BONES: There is an old compression deformity of L2. Scoliosis convex left. IMPRESSION: NONSPECIFIC BOWEL-GAS PATTERN. TECHNICAL DOCUMENTATION: JOB ID: [id number] [employer]- All Rights Reserved Reading location - IP/workstation name: [email or web address]
[2018-03-16 12:23] VITALS: BP 140/65
== END 2018-03-16 12:19 | disposition home or self-care (01) ==
LOC: ER 10:00
DX: K59.00 Constipation, unspecified (principal); J44.9 Chronic obstructive pulmonary disease, unspecified; I25.2 Old myocardial infarction; Z88.1 Allergy status to other antibiotic agents; Z88.2 Allergy status to sulfonamides; Z87.891 Personal history of nicotine dependence
CPT/HCPCS: 99283; 74022; A9270 ×2

== ENCOUNTER 2018-03-20 12:07 | Emergency (ER) | payer MEDICARE, OTHER ==
[2018-03-20] MEDS ORDERED: NORMAL SALINE 1000 ML 500 ML IV PRN (12:34)
--- NOTE | 2018-03-20 12:36 | ER Document Report ---
ED Medical Screen (RME) - General Chief Complaint: Vaginal Bleeding Stated Complaint: VAGINAL BLEEDING Time Seen by Provider: 03/20/18 12:34 Notes: 83 years old female who had a 2 stents placed 4 months ago, and started on Plavix. Today presents with hematuria. Pain less. Denies any dysuria frequency urgency. Denies any abdominal pain. Denies any fever but had chills on and off. On examination-elderly pleasant female not in any acute distress. Lungs clear cardiovascular system normal S1-S2 abdomen soft and nontender. TRAVEL OUTSIDE OF THE [place] IN LAST 30 DAYS: No - Related Data Allergies/Adverse Reactions: doxycycline [Doxycycline] Allergy (Mild, Verified 03/20/18 12:12) n/v Sulfa (Sulfonamide Antibiotics) Allergy (Mild, Verified 03/20/18 12:12) n/v Past Medical History - Social History Chew tobacco use (# tins/day): No Frequency of alcohol use: None Drug Abuse: None - Past Medical History Cardiac Medical History: Reports: Hx Heart Attack - non-STEMI Pulmonary Medical History: Reports: Hx COPD Renal/ Medical History: Denies: Hx Peritoneal Dialysis GI Medical History: Reports: Hx Ulcer Musculoskeltal Medical History: Reports Hx Arthritis - Immunizations Hx Diphtheria, Pertussis, Tetanus Vaccination: No History of Influenza Vaccine for 05/2017 - 10/2017 Season: No Physical Exam - Vital signs Vitals: Temp Pulse Resp BP Pulse Ox 98.2 F 59 L 14 130/51 H 97 03/20/18 12:17 03/20/18 12:17 03/20/18 12:17 03/20/18 12:17 03/20/18 12:17 Course - Vital Signs Vital signs: Temp Pulse Resp BP Pulse Ox 98.2 F 59 L 14 130/51 H 97 03/20/18 12:17 03/20/18 12:17 03/20/18 12:17 03/20/18 12:17 03/20/18 12:17 Doctor's Discharge - Discharge Referrals: RENETTA RICHARDSON MD [Primary Care Provider] - Follow up as needed
[2018-03-20 13:29] LABS: APPEARANCE,URINE CLOUDY; BILIRUBIN,URINE NEGATIVE (NEGATIVE); COLOR,URINE RED; GLUCOSE, URINE NEGATIVE (NEGATIVE); KETONES,URINE NEGATIVE (NEGATIVE); PROTEIN,URINE 100 mg/dL (NEGATIVE); URINE SPECIFIC GRAVITY 1.008
[2018-03-20 13:30] LABS: LEUKOCYTE ESTERASE,URINE MODERATE (NEGATIVE); NITRITE,URINE NEGATIVE (NEGATIVE); UROBILINOGEN,URINE NEGATIVE mg/dL (<2.0)
[2018-03-20 14:28] LABS: ABSOLUTE EOSINOPHILS # (AUTO) 0.2 10^3/uL (0.0-0.6); ABSOLUTE LYMPHOCYTES (AUTO) 1.8 10^3/uL (0.5-4.7); ABSOLUTE MONOCYTES (AUTO) 0.9 10^3/uL (0.1-1.4); BASOPHILS % (AUTO) 0.4 % (0-2); EOSINOPHILS % (AUTO) 2.3 % (0-6); HEMATOCRIT 37.5 % (36.0-47.0); HEMOGLOBIN 12.2 g/dL (12.0-15.5); LYMPHOCYTES % (AUTO) 16.3 % (13-45); MEAN CORPUSCULAR HGB CONC 32.5 g/dL (32.0-36.0); MEAN CORPUSCULAR VOLUME 83 fl (80-97); PLATELET COUNT 296 10^3/uL (150-450); RED BLOOD COUNT 4.51 10^6/uL (3.72-5.28); RED CELL DISTRIBUTION WIDTH 15.4 % (11.5-14.0); TOTAL CELLS COUNTED % (AUTO) 100 %; WHITE BLOOD COUNT 10.9 10^3/uL (4.0-10.5)
[2018-03-20 14:50] LABS: ALANINE AMINOTRANSFERASE 53 U/L (9-52); ALBUMIN 3.8 g/dL (3.5-5.0); ALKALINE PHOSPHATASE 54 U/L (38-126); ANION GAP 13 (5-19); ASPARTATE AMINO TRANSFERASE 33 U/L (14-36); BILIRUBIN,DIRECT 0.3 mg/dL (0.0-0.4); BILIRUBIN,TOTAL 0.7 mg/dL (0.2-1.3); BLOOD UREA NITROGEN 16 mg/dL (7-20); CALCIUM 9.6 mg/dL (8.4-10.2); CARBON DIOXIDE 27 mmol/L (22-30); CHLORIDE 104 mmol/L (98-107); GLUCOSE 108 mg/dL (75-110); POTASSIUM 4.1 mmol/L (3.6-5.0); SODIUM 143.6 mmol/L (137-145); TOTAL PROTEIN 6.3 g/dL (6.3-8.2)
[2018-03-20 15:51] VITALS: BP 142/52
--- NOTE | 2018-03-20 15:53 | ER Document Report ---
ED GI/ - General Chief Complaint: Vaginal Bleeding Stated Complaint: VAGINAL BLEEDING Time Seen by Provider: 03/20/18 12:34 Notes: Chief complaint: Bloody urine History of complain:( obtained from----patient)83 years old female who had a 2 stents placed 4 months ago, and started on Plavix. Today presents with hematuria. Pain less. Denies any dysuria frequency urgency. Denies any abdominal pain. Denies any fever but had chills on and off. Onset: As above Duration: As above Severity: Mild Quality: As above Context: On Plavix Exacerbating factor and relieving factors: As above REVIEW OF SYSTEMS: CONSTITUTIONAL : Denies fever, chills, or sweats. Denies recent illness. EENT: Denies eye, ear, throat, or mouth pain or symptoms. Denies nasal or sinus congestion or discharge. Denies throat, tongue, or mouth swelling or difficulty swallowing. CARDIOVASCULAR: Denies chest pain. Denies palpitations or racing or irregular heart beat. Denies ankle edema. RESPIRATORY: Denies cough, cold, or chest congestion. Denies shortness of breath, difficulty breathing, or wheezing. GASTROINTESTINAL: Denies distention. Denies nausea, vomiting, or diarrhea. Denies blood in vomitus, stools, or per rectum. Denies black, tarry stools. Denies constipation. GENITOURINARY: Denies difficulty urinating, painful urination, burning, frequency, blood in urine, or discharge. FEMALE GENITOURINARY: Denies vaginal bleeding, heavy or abnormal periods, irregular periods. Denies vaginal discharge or odor. MUSCULOSKELETAL: Denies back or neck pain or stiffness. Denies joint pain or swelling. SKIN: Denies rash, lesions or sores. HEMATOLOGIC : Denies easy bruising or bleeding. LYMPHATIC: Denies swollen, enlarged glands. NEUROLOGICAL: Denies confusion or altered mental status. Denies passing out or loss of consciousness. Denies dizziness or lightheadedness. Denies headache. Denies weakness or paralysis or loss of use of either side. Denies problems with gait or speech. Denies sensory loss, numbness, or tingling. Denies seizures. PSYCHIATRIC: Denies anxiety or stress. Denies depression, suicidal ideation, or homicidal ideation. ALL OTHER SYSTEMS REVIEWED AND NEGATIVE. PHYSICAL EXAMINATION: GENERAL: Well-appearing, well-nourished and in no acute distress. HEAD: Atraumatic, normocephalic. EYES: Pupils equal round and reactive to light, extraocular movements intact, conjunctiva are normal. ENT: Nares patent, oropharynx clear without exudates. Moist mucous membranes. NECK: Normal range of motion, supple without lymphadenopathy LUNGS: Breath sounds clear to auscultation bilaterally and equal. No wheezes rales or rhonchi. HEART: Regular rate and rhythm without murmurs ABDOMEN: Soft, nontender, nondistended abdomen. No guarding, no rebound. No masses appreciated. Examination of genitals-deferred Musculoskeletal: Normal range of motion, no pitting or edema. No cyanosis. NEUROLOGICAL: Cranial nerves grossly intact. Normal speech, normal gait. Normal sensory, motor exams PSYCH: Normal mood, normal affect. SKIN: Warm, Dry, normal turgor, no rashes or lesions noted. Dictation was performed using [employer] voice recognition software TRAVEL OUTSIDE OF THE [place] IN LAST 30 DAYS: No - HPI Notes: 03/20/18 15:50 Dictated - Related Data Allergies/Adverse Reactions: doxycycline [Doxycycline] Allergy (Mild, Verified 03/20/18 12:12) n/v Sulfa (Sulfonamide Antibiotics) Allergy (Mild, Verified 03/20/18 12:12) n/v Past Medical History - Social History Smoking Status: Former Smoker Chew tobacco use (# tins/day): No Frequency of alcohol use: None Drug Abuse: None Family History: Reviewed & Not Pertinent, COPD Patient has suicidal ideation: No Patient has homicidal ideation: No - Past Medical History Cardiac Medical History: Reports: Hx Heart Attack - non-STEMI Pulmonary Medical History: Reports: Hx COPD Renal/ Medical History: Denies: Hx Peritoneal Dialysis GI Medical History: Reports: Hx Ulcer Musculoskeletal Medical History: Reports Hx Arthritis - Immunizations Hx Diphtheria, Pertussis, Tetanus Vaccination: No Hx Pneumococcal Vaccination: 05/13/15 Review of Systems - Review of Systems Notes: Dictated Physical Exam - Vital signs Vitals: Temp Pulse Resp BP Pulse Ox 98.2 F 59 L 14 130/51 H 97 03/20/18 12:17 03/20/18 12:17 03/20/18 12:17 03/20/18 12:17 03/20/18 12:17 - Notes Notes: Dictated Course - Vital Signs Vital signs: Temp Pulse Resp BP Pulse Ox 98.2 F 59 L 14 130/51 H 97 03/20/18 12:17 03/20/18 12:17 03/20/18 12:17 03/20/18 12:17 03/20/18 12:17 - Laboratory Result Diagrams: 03/20/18 13:53 03/20/18 13:53 Laboratory results interpreted by me: 03/20/18 03/20/18 03/20/18 12:35 13:53 13:53 WBC 10.9 H RDW 15.4 H Creatinine 1.50 H Est GFR ( Amer) 40 L Est GFR (Non-Af Amer) 33 L ALT 53 H Urine Protein 100 H Urine Blood LARGE H Ur Leukocyte Esterase MODERATE H Discharge - Discharge Clinical Impression: Hematuria Qualifiers: Hematuria type: gross Qualified Code(s): R31.0 - Gross hematuria UTI (urinary tract infection) Qualifiers: Urinary tract infection type: acute cystitis Hematuria presence: without hematuria Qualified Code(s): N30.00 - Acute cystitis without hematuria Condition: Fair Disposition: HOME, SELF-CARE Instructions: Urinary Tract Infection, Child ([facility]), Hematuria ([facility]) Prescriptions: Ciprofloxacin HCl [Cipro 500 mg Tablet] 500 mg PO BID #20 tablet Referrals: RENETTA RICHARDSON MD [Primary Care Provider] - Follow up as needed
== END 2018-03-20 16:01 | disposition home or self-care (01) ==
LOC: ER 12:07
DX: N30.01 Acute cystitis with hematuria (principal); R68.83 Chills (without fever); J44.9 Chronic obstructive pulmonary disease, unspecified; I25.2 Old myocardial infarction; Z95.5 Presence of coronary angioplasty implant and graft; Z79.02 Long term (current) use of antithrombotics/antiplatelets; Z88.1 Allergy status to other antibiotic agents; Z88.2 Allergy status to sulfonamides; Z87.891 Personal history of nicotine dependence
CPT/HCPCS: 36415; 80053; 81001; 85025; 99283

== ENCOUNTER 2018-08-06 09:18 | Emergency (ER) | payer MEDICARE, OTHER ==
--- NOTE | 2018-08-06 10:02 | ER Document Report ---
ED General - General Chief Complaint: Urinary Problem Stated Complaint: BLOOD IN URINE Time Seen by Provider: 08/06/18 09:48 TRAVEL OUTSIDE OF THE [place] IN LAST 30 DAYS: No - HPI Notes: Patient is an 83-year-old female with a history of coronary artery disease, recurrent UTI, and hypertension who presents to the emergency department complaining of hematuria and increased urinary frequency that began 6 hours ago. Patient states that she has had hematuria in the past that has been evaluated by her family doctor as well as a urologist without known cause. Patient states that her bleeding is a little bit more than her usual. She is otherwise feeling well and is eating and drinking without difficulty. She is having normal bowel movements. No other vaginal discharge, odor, or bleeding. Patient has not had any diaphoresis or dizziness. Denies any headache, fever, neck pain, changes in vision/speech/mentation/hearing, URI, sore throat, chest pain, palpitations, syncope, cough, shortness of breath, wheeze, dyspnea, abdominal pain, nausea/vomiting/diarrhea, urinary retention, back pain, loss of control of bowel or bladder, numbness/tingling, saddle anesthesia, muscle paralysis/weakness, or rash. - Related Data Allergies/Adverse Reactions: doxycycline [Doxycycline] Allergy (Mild, Verified 08/06/18 09:19) n/v Sulfa (Sulfonamide Antibiotics) Allergy (Mild, Verified 08/06/18 09:19) n/v Past Medical History - Social History Smoking Status: Former Smoker Family History: Reviewed & Not Pertinent, COPD Patient has suicidal ideation: No Patient has homicidal ideation: No - Past Medical History Cardiac Medical History: Reports: Hx Heart Attack - non-STEMI Pulmonary Medical History: Reports: Hx COPD Renal/ Medical History: Denies: Hx Peritoneal Dialysis GI Medical History: Reports: Hx Ulcer Musculoskeletal Medical History: Reports Hx Arthritis - Immunizations Hx Diphtheria, Pertussis, Tetanus Vaccination: No Hx Pneumococcal Vaccination: 05/13/15 Review of Systems - Review of Systems -: Yes All other systems reviewed and negative Physical Exam - Vital signs Vitals: Temp Pulse Resp BP Pulse Ox 97.5 F 55 L 20 166/51 H 96 08/06/18 09:38 08/06/18 09:38 08/06/18 09:38 08/06/18 09:38 08/06/18 09:38 - Notes Notes: PHYSICAL EXAMINATION: GENERAL: Well-appearing, well-nourished and in no acute distress. A&Ox4. Answers questions appropriately, pleasant. HEAD: Atraumatic, normocephalic. EYES: Pupils equal round and reactive to light, extraocular movements intact, sclera anicteric, conjunctiva are normal. ENT: Nares patent and without discharge. oropharynx clear without exudates. No tonsilar hypertrophy or erythema. Moist mucous membranes. NECK: Normal range of motion, supple without lymphadenopathy LUNGS: Breath sounds clear to auscultation bilaterally and equal. No wheezes ra les or rhonchi. HEART: Regular rate and rhythm without murmurs, rubs, gallops. ABDOMEN: Soft, nontender, nondistended abdomen. No guarding, no rebound. No masses appreciated. Normal bowel sounds present. No CVA tenderness bilaterally. Musculoskeletal: FROM to passive/active. Strength 5+/5. Extremities: No cyanosis, clubbing, or edema b/l. Peripheral pulses 2+. Capillary refill less than 3 seconds. NEUROLOGICAL: Cranial nerves grossly intact. Normal speech, normal gait. PSYCH: Normal mood, normal affect. SKIN: Warm, Dry, normal turgor, no rashes or lesions noted. No obvious s ignificant pallor. Course - Re-evaluation Re-evalutation: 08/06/18 11:09 Patient is an afebrile, well-hydrated 83-year-old female who presents to the ED with hematuria, unspecified. Vitals are acceptable without any significant t achycardia, tachypnea, or hypoxia. PE is otherwise unremarkable for any focal neurological deficits. CBC, CMP, coags unremarkable for acute pathology. See urinalysis results. Patient is nontoxic-appearing and is tolerating p.o. without difficulty. She is otherwise been asymptomatic throughout her stay. Patient has been seen previously by [facility] and they have been doing testing for hematuria. Review of patient's previous labs reveal hematuria generally unchanged. She had 3 CT scans in the last year that were reviewed and did not reveal any obvious nephropathy. She does have chronic kidney disease otherwise. I did review Dr. Grayson who states that she just needs to follow-up with urology again and we do not need any further labs or imaging. Low suspicion/risk for acute appendicitis, bowel obstruction, acute cholecystitis, acute cholangitis, perforated diverticulitis, incarcerated hernia, pancreatitis, perforated ulcer, peritonitis, sepsis, pelvic inflammatory disease, severe anemia, or other systemic emergent condition at this time. Patient is aware that her condition can change from initial presentation and she needs to monitor symptoms closely and seek medical attention if any acute changes. Conservative measures otherwise for symptoms. Recheck with your PCM in 2-3 days. Call your urologist and schedule appointment for follow-up. Return to the ED with any worsening/concerning symptoms otherwise as reviewed in discharge. Patient is in agreement. - Vital Signs Vital signs: Temp Pulse Resp BP Pulse Ox 97.5 F 55 L 20 166/51 H 96 08/06/18 09:38 08/06/18 09:38 08/06/18 09:38 08/06/18 09:38 08/06/18 09:38 - Laboratory Result Diagrams: 08/06/18 10:35 08/06/18 10:35 Laboratory results interpreted by me: 08/06/18 08/06/18 08/06/18 09:40 10:35 10:35 WBC 14.0 H RDW 16.1 H Absolute Neutrophils 9.3 H BUN 28 H Creatinine 1.34 H Est GFR ( Amer) 45 L Est GFR (Non-Af Amer) 38 L Calcium 10.3 H Urine Protein 100 H Urine Glucose (UA) 50 H Urine Blood MODERATE H Discharge - Discharge Clinical Impression: Hematuria Qualifiers: Hematuria type: gross Qualified Code(s): R31.0 - Gross hematuria Condition: Stable Disposition: HOME, SELF-CARE Additional Instructions: Maintain adequate fluid intake Proper hygenic technique Keep the skin clean F/u with your PCM in 2-3 days for a recheck Call your urologist to schedule an appointment for further evaluation and management Return to the ED with any worsening symptoms and/or development of fever, hea dache, chest pain, palpitations, syncope, shortness of breath, trouble breathing, abdominal pain, n/v/d, blood in stool/urine, loss of control of bowel/bladder, urinary retention, or other worsening symptoms that are concerning to you. Forms: Elevated Blood Pressure Referrals: RENETTA RICHARDSON MD [Primary Care Provider] - 08/09/18
[2018-08-06 10:05] LABS: APPEARANCE,URINE CLEAR; BILIRUBIN,URINE NEGATIVE (NEGATIVE); COLOR,URINE RED; GLUCOSE, URINE 50 mg/dL (NEGATIVE); KETONES,URINE NEGATIVE (NEGATIVE); LEUKOCYTE ESTERASE,URINE NEGATIVE (NEGATIVE); NITRITE,URINE NEGATIVE (NEGATIVE); PROTEIN,URINE 100 mg/dL (NEGATIVE); URINE SPECIFIC GRAVITY 1.005; UROBILINOGEN,URINE NEGATIVE mg/dL (<2.0)
[2018-08-06 10:47] LABS: ABSOLUTE BASOPHILS # (AUTO) 0.1 10^3/uL (0.0-0.2); ABSOLUTE EOSINOPHILS # (AUTO) 0.3 10^3/uL (0.0-0.6); ABSOLUTE LYMPHOCYTES (AUTO) 2.9 10^3/uL (0.5-4.7); ABSOLUTE MONOCYTES (AUTO) 1.4 10^3/uL (0.1-1.4); ABSOLUTE NEUT (AUTO) 9.3 10^3/uL (1.7-8.2); BASOPHILS % (AUTO) 0.9 % (0-2); EOSINOPHILS % (AUTO) 1.9 % (0-6); HEMATOCRIT 41.8 % (36.0-47.0); HEMOGLOBIN 13.7 g/dL (12.0-15.5); LYMPHOCYTES % (AUTO) 20.8 % (13-45); MEAN CORPUSCULAR HEMOGLOBIN 28.3 pg (27.0-33.4); MEAN CORPUSCULAR HGB CONC 32.8 g/dL (32.0-36.0); MEAN CORPUSCULAR VOLUME 86 fl (80-97); PLATELET COUNT 269 10^3/uL (150-450); RED BLOOD COUNT 4.84 10^6/uL (3.72-5.28); RED CELL DISTRIBUTION WIDTH 16.1 % (11.5-14.0); SEGMENTED NEUTROPHILS % (AUTO) 66.4 % (42-78); TOTAL CELLS COUNTED % (AUTO) 100 %
[2018-08-06 10:52] LABS: INTERNATIONAL RATION (INR) 0.94; PARTIAL THROMBOPLASTIN TIME 26.6 SEC (23.5-35.8)
[2018-08-06 11:01] LABS: ALANINE AMINOTRANSFERASE 28 U/L (9-52); ALBUMIN 4.4 g/dL (3.5-5.0); ALKALINE PHOSPHATASE 65 U/L (38-126); ANION GAP 8 (5-19); ASPARTATE AMINO TRANSFERASE 20 U/L (14-36); BILIRUBIN,DIRECT 0.3 mg/dL (0.0-0.4); BILIRUBIN,TOTAL 0.6 mg/dL (0.2-1.3); BLOOD UREA NITROGEN 28 mg/dL (7-20); CALCIUM 10.3 mg/dL (8.4-10.2); CARBON DIOXIDE 29 mmol/L (22-30); CHLORIDE 103 mmol/L (98-107); GLUCOSE 89 mg/dL (75-110); POTASSIUM 4.4 mmol/L (3.6-5.0); SODIUM 139.9 mmol/L (137-145); TOTAL PROTEIN 6.9 g/dL (6.3-8.2)
[2018-08-06 11:33] VITALS: BP 160/60
== END 2018-08-06 11:32 | disposition home or self-care (01) ==
LOC: ER 09:18
DX: R31.0 Gross hematuria (principal); R39.198 Other difficulties with micturition; R35.0 Frequency of micturition; I25.10 Atherosclerotic heart disease of native coronary artery without angina pectoris; I10 Essential (primary) hypertension; Z87.891 Personal history of nicotine dependence; I25.2 Old myocardial infarction; J44.9 Chronic obstructive pulmonary disease, unspecified
CPT/HCPCS: 36415; 80053; 81001; 85025; 85610; 85730; 87086; 87088; 87186; 99283

== ENCOUNTER 2018-12-11 20:58 | Inpatient (IN) | payer MEDICARE, OTHER ==
[2018-12-11] MEDS ORDERED: IPRATROPIUM/ALBUTEROL 0.5-2.5 MG/3 ML AMPUL NEB ONE (21:12)
[2018-12-11 21:34] LABS: ABSOLUTE BASOPHILS # (AUTO) 0.1 10^3/uL (0.0-0.2); ABSOLUTE EOSINOPHILS # (AUTO) 0.7 10^3/uL (0.0-0.6); ABSOLUTE LYMPHOCYTES (AUTO) 5.3 10^3/uL (0.5-4.7); ABSOLUTE MONOCYTES (AUTO) 1.3 10^3/uL (0.1-1.4); ABSOLUTE NEUT (AUTO) 6.5 10^3/uL (1.7-8.2); BASOPHILS % (AUTO) 0.7 % (0-2); EOSINOPHILS % (AUTO) 4.9 % (0-6); HEMOGLOBIN 14.5 g/dL (12.0-15.5); LYMPHOCYTES % (AUTO) 38.2 % (13-45); MEAN CORPUSCULAR HEMOGLOBIN 28.2 pg (27.0-33.4); MEAN CORPUSCULAR HGB CONC 32.3 g/dL (32.0-36.0); MEAN CORPUSCULAR VOLUME 87 fl (80-97); MONOCYTES % (AUTO) 9.1 % (3-13); PLATELET COUNT 303 10^3/uL (150-450); RED BLOOD COUNT 5.15 10^6/uL (3.72-5.28); RED CELL DISTRIBUTION WIDTH 14.6 % (11.5-14.0); SEGMENTED NEUTROPHILS % (AUTO) 47.1 % (42-78); TOTAL CELLS COUNTED % (AUTO) 100 %; WHITE BLOOD COUNT 13.8 10^3/uL (4.0-10.5)
--- NOTE | 2018-12-11 21:49 | RADIOLOGY REPORT (SQ) ---
EXAM DESCRIPTION: [facility]: XR CHEST 1 VIEW CLINICAL HISTORY: 83 years Female, RESPIRATORY DISTRESS COMPARISON: 11/03/2017 FINDINGS: There are interstitial infiltrates in both lower lobes, worse on the right. The heart border is partially obscured, suggesting right middle lobe infiltrate. No pneumothorax or pleural effusion. Mediastinum is within normal limits for this positioning. Bony structures are unremarkable. Left axillary surgical clips are again noted. IMPRESSION: New bilateral interstitial infiltrates in the lower lung melo, indeterminate for cardiogenic pulmonary edema versus an atypical interstitial pneumonia.
[2018-12-11 21:55] LABS: ALANINE AMINOTRANSFERASE 18 U/L (9-52); ALBUMIN 4.5 g/dL (3.5-5.0); ALKALINE PHOSPHATASE 76 U/L (38-126); ANION GAP 13 (5-19); ASPARTATE AMINO TRANSFERASE 22 U/L (14-36); BILIRUBIN,DIRECT 0.2 mg/dL (0.0-0.4); BILIRUBIN,TOTAL 0.5 mg/dL (0.2-1.3); BLOOD UREA NITROGEN 25 mg/dL (7-20); CALCIUM 10.4 mg/dL (8.4-10.2); CARBON DIOXIDE 26 mmol/L (22-30); CHLORIDE 104 mmol/L (98-107); CREATINE KINASE 126 U/L (30-135); GLUCOSE 130 mg/dL (75-110); POTASSIUM 4.6 mmol/L (3.6-5.0); TOTAL PROTEIN 7.4 g/dL (6.3-8.2)
[2018-12-11] MEDS: ALBUTEROL SULFATE 0.083% NEB 2.5 MG/3 ML AMPUL NEB SCH ×2 (22:00→22:49)
--- NOTE | 2018-12-11 22:02 | ER Document Report ---
ED General - General Stated Complaint: TROUBLE BREATHING Time Seen by Provider: 12/11/18 22:01 Primary Care Provider: RENETTA RICHARDSON MD [Primary Care Provider] - Follow up as needed Notes: Patient is a pleasant 83-year-old female presents with complaint of difficulty breathing. She says it started tonight. She does have a history of COPD and emphysema. No history of CHF. No chest pain. No fevers. She is a former smoker. She has been admitted to the hospital in the past for COPD exacerbations. When paramedics arrived she was hypoxic. They placed on CPAP and gave her Solu-Medrol as well as breathing treatments. When she got here she was placed on BiPAP which she says has helped her significantly. She has no other complaints at this time. TRAVEL OUTSIDE OF THE [place] IN LAST 30 DAYS: No - Related Data Allergies/Adverse Reactions: doxycycline [Doxycycline] Allergy (Mild, Verified 08/06/18 09:19) n/v Sulfa (Sulfonamide Antibiotics) Allergy (Mild, Verified 08/06/18 09:19) n/v Past Medical History - Social History Smoking Status: Former Smoker Frequency of alcohol use: None Drug Abuse: None Family History: Reviewed & Not Pertinent, COPD - Past Medical History Cardiac Medical History: Reports: Hx Heart Attack - non-STEMI Pulmonary Medical History: Reports: Hx COPD Renal/ Medical History: Denies: Hx Peritoneal Dialysis GI Medical History: Reports: Hx Ulcer Musculoskeletal Medical History: Reports Hx Arthritis - Immunizations Hx Diphtheria, Pertussis, Tetanus Vaccination: No Hx Pneumococcal Vaccination: 05/13/15 Review of Systems - Review of Systems Notes: My Normal Review Basic REVIEW OF SYSTEMS: CONSTITUTIONAL : Denies fever, chills, or sweats. Denies recent illness. EENT: Denies eye, ear, throat, or mouth pain or symptoms. Denies nasal or sinus congestion. CARDIOVASCULAR: Denies chest pain. RESPIRATORY: Difficulty breathing GASTROINTESTINAL: Denies abdominal pain. Denies nausea, vomiting, or diarrhea. MUSCULOSKELETAL: Denies neck or back pain or joint pain or swelling. SKIN: Denies rash or skin lesions. NEUROLOGICAL: Denies altered mental status or loss of consciousness. ALL OTHER SYSTEMS REVIEWED AND NEGATIVE. Physical Exam - Vital signs Vitals: Pulse Ox 98 12/11/18 20:59 - Notes Notes: General Appearance: Well nourished, alert, cooperative, mild acute distress, no obvious discomfort. Vitals: reviewed, See vital signs table. Head: no swelling or tenderness to the head Eyes: PERRL, EOMI, Conjuctiva clear Neck: Supple, no neck tenderness, No thyromegaly Lungs: Scattered wheezing. Poor air movement. Heart: Normal rate, Regular rythm, No murmur, no rub Abdomen: Normal BS, soft, No rigidity, No abdominal tenderness, No guarding, no rebound, Extremities: sgood pulses in all extremities, no edema. Skin: warm, dry, appropriate color, no rash Neuro: speech clear, oriented x 3, normal affect, responds appropriately to questions. Course - Re-evaluation Re-evalutation: 12/11/18 23:47 Patient has findings consistent with COPD exacerbation as well as pneumonia. Initially her lung auscultation was very tight. This is starting to improve. She has normal work of breathing now that she is on BiPAP. She is mentating normally. I did speak with the hospitalist, Dr. Rosas, who agrees to evaluate the patient for admission. Dictation of this chart was performed using voice recognition software; the refore, there may be some unintended grammatical errors. - Vital Signs Vital signs: Temp Pulse Resp BP Pulse Ox 98.1 F 16 133/60 H 93 12/11/18 21:15 12/11/18 23:01 12/11/18 23:01 12/11/18 23:01 - Laboratory Result Diagrams: 12/11/18 21:13 12/11/18 21:13 Laboratory results interpreted by me: 12/11/18 12/11/18 12/11/18 21:13 21:13 21:13 WBC 13.8 H RDW 14.6 H Absolute Lymphocytes 5.3 H Absolute Eosinophils 0.7 H VBG pH VBG pCO2 BUN 25 H Creatinine 1.32 H Est GFR ( Amer) 46 L Est GFR (Non-Af Amer) 38 L Glucose 130 H Calcium 10.4 H NT-Pro-B Natriuret Pep 1040 H 12/11/18 21:13 WBC RDW Absolute Lymphocytes Absolute Eosinophils VBG pH 7.20 L VBG pCO2 69.4 H* BUN Creatinine Est GFR ( Amer) Est GFR (Non-Af Amer) Glucose Calcium NT-Pro-B Natriuret Pep - EKG Interpretation by Me Additional EKG results interpreted by me: 12/11/18 22:01 EKG is reviewed and interpreted by me. EKG shows normal sinus rhythm with a rate of [address] segment elevation or depression. No ischemic T wave inversions. GA interval, QRS duration are within normal range. QT interval slightly prolonged. Old EKG for comparison is from March 11, 2018. Discharge - Discharge Clinical Impression: COPD exacerbation PNA (pneumonia) Qualifiers: Pneumonia type: due to unspecified organism Laterality: right Lung location: unspecified part of lung Qualified Code(s): J18.9 - Pneumonia, unspecified organism Condition: Stable Disposition: ADMITTED OBSERVATION Admitting Provider: Ralph (Hospitalist) Unit Admitted: [facility]
[2018-12-11 22:06] LABS: CREATINE KINASE MB 2.59 ng/mL (<4.55); TROPONIN I 0.012 ng/mL
--- NOTE | 2018-12-11 23:03 | EKG REPORT ---
SEVERITY:- NORMAL ECG - SINUS RHYTHM : Confirmed by: Tracee Anna 11-Dec-2018 23:02:55
[2018-12-11 23:13] LABS: VENOUS BLOOD BASE EXCESS -3.5 mmol/L; VENOUS BLOOD HCO3 26.4 mmol/L (20-32); VENOUS BLOOD PH 7.2 (7.30-7.42)
[2018-12-11 23:15] LABS: VENOUS BLOOD PCO2 69.4 mmHg (35-63)
[2018-12-11] MEDS ORDERED: LEVOFLOXACIN 750 MG/D5W RTU 750 MG/150 ML RTUPB IV ONE (23:40)
[2018-12-12] MEDS ORDERED: MAGNESIUM HYDROXIDE SUSP 30 ML UDCUP PO PRN (01:34)
[2018-12-12] MEDS ORDERED: LEVALBUTEROL HCL NEB 1.25 MG/3 ML AMPUL NEB PRN (01:34)
[2018-12-12] MEDS ORDERED: MAG HYDROX/AL HYDROX/SIMETH SUSP 30 ML UDCUP PO PRN (01:34)
[2018-12-12] MEDS ORDERED: ONDANSETRON HCL INJ/PF 4 MG/2 ML SDV IV PRN (01:34)
[2018-12-12] MEDS ORDERED: ACETAMINOPHEN 325 MG TABLET PO PRN (01:38)
[2018-12-12] MEDS ORDERED: NALBUPHINE HCL INJ 10 MG/1 ML AMPULE IV PRN (01:38)
[2018-12-12 02:26] LABS: FREE T3 4.06 pg/mL (2.77-5.27); FREE T4 (FREE THYROXINE) 1.01 ng/dL (0.78-2.19)
[2018-12-12] MEDS: METHYLPREDNISOLONE INJ 40 MG/1 ML SDV IV SCH ×3 (05:35→21:35)
[2018-12-12] MEDS: HEPARIN SOD (PORCINE) 5,000 UNIT/ML 1 ML SYRINGE SUBCUT SCH ×3 (05:35→21:36)
[2018-12-12 05:48] LABS: APPEARANCE,URINE CLEAR; BILIRUBIN,URINE NEGATIVE (NEGATIVE); COLOR,URINE YELLOW; GLUCOSE, URINE NEGATIVE (NEGATIVE); KETONES,URINE NEGATIVE (NEGATIVE); LEUKOCYTE ESTERASE,URINE NEGATIVE (NEGATIVE); NITRITE,URINE NEGATIVE (NEGATIVE); PROTEIN,URINE 30 mg/dL (NEGATIVE); URINE SPECIFIC GRAVITY 1.014; UROBILINOGEN,URINE NEGATIVE mg/dL (<2.0)
[2018-12-12 05:50] LABS: ARTERIAL BLOOD BASE EXCESS -2.8 mmol/L; ARTERIAL BLOOD FIO2 35%; ARTERIAL BLOOD H2CO3 1.22 mmol/L (1.05-1.35); ARTERIAL BLOOD HCO3 22.4 mmol/L (20-24); ARTERIAL BLOOD O2 SATURATION 97.9 % (94-98); ARTERIAL BLOOD PCO2 40.6 mmHg (35-45); ARTERIAL BLOOD PH 7.36 (7.35-7.45); ARTERIAL BLOOD PO2 111.4 mmHg (80-100); ARTERIAL BLOOD TOTAL CO2 23.7 mmol/L (21-25)
--- NOTE | 2018-12-12 06:44 | PDOC H&P ---
History of Present Illness Admission Date/PCP: 12/11/18 23:55 RENETTA RICHARDSON MD Patient complains of: Dyspnea History of Present Illness: Paulo CORCORAN is a 83 year old female who presented to the emergency room with an acute history of dyspnea. Patient admits that she had not been feeling exceptionally well and had not been breathing exceptionally well for approximately 2 weeks but this had become more or less her except at baseline. Then earlier today she suddenly developed significantly increased and severe dyspnea without accompanying symptoms. She has had prior similar episodes with exacerbations of her COPD. She denies identification of any aggravating or ameliorating factors for her dyspnea. In the emergency room she was found to be significantly hypoxic and continued requires supplemental oxygen in order to maintain adequate oxygen saturation. Because of this finding the patient was admitted to hospital for further evaluation and treatment. Past Medical History Cardiac Medical History: Reports: Coronary Artery Disease, Myocardial Infarction - non-STEMI Denies: Hypertension Pulmonary Medical History: Reports: Chronic Obstructive Pulmonary Disease (COPD), Respiratory Failure EENT Medical History: Denies: Cataracts, Nose - No nasal problem Neurological Medical History: Denies: Hemorrhagic CVA, Ischemic CVA, Seizures Endocrine Medical History: Denies: Diabetes Mellitus Type 1, Diabetes Mellitus Type 2, Hyperthyroidism, Hypothyroidism Renal/ Medical History: Denies: Chronic Kidney Disease, Nephrolithiasis Malignancy Medical History: Reports: None GI Medical History: Reports: Peptic Ulcer Disease Denies: Cirrhosis, Hepatitis Musculoskeltal Medical History: Reports: Arthritis Denies: Gout Skin Medical History: Denies: Eczema, Psoriasis Psychiatric Medical History: Reports: Tobacco Dependency Denies: Alcohol Dependency, Substance Abuse Traumatic Medical History: Reports: None Hematology: Reports: Anemia Denies: Bleeding Tendencies Infectious Medical History: Reports: None Past Surgical History Past Surgical History: Reports: None Social History Information Source: Patient Lives with: Alone Smoking Status: Current Every Day Smoker Frequency of Alcohol Use: Occasional Hx Recreational Drug Use: No Drugs: None Hx Prescription Drug Abuse: No - Advance Directive Resuscitation Status: Full Code Surrogate healthcare decision maker:: Neo Landry Family History Family History: COPD Parental Family History Reviewed: Yes Children Family History Reviewed: No Sibling(s) Family History Reviewed.: Yes Medication/Allergy Home Medications: Cholecalciferol (Vitamin D3) [Vitamin D] 1,000 unit PO DAILY 12/08/14 Albuterol Sulfate [Proair HFA] 1 puff IH ASDIR PRN 10/24/17 Glycopyrrolate/Formoterol Fum [Bevespi Aerosphere Inhaler] 2 puff IH BID 10/24/17 Acetaminophen [Tylenol 325 mg Tablet] 650 mg PO Q6HP PRN tablet 11/09/17 Aspirin [Aspirin 81 mg Chewable Tablet] 81 mg PO DAILY tab.chew 11/09/17 Bisacodyl [Dulcolax 10 mg Supp.rect] 10 mg CO DAILYP PRN supp.rect 11/09/17 Fluticasone Propionate [Flonase Nasal [place] 50 Mcg/[place] 16 gm] 2 spray NASL Q12 spray.pump 11/09/17 Fluticasone/Salmeterol [Advair 500-50 Diskus 14 Dose/Diskus] 1 inh IH Q12 inhaler 11/09/17 Guaifenesin [Mucinex Sr 600 mg Tablet.sa] 600 mg PO Q12 tablet.sa 11/09/17 Ipratropium/Albuterol Sulfate [Duoneb 3 ml Ampul] 3 ml NEB RTQ4HP PRN vial.neb 11/09/17 Metoprolol Succinate [Toprol Xl 50 mg Tab.sr] 50 mg PO DAILY@1200 tab.sr.24h 11/09/17 Pantoprazole Sodium [Protonix] 40 mg PO DAILY #30 tablet.dr 11/09/17 Polyethylene Glycol 3350 [Miralax Powder 17 gm/Packet] 17 gm PO DAILY powd.pack 11/09/17 Tiotropium [place] [Spiriva Handihaler 5 Cap/Kit (18 Mcg/Cap)] 1 cap IH DAILY kit 11/09/17 Magnesium Citrate [Citrate of Magnesia 296 ml Bottle] 296 ml PO ONCE PRN #1 bottle 03/16/18 Ciprofloxacin HCl [Cipro 500 mg Tablet] 500 mg PO BID #20 tablet 03/20/18 Allergies/Adverse Reactions: doxycycline [Doxycycline] Allergy (Mild, Verified 08/06/18 09:19) n/v Sulfa (Sulfonamide Antibiotics) Allergy (Mild, Verified 08/06/18 09:19) n/v Review of Systems Constitutional: ABSENT: chills, fever(s) Eyes: ABSENT: visual disturbances, other - Eye pain Ears: ABSENT: hearing changes, other - Ear pain Nose, Mouth, and Throat: ABSENT: mouth pain, sore throat Cardiovascular: PRESENT: dyspnea on exertion. ABSENT: chest pain, edema, orthropnea, palpitations Respiratory: PRESENT: dyspnea. ABSENT: cough Gastrointestinal: ABSENT: abdominal pain, constipation, diarrhea, nausea, vom iting Genitourinary: ABSENT: dysuria, hematuria Musculoskeletal: ABSENT: back pain, joint swelling, muscle weakness Integumentary: ABSENT: pruritus, rash Neurological: ABSENT: confusion, convulsions, focal weakness, memory loss, syncope Psychiatric: ABSENT: anxiety, depression Endocrine: ABSENT: cold intolerance, heat intolerance Hematologic/Lymphatic: ABSENT: easy bleeding, easy bruising Physical Exam Vital Signs: Temp Pulse Resp BP Pulse Ox 98.1 F 16 133/60 H 93 12/11/18 21:15 12/11/18 23:01 12/11/18 23:01 12/11/18 23:01 General appearance: PRESENT: no acute distress, cooperative, other - On BiPAP Head exam: PRESENT: atraumatic, normocephalic Eye exam: ABSENT: conjunctival injection, scleral icterus Ear exam: PRESENT: normal external ear exam. ABSENT: drainage Mouth exam: PRESENT: dry mucosa, neck supple Neck exam: ABSENT: thyromegaly, tracheal deviation Respiratory exam: PRESENT: decreased breath sounds - throughout chest, prolonged expiratory phas, symmetrical, wheezes - expiratory Cardiovascular exam: PRESENT: RRR. ABSENT: clicks, gallop, rubs Pulses: PRESENT: normal radial pulses, normal dorsalis pedis pul Vascular exam: PRESENT: normal capillary refill. ABSENT: pallor GI/Abdominal exam: PRESENT: normal bowel sounds, soft Rectal exam: PRESENT: deferred Extremities exam: ABSENT: joint swelling, pedal edema Musculoskeletal exam: ABSENT: deformity, dislocation Neurological exam: PRESENT: alert, oriented to person, oriented to place, oriented to time, oriented to situation, CN II-XII grossly intact. ABSENT: motor sensory deficit Psychiatric exam: PRESENT: appropriate affect, normal mood Skin exam: PRESENT: dry, intact, warm. ABSENT: jaundice, rash, urticaria Results Laboratory Results: 12/11/18 21:13 12/11/18 21:13 12/11/18 12/11/18 12/11/18 21:13 21:13 21:13 WBC 13.8 H RBC 5.15 Hgb 14.5 Hct 45.0 MCV 87 MCH 28.2 MCHC 32.3 RDW 14.6 H Plt Count 303 Seg Neutrophils % 47.1 Lymphocytes % 38.2 Monocytes % 9.1 Eosinophils % 4.9 Basophils % 0.7 Absolute Neutrophils 6.5 Absolute Lymphocytes 5.3 H Absolute Monocytes 1.3 Absolute Eosinophils 0.7 H Absolute Basophils 0.1 VBG pH 7.20 L VBG pCO2 69.4 H* VBG HCO3 26.4 VBG Base Excess -3.5 Sodium 143.0 Potassium 4.6 Chloride 104 Carbon Dioxide 26 Anion Gap 13 BUN 25 H Creatinine 1.32 H Est GFR ( Amer) 46 L Est GFR (Non-Af Amer) 38 L Glucose 130 H Calcium 10.4 H Total Bilirubin 0.5 AST 22 ALT 18 Alkaline Phosphatase 76 Total Protein 7.4 Albumin 4.5 12/11/18 12/11/18 21:13 21:13 Creatine Kinase 126 CK-MB (CK-2) 2.59 Troponin I 0.012 NT-Pro-B Natriuret Pep 1040 H Impressions: Chest X-Ray 12/11/18 21:11 IMPRESSION: New bilateral interstitial infiltrates in the lower lung melo, indeterminate for cardiogenic pulmonary edema versus an atypical interstitial pneumonia. Assessment and Plan - Diagnosis (1) Acute respiratory failure with hypoxia and hypercapnia Is this a current diagnosis for this admission?: Yes (2) COPD exacerbation Is this a current diagnosis for this admission?: Yes (3) Tobacco abuse Is this a current diagnosis for this admission?: Yes (4) Leukocytosis, unspecified Qualifiers: Leukocytosis type: unspecified Qualified Code(s): D72.829 - Elevated white blood cell count, unspecified Is this a current diagnosis for this admission?: Yes - Time Time Spent with patient: 25-34 minutes Smoking Cessation Education: 3 to 10 minutes Anticipated discharge: Home - Inpatient Certification Based on my medical assessment, after consideration of the patient's comorbidities, presenting symptoms, or acuity I expect that the services needed warrant INPATIENT care.: Yes I certify that my determination is in accordance with my understanding of Medicare's requirements for reasonable and necessary INPATIENT services [42 CFR 412.3e].: Yes Medical Necessity: Need Close Monitoring Due to Risk of Patient Decompensation, Need for Nebulizer Therapy and Monitoring of Response, Risk of Complication if Not Cared For in Hospital
[2018-12-12] MEDS: LEVALBUTEROL HCL NEB 1.25 MG/3 ML AMPUL NEB SCH ×2 (07:57→15:29)
[2018-12-12] MEDS: IPRATROPIUM BROMIDE 0.02% NEB 0.5 MG/2.5 ML AMPUL NEB SCH ×2 (07:57→15:31)
[2018-12-12] MEDS: ACETYLCYSTEINE 20% SOLN 800 MG/4 ML VIAL.NEB NEB SCH ×2 (07:57→20:17)
[2018-12-12] MEDS: BUDESONIDE NEB 0.5 MG/2 ML AMPUL NEB SCH ×2 (07:57→20:17)
[2018-12-12] MEDS: DOCUSATE SODIUM 100 MG CAPSULE PO SCH ×2 (09:52→18:08)
[2018-12-12] MEDS: FAMOTIDINE 20 MG TABLET PO SCH ×2 (09:52→21:37)
[2018-12-12] MEDS ORDERED: ATORVASTATIN CALCIUM 40 MG TABLET PO ONE (22:30)
[2018-12-12] MEDS: RINGERS SOLUTION,LACTATED 1,000 ML IV PRN (22:36)
[2018-12-13] MEDS: IPRATROPIUM BROMIDE 0.02% NEB 0.5 MG/2.5 ML AMPUL NEB SCH ×4 (00:33→23:50)
[2018-12-13] MEDS: LEVALBUTEROL HCL NEB 1.25 MG/3 ML AMPUL NEB SCH ×2 (00:33→08:06)
[2018-12-13] MEDS: PANTOPRAZOLE SODIUM 40 MG TABLET.DR PO SCH (05:27)
[2018-12-13] MEDS: METHYLPREDNISOLONE INJ 40 MG/1 ML SDV IV SCH ×2 (05:27→14:43)
[2018-12-13] MEDS: HEPARIN SOD (PORCINE) 5,000 UNIT/ML 1 ML SYRINGE SUBCUT SCH ×3 (05:27→21:44)
[2018-12-13] MEDS: BUDESONIDE NEB 0.5 MG/2 ML AMPUL NEB SCH (08:06)
[2018-12-13] MEDS: ACETYLCYSTEINE 20% SOLN 800 MG/4 ML VIAL.NEB NEB SCH ×2 (08:06→19:42)
[2018-12-13 08:44] LABS: ABSOLUTE LYMPHOCYTES (AUTO) 0.9 10^3/uL (0.5-4.7); ABSOLUTE MONOCYTES (AUTO) 0.4 10^3/uL (0.1-1.4); ABSOLUTE NEUT (AUTO) 14.7 10^3/uL (1.7-8.2); BASOPHILS % (AUTO) 0.2 % (0-2); HEMATOCRIT 38.3 % (36.0-47.0); LYMPHOCYTES % (AUTO) 5.5 % (13-45); MEAN CORPUSCULAR HEMOGLOBIN 27.7 pg (27.0-33.4); MEAN CORPUSCULAR HGB CONC 32.4 g/dL (32.0-36.0); MEAN CORPUSCULAR VOLUME 85 fl (80-97); MONOCYTES % (AUTO) 2.4 % (3-13); PLATELET COUNT 229 10^3/uL (150-450); RED BLOOD COUNT 4.48 10^6/uL (3.72-5.28); SEGMENTED NEUTROPHILS % (AUTO) 91.9 % (42-78); TOTAL CELLS COUNTED % (AUTO) 100 %
[2018-12-13 08:50] LABS: VENOUS BLOOD BASE EXCESS -3.9 mmol/L; VENOUS BLOOD HCO3 21.2 mmol/L (20-32); VENOUS BLOOD PCO2 38.9 mmHg (35-63); VENOUS BLOOD PH 7.36 (7.30-7.42)
[2018-12-13 08:53] LABS: HEMOGLOBIN 12.4 g/dL (12.0-15.5)
[2018-12-13 09:13] LABS: ANION GAP 11 (5-19); BLOOD UREA NITROGEN 33 mg/dL (7-20); CALCIUM 10.2 mg/dL (8.4-10.2); CARBON DIOXIDE 22 mmol/L (22-30); CHLORIDE 107 mmol/L (98-107); GLUCOSE 178 mg/dL (75-110); POTASSIUM 4.5 mmol/L (3.6-5.0); SODIUM 140.2 mmol/L (137-145)
[2018-12-13] MEDS ORDERED: VITS A C E PO SCH (10:00)
[2018-12-13] MEDS ORDERED: MINERALS PO SCH (10:00)
[2018-12-13] MEDS ORDERED: LUTEIN PO SCH (10:00)
[2018-12-13] MEDS ORDERED: (PENDING PHARMACY ID) (Glycopyrrolate/Formoterol Fum [Bevespi Aerosphere Inhaler] 2 PUFF) IH SCH (10:00)
[2018-12-13] MEDS ORDERED: LACTOBACILLUS ACIDOPHILUS 250 MG TAB PO SCH (10:00)
[2018-12-13] MEDS: CLOPIDOGREL BISULFATE 75 MG TABLET PO SCH (11:24)
[2018-12-13] MEDS: ASPIRIN 81 MG TABLET, ENT COATED PO SCH (11:24)
[2018-12-13] MEDS: CHOLECALCIFEROL (D3) 1,000 UNIT TABLET PO SCH (11:24)
[2018-12-13] MEDS: METOPROLOL SUCCINATE 50 MG TAB.SR.24H PO SCH (11:24)
[2018-12-13] MEDS: FAMOTIDINE 20 MG TABLET PO SCH ×2 (11:25→21:44)
[2018-12-13] MEDS: DOCUSATE SODIUM 100 MG CAPSULE PO SCH (11:25)
[2018-12-13] MEDS: RINGERS SOLUTION,LACTATED 1,000 ML IV PRN (11:32)
[2018-12-13] MEDS: LACTOBACILLUS ACIDOPHILUS 250 MG TAB PO SCH (12:19)
[2018-12-13] MEDS ORDERED: NICOTINE 21 MG/24 HR PATCH.TD24 TD PRN (15:43)
--- NOTE | 2018-12-13 15:47 | PDOC PROGRESS REPORT ---
Subjective Progress Note for:: 12/13/18 Subjective:: 83 y.o. F with a PMH of CAD, NC, COPD (no home O2), peptic ulcer disease, arthritis. She presented to [facility] emergency department with acute hypoxic rotatory distress. She is admitted to the hospitalist service for a COPD exacerbation. Patient was seen this morning on rounds, she is sitting up in her bedside recliner on nasal cannula. Patient states that she "feels great." Patient states that she was not feeling well for approximately 24 hours prior to her arrival, it is possible that her COPD is stemming from a URI. The patient denies seasonal allergies. She is able to answer all questions appropriately, periodically will need to stop and catch her breath but can otherwise hold lungs are clear to auscultation. No evidence of central or peripheral cyanosis. Palpable pulses in the upper and lower extremities. No evidence of peripheral edema. Patient ambulated in hallway on room air while on continuous pulse oximetry. Unfortunately, her SPO2 dropped to 85% and she became mildly tachypneic. Will keep patient overnight for continued treatment in hopes of weaning her from continuous supplemental oxygen, which she normally does not wear at home. Reason For Visit: ACUTE COPD Physical Exam Vital Signs: Temp Pulse Resp BP Pulse Ox 97.7 F 93 18 140/56 H 93 12/13/18 13:49 12/13/18 13:49 12/13/18 13:49 12/13/18 13:49 12/13/18 13:49 Intake & Output 12/12/18 12/13/18 12/14/18 06:59 06:59 06:59 Intake Total 771 302 1947 Balance 043 777 7884 Weight 73.028 kg 73.2 kg General appearance: PRESENT: no acute distress, well-developed, well-nourished Head exam: PRESENT: atraumatic, normocephalic Eye exam: PRESENT: conjunctiva pink, EOMI, PERRLA. ABSENT: scleral icterus Ear exam: PRESENT: normal external ear exam Mouth exam: PRESENT: moist, tongue midline Neck exam: ABSENT: carotid bruit, JVD, lymphadenopathy, thyromegaly Respiratory exam: PRESENT: clear to auscultation cheri, symmetrical. ABSENT: rales, rhonchi, unlabored - Mildly labored, needs to pause every few minutes to catch her breath during conversation, wheezes Cardiovascular exam: PRESENT: RRR. ABSENT: diastolic murmur, rubs, systolic murmur Pulses: PRESENT: normal radial pulses, normal dorsalis pedis pul Vascular exam: PRESENT: normal capillary refill GI/Abdominal exam: PRESENT: normal bowel sounds, soft. ABSENT: distended, guarding, mass, organolmegaly, rebound, tenderness Rectal exam: PRESENT: deferred Extremities exam: PRESENT: full ROM. ABSENT: calf tenderness, clubbing, pedal edema Neurological exam: PRESENT: alert, awake, oriented to person, oriented to place, oriented to time, oriented to situation Psychiatric exam: PRESENT: appropriate affect, normal mood Skin exam: PRESENT: dry, intact, warm. ABSENT: cyanosis, rash Results Laboratory Results: 12/13/18 08:25 12/13/18 08:25 12/13/18 12/13/18 12/13/18 08:25 08:25 08:25 WBC 16.0 H RBC 4.48 Hgb 12.4 D Hct 38.3 MCV 85 MCH 27.7 MCHC 32.4 RDW 15.0 H Plt Count 229 Seg Neutrophils % 91.9 H Lymphocytes % 5.5 L Monocytes % 2.4 L Eosinophils % 0.0 Basophils % 0.2 Absolute Neutrophils 14.7 H Absolute Lymphocytes 0.9 Absolute Monocytes 0.4 Absolute Eosinophils 0.0 Absolute Basophils 0.0 VBG pH VBG pCO2 VBG HCO3 VBG Base Excess Sodium 140.2 Potassium 4.5 Chloride 107 Carbon Dioxide 22 Anion Gap 11 BUN 33 H Creatinine 1.25 Est GFR ( Amer) 49 L Est GFR (Non-Af Amer) 41 L Glucose 178 H Calcium 10.2 Magnesium 2.3 TSH 0.66 12/13/18 08:25 WBC RBC Hgb Hct MCV MCH MCHC RDW Plt Count Seg Neutrophils % Lymphocytes % Monocytes % Eosinophils % Basophils % Absolute Neutrophils Absolute Lymphocytes Absolute Monocytes Absolute Eosinophils Absolute Basophils VBG pH 7.36 VBG pCO2 38.9 VBG HCO3 21.2 VBG Base Excess -3.9 Sodium Potassium Chloride Carbon Dioxide Anion Gap BUN Creatinine Est GFR ( Amer) Est GFR (Non-Af Amer) Glucose Calcium Magnesium TSH 12/11/18 12/11/18 21:13 21:13 Creatine Kinase 126 CK-MB (CK-2) 2.59 Troponin I 0.012 NT-Pro-B Natriuret Pep 1040 H Impressions: Chest X-Ray 12/11/18 21:11 IMPRESSION: New bilateral interstitial infiltrates in the lower lung melo, indeterminate for cardiogenic pulmonary edema versus an atypical interstitial pneumonia. Status: Imported from PACS Assessment and Plan - Diagnosis (1) Acute respiratory failure with hypoxia Is this a current diagnosis for this admission?: Yes Plan: Secondary to COPD exacerbation stemming from likely URI CXR shows bilateral interstitial infiltrates lower lung melo Requiring supplemental oxygen via nasal cannula to maintain SPO2> 88% Empiric antibiotic coverage for possible community-acquired pneumonia and COPD patient Scheduled and as needed nebulizer treatments Scheduled IV Solu-Medrol Scheduled Spiriva and Serevent inhalers Daily nicotine patch (2) COPD exacerbation Is this a current diagnosis for this admission?: Yes Plan: Plan as above (3) Tobacco abuse Is this a current diagnosis for this admission?: Yes Plan: Patient endorses smoking history Extensive counseling regarding smoking cessation Patient is offered nicotine patch (4) Coronary artery disease Is this a current diagnosis for this admission?: Yes Plan: PMH CAD, NC x2 Continue home dose aspirin, statin, beta-chantelle and Plavix - Time Time Spent with patient: 15-24 minutes Medications reviewed and adjusted accordingly: Yes Anticipated discharge: Home Within: within 24 hours - Inpatient Certification Based on my medical assessment, after consideration of the patient's comorbidities, presenting symptoms, or acuity I expect that the services needed warrant INPATIENT care.: Yes I certify that my determination is in accordance with my understanding of Medicare's requirements for reasonable and necessary INPATIENT services [42 CFR 412.3e].: Yes Medical Necessity: Need For Continuous Telemetry Monitoring, Need for Nebulizer Therapy and Monitoring of Response, Risk of Complication if Not Cared For in Hospital - Plan Summary Plan Summary: Increased frequency of DuoNeb nebulizer treatments from every 8 hours to every 4 hours. Increased frequency of IV Solu-Medrol from every 8 hours to every 6 hours. Initiated long-acting inhalers, Spiriva and Serevent. Daily ambulation with pulse oximetry. Hopefully discharge home in 48 to 72 hours.
[2018-12-13] MEDS ORDERED: MAGNESIUM HYDROXIDE SUSP 30 ML UDCUP PO PRN (16:45)
[2018-12-13] MEDS: IPRATROPIUM/ALBUTEROL 0.5-2.5 MG/3 ML AMPUL NEB SCH ×2 (17:17→19:42)
[2018-12-13] MEDS ORDERED: METHYLPREDNISOLONE INJ 40 MG/1 ML SDV IV SCH (18:00)
[2018-12-13] MEDS: POLYETHYLENE GLYCOL 3350 POWDER 17 GM/1 PACKET PO SCH (18:18)
[2018-12-13] MEDS: SENNOSIDES/DOCUSATE 8.6-50 MG 1 EACH TABLET PO SCH (18:21)
[2018-12-13] MEDS: ATORVASTATIN CALCIUM 40 MG TABLET PO SCH (21:44)
[2018-12-13] MEDS: SALMETEROL XINAFOATE DISKUS 50 MCG/1 DOSE 28 DOSE IH SCH (21:45)
[2018-12-14 05:06] LABS: ABSOLUTE MONOCYTES (AUTO) 0.7 10^3/uL (0.1-1.4); ABSOLUTE NEUT (AUTO) 13.6 10^3/uL (1.7-8.2); BASOPHILS % (AUTO) 0.1 % (0-2); HEMOGLOBIN 11.9 g/dL (12.0-15.5); LYMPHOCYTES % (AUTO) 6.4 % (13-45); MEAN CORPUSCULAR HEMOGLOBIN 28.1 pg (27.0-33.4); MEAN CORPUSCULAR HGB CONC 33.1 g/dL (32.0-36.0); MEAN CORPUSCULAR VOLUME 85 fl (80-97); MONOCYTES % (AUTO) 4.5 % (3-13); PLATELET COUNT 212 10^3/uL (150-450); RED BLOOD COUNT 4.24 10^6/uL (3.72-5.28); RED CELL DISTRIBUTION WIDTH 14.7 % (11.5-14.0); TOTAL CELLS COUNTED % (AUTO) 100 %; WHITE BLOOD COUNT 15.3 10^3/uL (4.0-10.5)
[2018-12-14 05:32] LABS: ANION GAP 10 (5-19); BLOOD UREA NITROGEN 34 mg/dL (7-20); CALCIUM 9.8 mg/dL (8.4-10.2); CARBON DIOXIDE 27 mmol/L (22-30); CHLORIDE 105 mmol/L (98-107); GLUCOSE 140 mg/dL (75-110); POTASSIUM 4.3 mmol/L (3.6-5.0); SODIUM 141.7 mmol/L (137-145)
[2018-12-14] MEDS: HEPARIN SOD (PORCINE) 5,000 UNIT/ML 1 ML SYRINGE SUBCUT SCH ×3 (05:44→21:43)
[2018-12-14] MEDS: PANTOPRAZOLE SODIUM 40 MG TABLET.DR PO SCH (05:45)
[2018-12-14] MEDS: IPRATROPIUM BROMIDE 0.02% NEB 0.5 MG/2.5 ML AMPUL NEB SCH ×2 (07:47→15:46)
[2018-12-14] MEDS: ACETYLCYSTEINE 20% SOLN 800 MG/4 ML VIAL.NEB NEB SCH ×2 (07:53→19:55)
[2018-12-14] MEDS: IPRATROPIUM/ALBUTEROL 0.5-2.5 MG/3 ML AMPUL NEB SCH ×4 (07:53→19:56)
[2018-12-14] MEDS ORDERED: LACTOBACILLUS ACIDOPHILUS 250 MG TAB PO SCH (10:00)
[2018-12-14] MEDS: POLYETHYLENE GLYCOL 3350 POWDER 17 GM/1 PACKET PO SCH (10:49)
[2018-12-14] MEDS: CHOLECALCIFEROL (D3) 1,000 UNIT TABLET PO SCH (10:50)
[2018-12-14] MEDS: SENNOSIDES/DOCUSATE 8.6-50 MG 1 EACH TABLET PO SCH ×2 (10:50→17:56)
[2018-12-14] MEDS: FAMOTIDINE 20 MG TABLET PO SCH ×2 (10:51→21:41)
[2018-12-14] MEDS: ASPIRIN 81 MG TABLET, ENT COATED PO SCH (10:52)
[2018-12-14] MEDS: METOPROLOL SUCCINATE 50 MG TAB.SR.24H PO SCH (10:52)
[2018-12-14] MEDS: PREDNISONE 20 MG TABLET PO SCH (10:52)
[2018-12-14] MEDS: LACTOBACILLUS ACIDOPHILUS 250 MG TAB PO SCH (10:53)
[2018-12-14] MEDS: CLOPIDOGREL BISULFATE 75 MG TABLET PO SCH (10:53)
[2018-12-14] MEDS: TIOTROPIUM BROMIDE DPI 5 CAP/KIT (18 MCG/CAP) IH SCH (10:57)
[2018-12-14] MEDS: SALMETEROL XINAFOATE DISKUS 50 MCG/1 DOSE 28 DOSE IH SCH ×2 (10:58→21:43)
[2018-12-14] MEDS: GUAIFENESIN 600 MG TABLET.SA PO SCH ×2 (14:04→21:41)
[2018-12-14] MEDS ORDERED: LEVALBUTEROL HCL NEB 1.25 MG/3 ML AMPUL NEB PRN (17:29)
--- NOTE | 2018-12-14 17:33 | PDOC PROGRESS REPORT ---
Subjective Progress Note for:: 12/14/18 Subjective:: 83 y.o. F with a PMH of CAD, [place], COPD (no home O2), peptic ulcer disease, arthritis. She presented to [facility] emergency department with acute hypoxic respiratory distress. She is admitted to the hospitalist service for a COPD exacerbation. The patient was seen on morning rounds with family member present. She is found sitting up to the bed on supplemental oxygen via nasal cannula. She is not home O2 dependent. Unfortunately she did fill her ambulatory oxygen testing again this morning with desaturations into the mid 80s with associated tachypnea and dyspnea. Overall, the patient does report that she is feeling better, but with continued productive cough and dyspnea with activity. She denies fever, chills, chest pain, palpitations, orthopnea, abdominal pain, nausea vomiting and diarrhea. She has no new questions or concerns. No concerns per nursing. Reason For Visit: ACUTE COPD Physical Exam Vital Signs: Temp Pulse Resp BP Pulse Ox 97.7 F 70 18 162/80 H 98 12/14/18 16:43 12/14/18 16:43 12/14/18 16:43 12/14/18 16:43 12/14/18 16:43 Intake & Output 12/13/18 12/14/18 12/15/18 06:59 06:59 06:59 Intake Total 325 3280 Balance 325 3280 Weight 73.2 kg 73.2 kg General appearance: PRESENT: no acute distress, cooperative - Pleasant, well- developed, well-nourished - Overweight Head exam: PRESENT: atraumatic, normocephalic Eye exam: PRESENT: conjunctiva pink, EOMI, PERRLA. ABSENT: scleral icterus Ear exam: PRESENT: normal external ear exam Mouth exam: PRESENT: moist, tongue midline Neck exam: ABSENT: carotid bruit, JVD, lymphadenopathy, thyromegaly Respiratory exam: PRESENT: clear to auscultation cheri, prolonged expiratory phas, rhonchi, symmetrical, unlabored, wheezes, other - Supplemental oxygen via nasal cannula. ABSENT: rales Cardiovascular exam: PRESENT: RRR, +S1, +S2. ABSENT: diastolic murmur, rubs, systolic murmur Pulses: PRESENT: normal dorsalis pedis pul Vascular exam: PRESENT: normal capillary refill GI/Abdominal exam: PRESENT: normal bowel sounds, soft. ABSENT: distended, guarding, mass, organolmegaly, rebound, tenderness Rectal exam: PRESENT: deferred Extremities exam: PRESENT: full ROM. ABSENT: calf tenderness, clubbing, pedal edema Musculoskeletal exam: PRESENT: ambulatory Neurological exam: PRESENT: alert, awake, oriented to person, oriented to place, oriented to time, oriented to situation, CN II-XII grossly intact. ABSENT: motor sensory deficit Psychiatric exam: PRESENT: appropriate affect, normal mood. ABSENT: homicidal ideation, suicidal ideation Skin exam: PRESENT: dry, intact, warm. ABSENT: cyanosis, rash Results Laboratory Results: 12/14/18 04:47 12/14/18 04:47 12/14/18 12/14/18 04:47 04:47 WBC 15.3 H RBC 4.24 Hgb 11.9 L Hct 36.0 MCV 85 MCH 28.1 MCHC 33.1 RDW 14.7 H Plt Count 212 Seg Neutrophils % 89.0 H Lymphocytes % 6.4 L Monocytes % 4.5 Eosinophils % 0.0 Basophils % 0.1 Absolute Neutrophils 13.6 H Absolute Lymphocytes 1.0 Absolute Monocytes 0.7 Absolute Eosinophils 0.0 Absolute Basophils 0.0 Sodium 141.7 Potassium 4.3 Chloride 105 Carbon Dioxide 27 Anion Gap 10 BUN 34 H Creatinine 1.04 Est GFR ( Amer) > 60 Est GFR (Non-Af Amer) 50 L Glucose 140 H Calcium 9.8 Magnesium 2.9 H 12/11/18 12/11/18 21:13 21:13 Creatine Kinase 126 CK-MB (CK-2) 2.59 Troponin I 0.012 NT-Pro-B Natriuret Pep 1040 H Impressions: Chest X-Ray 12/11/18 21:11 IMPRESSION: New bilateral interstitial infiltrates in the lower lung melo, indeterminate for cardiogenic pulmonary edema versus an atypical interstitial pneumonia. Assessment and Plan - Diagnosis (1) Acute respiratory failure with hypoxia Is this a current diagnosis for this admission?: Yes Plan: Improved; decreased shortness of breath, continues to require supplemental oxygen. She is not home O2 dependent. secondary to COPD exacerbation stemming from likely URI CXR shows bilateral interstitial infiltrates lower lung melo Requiring supplemental oxygen via nasal cannula to maintain SPO2> 89% Empiric antibiotic coverage for possible community-acquired pneumonia and COPD patient; will start ciprofloxacin today Scheduled and as needed nebulizer treatments; have decreased frequency slightly. Start prednisone 60 mg daily Scheduled Spiriva and Serevent inhalers Daily nicotine patch Mucomyst nebulizer treatments twice daily. Twice daily Mucinex. Incentive spirometer and flutter valve to bedside. Encouraged ambulation. (2) COPD exacerbation Is this a current diagnosis for this admission?: Yes Plan: Plan as above (3) Coronary artery disease Is this a current diagnosis for this admission?: Yes Plan: PMH CAD, [place] x2 Continue home dose aspirin, statin, beta-chantelle and Plavix (4) Tobacco abuse Is this a current diagnosis for this admission?: Yes Plan: Patient endorses smoking history; reports that she discontinued smoking 1 year ago after her admission requiring intubation for COPD exacerbation. Patient was commended on her achievement and encouraged to remain tobacco free. Patient is offered nicotine patch (5) GERD (gastroesophageal reflux disease) Qualifiers: Esophagitis presence: without esophagitis Qualified Code(s): K21.9 - Gastro-esophageal reflux disease without esophagitis Is this a current diagnosis for this admission?: Yes Plan: Continue daily Protonix. - Time Time Spent with patient: 25-34 minutes Medications reviewed and adjusted accordingly: Yes Anticipated discharge: Home Within: within 24 hours
[2018-12-14] MEDS ORDERED: CIPROFLOXACIN HCL 500 MG TABLET ONE (21:36)
[2018-12-14] MEDS: CIPROFLOXACIN HCL 500 MG TABLET PO SCH (21:41)
[2018-12-14] MEDS: ATORVASTATIN CALCIUM 40 MG TABLET PO SCH (21:41)
[2018-12-15] MEDS: IPRATROPIUM/ALBUTEROL 0.5-2.5 MG/3 ML AMPUL NEB SCH ×3 (02:05→14:15)
[2018-12-15 04:13] LABS: ABSOLUTE LYMPHOCYTES (AUTO) 1.2 10^3/uL (0.5-4.7); ABSOLUTE MONOCYTES (AUTO) 0.8 10^3/uL (0.1-1.4); ABSOLUTE NEUT (AUTO) 8.9 10^3/uL (1.7-8.2); HEMATOCRIT 37.1 % (36.0-47.0); HEMOGLOBIN 12.4 g/dL (12.0-15.5); LYMPHOCYTES % (AUTO) 10.8 % (13-45); MEAN CORPUSCULAR HEMOGLOBIN 28.3 pg (27.0-33.4); MEAN CORPUSCULAR HGB CONC 33.5 g/dL (32.0-36.0); MEAN CORPUSCULAR VOLUME 85 fl (80-97); PLATELET COUNT 209 10^3/uL (150-450); RED BLOOD COUNT 4.38 10^6/uL (3.72-5.28); RED CELL DISTRIBUTION WIDTH 14.7 % (11.5-14.0); SEGMENTED NEUTROPHILS % (AUTO) 82.2 % (42-78); TOTAL CELLS COUNTED % (AUTO) 100 %; WHITE BLOOD COUNT 10.8 10^3/uL (4.0-10.5)
[2018-12-15 04:43] LABS: ANION GAP 10 (5-19); BLOOD UREA NITROGEN 30 mg/dL (7-20); CALCIUM 9.6 mg/dL (8.4-10.2); CARBON DIOXIDE 28 mmol/L (22-30); CHLORIDE 101 mmol/L (98-107); POTASSIUM 4.8 mmol/L (3.6-5.0)
[2018-12-15 04:44] LABS: GLUCOSE 103 mg/dL (75-110)
[2018-12-15] MEDS: PANTOPRAZOLE SODIUM 40 MG TABLET.DR PO SCH (06:11)
[2018-12-15] MEDS: HEPARIN SOD (PORCINE) 5,000 UNIT/ML 1 ML SYRINGE SUBCUT SCH ×2 (06:13→13:42)
[2018-12-15] MEDS: ACETYLCYSTEINE 20% SOLN 800 MG/4 ML VIAL.NEB NEB SCH (08:13)
[2018-12-15] MEDS: TIOTROPIUM BROMIDE DPI 5 CAP/KIT (18 MCG/CAP) IH SCH (10:12)
[2018-12-15] MEDS: POLYETHYLENE GLYCOL 3350 POWDER 17 GM/1 PACKET PO SCH (10:13)
[2018-12-15] MEDS: CIPROFLOXACIN HCL 500 MG TABLET PO SCH (10:13)
[2018-12-15] MEDS: CHOLECALCIFEROL (D3) 1,000 UNIT TABLET PO SCH (10:13)
[2018-12-15] MEDS: LACTOBACILLUS ACIDOPHILUS 250 MG TAB PO SCH (10:13)
[2018-12-15] MEDS: CLOPIDOGREL BISULFATE 75 MG TABLET PO SCH (10:13)
[2018-12-15] MEDS: SALMETEROL XINAFOATE DISKUS 50 MCG/1 DOSE 28 DOSE IH SCH (10:13)
[2018-12-15] MEDS: METOPROLOL SUCCINATE 50 MG TAB.SR.24H PO SCH (10:13)
[2018-12-15] MEDS: SENNOSIDES/DOCUSATE 8.6-50 MG 1 EACH TABLET PO SCH (10:14)
[2018-12-15] MEDS: ASPIRIN 81 MG TABLET, ENT COATED PO SCH (10:14)
[2018-12-15] MEDS: PREDNISONE 20 MG TABLET PO SCH (10:14)
[2018-12-15] MEDS: FAMOTIDINE 20 MG TABLET PO SCH (10:14)
[2018-12-15] MEDS: GUAIFENESIN 600 MG TABLET.SA PO SCH (10:14)
[2018-12-15 13:00] VITALS: BP 138/78
--- NOTE | 2018-12-17 20:43 | PDOC DISCHARGE SUMMARY ---
General - Admit/Disc Date/PCP Admission Date/Primary Care Provider: 12/11/18 23:55 RENETTA RICHARDSON MD Discharge Date: 12/15/18 - Discharge Diagnosis (1) Acute respiratory failure with hypoxia Is this a current diagnosis for this admission?: Yes Summary: Resolved. Secondary to COPD exacerbation stemming from likely URI CXR shows bilateral interstitial infiltrates lower lung melo PT was admitted to the medical floor on continuous cardiac telemetry and was provided supplemental oxygen to maintain SPO2> 89%. She was supported with scheduled and as needed nebulizer treatments with twice daily mucomyst. She was empirically treated for possible community-acquired pneumonia and COPD using ciproflaxacin. She was started on IV Solu-medrol which was weaned to p.o prednisone at discharge. She was provided twice daily mucinex. Frequent ambulation, incentive spirometer, and flutter valve were encouraged. The patient symptoms rapidly resolved and her oxygen requirement decreased. At time of discharge, the patient was asymptomatic and maintaining oxygen saturations while ambulatory on room air. She is discharged to home in stable condition. She is provided prescriptions for a nebulizer, duonebs, prednisone, mucinex, Serevent, Spiriva, and cipro. She is advised to follow up with her primary care provider within 1 week and to return to the emergency department as needed for concerning symptoms. (2) COPD exacerbation Is this a current diagnosis for this admission?: Yes Summary: Evaluation and management as above. (3) Coronary artery disease Is this a current diagnosis for this admission?: Yes Summary: PMH CAD, [place] x2 Recommend to continue home dose aspirin, statin, beta-chantelle and Plavix (4) Tobacco abuse Is this a current diagnosis for this admission?: Yes Summary: Patient endorses smoking history; reports that she discontinued smoking 1 year ago after her admission requiring intubation for COPD exacerbation. Patient was commended on her achievement and encouraged to remain tobacco free. (5) GERD (gastroesophageal reflux disease) Is this a current diagnosis for this admission?: Yes Summary: Continue daily Protonix. - Additional Information Resuscitation Status: Full Code Discharge Diet: Cardiac Discharge Activity: Activity As Tolerated, Balance Activity w/Rest, Slowly Increase Activity Prescriptions: Ciprofloxacin HCl [Cipro 500 mg Tablet] 500 mg PO Q12 #14 tablet Guaifenesin [Mucinex Sr 600 mg Tablet.sa] 600 mg PO Q12 #28 tablet.sa Ipratropium/Albuterol Sulfate [Duoneb 3 ml Ampul] 3 ml NEB RTQ6HP PRN #120 vial.neb PRN Reason: Nebulizer [Nebulizer Machine] 1 each ASDIR PRN #1 kit PRN Reason: Prednisone [Deltasone 20 mg Tablet] 60 mg PO DAILY #15 tablet Salmeterol Xinafoate [Serevent Diskus 50 Mcg/Dose 28 Dose/Diskus] 50 mcg IH Q12 #1 disk Tiotropium Proctor [Spiriva Handihaler 5 Cap/Kit (18 Mcg/Cap)] 1 cap IH DAILY #1 kit Home Medications: Albuterol Sulfate [Proair HFA Inhalation Aerosol 8.5 gm MDI] 2 puff IH Q6HP PRN 12/12/18 Aspirin [Ecotrin 81 mg EC Tablet] 81 mg PO DAILY 12/12/18 Atorvastatin Calcium [Lipitor 40 mg Tablet] 40 mg PO QHS 12/12/18 Atorvastatin Calcium [Lipitor 40 mg Tablet] 40 mg PO QHS 12/12/18 Cholecalciferol (Vitamin D3) [Vitamin D3 1000 Unit Tablet] 1,000 unit PO DAILY 12/12/18 Clopidogrel Bisulfate [Plavix 75 mg Tablet] 75 mg PO DAILY 12/12/18 Glycopyrrolate/Formoterol Fum [Bevespi Aerosphere Inhaler] 2 puff IH BID 12/12/18 Lactobacillus Acidophilus/Fos [Acidophilus Probiotic Tablet] 1 each PO DAILY 12/12/18 Metoprolol Succinate [Toprol Xl 50 mg Tab.sr] 50 mg PO DAILY 12/12/18 Pantoprazole Sodium [Protonix [address] Tablet] 40 mg PO Q6AM 12/12/18 Vits A,C,E/Lutein/Minerals [Ocuvite with Lutein Tablet] 1 each PO BID 12/12/18 Acetaminophen [Tylenol 325 mg Tablet] 650 mg PO Q4HP PRN tablet 12/15/18 Ciprofloxacin HCl [Cipro 500 mg Tablet] 500 mg PO Q12 #14 tablet 12/15/18 Guaifenesin [Mucinex Sr 600 mg Tablet.sa] 600 mg PO Q12 #28 tablet.sa 12/15/18 Ipratropium/Albuterol Sulfate [Duoneb 3 ml Ampul] 3 ml NEB RTQ6HP PRN #120 vial.neb 12/15/18 Nebulizer [Nebulizer Machine] 1 each ASDIR PRN #1 kit 12/15/18 Polyethylene Glycol 3350 [Miralax Powder 17 gm/Packet] 17 gm PO DAILY powd.pack 12/15/18 Prednisone [Deltasone 20 mg Tablet] 60 mg PO DAILY #15 tablet 12/15/18 Salmeterol Xinafoate [Serevent Diskus 50 Mcg/Dose 28 Dose/Diskus] 50 mcg IH Q12 #1 disk 12/15/18 Sennosides/Docusate 8.6-50 mg [Senna Plus Tablet] 2 each PO BID tablet 12/15/18 Tiotropium Proctor [Spiriva Handihaler 5 Cap/Kit (18 Mcg/Cap)] 1 cap IH DAILY #1 kit 12/15/18 History of Present Illness History of Present Illness: Per H&P by Dr. Rosas: Paulo CORCORAN is a 83 year old female who presented to the emergency room with an acute history of dyspnea. Patient admits that she had not been feeling exceptionally well and had not been breathing exceptionally well for approximately 2 weeks but this had become more or less her except at baseline. Then earlier today she suddenly developed significantly increased and severe dyspnea without accompanying symptoms. She has had prior similar episodes with exacerbations of her COPD. She denies identification of any aggravating or ameliorating factors for her dyspnea. In the emergency room she was found to be significantly hypoxic and continued requires supplemental oxygen in order to maintain adequate oxygen saturation. Because of this finding the patient was admitted to hospital for further evaluation and treatment. Physical Exam Vital Signs: Temp Pulse Resp BP Pulse Ox 98.3 F 74 16 138/78 H 93 12/15/18 15:18 12/15/18 15:18 12/15/18 15:18 12/15/18 15:18 12/15/18 15:18 Intake & Output 12/16/18 12/17/18 12/18/18 06:59 06:59 06:59 Intake Total 440 Output Total 350 Balance 90 General appearance: PRESENT: no acute distress, cooperative - Pleasant, well- developed, well-nourished - overweight Head exam: PRESENT: atraumatic, normocephalic Eye exam: PRESENT: conjunctiva pink, EOMI, PERRLA. ABSENT: scleral icterus Mouth exam: PRESENT: moist, tongue midline Neck exam: ABSENT: carotid bruit, JVD, lymphadenopathy, thyromegaly Respiratory exam: PRESENT: clear to auscultation cheri, prolonged expiratory phas, symmetrical, unlabored. ABSENT: rales, rhonchi, wheezes Cardiovascular exam: PRESENT: RRR, +S1, +S2. ABSENT: diastolic murmur, rubs, systolic murmur Pulses: PRESENT: normal dorsalis pedis pul Vascular exam: PRESENT: normal capillary refill GI/Abdominal exam: PRESENT: normal bowel sounds, soft. ABSENT: distended, guarding, mass, organolmegaly, rebound, tenderness Rectal exam: PRESENT: deferred Extremities exam: PRESENT: full ROM. ABSENT: calf tenderness, clubbing, pedal edema Neurological exam: PRESENT: alert, awake, oriented to person, oriented to place, oriented to time, oriented to situation, CN II-XII grossly intact. ABSENT: motor sensory deficit Psychiatric exam: PRESENT: appropriate affect, normal mood. ABSENT: homicidal ideation, suicidal ideation Skin exam: PRESENT: dry, intact, warm. ABSENT: cyanosis, rash Results Laboratory Results: 12/15/18 03:30 12/15/18 03:30 12/13/18 21:55 Ankle - Not Specified Gram Stain - Final 12/12/18 00:34 Blood Blood Culture - Final NO GROWTH IN 5 DAYS 12/11/18 21:13 Blood Blood Culture - Final NO GROWTH IN 5 DAYS 12/11/18 12/11/18 21:13 21:13 Creatine Kinase 126 CK-MB (CK-2) 2.59 Troponin I 0.012 NT-Pro-B Natriuret Pep 1040 H Impressions: Chest X-Ray 12/11/18 21:11 IMPRESSION: New bilateral interstitial infiltrates in the lower lung melo, indeterminate for cardiogenic pulmonary edema versus an atypical interstitial pneumonia. Qualifiers - * PATIENT BEING DISCHARGED WITH ANY OF THE FOLLOWING DIAGNOSIS: No Acute Heart Failure Is this a Heart Failure Patient?: No Plan Discharge Plan: Discharge to home with self care. Follow up with primary care provider within 1 week. Continue to use the incentive spirometer and flutter valve at home. Avoid known triggers (dust, pollen, smoke, allergens). Return to the emergency department as needed for concerning symptoms. Time Spent: Less than 30 Minutes
== END 2018-12-15 16:11 | disposition home or self-care (01) | DRG 190 ==
LOC: ER 20:58 → OBSVTOIN 23:55 → EH 23:55 → 4N 12-12 17:15
PROVIDERS: ADMIT Emergency Medicine; ATTEND Emergency Medicine
PROC: 5A09357 Assistance with Respiratory Ventilation, Less than 24 Consecutive Hours, Continuous Positive Airway Pressure (ICD-10-PCS; principal; 2018-12-11)
PROC: 3E0F3GC Introduction of Other Therapeutic Substance into Respiratory Tract, Percutaneous Approach (ICD-10-PCS; 2018-12-13)
DX: J44.0 Chronic obstructive pulmonary disease with (acute) lower respiratory infection (principal); J18.9 Pneumonia, unspecified organism; J96.02 Acute respiratory failure with hypercapnia; J96.01 Acute respiratory failure with hypoxia; D64.9 Anemia, unspecified; J44.1 Chronic obstructive pulmonary disease with (acute) exacerbation; I25.10 Atherosclerotic heart disease of native coronary artery without angina pectoris; K21.9 Gastro-esophageal reflux disease without esophagitis; E66.3 Overweight; M19.90 Unspecified osteoarthritis, unspecified site; K27.9 Peptic ulcer, site unspecified, unspecified as acute or chronic, without hemorrhage or perforation; Z87.891 Personal history of nicotine dependence; Z79.82 Long term (current) use of aspirin; Z79.52 Long term (current) use of systemic steroids; Z79.02 Long term (current) use of antithrombotics/antiplatelets; I25.2 Old myocardial infarction; Z83.6 Family history of other diseases of the respiratory system; Z88.3 Allergy status to other anti-infective agents; Z88.2 Allergy status to sulfonamides
CPT/HCPCS: 36415; 71045; 80048; 80053; 81001; 82550; 82553; 82803; 83735; 83880; 84439; 84443; 84481; 84484; 85025; 87040; 87070; 87077; 87186; 87205; 93005; 93010; 94640; 94660; 94667; 94799; 99285; J1644; J1956; J2920; J3490; J7120; J7512; J7620

== ENCOUNTER → 2019-06-25 | Outpatient (CLI) | payer MEDICARE, OTHER ==
--- NOTE | 2019-06-25 11:44 | RADIOLOGY REPORT (SQ) ---
EXAM DESCRIPTION: UGI SERIES COMPLETED DATE/TIME: 06/25/2019 8:48 am REASON FOR STUDY: ABDOMINAL BLOATING (R14.0) R14.0 ABDOMINAL DISTENSION (GASEOUS) COMPARISON: None. TECHNIQUE: Under fluoroscopic guidance, patient ingested effervescent granules followed by thick and thin barium. Fluoroscopic spot images and routine radiographic images acquired and stored on PACS. 12 MM BARIUM TABLET GIVEN: Yes. No significant delay in passage. LIMITATIONS: None. FLUOROSCOPY TIME: FLUORO TIME: 2.7 minutes of fluoroscopy was used. 31 images saved to PACS. FINDINGS: NEUROMUSCULAR COORDINATION OF SWALLOW: Normal. No aspiration. ESOPHAGEAL MOTILITY: Normal peristalsis. No esophageal spasm. ESOPHAGEAL MUCOSA: Normal mucosa without masses or ulceration. GASTRO-ESOPHAGEAL JUNCTION: No hiatal hernia or reflux. STOMACH: Normal without masses or ulcerations. GASTRIC OUTLET: No delay in emptying. Normal pylorus. DUODENAL BULB: Normal distention. No spasm or ulceration. DUODENUM: Mucosa normal. No extrinsic masses or malrotation. PROXIMAL SMALL BOWEL: Mucosa normal. No extrinsic masses or malrotation. NON-GI TRACT STRUCTURES: No significant finding. OTHER: No other significant finding. IMPRESSION: NORMAL DOUBLE CONTRAST BARIUM SWALLOW / UPPER GI SERIES. COMMENT: Quality ID [id number]: Final reports for procedures using fluoroscopy that document radiation exp osure indices, or exposure time and number of fluorographic images (if radiation exposure indices are not available) TECHNICAL DOCUMENTATION: JOB ID: [id number] [employer]- All Rights Reserved Reading location - IP/workstation name: [email or web address] [id number]
== END ==
LOC: RAD 07:56
PROVIDERS: ATTEND Internal Medicine
DX: R14.0 Abdominal distension (gaseous) (principal)
CPT/HCPCS: 74247

== ENCOUNTER 2019-10-25 15:34 | Emergency (ER) | payer MEDICARE, OTHER ==
--- NOTE | 2019-10-25 16:31 | RADIOLOGY REPORT (SQ) ---
EXAM DESCRIPTION: CHEST SINGLE VIEW COMPLETED DATE/TIME: 10/25/2019 4:22 pm REASON FOR STUDY: Shortness of breath COMPARISON: 12/11/2018 EXAM PARAMETERS: NUMBER OF VIEWS: One view. TECHNIQUE: Single frontal radiographic view of the chest acquired. RADIATION DOSE: NA LIMITATIONS: None. FINDINGS: LUNGS AND PLEURA: Mild bibasilar opacification does not appear significantly changed since the earlier study. MEDIASTINUM AND HILAR STRUCTURES: No masses. Contour normal. HEART AND VASCULAR STRUCTURES: Heart normal in size. Normal vasculature. BONES: No acute findings. HARDWARE: None in the chest. OTHER: No other significant finding. IMPRESSION: Mild chronic lung changes with no acute cardiopulmonary findings. TECHNICAL DOCUMENTATION: JOB ID: [id number] 2010 [employer]- All Rights Reserved Reading location - IP/workstation name: [email or web address]
--- NOTE | 2019-10-25 16:51 | ER Document Report ---
ED General - General Chief Complaint: Shortness Of Breath Stated Complaint: SHORTNESS OF BREATH Time Seen by Provider: 10/25/19 16:50 Primary Care Provider: RENETTA RICHARDSON MD [Primary Care Provider] - Follow up as needed Mode of Arrival: Medic Information source: Patient Notes: 84-year-old female arrives by EMS with son with chief complaint of acute onset of shortness of breath 04 100 today as she went to the bathroom. Patient has a history of COPD but no CHF history. She has been on antibiotics per physician for URI. She was not feeling any improvement and therefore she came back to the ER. TRAVEL OUTSIDE OF THE [place] IN LAST 30 DAYS: No - HPI Onset: This morning Onset/Duration: Sudden Quality of pain: Achy, Other - Feels like someone sitting on her chest Severity: Mild Pain Level: Denies Associated symptoms: None Exacerbated by: Movement, Deep breathing Relieved by: Denies Similar symptoms previously: No Recently seen / treated by doctor: No - Related Data Allergies/Adverse Reactions: doxycycline [Doxycycline] Allergy (Mild, Verified 10/25/19 17:03) n/v Sulfa (Sulfonamide Antibiotics) Allergy (Mild, Verified 10/25/19 17:03) n/v ciprofloxacin [From Cipro] Allergy (Verified 10/25/19 17:03) Past Medical History - General Information source: Patient, Relative - son in room playing [employer] - Social History Smoking Status: Never Smoker Cigarette use (# per day): No Chew tobacco use (# tins/day): No Smoking Education Provided: No Frequency of alcohol use: None Drug Abuse: None Lives with: Family Family History: COPD Patient has suicidal ideation: No Patient has homicidal ideation: No - Past Medical History Cardiac Medical History: Reports: Hx Coronary Artery Disease, Hx Heart Attack - non-STEMI Denies: Hx Hypertension Pulmonary Medical History: Reports: Hx COPD, Hx Respiratory Failure Neurological Medical History: Denies: Hx Seizures Endocrine Medical History: Denies: Hx Diabetes Mellitus Type 1, Hx Diabetes Mellitus Type 2, Hx Hyperthyroidism, Hx Hypothyroidism Renal/ Medical History: Denies: Hx Peritoneal Dialysis GI Medical History: Reports: Hx Ulcer. Denies: Hx Cirrhosis, Hx Hepatitis Musculoskeletal Medical History: Reports Hx Arthritis, Denies Hx Gout Skin Medical History: Denies Hx Eczema, Denies Hx Psoriasis Infectious Medical History: Denies: Hx Hepatitis - Immunizations Hx Diphtheria, Pertussis, Tetanus Vaccination: No Hx Pneumococcal Vaccination: 05/13/15 Review of Systems - Review of Systems Constitutional: No symptoms reported, Weakness EENT: No symptoms reported Cardiovascular: No symptoms reported Respiratory: See HPI, Short of breath Gastrointestinal: No symptoms reported Genitourinary: No symptoms reported Female Genitourinary: No symptoms reported Musculoskeletal: No symptoms reported Skin: No symptoms reported Hematologic/Lymphatic: No symptoms reported Neurological/Psychological: No symptoms reported Physical Exam - Vital signs Vitals: BP Pulse Ox 168/66 H 93 10/25/19 15:44 10/25/19 15:44 Interpretation: Normal - HEENT Head: Normocephalic Eyes: Normal Conjunctiva: Normal Cornea: Normal Extraocular movements intact: Yes Eyelashes: Normal Pupils: PERRL Nasal: Normal Mouth/Lips: Normal Pharynx: Normal Neck: Normal - Respiratory Respiratory status: No respiratory distress Chest status: Nontender Breath sounds: Normal Chest palpation: Normal - Cardiovascular Rhythm: Regular Heart sounds: Normal auscultation Murmur: No Friction rub: No Samia's crunch: No - Abdominal Inspection: Normal Distension: No distension Bowel sounds: Normal Tenderness: Nontender Organomegaly: No organomegaly - Back Back: Normal - Extremities General upper extremity: Normal inspection General lower extremity: Normal inspection - Neurological Neuro grossly intact: Yes Cognition: Normal Orientation: AAOx4 [place] Coma Scale Eye Opening: Spontaneous [place] Coma Scale Verbal: Oriented [place] Coma Scale Motor: Obeys Commands [place] Coma Scale Total: 15 Speech: Normal Cranial nerves: Normal Cerebellar coordination: Normal Motor strength normal: LUE, RUE, LLE, RLE - Psychological Associated symptoms: Normal affect - Skin Skin Temperature: Warm Skin Moisture: Dry Course - Vital Signs Vital signs: Temp Pulse Resp BP Pulse Ox 98.2 F 20 167/86 H 94 10/25/19 17:02 10/25/19 18:00 10/25/19 16:01 10/25/19 18:00 - Laboratory Result Diagrams: 10/25/19 16:12 10/25/19 16:12 Laboratory results interpreted by me: 10/25/19 10/25/19 10/25/19 16:12 16:12 16:12 WBC 14.0 H RDW 15.1 H Seg Neuts % (Manual) 93 H Lymphocytes % (Manual) 4 L Monocytes % (Manual) 2 L Abs Neuts (Manual) 13.0 H D-Dimer BUN 25 H Est GFR ( Amer) 55 L Est GFR (MDRD) Non-Af 46 L Glucose 151 H NT-Pro-B Natriuret Pep 8130 H Urine Protein Ur Leukocyte Esterase Urine Ascorbic Acid 10/25/19 10/25/19 16:12 18:43 WBC RDW Seg Neuts % (Manual) Lymphocytes % (Manual) Monocytes % (Manual) Abs Neuts (Manual) D-Dimer 0.74 H BUN Est GFR ( Amer) Est GFR (MDRD) Non-Af Glucose NT-Pro-B Natriuret Pep Urine Protein 100 H Ur Leukocyte Esterase TRACE H Urine Ascorbic Acid 20 H - Diagnostic Test Radiology reviewed: Reports reviewed Critical Care Note - Critical Care Note Total time excluding time spent on procedures (mins): 90 Comments: I discussed the findings with the patient with increased fluid in chest and negative CT with findings of emphysema COPD but no pulmonary embolism. Patient's d-dimer was positive. Discharge - Discharge Clinical Impression: COPD exacerbation UTI (urinary tract infection) Qualifiers: Urinary tract infection type: acute cystitis Hematuria presence: without hematuria Qualified Code(s): N30.00 - Acute cystitis without hematuria CHF (congestive heart failure) Qualifiers: Heart failure type: unspecified Heart failure chronicity: acute Qualified Code(s): I50.9 - Heart failure, unspecified Acute bronchitis Qualifiers: Bronchitis organism: unspecified organism Qualified Code(s): J20.9 - Acute bronchitis, unspecified Condition: Good Disposition: HOME, SELF-CARE Additional Instructions: Follow with PMD and return to ED as needed; take meds as directed; keep fluids to 1/2 liter daily Prescriptions: Furosemide [Lasix] 10 mg PO DAILY #15 tablet Nitrofurantoin Monohyd/M-Cryst [Macrobid 100 mg Capsule] 100 mg PO BID #14 cap Referrals: RENETTA RICHARDSON MD [Primary Care Provider] - Follow up as needed
[2019-10-25 16:55] LABS: ALKALINE PHOSPHATASE 83 U/L (38-126); ANION GAP 9 (5-19); ASPARTATE AMINO TRANSFERASE 28 U/L (14-36); BILIRUBIN,DIRECT 0.2 mg/dL (0.0-0.4); BILIRUBIN,TOTAL 0.8 mg/dL (0.2-1.3); BLOOD UREA NITROGEN 25 mg/dL (7-20); CALCIUM 9.6 mg/dL (8.4-10.2); CARBON DIOXIDE 29 mmol/L (22-30); CHLORIDE 99 mmol/L (98-107); GLUCOSE 151 mg/dL (75-110); POTASSIUM 4.6 mmol/L (3.6-5.0)
[2019-10-25 17:01] LABS: HEMATOCRIT 44.1 % (36.0-47.0); HEMOGLOBIN 14.8 g/dL (12.0-15.5); MEAN CORPUSCULAR HEMOGLOBIN 29.3 pg (27.0-33.4); MEAN CORPUSCULAR HGB CONC 33.5 g/dL (32.0-36.0); MEAN CORPUSCULAR VOLUME 87 fl (80-97); PLATELET COUNT 305 10^3/uL (150-450); RED BLOOD COUNT 5.05 10^6/uL (3.72-5.28); RED CELL DISTRIBUTION WIDTH 15.1 % (11.5-14.0)
[2019-10-25 17:26] LABS: ABSOLUTE LYMPHOCYTES# (MANUAL) 0.6 10^3/uL (0.5-4.7); ABSOLUTE MONOCYTES # (MANUAL) 0.3 10^3/uL (0.1-1.4); BASOPHILS % (MANUAL) 0 % (0-2); EOSINOPHILS % (MANUAL) 1 % (0-6); LYMPHOCYTES % (MANUAL) 4 % (13-45); MONOCYTES % (MANUAL) 2 % (3-13); SEGMENTED NEUTROPHILS % (MAN) 93 % (42-78); TOTAL CELLS COUNTED 100
[2019-10-25 17:27] LABS: PLATELET COMMENT ADEQUATE
[2019-10-25 17:33] LABS: NT PRO BNP 8130 pg/mL (<450)
[2019-10-25 17:35] LABS: TROPONIN I < 0.012 ng/mL
[2019-10-25 19:13] LABS: APPEARANCE,URINE CLEAR; BILIRUBIN,URINE NEGATIVE (NEGATIVE); COLOR,URINE STRAW; GLUCOSE, URINE NEGATIVE (NEGATIVE); KETONES,URINE NEGATIVE (NEGATIVE); LEUKOCYTE ESTERASE,URINE TRACE (NEGATIVE); NITRITE,URINE NEGATIVE (NEGATIVE); PROTEIN,URINE 100 mg/dL (NEGATIVE); UROBILINOGEN,URINE NEGATIVE mg/dL (<2.0)
--- NOTE | 2019-10-25 19:23 | RADIOLOGY REPORT (SQ) ---
EXAM DESCRIPTION: CTA CHEST COMPLETED DATE/TIME: 10/25/2019 7:06 pm REASON FOR STUDY: sob COMPARISON: 10/27/2017 TECHNIQUE: CT scan of the chest performed using helical scanning technique with dynamic intravenous contrast injection. Images reviewed with lung, soft tissue and bone windows. Reconstructed coronal and sagittal MPR images reviewed. Additional 3 dimensional post-processing performed to develop Maximal Intensity Projection images (VA P). All images stored on PACS. All CT scanners at this facility use dose modulation, iterative reconstruction, and/or weight based d osing when appropriate to reduce radiation dose to as low as reasonably achievable (ALARA). [facility]: Dose Right [facility]: CareDose [facility]: Dose Right [facility]: Teradose 4D [facility]: [employer] CONTRAST TYPE AND DOSE: contrast/concentration: Isovue mg/ml; Total Contrast Delivered: 51.0 ml; To jamaal Saline Delivered: 77.0 ml Contrast bolus optimized for the pulmonary arteries. Not diagnostic for the aorta. RENAL FUNCTION: BUN 25 creatinine 1.13 RADIATION DOSE: CT Rad equipment meets quality standard of care and radiation dose reduction techniq ues were employed. CTDIvol: 14.3 - 19.8 mGy. DLP: 547 mGy-cm. . LIMITATIONS: None. FINDINGS: LUNGS AND PLEURA: Extensive centrilobular emphysematous changes. No acute infiltrate or e ffusion. No mass. AORTA AND GREAT VESSELS: No aneurysm. Contrast bolus not optimized for the aorta. HEART: No pericardial effusion. No significant coronary artery calcifications. PULMONARY ARTERIES: No emboli visualized in the main pulmonary arteries or the segmental branches. HILAR AND MEDIASTINAL STRUCTURES: No identified masses or abnormal nodes. HARDWARE: None in the chest. UPPER ABDOMEN: No significant findings. Limited exam. THYROID AND OTHER SOFT TISSUES: No masses. No adenopathy. BONES: No acute or significant finding. 3D MIPS: Confirm above findings. OTHER: No other significant finding. IMPRESSION: Pulmonary emphysema. No acute findings in the thorax. COMMENT: Quality ID # [id number]: Final reports with documentation of one or more dose reduction techniques (e.g., Automated exposure control, adjustment of the mA and/or kV according to patient size, use of iterative reconstruction technique) TECHNICAL DOCUMENTATION: JOB ID: [id number] 2010 [employer]- All Rights Reserved Reading location - IP/workstation name: [email or web address]
[2019-10-25 19:25] LABS: A TYPE INFLUENZA AG NEGATIVE (NEGATIVE); B INFLUENZA AG NEGATIVE (NEGATIVE)
[2019-10-25] MEDS ORDERED: BUMETANIDE INJ/PF 1 MG/4 ML SDV IV ONE (19:27)
[2019-10-25 20:06] VITALS: BP 152/56
--- NOTE | 2019-10-27 00:29 | EKG REPORT ---
SEVERITY:- NORMAL ECG - SINUS RHYTHM : Confirmed by: Tracee Anna 27-Oct-2019 00:28:05
== END 2019-10-25 20:06 | disposition home or self-care (01) ==
LOC: ER 15:34
DX: J20.9 Acute bronchitis, unspecified (principal); J43.9 Emphysema, unspecified; I50.9 Heart failure, unspecified; N30.00 Acute cystitis without hematuria; J06.9 Acute upper respiratory infection, unspecified; I25.10 Atherosclerotic heart disease of native coronary artery without angina pectoris; Z88.1 Allergy status to other antibiotic agents; Z88.2 Allergy status to sulfonamides
CPT/HCPCS: 93005; 99291; 99292; 96374; 36415; 82550; 85025; 80053; 81001; 84484; 85379; 87804; 83880; 71045; 71275; 93010; J3490